=== PATIENT | male | born 1930 | race Caucasian/White ===

== ENCOUNTER → 2017-02-15 | Outpatient (CLI) | payer MEDICARE ==
[~2017-02-15] MED LIST: ACET500C6 PO; ALBU1AER9 INH; AMIO200T4 PO; ATOR-24 PO; CIPR-255 PO; DOCU-94 PO; FINA5TAB PO; HUMALOG INJ; HYDR-3419 PO; INSDGI SC; LEVO125T72 PO; MAGN400T6 PO; METO1TAB55 PO; METO25TA56 PO; METO5TAB25 PO; MULT-106 PO; NVLGI SC; OMEG10007 PO; OXGN; OXYC-57 PO; PHEN-939 PO; SENN-56 PO; SENN-61 PO; SILO8CAP PO; SYMIN160 INH; TERA5CAP PO; TIOTCAP INH; VNTHFA/IN INH; WARF5TAB7 PO; WHEATAB2 PO
[2017-02-15 09:42] LABS: BASO % 0.4 %; BASO ABS # 0.04 K/uL (0-0.2); COMPLETE YES; EOS % 2.8 %; HEMATOCRIT 36.5 % (42-52); IG% 0.5 %; LYMPH ABS # 2.37 K/uL (1.2-3.4); MEAN CELL VOLUME 88.4 fL (80-100); MEAN CORPUSCULAR HEMOGLOBIN 28.3 pg (25-34); MEAN CORPUSCULAR HGB CONC 32.1 g/dl (32-36); MEAN PLATELET VOLUME 10.4 fL (7.4-10.4); MONO % 6.9 %; NEUT % 64.4 %; PLATELET COUNT 221 K/uL (130-400); RED BLOOD COUNT 4.13 M/uL (4.7-6.1); WHITE BLOOD COUNT 9.48 K/uL (4.8-10.8)
[2017-02-15 10:13] LABS: ESTIMATED AVERAGE GLUCOSE 143 mg/dl; HA1C FLAG Normal (Normal)
[2017-02-15 10:45] LABS: ALT/SGPT 27 U/L (12-78); AST/SGOT 21 U/L (15-37); BLOOD UREA NITROGEN 33 mg/dl (7-18); BUN/CREATININE RATIO 21.7 (10-20); CALCIUM 8.8 mg/dl (8.5-10.1); CARBON DIOXIDE 27 mmol/L (21-32); CHLORIDE 102 mmol/L (98-107); GLUCOSE 179 mg/dl (70-99); POTASSIUM 3.9 mmol/L (3.5-5.1); SODIUM 139 mmol/L (136-145)
[2017-02-15 10:57] LABS: CHOLESTEROL 113 mg/dl (0-200); CHOLESTEROL/HDL RATIO 2.5; HDL CHOLESTEROL 46 mg/dl; LDL CHOLESTEROL CALCULATED 46 mg/dl; TRIGLYCERIDES 106 mg/dl (0-150); VERY LOW DENSITY LIPOPROT CALC 21 mg/dl
== END | disposition home or self-care (01) ==
LOC: C.LAB1850 08:25
PROVIDERS: ATTEND Physician Assistant
DX: J84.10 Pulmonary fibrosis, unspecified (principal); E11.3299 Type 2 diabetes mellitus with mild nonproliferative diabetic retinopathy without macular edema, unspecified eye

== ENCOUNTER → 2017-02-18 | Outpatient (CLI) | payer MEDICARE ==
--- NOTE | 2017-02-18 15:53 | DIAGNOSTIC IMAGING REPORT ---
CHEST 2 VIEWS ROUTINE HISTORY: CHRONIC OBSTRUCTIVE PULMONARY DISEASE COMPARISON: Chest 08/13/2015. FINDINGS: The heart remains mildly enlarged. No pleural effusions. No pneumothorax. No new focal lung consolidations. Mild interstitial thickening most pronounced at the left lung base persist. This favors chronic change. No new focal lung consolidations. No evidence for pulmonary edema. Fusion of the mid thoracic spine vertebral bodies. IMPRESSION: No significant change compared to the prior study. No acute process. Electronically signed by: Aristeo Dunn M.D. 02/18/2017 3:52 PM Dictated Date/Time: 02/18/2017 3:48 PM
== END | disposition home or self-care (01) ==
LOC: C.RAD1850 15:28
PROVIDERS: ATTEND Internal Medicine
DX: J44.9 Chronic obstructive pulmonary disease, unspecified (principal)

== ENCOUNTER → 2017-05-24 | Outpatient (CLI) | payer MEDICARE ==
[~2017-05-24] MED LIST changes: -DOCU-94 PO; -HUMALOG INJ; -MAGN400T6 PO; -OXYC-57 PO; -PHEN-939 PO; -VNTHFA/IN INH; -WHEATAB2 PO
[2017-05-24 12:15] LABS: BASO % 0.3 %; BASO ABS # 0.03 K/uL (0-0.2); COMPLETE YES; EOS % 1.9 %; HEMATOCRIT 36.1 % (42-52); IG% 0.6 %; LYMPH % 20.6 %; LYMPH ABS # 2.23 K/uL (1.2-3.4); MEAN CELL VOLUME 89.8 fL (80-100); MEAN CORPUSCULAR HEMOGLOBIN 29.1 pg (25-34); MEAN CORPUSCULAR HGB CONC 32.4 g/dl (32-36); MEAN PLATELET VOLUME 10.3 fL (7.4-10.4); MONO % 7.4 %; NEUT % 69.2 %; PLATELET COUNT 190 K/uL (130-400); RED BLOOD COUNT 4.02 M/uL (4.7-6.1); WHITE BLOOD COUNT 10.84 K/uL (4.8-10.8)
[2017-05-24 12:28] LABS: ALT/SGPT 34 U/L (12-78); BLOOD UREA NITROGEN 29 mg/dl (7-18); BUN/CREATININE RATIO 19.6 (10-20); CALCIUM 9.1 mg/dl (8.5-10.1); CARBON DIOXIDE 30 mmol/L (21-32); CHLORIDE 101 mmol/L (98-107); GLUCOSE 53 mg/dl (70-99); POTASSIUM 3.3 mmol/L (3.5-5.1); SODIUM 140 mmol/L (136-145)
[2017-05-24 12:29] LABS: ESTIMATED AVERAGE GLUCOSE 143 mg/dl; HA1C FLAG Normal (Normal)
[2017-05-24 12:39] LABS: AST/SGOT 31 U/L (15-37)
== END | disposition home or self-care (01) ==
LOC: C.LAB1850 10:15
PROVIDERS: ATTEND Physician Assistant
DX: J84.10 Pulmonary fibrosis, unspecified (principal); E03.9 Hypothyroidism, unspecified; N18.9 Chronic kidney disease, unspecified; E11.22 Type 2 diabetes mellitus with diabetic chronic kidney disease; D64.9 Anemia, unspecified

== ENCOUNTER → 2017-09-28 | Outpatient (CLI) | payer MEDICARE ==
[~2017-09-28] MED LIST changes: -ACET500C6 PO; -ALBU1AER9 INH; -AMIO200T4 PO; +DOCU-94 PO; +HUMALOG INJ; -HYDR-3419 PO; +MAGN400T6 PO; -METO5TAB25 PO; -MULT-106 PO; -NVLGI SC; +OXYC-57 PO; -SENN-56 PO; -SILO8CAP PO; -TERA5CAP PO; -TIOTCAP INH; +VNTHFA/IN INH; +WHEATAB2 PO
[2017-09-28 16:41] LABS: BASO % 0.3 %; BASO ABS # 0.04 K/uL (0-0.2); COMPLETE YES; EOS % 2.7 %; HEMATOCRIT 38.1 % (42-52); IG% 0.5 %; LYMPH % 31.4 %; LYMPH ABS # 3.79 K/uL (1.2-3.4); MEAN CELL VOLUME 89.2 fL (80-100); MEAN CORPUSCULAR HEMOGLOBIN 28.6 pg (25-34); MEAN PLATELET VOLUME 11.4 fL (7.4-10.4); NEUT % 58.1 %; PLATELET COUNT 194 K/uL (130-400); RED BLOOD COUNT 4.27 M/uL (4.7-6.1); WHITE BLOOD COUNT 12.07 K/uL (4.8-10.8)
[2017-09-28 16:52] LABS: BLOOD UREA NITROGEN 35 mg/dl (7-18); BUN/CREATININE RATIO 22.3 (10-20); CALCIUM 9.3 mg/dl (8.5-10.1); CARBON DIOXIDE 30 mmol/L (21-32); CHLORIDE 102 mmol/L (98-107); CREATININE 1.58 mg/dl (0.60-1.40); GLUCOSE 93 mg/dl (70-99); SODIUM 135 mmol/L (136-145)
[2017-09-29 06:40] LABS: ESTIMATED AVERAGE GLUCOSE 146 mg/dl; HA1C FLAG Normal (Normal)
== END | disposition home or self-care (01) ==
LOC: C.LAB1850 15:27
PROVIDERS: ATTEND Internal Medicine
DX: J84.10 Pulmonary fibrosis, unspecified (principal); E03.9 Hypothyroidism, unspecified; E11.9 Type 2 diabetes mellitus without complications; I27.81 Cor pulmonale (chronic)

== ENCOUNTER → 2017-11-18 | Outpatient (CLI) | payer MEDICARE ==
[2017-11-18 12:00] LABS: BASO % 0.4 %; BASO ABS # 0.05 K/uL (0-0.2); EOS % 1.2 %; EOS ABS # 0.14 K/uL (0-0.5); HEMATOCRIT 35.8 % (42-52); HEMOGLOBIN 11.6 g/dL (14.0-18.0); IG# 0.08 K/uL (0.00-0.02); LYMPH % 26.2 %; LYMPH ABS # 2.98 K/uL (1.2-3.4); MEAN CELL VOLUME 89.5 fL (80-100); MEAN CORPUSCULAR HGB CONC 32.4 g/dl (32-36); MEAN PLATELET VOLUME 10.3 fL (7.4-10.4); MONO % 7.7 %; MONO ABS # 0.88 K/uL (0.11-0.59); NEUT % 63.8 %; NEUT ABS # 7.26 K/uL (1.4-6.5); PLATELET COUNT 182 K/uL (130-400); RED CELL DISTRIBUTION WIDTH CV 15.7 % (11.5-14.5); RED CELL DISTRIBUTION WIDTH SD 51.5 fL (36.4-46.3); WHITE BLOOD COUNT 11.39 K/uL (4.8-10.8)
[2017-11-18 12:32] LABS: BLOOD UREA NITROGEN 40 mg/dl (7-18); CALCIUM 8.8 mg/dl (8.5-10.1); CARBON DIOXIDE 27 mmol/L (21-32); CREATININE 1.78 mg/dl (0.60-1.40); GLUCOSE 86 mg/dl (70-99); POTASSIUM 3.7 mmol/L (3.5-5.1); SODIUM 136 mmol/L (136-145)
== END | disposition home or self-care (01) ==
LOC: C.LAB1850 11:10
PROVIDERS: ATTEND Internal Medicine
DX: D64.9 Anemia, unspecified (principal)

== ENCOUNTER 2018-02-10 21:27 | Inpatient (IN) | payer MEDICARE, OTHER ==
[~2018-02-10] VITALS: Ht 177.8 cm; Wt 103.8 kg
[2018-02-10] MEDS: NITROGLYCERIN 2% OINTMENT 30GM TUBE EXT ONE (21:35)
[2018-02-10] MEDS ORDERED: IPRATROPIUM BROMIDE NEB SOLN 0.02% 2.5 ML VIAL INH STA (21:39)
[2018-02-10] MEDS ORDERED: LEVALBUTEROL 1.25MG/0.5ML NEB INH STA (21:39)
--- NOTE | 2018-02-10 21:46 | DIAGNOSTIC IMAGING REPORT ---
CHEST ONE VIEW PORTABLE HISTORY: 88 years-old Male sob acute shortness of breath COMPARISON: Chest radiograph 08/19/2017 TECHNIQUE: Portable AP view of the chest FINDINGS: Cardiac silhouette is again enlarged. Atherosclerosis of the aorta. The lungs are hypoinflated. Pulmonary vascular congestion with background of chronic interstitial lung disease. Trace bilateral pleural effusions with subsegmental bibasilar opacities. No pneumothorax. Mild gaseous distention of the stomach. Degenerative changes of the spine. IMPRESSION: 1. Cardiomegaly with mild pulmonary vascular congestion. 2. Trace bilateral pleural effusions with subsegmental bibasilar opacities suggesting atelectasis. 3. Chronic background interstitial coarsening. The above report was generated using voice recognition software. It may contain grammatical, syntax or spelling errors. Electronically signed by: Vel Santos M.D. 02/10/2018 9:45 PM Dictated Date/Time: 02/10/2018 9:43 PM
[2018-02-10] MEDS ORDERED: FUROSEMIDE 40 MG/4 ML VIAL IV STA (21:49)
[2018-02-10 21:57] VITALS: PULSE 108
[2018-02-10 21:59] VITALS: PULSE 106; O2SAT 97
[2018-02-10 22:26] LABS: BASO % 0.2 %; BASO ABS # 0.03 K/uL (0-0.2); EOS % 0.2 %; EOS ABS # 0.02 K/uL (0-0.5); HEMATOCRIT 35.8 % (42-52); HEMOGLOBIN 11.7 g/dL (14.0-18.0); IG# 0.08 K/uL (0.00-0.02); LYMPH % 11.8 %; LYMPH ABS # 1.44 K/uL (1.2-3.4); MEAN CELL VOLUME 89.7 fL (80-100); MEAN CORPUSCULAR HEMOGLOBIN 29.3 pg (25-34); MEAN CORPUSCULAR HGB CONC 32.7 g/dl (32-36); MEAN PLATELET VOLUME 9.9 fL (7.4-10.4); MONO % 5.2 %; MONO ABS # 0.63 K/uL (0.11-0.59); NEUT % 81.9 %; PLATELET COUNT 155 K/uL (130-400); RED CELL DISTRIBUTION WIDTH CV 15.1 % (11.5-14.5); RED CELL DISTRIBUTION WIDTH SD 49.7 fL (36.4-46.3)
[2018-02-10] MEDS ORDERED: ACETAMINOPHEN 325 MG SUPP PR STA (22:40)
[2018-02-10] MEDS ORDERED: PIPERACILLIN/TAZOBACTAM 4.5 GM/100ML D5W IV STA (22:40)
[2018-02-10 22:41] LABS: ALBUMIN 3.3 gm/dl (3.4-5.0); CALCIUM 8.4 mg/dl (8.5-10.1); CREATININE 1.81 mg/dl (0.60-1.40); POTASSIUM 4.1 mmol/L (3.5-5.1)
[2018-02-10 22:46] LABS: INR 1.9 (0.9-1.1)
[2018-02-10 22:48] LABS: TOTAL PROTEIN 7.2 gm/dl (6.4-8.2)
[2018-02-10 22:53] LABS: PTT PATIENT 92.7 SECONDS (21.0-31.0)
[2018-02-10 23:15] VITALS: PULSE 109; O2SAT 97
[2018-02-10] MEDS ORDERED: MoRPHine SULFATE 2 MG/ML CARP IV PRN (23:45)
[2018-02-10] MEDS ORDERED: GLUCOSE 10 TABS/TUBE PO PRN (23:45)
[2018-02-10] MEDS ORDERED: GLUCAGON FOR INJ 1 MG VIAL SQ PRN (23:45)
[2018-02-10] MEDS ORDERED: DC ALL PREVIOUSLY ORDERED DIABETES MEDS ONE (23:45)
[2018-02-10] MEDS ORDERED: ICU PROTOCOL FOR HYPERGLYCEMIA PRN (23:45)
[2018-02-10] MEDS ORDERED: DEXTROSE 50% 50 ML SYR IV PRN (23:45)
[2018-02-10] MEDS ORDERED: ACETAMINOPHEN 325 MG TAB PO PRN (23:45)
[2018-02-10] MEDS ORDERED: GLUCOSE 40% GEL 15 GM TUBE PO PRN (23:45)
[2018-02-10] MEDS ORDERED: METO5TAB25 PO (23:57)
[2018-02-11] VITALS (29 sets, daily range): BP systolic 104–152; BP diastolic 50–78; PULSE 80–107; TEMP 36.9–37.3; O2SAT 91–97; BMI 35.8
[2018-02-11] MEDS ORDERED: PHARMACY GLYCEMIC MGMT CONSULT PRN
[2018-02-11] MEDS ORDERED: MULT-506 PO
[2018-02-11] MEDS ORDERED: LEVOFLOXACIN / D5W 750 MG in PREMIXED IN D5W 150 ML IV SCH
[2018-02-11] MEDS ORDERED: TERA5CAP PO (00:01)
--- NOTE | 2018-02-11 00:02 | EMERGENCY ROOM VISIT NOTE ---
History Report prepared by Shawn: Mack Finley Under the Supervision of: Dr. Ti Whitley M.D. First contact with patient: 21:30 Chief Complaint: SHORTNESS OF BREATH Stated Complaint: SHORTNESS OF BREATH History of Present Illness The patient is an 88 year old male who presents to the Emergency Room with complaints of worsening SOB beginning a few days ago. Per nurse, the patient has had constant SOB for the past few days that has worsened tonight. She notes that the patient has also had a change in his MS. She reports that the patient received one DuoNeb en route to the emergency department tonight and had an oxygen saturation of 91% on C-pap. She states that the patient has a history of pulmonary fibrosis, CHF, and COPD. Per daughter, the patient did not receive his breathing treatment tonight. HPI limited secondary to mental status and respiratory distress. Source of History: family (daughter), nursing staff History Limited By: other (mental status and respiratory distress) Onset: a few days ago Position: chest Symptom Intensity: 91% on C-pap Quality: other (SOB) Timing: worsening Note: Per nurse, the patient has had change to her mental status. Review of Systems ROS limited secondary to mental status and respiratory distress. Past Medical & Surgical Medical Problems: (1) CHF (congestive heart failure) (2) COPD (chronic obstructive pulmonary disease) (3) Pulmonary fibrosis (4) Shortness of breath (5) Skin cancer Family History Cancer Diabetes mellitus FH: heart disease Hypertension Social History Smoking Status: Former Smoker Marital Status: Occupation Status: retired Current/Historical Medications Scheduled Atorvastatin (Lipitor), 40 MG PO HS Budesonide/Formoterol Fumarate (Symbicort 160/4.5 Inhaler), 2 PUFFS INH BID Docusate Sodium (Colace), 100 MG PO DAILY Finasteride (Proscar), 5 MG PO DAILY Home O2 Therapy (Oxygen), 4 LITER NA HS/PRN Insulin Glargine (Lantus), 45 UNITS SC AMPM Insulin Lispro (Human) (Humalog), 25 UNITS SQ QAM Insulin Lispro (Human) (Humalog), 27 UNITS SQ WITH LUNCH Insulin Lispro (Human) (Humalog), 27 UNITS SQ EVENING MEAL Ipratropium-Albuterol (Duoneb), 3 ML INH QID Levothyroxine Sodium (Synthroid), 125 MCG PO 6XWEEK Magnesium Oxide (Mag-Ox), 400 MG PO BID Metoclopramide Hcl (Reglan), 10 MG PO AC Metolazone (Zaroxolyn), 5 MG PO DAILY Metoprolol Tartrate (Lopressor) (Lopressor), 25 MG PO BID Multivitamin (Multivitamin), 1 TAB PO DAILY Senna (Senokot), 17.2 MG PO HS Spironolactone (Aldactone), 25 MG PO BID Terazosin (Hytrin), 5 MG PO HS Warfarin Sod (Jantoven), 5 MG PO QPM [Benefiber Tabs], 1 TAB PO DAILY Allergies Coded Allergies: No Known Allergies (Unverified , 08/30/17) Physical Exam Vital Signs Date Time Temp Pulse Resp B/P (MAP) Pulse Ox O2 Delivery O2 Flow Rate FiO2 02/10/18 23:15 99 20 90 BiPAP 02/10/18 23:15 109 97 35 02/10/18 23:01 152/83 02/10/18 22:46 162/96 02/10/18 22:45 94 95 BiPAP 02/10/18 22:15 105 32 156/89 96 BiPAP 02/10/18 22:00 104 36 142/69 97 BiPAP 02/10/18 21:59 106 97 60 02/10/18 21:57 108 35 BiPAP/CPAP 60 02/10/18 21:48 96 BiPAP 02/10/18 21:45 110 35 145/80 97 BiPAP 02/10/18 21:36 96 CPAP 02/10/18 21:36 37.9 111 25 145/77 96 BiPAP 02/10/18 21:34 111 02/10/18 21:31 96 BiPAP Physical Exam GENERAL: Patient is in mild distress. HEENT: No acute trauma, normocephalic atraumatic, mucous membranes moist, no nasal congestion, no scleral icterus. NECK: No stridor, no adenopathy, no meningismus, trachea is midline. LUNGS: Decreased breath sounds, breath sounds equal bilaterally, mild respiratory distress, wheezing and crackles bilaterally. HEART: Mildly tachycardic, regular rhythm, distant heart tones, no obvious murmur. ABDOMEN: Soft, nontender, bowel sounds positive, no peritonitis, reducible nontender umbilical hernia. EXTREMITIES: No cyanosis, full range of motion of all the joints without pain or difficulty, no signs for acute trauma, moderate bilateral pedal edema. NEUROLOGIC: Somnolent but awakes to voice, answers simple questions, seems slightly confused, no focal motor deficits. SKIN: No rash, no jaundice, no diaphoresis. Medical Decision & Procedures ER Provider Diagnostic Interpretation: Radiology results as stated below per my review and radiologist interpretation: CHEST ONE VIEW PORTABLE FINDINGS: Cardiac silhouette is again enlarged. Atherosclerosis of the aorta. The lungs are hypoinflated. Pulmonary vascular congestion with background of chronic interstitial lung disease. Trace bilateral pleural effusions with subsegmental bibasilar opacities. No pneumothorax. Mild gaseous distention of the stomach. Degenerative changes of the spine. IMPRESSION: 1. Cardiomegaly with mild pulmonary vascular congestion. 2. Trace bilateral pleural effusions with subsegmental bibasilar opacities suggesting atelectasis. 3. Chronic background interstitial coarsening. The above report was generated using voice recognition software. It may contain grammatical, syntax or spelling errors. Electronically signed by: Vel Santos M.D. 02/10/2018 9:45 PM Laboratory Results 02/10/18 22:13 Red Blood Count 3.99, Mean Corpuscular Volume 89.7, Mean Corpuscular Hemoglobin 29.3, Mean Corpuscular Hemoglobin Concent 32.7, Mean Platelet Volume 9.9, Neutrophils (%) (Auto) 81.9, Lymphocytes (%) (Auto) 11.8, Monocytes (%) (Auto) 5.2, Eosinophils (%) (Auto) 0.2, Basophils (%) (Auto) 0.2, Neutrophils # (Auto) 10.00, Lymphocytes # (Auto) 1.44, Monocytes # (Auto) 0.63, Eosinophils # (Auto) 0.02, Basophils # (Auto) 0.03 Test 02/10/18 21:53 02/10/18 22:05 02/10/18 22:12 02/10/18 22:13 Influenza Type A Antigen Neg for Influ A (NEG) Influenza Type B Antigen Neg for Influ B (NEG) Urine Color YELLOW Urine Appearance CLEAR (CLEAR) Urine pH 5.0 (4.5-7.5) Urine Specific [place] 1.025 (1.000-1.030) Urine Protein NEG (NEG) Urine Glucose (UA) NEG (NEG) Urine Ketones NEG (NEG) Urine Occult Blood TRACE (NEG) Urine Nitrite NEG (NEG) Urine Bilirubin NEG (NEG) Urine Urobilinogen NEG (NEG) Urine Leukocyte Esterase NEG (NEG) Urine WBC (Auto) 1-5 /hpf (0-5) Urine RBC (Auto) 0-4 /hpf (0-4) Urine Hyaline Casts (Auto) 1-5 /lpf (0-5) Urine Epithelial Cells (Auto) 20-30 /lpf (0-5) Urine Bacteria (Auto) NEG (NEG) Prothrombin Time 20.2 SECONDS (9.0-12.0) Prothromb Time International Ratio 1.9 (0.9-1.1) Activated Partial Thromboplast Time 92.7 SECONDS (21.0-31.0) Partial Thromboplastin Ratio 3.6 Procalcitonin 0.09 ng/ml (0-0.5) White Blood Count 12.20 K/uL (4.8-10.8) Red Blood Count 3.99 M/uL (4.7-6.1) Hemoglobin 11.7 g/dL (14.0-18.0) Hematocrit 35.8 % (42-52) Mean Corpuscular Volume 89.7 fL (80-100) Mean Corpuscular Hemoglobin 29.3 pg (25-34) Mean Corpuscular Hemoglobin Concent 32.7 g/dl (32-36) Platelet Count 155 K/uL (130-400) Mean Platelet Volume 9.9 fL (7.4-10.4) Neutrophils (%) (Auto) 81.9 % Lymphocytes (%) (Auto) 11.8 % Monocytes (%) (Auto) 5.2 % Eosinophils (%) (Auto) 0.2 % Basophils (%) (Auto) 0.2 % Neutrophils # (Auto) 10.00 K/uL (1.4-6.5) Lymphocytes # (Auto) 1.44 K/uL (1.2-3.4) Monocytes # (Auto) 0.63 K/uL (0.11-0.59) Eosinophils # (Auto) 0.02 K/uL (0-0.5) Basophils # (Auto) 0.03 K/uL (0-0.2) RDW Standard Deviation 49.7 fL (36.4-46.3) RDW Coefficient of Variation 15.1 % (11.5-14.5) Immature Granulocyte % (Auto) 0.7 % Immature Granulocyte # (Auto) 0.08 K/uL (0.00-0.02) Venous Blood pH 7.29 (7.36-7.41) Venous Blood Partial Pressure CO2 68 mmHg (38.0-50.0) Venous Blood Partial Pressure O2 83 mmHg Venous Blood HCO3 32 mmol/L Venous Blood Oxygen Saturation 93.4 % Venous Blood Base Excess 3.5 mEq/L Est Creatinine Clear Calc Drug Dose 35.8 ml/min Lactic Acid Level 1.0 mmol/L (0.4-2.0) Total Bilirubin 0.5 mg/dl (0.2-1) Aspartate Amino Transf (AST/SGOT) 45 U/L (15-37) Alanine Aminotransferase (ALT/SGPT) 31 U/L (12-78) Alkaline Phosphatase 44 U/L (45-117) Ammonia 25.9 umol/L (11-32) Troponin I 1.300 ng/ml (0-0.045) Pro-B-Type Natriuretic Peptide 366 pg/ml (0-1800) Total Protein 7.2 gm/dl (6.4-8.2) Albumin 3.3 gm/dl (3.4-5.0) Globulin 3.9 gm/dl (2.5-4.0) Albumin/Globulin Ratio 0.8 (0.9-2) Laboratory results reviewed by me. Medications Administered Medications (Trade) Dose Ordered Sig/Yoli Route Start Time Stop Time Status Last Admin Dose Admin Nitroglycerin (Nitroglycerin 2% Oint) 36 inch STK-MED ONCE EXT 02/10/18 21:34 02/10/18 21:35 DC 02/10/18 21:35 36 INCH Levalbuterol (Xopenex 1.25MG/ 0.5ML Neb) 1.25 mg NOW STAT INH 02/10/18 21:39 02/10/18 21:40 DC 02/10/18 21:57 1.25 MG Ipratropium [place] (Atrovent 0.02% 0.5MG/2.5ML Neb) 0.5 mg NOW STAT INH 02/10/18 21:39 02/10/18 21:40 DC 02/10/18 21:56 0.5 MG Furosemide (Lasix Inj) 40 mg NOW STAT IV 02/10/18 21:49 02/10/18 21:50 DC 02/10/18 22:08 40 MG Piperacillin Sod/ Tazobactam Sod (Zosyn Iv) 4.5 gm NOW STAT IV 02/10/18 22:40 02/10/18 22:42 DC 02/10/18 22:47 4.5 GM Acetaminophen (Tylenol Supp) 975 mg NOW STAT SC 02/10/18 22:40 02/10/18 22:42 DC 02/10/18 22:47 975 MG ECG Per My Interpretation Indication: SOB/dyspnea Rate (beats per minute): 113 Rhythm: sinus tachycardia Findings: RBBB, no ectopy, other (Baseline artifact present, no ST elevation) ED Course 2129: The patient was evaluated in room B1. A complete history and physical exam was performed. 2138: Ipratropium [place] 0.5mg INH, Levalbuterol 1.25mg INH, 2 inches of NTG paste. 2148: Furosemide 40mg IV 0: Acetaminophen 975mg SC, Zosyn Iv 5.4gm IV 7: I reevaluated and updated the patient. 0: Upon reexamination the patient is stable. I discussed results and treatment plan with the patient. He verbalizes agreement and understanding. I spoke with Dr. Sheldon of the [facility] Hospitalist Service. We discussed the patient's results and findings. The patient will be evaluated for further management. Medical Decision Differential diagnoses include: CHF, influenza, pneumonia, bronchitis, COPD exacerbation, SD, anemia, electrolyte abnormality, and sepsis. There is a mild leukocytosis at 12,000, this is consistent with infection. No worrisome anemia. Renal panel testing shows renal insufficiency which appears baseline. No hepatitis. INR is elevated consistent with his Coumadin use. Influenza testing was negative. Blood cultures are pending. Urinalysis does not show infection. Chest film shows some basilar congestion consistent with possibly pneumonia, there was no pneumothorax. EKG showed a sinus tachycardia with a rate of 113, no acute ischemic change. Cardiac enzyme testing 1 is elevated consistent with possible cardiac injury or strain. VBG does show CO2 retention with a mild acidosis. Lactic acid level is not elevated making sepsis less likely. Ammonia level is not elevated. The patient presented dyspneic with a change in mental status. He was aggressively managed. He had received a DuoNeb, CPAP and IV Solu-Medrol prior to arrival. Patient was placed on BiPAP. He was given a Xopenex Atrovent neb. He received 2 inches of nitroglycerin paste, 40 mg of IV Lasix, rectal Tylenol, IV Zosyn. The patient is doing well considering his presentation. I did talk with his family about intubation, for now, they want to avoid intubation if at all possible but they have not yet decided on a true CODE STATUS. I did speak with case management, I did speak with the on-call hospitalist. The ICU has been contacted as well. In short, the patient appears to have pneumonia with a flare of COPD, he is retaining CO2, his troponin is elevated. Further workup and care is required. Medication Reconcilliation Current Medication List: was personally reviewed by me Blood Pressure Screening Patient's blood pressure: Normal blood pressure Blood pressure disposition: Elevated BP felt to be situational Consults Time Called: [id number] Consulting Physician: Dr. Sheldon - Hospitalist, [facility] Returned Call: [id number] Discussed the patient's case. The patient will be evaluated for further management. Impression Primary Impression: Respiratory distress Additional Impressions: Pneumonia Change in mental status Elevated troponin CO2 retention Critical Care I have personally spent greater than 45 minutes of critical care time in the direct management of this patient. This includes bedside care, interpretation of diagnostic studies, and testing, discussion with consultants, patient, and family members, and other required patient management activities. This 45 minutes is in excess of all separately billable procedures. Scribe Attestation The scribe's documentation has been prepared under my direction and personally reviewed by me in its entirety. I confirm that the note above accurately reflects all work, treatment, procedures, and medical decision making performed by me. Departure Information Dispostion Being Evaluated By Hospitalist Referrals Marcial Harding M.D. (PCP) Patient Instructions My [facility] Problem Qualifiers
[2018-02-11] MEDS ORDERED: METO25TA56 PO (00:04)
[2018-02-11] MEDS ORDERED: IPRASOL4 INH (00:11)
[2018-02-11] MEDS ORDERED: INSU100I SQ ×3 (00:14→00:17)
[2018-02-11] MEDS ORDERED: LEVOFLOXACIN CONSULT ACTIVE PRN (00:15)
[2018-02-11] MEDS ORDERED: BENEFIBER PO (00:20)
[2018-02-11] MEDS ORDERED: SPIR25TA PO (00:23)
[2018-02-11 00:30] LABS: INFLUENZA B ANTIGEN Neg for Influ B (NEG)
[2018-02-11] MEDS: LEVALBUTEROL 1.25MG/0.5ML NEB INH SCH ×6 (01:11→18:50)
[2018-02-11] MEDS: IPRATROPIUM BROMIDE NEB SOLN 0.02% 2.5 ML VIAL INH SCH ×6 (01:11→18:50)
--- NOTE | 2018-02-11 01:22 | Critical Care Consultation ---
Critical Care Consultation Date of Consultation: Feb 11, 2018. Attending Physician: Uche Sheldon M.D. Reason for Consultation: 88-year-old male with acute on chronic hypoxemic respiratory failure secondary to worsening CHF with superimposed pneumonia process requiring positive pressure ventilation and close hemodynamic monitoring. History of Present Illness Patient is an 88-year-old male with a past medical history of hypertension, diabetes, atrial fibrillation, chronic kidney disease, COPD, pulmonary fibrosis , and cor pulmonale who has had a "cold" for the past 4 days. Per family, the patient reports complaining of a "chest cold" since approximately Wednesday. He describes a increasing cough with mild production of sputum. He does admit to increasing shortness of breath as well as worsening orthopnea and dyspnea on exertion. He does admit to increasing bilateral lower extremity edema. He denies any fevers or chills. He has had no nausea or vomiting. The patient's [id number] did deliver him dinner this evening, but she reported that he seemed fairly sluggish. At that point, she did direct her son to check on his father. When he arrived, the patient was confused and minimally responsive. They did have a family friend evaluate the patient was found to have a blood sugar of 63 in addition to difficulty with breathing. EMS was contacted and the patient was brought via EMS to the emergency department. In route to the emergency department, the patient received 1 DuoNeb treatment and was placed on CPAP with an oxygen saturation in the low 90s. The patient received a nebulizer treatment in the emergency department as well as intravenous Zosyn, 40 mg Lasix, and topical nitroglycerin. He had a mild leukocytosis as well as slight elevation of his creatinine from his baseline CKD. Troponin was elevated at greater than 1. PTT and INR are both elevated as well. Patient does take Coumadin for atrial fibrillation. Chest x-ray demonstrates pulmonary vascular congestion as well as concern for possible basilar infiltrates with chronic interstitial lung findings. On evaluation, the patient is tachypneic, however he is awake, alert, and oriented on BiPAP. He denies any pain at this point. He does not provide detailed historical information secondary to his respiratory distress, however he does provide a significant review of systems. He denies any headaches, dizziness, lightheadedness, fevers, chills, chest pain, palpitations, pleuritic pain, hemoptysis, nausea, vomiting, abdominal pain, hematochezia, melena, hematuria, or dysuria. Patient lives at home alone. He is retired. 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) Cor pulmonale (I27.81) Diffuse idiopathic pulmonary fibrosis (J84.10) Family History Cancer Diabetes mellitus FH: heart disease Hypertension DM, HTN, CA Social History Smoking Status: Former Smoker Smokeless Tobacco Use: Yes Alcohol Use: none Drug Use: none Marital Status: Housing Status: lives alone Occupation Status: retired Allergies Coded Allergies: No Known Allergies (Unverified , 08/30/17) Home Medications Scheduled Atorvastatin (Lipitor), 40 MG PO HS Budesonide/Formoterol Fumarate (Symbicort 160/4.5 Inhaler), 2 PUFFS INH BID Docusate Sodium (Colace), 100 MG PO DAILY Finasteride (Proscar), 5 MG PO DAILY Home O2 Therapy (Oxygen), 4 LITER NA HS/PRN Insulin Glargine (Lantus), 45 UNITS SC AMPM Insulin Lispro (Human) (Humalog), 25 UNITS SQ QAM Insulin Lispro (Human) (Humalog), 27 UNITS SQ WITH LUNCH Insulin Lispro (Human) (Humalog), 27 UNITS SQ EVENING MEAL Ipratropium-Albuterol (Duoneb), 3 ML INH QID Levothyroxine Sodium (Synthroid), 125 MCG PO 6XWEEK Magnesium Oxide (Mag-Ox), 400 MG PO BID Metoclopramide Hcl (Reglan), 10 MG PO AC Metolazone (Zaroxolyn), 5 MG PO DAILY Metoprolol Tartrate (Lopressor) (Lopressor), 25 MG PO BID Multivitamin (Multivitamin), 1 TAB PO DAILY Senna (Senokot), 17.2 MG PO HS Spironolactone (Aldactone), 25 MG PO BID Terazosin (Hytrin), 5 MG PO HS Warfarin Sod (Jantoven), 5 MG PO QPM [Benefiber Tabs], 1 TAB PO DAILY Current Inpatient Medications Current Inpatient Medications Medications (Trade) Dose Ordered Sig/Yoli Route Start Time Stop Time Status Last Admin Dose Admin Acetaminophen (Tylenol Tab) 650 mg Q4H PRN PO 02/10/18 23:45 03/12/18 23:44 Pantoprazole Sodium 40 mg/ Syringe 10 ml @ 5 mls/min DAILY IV 02/11/18 09:00 03/13/18 08:59 Levalbuterol (Xopenex 1.25MG/ 0.5ML Neb) 1.25 mg Q4R INH 02/11/18 00:00 03/13/18 00:00 Ipratropium [place] (Atrovent 0.02% 0.5MG/2.5ML Neb) 0.5 mg Q4R INH 02/11/18 00:00 03/13/18 00:00 Morphine Sulfate (MoRPHine SULFATE INJ) 2 mg Q2H PRN IV 02/10/18 23:45 02/24/18 23:44 Miscellaneous Information (Icu Protocol For Hyperglycemia) 1 ea PRN PRN N/A 02/10/18 23:45 02/12/18 23:44 Insulin Aspart (novoLOG ASPART) SLIDING SCALE If C... ACHS SC 02/11/18 07:00 03/13/18 06:59 UNV Glucose (Glucose 40% Gel) 15-30 GRAMS 15 GRAMS... UD PRN PO 02/10/18 23:45 03/12/18 23:44 Glucose (Glucose Chew Tab) 4-8 Tablets 4 Tabl... UD PRN PO 02/10/18 23:45 03/12/18 23:44 Dextrose (Dextrose 50% 50ML Syringe) 25-50ML OF 50% DW IV FOR... UD PRN IV 02/10/18 23:45 03/12/18 23:44 Glucagon (Glucagon Inj) 1 mg UD PRN SQ 02/10/18 23:45 03/12/18 23:44 Miscellaneous Information (Consult Glycemic Management Pharmacy) 1 ea DAILY PRN N/A 02/11/18 00:00 03/13/18 00:00 Levofloxacin 750 mg/Prmx 150 ml @ 100 mls/hr Q48H IV 02/11/18 00:00 02/18/18 00:00 02/11/18 00:23 100 MLS/HR Levofloxacin (Consult) 1 ea UD PRN N/A 02/11/18 00:15 03/13/18 00:14 Atorvastatin Calcium (Lipitor Tab) 40 mg HS PO 02/11/18 21:00 03/13/18 20:59 Budesonide/ Formoterol Fumarate (Symbicort 160/ 4.5 Inh) 2 puffs BID INH 02/11/18 09:00 03/13/18 08:59 Docusate Sodium (coLACE CAP) 100 mg DAILY PO 02/11/18 09:00 03/13/18 08:59 UNV Finasteride (Proscar Tab) 5 mg DAILY PO 02/11/18 09:00 03/13/18 08:59 UNV Magnesium Oxide (Mag-Ox Tab) 400 mg BID PO 02/11/18 09:00 03/13/18 08:59 UNV Metoclopramide HCl (Reglan Tab) 10 mg AC PO 02/11/18 06:45 03/13/18 06:44 UNV Metoprolol Tartrate (Lopressor Tab) 25 mg BID PO 02/11/18 09:00 03/13/18 08:59 UNV Multivitamins (Multivitamin Tab) 1 tab DAILY PO 02/11/18 09:00 03/13/18 08:59 UNV Senna (Senokot Tab) 17.2 mg HS PO 02/11/18 21:00 03/13/18 20:59 UNV Terazosin HCl (Hytrin Cap) 5 mg HS PO 02/11/18 21:00 03/13/18 20:59 UNV Warfarin Sodium (Coumadin Tab) 5 mg QPM PO 02/11/18 21:00 03/13/18 20:59 UNV Review of Systems A complete 10-point Review of Systems was discussed with the patient, with pertinent positives and negatives listed in the History of Present Illness. All remaining Review of Systems questions can be considered negative unless otherwise specified. Physical Exam Date Time Temp Pulse Resp B/P (MAP) Pulse Ox O2 Delivery O2 Flow Rate FiO2 02/11/18 00:24 107 91 35 02/11/18 00:05 37.1 98 34 117/67 91 BiPAP 35 02/10/18 23:46 122/61 02/10/18 23:45 95 22 02/10/18 23:31 130/74 02/10/18 23:16 138/83 02/10/18 23:15 99 20 90 BiPAP 02/10/18 23:15 109 97 35 02/10/18 23:01 152/83 02/10/18 22:46 162/96 02/10/18 22:45 94 95 BiPAP 02/10/18 22:15 105 32 156/89 96 BiPAP 02/10/18 22:00 104 36 142/69 97 BiPAP 02/10/18 21:59 106 97 60 02/10/18 21:57 108 35 BiPAP/CPAP 60 02/10/18 21:48 96 BiPAP 02/10/18 21:45 110 35 145/80 97 BiPAP 02/10/18 21:36 96 CPAP 02/10/18 21:36 37.9 111 25 145/77 96 BiPAP 02/10/18 21:34 111 02/10/18 21:31 96 BiPAP VITAL SIGNS - Vital signs and nursing notes were reviewed. GENERAL - 88-year-old male appearing his stated age who is in mild respiratory distress. Communicates in short answers, but is appropriate otherwise. SKIN - Without rashes. HEAD - NC/AT. EYES - PERRL with EOMI bilaterally. Sclera anicteric. EARS - No deformities of external structures noted on gross examination bilaterally. NOSE - Midline and without cyanosis. No epistaxis or purulent drainage noted. MOUTH/OROPHARYNX - Without perioral cyanosis. Buccal mucosa pink and moist and without leukoplakia. NECK - Neck with FROM. Supple to palpation. LUNGS - Tachypneic. Chest wall symmetric with moderate accessory muscle use and abdominal breathing. Coarse breath sounds with inspiratory wheezing noted throughout all lung [place]. CARDIAC - RRR with S1/S2. No murmur, rubs, or gallops appreciated. ABDOMEN - Abdominal contour protuberant with reducible ventral hernia near the umbilicus. BS normoactive all four quadrants. No tenderness, hepatosplenomegaly , or ascites noted. EXTREMITIES - No clubbing or peripheral cyanosis. No pretibial edema present. +3 /5 radial and dorsalis pedis pulses palpated throughout. +5/5 strength noted in UE/LE bilaterally. NEUROLOGIC - Cranial nerves II through XII grossly intact. PSYCH - A&Ox3 and cooperates fully with examiner. Pt is very pleasant and interacts well with examiner. Laboratory Results Last 24 Hours Test 02/10/18 21:53 02/10/18 22:05 02/10/18 22:12 02/10/18 22:13 Influenza Type A Antigen Neg for Influ A Influenza Type B Antigen Neg for Influ B Urine Color YELLOW Urine Appearance CLEAR Urine pH 5.0 Urine Specific [place] 1.025 Urine Protein NEG Urine Glucose (UA) NEG Urine Ketones NEG Urine Occult Blood TRACE Urine Nitrite NEG Urine Bilirubin NEG Urine Urobilinogen NEG Urine Leukocyte Esterase NEG Urine WBC (Auto) 1-5 /hpf Urine RBC (Auto) 0-4 /hpf Urine Hyaline Casts (Auto) 1-5 /lpf Urine Epithelial Cells (Auto) 20-30 /lpf Urine Bacteria (Auto) NEG Prothrombin Time 20.2 SECONDS Prothromb Time International Ratio 1.9 Activated Partial Thromboplast Time 92.7 SECONDS Partial Thromboplastin Ratio 3.6 Procalcitonin 0.09 ng/ml White Blood Count 12.20 K/uL Red Blood Count 3.99 M/uL Hemoglobin 11.7 g/dL Hematocrit 35.8 % Mean Corpuscular Volume 89.7 fL Mean Corpuscular Hemoglobin 29.3 pg Mean Corpuscular Hemoglobin Concent 32.7 g/dl Platelet Count 155 K/uL Mean Platelet Volume 9.9 fL Neutrophils (%) (Auto) 81.9 % Lymphocytes (%) (Auto) 11.8 % Monocytes (%) (Auto) 5.2 % Eosinophils (%) (Auto) 0.2 % Basophils (%) (Auto) 0.2 % Neutrophils # (Auto) 10.00 K/uL Lymphocytes # (Auto) 1.44 K/uL Monocytes # (Auto) 0.63 K/uL Eosinophils # (Auto) 0.02 K/uL Basophils # (Auto) 0.03 K/uL RDW Standard Deviation 49.7 fL RDW Coefficient of Variation 15.1 % Immature Granulocyte % (Auto) 0.7 % Immature Granulocyte # (Auto) 0.08 K/uL Venous Blood pH 7.29 Venous Blood Partial Pressure CO2 68 mmHg Venous Blood Partial Pressure O2 83 mmHg Venous Blood HCO3 32 mmol/L Venous Blood Oxygen Saturation 93.4 % Venous Blood Base Excess 3.5 mEq/L Sodium Level 134 mmol/L Potassium Level 4.1 mmol/L Chloride Level 97 mmol/L Carbon Dioxide Level 30 mmol/L Anion Gap 7.0 mmol/L Blood Urea Nitrogen 40 mg/dl Creatinine 1.81 mg/dl Est Creatinine Clear Calc Drug Dose 35.8 ml/min Estimated GFR () 38.1 Estimated GFR (Non- 32.9 BUN/Creatinine Ratio 22.3 Random Glucose 84 mg/dl Lactic Acid Level 1.0 mmol/L Calcium Level 8.4 mg/dl Magnesium Level 2.4 mg/dl Total Bilirubin 0.5 mg/dl Aspartate Amino Transf (AST/SGOT) 45 U/L Alanine Aminotransferase (ALT/SGPT) 31 U/L Alkaline Phosphatase 44 U/L Ammonia 25.9 umol/L Troponin I 1.300 ng/ml Pro-B-Type Natriuretic Peptide 366 pg/ml Total Protein 7.2 gm/dl Albumin 3.3 gm/dl Globulin 3.9 gm/dl Albumin/Globulin Ratio 0.8 Test 02/11/18 00:36 02/11/18 00:48 Bedside Glucose 185 mg/dl Diagnostic Results Radiological imaging and reports were reviewed by myself. Radiologist's Interpretation as follows: CHEST ONE VIEW PORTABLE HISTORY: 88 years-old Male sob acute shortness of breath COMPARISON: Chest radiograph 08/19/2017 TECHNIQUE: Portable AP view of the chest FINDINGS: Cardiac silhouette is again enlarged. Atherosclerosis of the aorta. The lungs are hypoinflated. Pulmonary vascular congestion with background of chronic interstitial lung disease. Trace bilateral pleural effusions with subsegmental bibasilar opacities. No pneumothorax. Mild gaseous distention of the stomach. Degenerative changes of the spine. IMPRESSION: 1. Cardiomegaly with mild pulmonary vascular congestion. 2. Trace bilateral pleural effusions with subsegmental bibasilar opacities suggesting atelectasis. 3. Chronic background interstitial coarsening. Assessment & Plan (1) Cor pulmonale (2) Respiratory distress (3) Pneumonia (4) Elevated troponin (5) Change in mental status (6) Pulmonary fibrosis (7) CHF (congestive heart failure) (8) COPD (chronic obstructive pulmonary disease) Reason Critically Ill: 88-year-old male with acute on chronic hypoxemic respiratory failure secondary to worsening CHF with superimposed pneumonia process requiring positive pressure ventilation and close hemodynamic monitoring. Neuro - * CAM ICU: NEGATIVE * Altered Mental Status: * Likely 2/2 respiratory distress/hypoxia/CO2 narcosis. * Currently mentating well. * Avoid sedating medications in the acute hypercapnic state. Cardiac - * Elevated Troponin: * In the setting of respiratory distress/hypoxia/CHF/PNA - possible demand ischemia. * EKG: Sinus Tach @113 bpm w/o ST/Twave changes. * QTc: 485ms - will avoid QTc prolonging mediations until repeat AM EKG. * Will add AM Echo for acute CHF w/ bumped trop and h/o cor pulmonale. * Will hold on Heparin at this point given the patient's elevated PTT. * CHF: * Initially received 40mg IV Lasix w/ great diuresis. * Will add 20mg IV BID initially while attempting to diurese down. * Nitropaste q6h while BP tolerates. * BiPAP for positive pressure ventilation. * A. Fib: * Continue home Rx as tolerated. * Cor Pulmonale: * 2/2 Pulmonary Fibrosis. * Continue w/ Diuresis at this point. Respiratory - * Acute on Chronic Hypoxic Respiratory Failure w/ Hypercapnia: * Multifactorial - i.e. Acute CHF, Pulmonary Fibrosis, PNA, COPD. * Patient currently tolerating BiPAP well at 15/5. * Aggressive pulmonary toilet - Nebs/Steroids/Bed Modulator * Will diurese off excess fluid and repeat AM CXR for evaluation of ?? underlying PNA. * Regardless, patient in COPD exacerbation at the least as well. * Will trend ABGs. * Antibiotics - See ID * Patient is a DO NOT INTUBATE GI - * Prophylaxis - Protonix * NPO while using BiPAP RENAL/LYTES - * CKD: * BUN/Cr appear baseline from recent outpt labs. * Hold on IVF while diuresing. - * h/o BPH. * Perez in place. 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 Progress to gtt per protocol. * Hypothyroidism: * Levothyroxine 6 days/wk. * Will check TSH/Free T4 HEME - * Stable H&H. * Currently on Coumadin for A. Fib. * Therapeutic INR. * PTT elevated - will monitor. ID - * COPD exacerbation with ??PNA: * Agree with Zosyn for added pseudomonal coverage in the patient with chronic lung disease. * Received initial dose of Levaquin. Ideally, would like to continue with this for dual pseudomonal coverage as well as coverage for atypicals, however patient does have a QTc of 485 which will require close monitoring for administration of this antibiotic. Per pharmacy consult, based on pt's CKD, he would receive dosing q48hrs. * Patient w/o recent hospitalization who lives at home. Do not see the need for Vancomycin at this point. * Will add ProCal to trend * Will recheck Lactate LINES/IV ACCESS - * PIVs intact * Perez Catheter DVT PROPHYLAXIS - * Coumadin I have personally spent 60 minutes of critical care time in the direct management of this patient. This is a life/limb threatening event. This includes time spent evaluating patient, direct bedside care, chart review, placing orders, interpretation of diagnostic studies, discussion with consultants, patient, and family members, as well as other required patient management activities. This time is exclusive of all separately billable procedures, and teaching time and separate from and in addition to any other critical care service time. Thank you for this consultation allow us to be part of this patient's care. Please refer to my attending physician's documentation for any further recommendations. Attending addendum, The patient was seen and examined independently, chart reviewed with the staff on rounds. Agree with assessment and plan of my colleagues at [facility]. In summary, the patient is 88 years old gentleman with history of COPD, interstitial lung disease, pulmonary asbestosis, presented to the hospital with increasing shortness of breath requiring BiPAP. The patient had mild acute on chronic hypercapnic respiratory failure with hypoxia. The patient was treated empirically for pneumonia and started on broad-spectrum antibiotics in addition to steroids. The patient is DNI. The patient over the day course, was changed to high flow heated oxygen and tolerated well. The patient is less tachypneic as he did before. He was tested positive with a troponin that was rising. We will continue with the current regimen, the patient as I discussed with him he does not want to be intubated, his physical exam revealed elderly gentleman, does not have respiratory distress on the high flow however he continued to have rhonchi right greater than left, S1-S2 regular rate and rhythm with occasional PVCs, abdomen is benign, edema in the periphery noted. Cardiology consult given the fact patient has non-ST elevation FL, the patient has a history of A. fib appears to be paroxysmal currently on Coumadin, will continue with Zosyn. Keep in mind, the #1 cause for mortality in patients who had chronic interstitial disease is acute FL. Will repeat echocardiogram. Case discussed with the staff and details, agree with above. Critical care time spent with the patient was 45 minutes.
[2018-02-11 01:24] LABS: CALCIUM 8.6 mg/dl (8.5-10.1); CREATININE 1.98 mg/dl (0.60-1.40); POTASSIUM 4.1 mmol/L (3.5-5.1)
--- NOTE | 2018-02-11 01:47 | History and Physical ---
History & Physical Date & Time of Service: 02/10/18 4352 Chief Complaint: Shortness Of Breath Primary Care Physician: Marcial Harding M.D. History of Present Illness Source: patient This history is obtained per ED staff and medical records as the patient is not responding to questioning He is an 88 year old male with a PMH of CHF, COPD, Pulmonary fibrosis who presented to [facility] due to worsening shortness of breath. His shortness of breath started a few days ago and worsening on 02/10 in the evening. His daughter notes that he also had a change in his MS. En route to the ED he had an O2 of 91% on cpap. He was given a Duoneb and IV solumedrol prior to arrival. In the ED his vitals showed a HR of 113. His labs showed a WCC of 12, Hgb of 11.7, trop of 1.3, creat of 1.8, Na of 134 and PCo2 of 50 w/ a acidosis. He had an INR of 1.9 and a PTT of 92.7. He had a CXR which showed cardiomegaly with pulmonary vascular congestion. In the ED he was placed on BiPaP. He was given a xopenex atrovent neb, 2 inches of nitroglycerin, 40mg of lasix, rectal tylenol and IV zosyn. The case was discussed with the ICU staff who agreed to further management of the patient. Past Medical/Surgical History Medical Problems: (1) CHF (congestive heart failure) (2) COPD (chronic obstructive pulmonary disease) (3) Pulmonary fibrosis (4) Shortness of breath (5) Skin cancer Family History Cancer Diabetes mellitus FH: heart disease Hypertension Social History Smoking Status: Former Smoker Smokeless Tobacco Use: No Alcohol Use: none Drug Use: none Marital Status: Occupational Status: retired Immunizations History of Influenza Vaccine: N/A History of Tetanus Vaccine?: No History of Pneumococcal: Yes Pneumococcal Date: Mar 27, 2010 History of Hepatitis B Vaccine: No Allergies Coded Allergies: No Known Allergies (Unverified , 08/30/17) Home Medications Scheduled Atorvastatin (Lipitor), 40 MG PO HS Budesonide/Formoterol Fumarate (Symbicort 160/4.5 Inhaler), 2 PUFFS INH BID Docusate Sodium (Colace), 100 MG PO DAILY Finasteride (Proscar), 5 MG PO DAILY Home O2 Therapy (Oxygen), 4 LITER NA HS/PRN Insulin Glargine (Lantus), 45 UNITS SC AMPM Insulin Lispro (Human) (Humalog), 25 UNITS SQ QAM Insulin Lispro (Human) (Humalog), 27 UNITS SQ WITH LUNCH Insulin Lispro (Human) (Humalog), 27 UNITS SQ EVENING MEAL Ipratropium-Albuterol (Duoneb), 3 ML INH QID Levothyroxine Sodium (Synthroid), 125 MCG PO 6XWEEK Magnesium Oxide (Mag-Ox), 400 MG PO BID Metoclopramide Hcl (Reglan), 10 MG PO AC Metolazone (Zaroxolyn), 5 MG PO DAILY Metoprolol Tartrate (Lopressor) (Lopressor), 25 MG PO BID Multivitamin (Multivitamin), 1 TAB PO DAILY Senna (Senokot), 17.2 MG PO HS Spironolactone (Aldactone), 25 MG PO BID Terazosin (Hytrin), 5 MG PO HS Warfarin Sod (Jantoven), 5 MG PO QPM [Benefiber Tabs], 1 TAB PO DAILY Review of Systems unable to obtain ROS due to patient mental status Physical Exam Vital Signs Date Time Temp Pulse Resp B/P (MAP) Pulse Ox O2 Delivery O2 Flow Rate FiO2 02/11/18 01:11 96 34 94 BiPAP/CPAP 35 02/11/18 01:11 96 94 34.0 35 02/11/18 00:24 107 91 35 02/11/18 00:05 37.1 98 34 117/67 91 BiPAP 35 02/10/18 23:46 122/61 02/10/18 23:45 95 22 02/10/18 23:31 130/74 02/10/18 23:16 138/83 02/10/18 23:15 99 20 90 BiPAP 02/10/18 23:15 109 97 35 02/10/18 23:01 152/83 02/10/18 22:46 162/96 02/10/18 22:45 94 95 BiPAP 02/10/18 22:15 105 32 156/89 96 BiPAP 02/10/18 22:00 104 36 142/69 97 BiPAP 02/10/18 21:59 106 97 60 02/10/18 21:57 108 35 BiPAP/CPAP 60 02/10/18 21:48 96 BiPAP 02/10/18 21:45 110 35 145/80 97 BiPAP 02/10/18 21:36 96 CPAP 02/10/18 21:36 37.9 111 25 145/77 96 BiPAP 02/10/18 21:34 111 02/10/18 21:31 96 BiPAP General Appearance: WD/WN, + mild distress, + pertinent finding (On BiPaP) Head: normocephalic, atraumatic ENT: pharynx normal Neck: supple, no carotid bruits, trachea midline, + pertinent finding (unable to assess JVD) Respiratory/Chest: chest non-tender, + decreased breath sounds (bilateral), + crackles (bilateral), + wheezing (bilateral) Cardiovascular: normal peripheral pulses, + pertinent finding (tachycardia, distant heart sounds and no obvious murmurs) Abdomen/GI: normal bowel sounds, non tender, soft, + distended Extremities/Musculoskelatal: no calf tenderness, + pedal edema (+2 to the knee bilaterally) Neurologic/Psych: + disoriented Skin: normal color, warm/dry, no rash Diagnostics Laboratory Results Results Past 24 Hours Test 02/10/18 21:53 02/10/18 22:05 02/10/18 22:12 02/10/18 22:13 Range/Units Influenza Type A Antigen Neg for Influ A NEG Influenza Type B Antigen Neg for Influ B NEG Urine Color YELLOW Urine Appearance CLEAR CLEAR Urine pH 5.0 4.5-7.5 Urine Specific [place] 1.025 1.000-1.030 Urine Protein NEG NEG Urine Glucose (UA) NEG NEG Urine Ketones NEG NEG Urine Occult Blood TRACE NEG Urine Nitrite NEG NEG Urine Bilirubin NEG NEG Urine Urobilinogen NEG NEG Urine Leukocyte Esterase NEG NEG Urine WBC (Auto) 1-5 0-5 /hpf Urine RBC (Auto) 0-4 0-4 /hpf Urine Hyaline Casts (Auto) 1-5 0-5 /lpf Urine Epithelial Cells (Auto) 20-30 0-5 /lpf Urine Bacteria (Auto) NEG NEG Prothrombin Time 20.2 9.0-12.0 SECONDS Prothromb Time International Ratio 1.9 0.9-1.1 Activated Partial Thromboplast Time 92.7 21.0-31.0 SECONDS Partial Thromboplastin Ratio 3.6 Procalcitonin 0.09 0-0.5 ng/ml White Blood Count 12.20 4.8-10.8 K/uL Red Blood Count 3.99 4.7-6.1 M/uL Hemoglobin 11.7 14.0-18.0 g/dL Hematocrit 35.8 42-52 % Mean Corpuscular Volume 89.7 80-100 fL Mean Corpuscular Hemoglobin 29.3 25-34 pg Mean Corpuscular Hemoglobin Concent 32.7 32-36 g/dl Platelet Count 155 130-400 K/uL Mean Platelet Volume 9.9 7.4-10.4 fL Neutrophils (%) (Auto) 81.9 % Lymphocytes (%) (Auto) 11.8 % Monocytes (%) (Auto) 5.2 % Eosinophils (%) (Auto) 0.2 % Basophils (%) (Auto) 0.2 % Neutrophils # (Auto) 10.00 1.4-6.5 K/uL Lymphocytes # (Auto) 1.44 1.2-3.4 K/uL Monocytes # (Auto) 0.63 0.11-0.59 K/uL Eosinophils # (Auto) 0.02 0-0.5 K/uL Basophils # (Auto) 0.03 0-0.2 K/uL RDW Standard Deviation 49.7 36.4-46.3 fL RDW Coefficient of Variation 15.1 11.5-14.5 % Immature Granulocyte % (Auto) 0.7 % Immature Granulocyte # (Auto) 0.08 0.00-0.02 K/uL Venous Blood pH 7.29 7.36-7.41 Venous Blood Partial Pressure CO2 68 38.0-50.0 mmHg Venous Blood Partial Pressure O2 83 mmHg Venous Blood HCO3 32 mmol/L Venous Blood Oxygen Saturation 93.4 % Venous Blood Base Excess 3.5 mEq/L Sodium Level 134 136-145 mmol/L Potassium Level 4.1 3.5-5.1 mmol/L Chloride Level 97 98-107 mmol/L Carbon Dioxide Level 30 21-32 mmol/L Anion Gap 7.0 3-11 mmol/L Blood Urea Nitrogen 40 7-18 mg/dl Creatinine 1.81 0.60-1.40 mg/dl Est Creatinine Clear Calc Drug Dose 35.8 ml/min Estimated GFR () 38.1 Estimated GFR (Non- 32.9 BUN/Creatinine Ratio 22.3 10-20 Random Glucose 84 70-99 mg/dl Lactic Acid Level 1.0 0.4-2.0 mmol/L Calcium Level 8.4 8.5-10.1 mg/dl Magnesium Level 2.4 1.8-2.4 mg/dl Total Bilirubin 0.5 0.2-1 mg/dl Aspartate Amino Transf (AST/SGOT) 45 15-37 U/L Alanine Aminotransferase (ALT/SGPT) 31 12-78 U/L Alkaline Phosphatase 44 45-117 U/L Ammonia 25.9 11-32 umol/L Troponin I 1.300 0-0.045 ng/ml Pro-B-Type Natriuretic Peptide 366 0-1800 pg/ml Total Protein 7.2 6.4-8.2 gm/dl Albumin 3.3 3.4-5.0 gm/dl Globulin 3.9 2.5-4.0 gm/dl Albumin/Globulin Ratio 0.8 0.9-2 Test 02/11/18 00:36 02/11/18 00:48 02/11/18 00:55 02/11/18 01:10 Range/Units Bedside Glucose 185 70-99 mg/dl Sodium Level 132 136-145 mmol/L Potassium Level 4.1 3.5-5.1 mmol/L Chloride Level 96 98-107 mmol/L Carbon Dioxide Level 31 21-32 mmol/L Anion Gap 5.0 3-11 mmol/L Blood Urea Nitrogen 43 7-18 mg/dl Creatinine 1.98 0.60-1.40 mg/dl Est Creatinine Clear Calc Drug Dose 33.1 ml/min Estimated GFR () 34.2 Estimated GFR (Non- 29.5 BUN/Creatinine Ratio 21.9 10-20 Random Glucose 157 70-99 mg/dl Calcium Level 8.6 8.5-10.1 mg/dl Magnesium Level 2.3 1.8-2.4 mg/dl Blood Gas Sample Site L Radial R Radial Bedside Blood Gas pH (LAB) 7.44 7.32 7.35-7.45 Bedside Blood Gas pCO2 (LAB) 50 63 35-46 mmHg Bedside Blood Gas pO2 (LAB) 41 79 80-95 mmHg Bedside Blood Gas HCO3 (LAB) 34 32 19-24 meq/L Bedside Blood Gas Total CO2 35 34 24-31 mEq/l Bedside Blood Gas Base Excess (LAB) 10.0 6.0 -9-1.8 meq/L Bedside Blood Gas O2 Saturation 76.0 94.0 90-95 % Umair Test Pass Pass Oxygen Delivery Device BIPAP BIPAP Bedside Oxygen Rate (breaths/min) 12 12 Bedside FiO2 35 35 % Blood Gas IPAP 15 15 Microbiology Results 02/10/18 Blood Culture, Received Pending 02/10/18 Blood Culture, Received Pending 02/10/18 MRSA DNA Surveillance Screen, Received Pending 02/10/18 Gram Stain, Received Pending 02/10/18 Sputum Culture, Received Pending Diagnostic Radiology CXR IMPRESSION: 1. Cardiomegaly with mild pulmonary vascular congestion. 2. Trace bilateral pleural effusions with subsegmental bibasilar opacities suggesting atelectasis. 3. Chronic background interstitial coarsening. EKG Rate (beats per minute): 113 Rhythm: sinus tachycardia Findings: RBBB, no ectopy, other (Baseline artifact present, no ST elevation) Impression Assessment and Plan Eddie Alex is an 88 year old male here with worsening Shortness of breath due to CHF vs COPD exacerbation Shortness of breath secondary to CHF vs COPD exacerbation - Atrovent, xopenex and symbicort nebs - IV solumedrol 40mg q6 - IV levaquin, ICU to switch due to prolonged QT - BiPaP with serial ABG's to monitor acidosis - Lasix 40mg IV - Echo ordered for the AM SHERRI on CKD stage 3 - creatinine elevated, likely pre-renal secondary to CHF - continue to monitor I/Os and renal function Elevated trop - likely secondary to demand mismatch, patient without CP according to hospital records - continue to trend Atrial fibrillation - continue metoprolol - INR 1.9 - continue warfarin HLD - continue statin BPH - continue terazosin and finasteride Hypothyroidism - continue levothyroxine DM - hold home insulin and place on ISS GERD - continue PPI DVT prophylaxis - on coumadin Full Code without mechanical ventilation Attending addendum: I have physically seen this patient, have supervised the medical residents activities, and agree with the H&P unless as otherwise noted. Assessment and Plan: Acute respiratory failure with hypoxia/CHF/COPD exacerbation-- The patient will be admitted to ICU. Acute CHF/NSTEMI/atrial fibrillation-- Check serial cardiac enzymes, serial EKG's, cardiac rhythm monitoring and a 2- D echocardiogram with Dopplers. Lasix 40 mg IV every morning. Continue metoprolol and warfarin. Follow serial BMP, magnesium levels and PT/INR. COPD exacerbation-- levofloxacin 500 mg IV every 24 hours Duonebs every 4 hours while awake and every 2 hours when necessary. Solu-Medrol 40 mg IV every 8 hours Guaifenesin extended release 600 mg by mouth twice a day Nasal cannula oxygen titrate to keep pulse ox greater than or equal to 92% Sputum Gram stain and culture. Remaining orders as above. Advanced Directives Existing Advance Directive: Yes Existing Living Will: Yes Existing Power of Photographer Assistant: Yes Resuscitation Status VTE Prophylaxis Will order VTE Prophylaxis: Yes Reason for no VTE drug order: Contraindicated Reason no Mechanical VTE Order: Contraindicated
[2018-02-11] MEDS: METHYLPREDNISOLONE IV 40 MG in SYRINGE 0 ML IV SCH ×4 (02:04→20:16)
[2018-02-11 03:26] LABS: BASO % 0.2 %; BASO ABS # 0.02 K/uL (0-0.2); HEMATOCRIT 34.4 % (42-52); HEMOGLOBIN 11.2 g/dL (14.0-18.0); IG# 0.07 K/uL (0.00-0.02); LYMPH % 8.9 %; LYMPH ABS # 1.13 K/uL (1.2-3.4); MEAN CELL VOLUME 89.6 fL (80-100); MEAN CORPUSCULAR HEMOGLOBIN 29.2 pg (25-34); MEAN CORPUSCULAR HGB CONC 32.6 g/dl (32-36); MEAN PLATELET VOLUME 9.9 fL (7.4-10.4); MONO % 1.5 %; MONO ABS # 0.19 K/uL (0.11-0.59); NEUT % 88.8 %; NEUT ABS # 11.26 K/uL (1.4-6.5); PLATELET COUNT 148 K/uL (130-400); RED CELL DISTRIBUTION WIDTH CV 15.2 % (11.5-14.5); RED CELL DISTRIBUTION WIDTH SD 49.3 fL (36.4-46.3); WHITE BLOOD COUNT 12.67 K/uL (4.8-10.8)
[2018-02-11 03:34] LABS: INR 2.1 (0.9-1.1); PTT PATIENT 38.7 SECONDS (21.0-31.0)
[2018-02-11 03:43] LABS: CALCIUM 8.2 mg/dl (8.5-10.1); CREATININE 1.87 mg/dl (0.60-1.40); POTASSIUM 3.9 mmol/L (3.5-5.1)
[2018-02-11] MEDS ORDERED: INSULIN GLARGINE SOLOSTAR 100 UNITS/ML 3 ML PEN SC STA (03:59)
[2018-02-11] MEDS ORDERED: INSULIN ASPART 100 UNITS/ML 3 ML PEN SC SCH ×5 (04:00→12:00)
[2018-02-11 04:02] LABS: CKMB 21.8 ng/ml (0.5-3.6); PHOSPHORUS 5.1 mg/dl (2.5-4.9)
[2018-02-11] MEDS: NITROGLYCERIN 2% OINTMENT 30GM TUBE EXT SCH ×4 (04:13→23:33)
[2018-02-11] MEDS ORDERED: PIPERACILL/TAZOBAC CONSULT ACTIVE PRN (04:30)
[2018-02-11] MEDS ORDERED: PIPERACILL/TAZOBAC IV 4.5 GM in DEXTROSE 5% 100ML 100 ML IV SCH (04:30)
[2018-02-11] MEDS ORDERED: PIPERACILL/TAZOBAC IV 4.5 GM in NSS 100 ML IV ONE (05:00)
[2018-02-11] MEDS: LEVOTHYROXINE 125 MCG TAB PO SCH (05:32)
[2018-02-11 06:11] LABS: HEMOGLOBIN A1C 6.2 % (4.5-5.6)
[2018-02-11] MEDS: METOCLOPRAMIDE HCL 10 MG TAB PO SCH ×3 (06:27→16:12)
[2018-02-11] MEDS ORDERED: NURSING VERBAL MED ORDER ONE (06:30)
[2018-02-11] MEDS ORDERED: INSULIN GLARGINE SOLOSTAR 100 UNITS/ML 3 ML PEN SC ONE ×2 (06:45)
[2018-02-11] MEDS ORDERED: INSULIN ASPART 100 UNITS/ML 3 ML PEN SC ONE (07:00)
--- NOTE | 2018-02-11 07:19 | DIAGNOSTIC IMAGING REPORT ---
CHEST ONE VIEW PORTABLE CLINICAL HISTORY: Is a breath, congestive failure, pneumonia. COMPARISON STUDY: 02/10/2018 FINDINGS: The heart remains enlarged. There is persistent pulmonary vascular congestion. Underlying chronic lung disease is suspected.[ There is no acute parenchymal consolidation. IMPRESSION: Cardiomegaly and radiographic evidence of mild congestive failure/fluid overload. Underlying chronic lung disease is suspected. Electronically signed by: Shashi Alvarado M.D. 02/11/2018 7:18 AM Dictated Date/Time: 02/11/2018 7:17 AM
[2018-02-11] MEDS ORDERED: INSULIN IV INFUSION PROTOCOL STA (08:37)
[2018-02-11] MEDS ORDERED: SEVERE STRESS LEVEL ONE (08:45)
[2018-02-11] MEDS ORDERED: INSULIN PROTOCOL GOAL RANGE ONE (08:45)
--- NOTE | 2018-02-11 09:00 | Family Medicine Progress Note ---
Progress Note Date of Service Feb 11, 2018. PLEASE NOTE: Pt admitted on 02/10/2018 at 2315 Subjective Pt evaluation today including: conversation w/ patient Patient was opening his eyes to voice, nodded his head when I asked if he was feeling ok. otherwise on BiPAP and not communicating. Was very somnolent for nursing this AM. Remains in ICU. Additional Comments: Unable to obtain ROS Medications Current Inpatient Medications Medications (Trade) Dose Ordered Sig/Yoli Route Start Time Stop Time Status Last Admin Dose Admin Acetaminophen (Tylenol Tab) 650 mg Q4H PRN PO 02/10/18 23:45 03/12/18 23:44 Pantoprazole Sodium 40 mg/ Syringe 10 ml @ 5 mls/min DAILY IV 02/11/18 09:00 03/13/18 08:59 Levalbuterol (Xopenex 1.25MG/ 0.5ML Neb) 1.25 mg Q4R INH 02/11/18 00:00 03/13/18 00:00 02/11/18 07:08 1.25 MG Ipratropium [place] (Atrovent 0.02% 0.5MG/2.5ML Neb) 0.5 mg Q4R INH 02/11/18 00:00 03/13/18 00:00 02/11/18 07:08 0.5 MG Morphine Sulfate (MoRPHine SULFATE INJ) 2 mg Q2H PRN IV 02/10/18 23:45 02/24/18 23:44 Glucose (Glucose 40% Gel) 15-30 GRAMS 15 GRAMS... UD PRN PO 02/10/18 23:45 03/12/18 23:44 Glucose (Glucose Chew Tab) 4-8 Tablets 4 Tabl... UD PRN PO 02/10/18 23:45 03/12/18 23:44 Dextrose (Dextrose 50% 50ML Syringe) 25-50ML OF 50% DW IV FOR... UD PRN IV 02/10/18 23:45 03/12/18 23:44 Glucagon (Glucagon Inj) 1 mg UD PRN SQ 02/10/18 23:45 03/12/18 23:44 Miscellaneous Information (Consult Glycemic Management Pharmacy) 1 ea DAILY PRN N/A 02/11/18 00:00 03/13/18 00:00 Atorvastatin Calcium (Lipitor Tab) 40 mg HS PO 02/11/18 21:00 03/13/18 20:59 Budesonide/ Formoterol Fumarate (Symbicort 160/ 4.5 Inh) 2 puffs BID INH 02/11/18 09:00 03/13/18 08:59 Docusate Sodium (coLACE CAP) 100 mg DAILY PO 02/11/18 09:00 03/13/18 08:59 Finasteride (Proscar Tab) 5 mg DAILY PO 02/11/18 09:00 03/13/18 08:59 Magnesium Oxide (Mag-Ox Tab) 400 mg BID PO 02/11/18 09:00 03/13/18 08:59 Metoclopramide HCl (Reglan Tab) 10 mg AC PO 02/11/18 06:45 03/13/18 06:44 02/11/18 06:27 10 MG Metoprolol Tartrate (Lopressor Tab) 25 mg BID PO 02/11/18 09:00 03/13/18 08:59 Multivitamins (Multivitamin Tab) 1 tab DAILY PO 02/11/18 09:00 03/13/18 08:59 Senna (Senokot Tab) 17.2 mg HS PO 02/11/18 21:00 03/13/18 20:59 Terazosin HCl (Hytrin Cap) 5 mg HS PO 02/11/18 21:00 03/13/18 20:59 Warfarin Sodium (Coumadin Tab) 5 mg DAILY@1600 PO 02/11/18 16:00 03/13/18 15:59 Levothyroxine Sodium (Synthroid Tab) 125 mcg DAILYBB PO 02/11/18 06:00 03/13/18 05:59 02/11/18 05:32 125 MCG Methylprednisolone Sodium Succinate 40 mg/Syringe 0.64 ml @ 1.5 mls/min Q6H IV 02/11/18 02:00 03/13/18 01:59 02/11/18 08:11 1.5 MLS/MIN Furosemide 20 mg/ Syringe 2 ml @ 4 mls/min BID IV 02/11/18 09:00 03/13/18 08:59 Nitroglycerin (Nitroglycerin 2% Oint) 1 inch Q6H EXT 02/11/18 04:00 03/13/18 03:59 02/11/18 04:13 1 INCH Miscellaneous Information (Consult) 1 ea UD PRN N/A 02/11/18 04:30 03/13/18 04:29 Piperacillin Sod/ Tazobactam Sod 4.5 gm/Sodium Chloride 120 ml @ 30 mls/hr Q8H IV 02/11/18 10:00 02/18/18 09:59 Insulin Aspart (novoLOG ASPART) SLIDING SCALE HS FL 02/11/18 12:00 03/13/18 11:59 Objective Vital Signs Date Time Temp Pulse Resp B/P (MAP) Pulse Ox O2 Delivery O2 Flow Rate FiO2 02/11/18 07:09 91 94 35 02/11/18 07:08 92 29 92 BiPAP/CPAP 35 02/11/18 06:03 87 26 126/50 (75) 93 BiPAP 35 02/11/18 04:53 96 93 35 02/11/18 04:06 96 93 35 02/11/18 04:00 37.2 94 30 132/57 (82) 95 BiPAP 35 02/11/18 04:00 BiPAP 35 02/11/18 03:55 99 26 92 Nasal Cannula 4.0 02/11/18 02:00 98 26 152/78 (102) 97 BiPAP 35 02/11/18 01:11 96 34 94 BiPAP/CPAP 35 02/11/18 01:11 96 94 35 02/11/18 00:24 107 91 35 02/11/18 00:05 37.1 98 34 117/67 91 BiPAP 35 02/10/18 23:46 122/61 02/10/18 23:45 95 22 02/10/18 23:31 130/74 02/10/18 23:16 138/83 02/10/18 23:15 99 20 90 BiPAP 02/10/18 23:15 109 97 35 02/10/18 23:01 152/83 02/10/18 22:46 162/96 02/10/18 22:45 94 95 BiPAP 02/10/18 22:15 105 32 156/89 96 BiPAP 02/10/18 22:00 104 36 142/69 97 BiPAP 02/10/18 21:59 106 97 60 02/10/18 21:57 108 35 BiPAP/CPAP 60 02/10/18 21:48 96 BiPAP 02/10/18 21:45 110 35 145/80 97 BiPAP 02/10/18 21:36 96 CPAP 02/10/18 21:36 37.9 111 25 145/77 96 BiPAP 02/10/18 21:34 111 02/10/18 21:31 96 BiPAP Physical Exam General Appearance: WD/WN, + mild distress Eyes: normal inspection, PERRL ENT: hearing grossly normal Neck: supple, no JVD Respiratory/Chest: + accessory muscle use, + rhonchi (diffuse) Cardiovascular: regular rate, rhythm, no murmur Abdomen: non tender, soft Extremities: non-tender, no pedal edema Neurologic/Psychiatric: + pertinent finding (unable to assess) Laboratory Results CXR IMPRESSION: Cardiomegaly and radiographic evidence of mild congestive failure/fluid overload. Underlying chronic lung disease is suspected. Last 24 Hours Test 02/10/18 21:53 02/10/18 22:05 02/10/18 22:12 02/10/18 22:13 Influenza Type A Antigen Neg for Influ A Influenza Type B Antigen Neg for Influ B Urine Color YELLOW Urine Appearance CLEAR Urine pH 5.0 Urine Specific [place] 1.025 Urine Protein NEG Urine Glucose (UA) NEG Urine Ketones NEG Urine Occult Blood TRACE Urine Nitrite NEG Urine Bilirubin NEG Urine Urobilinogen NEG Urine Leukocyte Esterase NEG Urine WBC (Auto) 1-5 /hpf Urine RBC (Auto) 0-4 /hpf Urine Hyaline Casts (Auto) 1-5 /lpf Urine Epithelial Cells (Auto) 20-30 /lpf Urine Bacteria (Auto) NEG Prothrombin Time 20.2 SECONDS Prothromb Time International Ratio 1.9 Activated Partial Thromboplast Time 92.7 SECONDS Partial Thromboplastin Ratio 3.6 Procalcitonin 0.09 ng/ml White Blood Count 12.20 K/uL Red Blood Count 3.99 M/uL Hemoglobin 11.7 g/dL Hematocrit 35.8 % Mean Corpuscular Volume 89.7 fL Mean Corpuscular Hemoglobin 29.3 pg Mean Corpuscular Hemoglobin Concent 32.7 g/dl Platelet Count 155 K/uL Mean Platelet Volume 9.9 fL Neutrophils (%) (Auto) 81.9 % Lymphocytes (%) (Auto) 11.8 % Monocytes (%) (Auto) 5.2 % Eosinophils (%) (Auto) 0.2 % Basophils (%) (Auto) 0.2 % Neutrophils # (Auto) 10.00 K/uL Lymphocytes # (Auto) 1.44 K/uL Monocytes # (Auto) 0.63 K/uL Eosinophils # (Auto) 0.02 K/uL Basophils # (Auto) 0.03 K/uL RDW Standard Deviation 49.7 fL RDW Coefficient of Variation 15.1 % Immature Granulocyte % (Auto) 0.7 % Immature Granulocyte # (Auto) 0.08 K/uL Venous Blood pH 7.29 Venous Blood Partial Pressure CO2 68 mmHg Venous Blood Partial Pressure O2 83 mmHg Venous Blood HCO3 32 mmol/L Venous Blood Oxygen Saturation 93.4 % Venous Blood Base Excess 3.5 mEq/L Sodium Level 134 mmol/L Potassium Level 4.1 mmol/L Chloride Level 97 mmol/L Carbon Dioxide Level 30 mmol/L Anion Gap 7.0 mmol/L Blood Urea Nitrogen 40 mg/dl Creatinine 1.81 mg/dl Est Creatinine Clear Calc Drug Dose 35.8 ml/min Estimated GFR () 38.1 Estimated GFR (Non- 32.9 BUN/Creatinine Ratio 22.3 Random Glucose 84 mg/dl Lactic Acid Level 1.0 mmol/L Calcium Level 8.4 mg/dl Magnesium Level 2.4 mg/dl Total Bilirubin 0.5 mg/dl Aspartate Amino Transf (AST/SGOT) 45 U/L Alanine Aminotransferase (ALT/SGPT) 31 U/L Alkaline Phosphatase 44 U/L Ammonia 25.9 umol/L Troponin I 1.300 ng/ml Pro-B-Type Natriuretic Peptide 366 pg/ml Total Protein 7.2 gm/dl Albumin 3.3 gm/dl Globulin 3.9 gm/dl Albumin/Globulin Ratio 0.8 Test 02/11/18 00:36 02/11/18 00:48 02/11/18 00:55 02/11/18 01:10 Bedside Glucose 185 mg/dl Sodium Level 132 mmol/L Potassium Level 4.1 mmol/L Chloride Level 96 mmol/L Carbon Dioxide Level 31 mmol/L Anion Gap 5.0 mmol/L Blood Urea Nitrogen 43 mg/dl Creatinine 1.98 mg/dl Est Creatinine Clear Calc Drug Dose 33.1 ml/min Estimated GFR () 34.2 Estimated GFR (Non- 29.5 BUN/Creatinine Ratio 21.9 Random Glucose 157 mg/dl Calcium Level 8.6 mg/dl Magnesium Level 2.3 mg/dl Blood Gas Sample Site L Radial R Radial Bedside Blood Gas pH (LAB) 7.44 7.32 Bedside Blood Gas pCO2 (LAB) 50 mmHg 63 mmHg Bedside Blood Gas pO2 (LAB) 41 mmHg 79 mmHg Bedside Blood Gas HCO3 (LAB) 34 meq/L 32 meq/L Bedside Blood Gas Total CO2 35 mEq/l 34 mEq/l Bedside Blood Gas Base Excess (LAB) 10.0 meq/L 6.0 meq/L Bedside Blood Gas O2 Saturation 76.0 % 94.0 % Umair Test Pass Pass Oxygen Delivery Device BIPAP BIPAP Bedside Oxygen Rate (breaths/min) 12 12 Bedside FiO2 35 % 35 % Blood Gas IPAP 15 15 Test 02/11/18 03:16 02/11/18 04:04 02/11/18 06:29 White Blood Count 12.67 K/uL Red Blood Count 3.84 M/uL Hemoglobin 11.2 g/dL Hematocrit 34.4 % Mean Corpuscular Volume 89.6 fL Mean Corpuscular Hemoglobin 29.2 pg Mean Corpuscular Hemoglobin Concent 32.6 g/dl Platelet Count 148 K/uL Mean Platelet Volume 9.9 fL Neutrophils (%) (Auto) 88.8 % Lymphocytes (%) (Auto) 8.9 % Monocytes (%) (Auto) 1.5 % Eosinophils (%) (Auto) 0.0 % Basophils (%) (Auto) 0.2 % Neutrophils # (Auto) 11.26 K/uL Lymphocytes # (Auto) 1.13 K/uL Monocytes # (Auto) 0.19 K/uL Eosinophils # (Auto) 0.00 K/uL Basophils # (Auto) 0.02 K/uL RDW Standard Deviation 49.3 fL RDW Coefficient of Variation 15.2 % Immature Granulocyte % (Auto) 0.6 % Immature Granulocyte # (Auto) 0.07 K/uL Prothrombin Time 21.4 SECONDS Prothromb Time International Ratio 2.1 Activated Partial Thromboplast Time 38.7 SECONDS Partial Thromboplastin Ratio 1.5 Sodium Level 131 mmol/L Potassium Level 3.9 mmol/L Chloride Level 96 mmol/L Carbon Dioxide Level 30 mmol/L Anion Gap 5.0 mmol/L Blood Urea Nitrogen 43 mg/dl Creatinine 1.87 mg/dl Est Creatinine Clear Calc Drug Dose 35.1 ml/min Estimated GFR () 36.6 Estimated GFR (Non- 31.6 BUN/Creatinine Ratio 23.1 Random Glucose 216 mg/dl Estimated Average Glucose 131 mg/dl Hemoglobin A1c 6.2 % Lactic Acid Level 1.0 mmol/L Calcium Level 8.2 mg/dl Phosphorus Level 5.1 mg/dl Magnesium Level 2.2 mg/dl Total Creatine Kinase 826 U/L Creatine Kinase MB 21.8 ng/ml Creatine Kinase MB Ratio 2.6 Troponin I 4.180 ng/ml Thyroid Stimulating Hormone (TSH) 0.550 uIu/ml Free Thyroxine 1.11 ng/dl Bedside Glucose 237 mg/dl 269 mg/dl Assessment and Plan 88 yo M, acute hypoxic respiratory failure, tolerating BiPAP - ddx CHF vs COPD vs Pneumonia Acute on chronic hypoxic respiratory failure - Continue BiPAP as tolerated. Pt is not for intubation. - Continue Solumedrol IV 40mg q6h for presumed COPD exacerbation, as well as regular nebulizers (Atrovent, Xopenex, Symbicort) - Was placed on IV Levaquin q48h (due to prolonged QTc) - Received Lasix 40mg IV overnight, will continue to monitor I&Os and reassess - Echo ordered for AM Acute kidney injury in setting of CKD stage 3 - Baseline Cr around 1.6 over last few years, eGFR has been 30-40 - Cr today 1.87. Continue to monitor. - I&Os Troponin elevation - Increased to 4 from 1 on arrival - Denies chest pain at this time. Monitor EKG/tele, trend troponin Atrial fibrillation - continue metoprolol - INR 2.1 - continue warfarin Hyperlipidemia - continue statin BPH - continue terazosin and finasteride Hypothyroidism - continue levothyroxine DM - Home insulin regime on hold - On insulin sliding scale, latest BSGs 187-267 GERD - continue PPI DVT prophylaxis - Coumadin Full Code without mechanical ventilation Dispo: Remains in ICU Resident Physician Supervision Note: I interviewed and examined the patient. Discussed with Dr. Bergman and agree with findings and plan as documented in the note. Any exceptions or clarifications are listed here: None Documented By: Mohsen Garsia feeling better but not great yet but definitely better than when he came in coarse wheeze/rhonchi, no accessory muscles, vitals noted nad breathing unlabored no pallor or icterus mixed cause respiratory failure - w acute infection overlying a lot of chronic lung disease - continue treatment as above, appears slowly improving
[2018-02-11] MEDS: PANTOprazole INJ 40 MG in SYRINGE 0 ML IV SCH (09:15)
[2018-02-11] MEDS: FINASTERIDE 5 MG TAB PO SCH (09:15)
[2018-02-11] MEDS: FUROSEMIDE INJ 20 MG in SYRINGE 0 ML IV SCH ×2 (09:15→20:16)
[2018-02-11] MEDS: MULTIVITAMIN TAB PO SCH (09:15)
[2018-02-11] MEDS: BUDESONIDE/FORMOTEROL FUMARATE 160/4.5 60 PUFFS/INHALER INH SCH ×2 (09:16→20:16)
[2018-02-11] MEDS: DOCUSATE SODIUM 100 MG CAP PO SCH (09:16)
[2018-02-11] MEDS: METOPROLOL TARTRATE 25 MG TAB PO SCH ×2 (09:16→20:18)
[2018-02-11] MEDS: MAGNESIUM OXIDE 400 MG TAB PO SCH ×2 (09:35→20:18)
[2018-02-11] MEDS ORDERED: NovoLIN R BOLUS FROM BAG IV ONE (09:45)
[2018-02-11] MEDS: INSULIN REGULAR 250 UNITS in SODIUM CHLORIDE 0.9% 250ML 250 ML IV SCH (09:50)
[2018-02-11] MEDS: PIPERACILL/TAZOBAC IV 4.5 GM in NSS 100 ML IV SCH ×2 (10:10→18:10)
--- NOTE | 2018-02-11 11:21 | Pharmacy Progress Note ---
Glycemic Control Intl Consult Date of Service Feb 11, 2018. Scope Glycemic Pharmacist consulted by Benja TANG on 02/11/18 for glycemic control and to write orders per [facility] inpatient glycemic control protocol Objective Weight (Kilograms): 113.200 Accuchecks BSG (last 24hrs): Test 02/10/18 22:13 02/11/18 00:36 02/11/18 00:48 02/11/18 03:16 Random Glucose 84 mg/dl (70-99) 157 mg/dl (70-99) 216 mg/dl (70-99) Bedside Glucose 185 mg/dl (70-99) Test 02/11/18 04:04 02/11/18 06:29 02/11/18 08:55 Bedside Glucose 237 mg/dl (70-99) 269 mg/dl (70-99) 252 mg/dl (70-99) Laboratory Data (last 24hrs) Test 02/10/18 22:13 02/11/18 00:48 02/11/18 03:16 02/11/18 11:07 Anion Gap 7.0 mmol/L 5.0 mmol/L 5.0 mmol/L BUN/Creatinine Ratio 22.3 21.9 23.1 Blood Urea Nitrogen 40 mg/dl 43 mg/dl 43 mg/dl Creatinine 1.81 mg/dl 1.98 mg/dl 1.87 mg/dl Potassium Level 4.1 mmol/L 4.1 mmol/L 3.9 mmol/L Sodium Level 134 mmol/L 132 mmol/L 131 mmol/L White Blood Count 12.20 K/uL 12.67 K/uL Red Blood Count 3.99 M/uL 3.84 M/uL Hemoglobin 11.7 g/dL 11.2 g/dL Hematocrit 35.8 % 34.4 % Mean Corpuscular Volume 89.7 fL 89.6 fL Mean Corpuscular Hemoglobin 29.3 pg 29.2 pg Mean Corpuscular Hemoglobin Concent 32.7 g/dl 32.6 g/dl Platelet Count 155 K/uL 148 K/uL Mean Platelet Volume 9.9 fL 9.9 fL Neutrophils (%) (Auto) 81.9 % 88.8 % Lymphocytes (%) (Auto) 11.8 % 8.9 % Monocytes (%) (Auto) 5.2 % 1.5 % Eosinophils (%) (Auto) 0.2 % 0.0 % Basophils (%) (Auto) 0.2 % 0.2 % Neutrophils # (Auto) 10.00 K/uL 11.26 K/uL Lymphocytes # (Auto) 1.44 K/uL 1.13 K/uL Monocytes # (Auto) 0.63 K/uL 0.19 K/uL Eosinophils # (Auto) 0.02 K/uL 0.00 K/uL Basophils # (Auto) 0.03 K/uL 0.02 K/uL Hemoglobin A1c 6.2 % HbA1c Test 02/11/18 03:16 Hemoglobin A1c 6.2 % (4.5-5.6) H Recent Pertinent Medications Outpatient Anti-diabetic Regimen: * Lantus 45 units BID * Humalog 25 units w/ breakfast + 27 units w/ lunch and dinner * ~169 units/day * A1c = 6.2 % 02/11/18 The patient is currently receiving: * Basal insulin: Lantus 20 units SQ x 1 given this AM * Correctional Insulin: Novolog Correction per scale ACHS Goal Range: Low 110 mg/dL - High 180 mg/dL Correction Factor: 20 mg/dL/unit * Prandial insulin: Per carb ratio of 1 unit per 7 grams CHO consumed * Oral Agents: Risk Factors for Insulin Resistance: * Steroids: Solu-Medrol 40mg IV Q 6 hours * Infection: Zosyn IV for COPD exac, underlying structural lung dz * Recent Surgery: possible need for cardiac cath? * Diet: NPO * Mechanical Ventilation: No, currently receiving Hi Flow O2 50% Assessment & Plan ASSESSMENT: 02/11/18 * Well controlled type 2 diabetic admitted secondary to acute on chronic resp failure, possible ACS, possible COPD exac * BSGs quickly sugey with the administration of IV Solu-Medrol * Patient had received 20 units of Lantus this AM followed by an additional 35 units. Pt was also given 3 + 11 units of Novolog correction this AM as well, however despite these doses BSGs continued to climb reaching a max of 269 this AM. * Given the BSG pattern and severity of illness, potential infxn, potential ACS , will initiate IV insulin infusion per severe stress protocol as this will achieve our glycemic targets more quickly and safely than a SQ regimen PLAN FOR INPATIENT GLYCEMIC CONTROL: * Starting IV insulin infusion per severe stress protocol * Goal Range 120 - 180 mg/dl * In the critical care setting, continuous IV insulin infusion has been shown to be the best method for achieving glycemic targets. * If permitted to eat later today, would cover carbs with a CR of 1 unit per 3gm CHO consumed * Holding outpatient oral diabetes medications * Basal insulin with LANTUS 25 units SQ BID (~55% of out-pt dose) to be given while on the insulin drip to allow for easier transition to SQ in the future. This lower dose was selected due to NPO status today. * Please note that the plan above was derived based on current level of insulin resistance and hospital stress. These recommendations are appropriate for inpatient admission only. Plan of care upon discharge will need to be reassessed to avoid potential outpatient hypo/hyperglycemia. Thank you.
[2018-02-11 11:48] LABS: CKMB 21.6 ng/ml (0.5-3.6)
[2018-02-11 11:50] LABS: POTASSIUM 3.3 mmol/L (3.5-5.1)
[2018-02-11] MEDS: INSULIN ASPART 100 UNITS/ML 3 ML PEN SC SCH ×3 (12:00→20:20)
--- NOTE | 2018-02-11 15:38 | Cardiology Consultation ---
Cardiology Consultation Date of Consultation: Feb 11, 2018. Requesting Physician: Dr. Polo Attending Physician: Dr. Sheldon Reason for Consultation: NSTEMI Pt evaluation today including: conversation w/ patient, physical exam, chart review, lab review, review of studies, conversation w/ attending History of Present Illness 88-year-old male presents with reported history of a "cold" beginning around WednesdayFebruary 07. Medical history is per the chart as the patient states this morning that he was unaware of what had brought him into the hospital or recent events leading to this hospitalization. Apparently he was complaining of a chest cold with increasing cough and production of sputum as well as some shortness of breath, orthopnea, and dyspnea on exertion. The evening of admission he was found to be confused and minimally responsive. In the emergency department he was found to be in acute on chronic hypoxic respiratory failure with hypercapnia to 68. Patient also has a history of COPD, pulmonary fibrosis, cor pulmonale, prior diastolic congestive heart failure, as well as multiple other medical issues. Cardiology was consulted due to his rising troponin. This morning patient was found to be on high flow nasal cannula oxygen. He was awake and alert, aware of his location the date but not exactly why he was in the hospital. He answers questions with one-word or nodding but did not volunteer any information. He stated that he had no current chest pain and that his shortness of breath was perhaps a little improved. Denied any pain in general. 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 Patient is not answering full sentences at this point to ask directly. Family History Cancer Diabetes mellitus FH: heart disease Hypertension Social History Smoking Status: Former Smoker History of Alcohol Use: No Review of Systems Respiratory: + shortness of breath Cardiac: No chest pain Abdomen: No pain Unable to obtain full ROS due to current mild respiratory distress. Allergies Coded Allergies: No Known Allergies (Unverified , 08/30/17) Medications Current Inpatient Medications Medications (Trade) Dose Ordered Sig/Yoli Route Start Time Stop Time Status Last Admin Dose Admin Acetaminophen (Tylenol Tab) 650 mg Q4H PRN PO 02/10/18 23:45 03/12/18 23:44 Pantoprazole Sodium 40 mg/ Syringe 10 ml @ 5 mls/min DAILY IV 02/11/18 09:00 03/13/18 08:59 02/11/18 09:15 5 MLS/MIN Levalbuterol (Xopenex 1.25MG/ 0.5ML Neb) 1.25 mg Q4R INH 02/11/18 00:00 03/13/18 00:00 02/11/18 07:08 1.25 MG Ipratropium [place] (Atrovent 0.02% 0.5MG/2.5ML Neb) 0.5 mg Q4R INH 02/11/18 00:00 03/13/18 00:00 02/11/18 07:08 0.5 MG Morphine Sulfate (MoRPHine SULFATE INJ) 2 mg Q2H PRN IV 02/10/18 23:45 02/24/18 23:44 Glucose (Glucose 40% Gel) 15-30 GRAMS 15 GRAMS... UD PRN PO 02/10/18 23:45 03/12/18 23:44 Glucose (Glucose Chew Tab) 4-8 Tablets 4 Tabl... UD PRN PO 02/10/18 23:45 03/12/18 23:44 Dextrose (Dextrose 50% 50ML Syringe) 25-50ML OF 50% DW IV FOR... UD PRN IV 02/10/18 23:45 03/12/18 23:44 Glucagon (Glucagon Inj) 1 mg UD PRN SQ 02/10/18 23:45 03/12/18 23:44 Miscellaneous Information (Consult Glycemic Management Pharmacy) 1 ea DAILY PRN N/A 02/11/18 00:00 03/13/18 00:00 Atorvastatin Calcium (Lipitor Tab) 40 mg HS PO 02/11/18 21:00 03/13/18 20:59 Budesonide/ Formoterol Fumarate (Symbicort 160/ 4.5 Inh) 2 puffs BID INH 02/11/18 09:00 03/13/18 08:59 02/11/18 09:16 2 PUFFS Docusate Sodium (coLACE CAP) 100 mg DAILY PO 02/11/18 09:00 03/13/18 08:59 02/11/18 09:16 100 MG Finasteride (Proscar Tab) 5 mg DAILY PO 02/11/18 09:00 03/13/18 08:59 02/11/18 09:15 5 MG Magnesium Oxide (Mag-Ox Tab) 400 mg BID PO 02/11/18 09:00 03/13/18 08:59 02/11/18 09:35 400 MG Metoclopramide HCl (Reglan Tab) 10 mg AC PO 02/11/18 06:45 03/13/18 06:44 02/11/18 06:27 10 MG Metoprolol Tartrate (Lopressor Tab) 25 mg BID PO 02/11/18 09:00 03/13/18 08:59 02/11/18 09:16 25 MG Multivitamins (Multivitamin Tab) 1 tab DAILY PO 02/11/18 09:00 03/13/18 08:59 02/11/18 09:15 1 TAB Senna (Senokot Tab) 17.2 mg HS PO 02/11/18 21:00 03/13/18 20:59 Terazosin HCl (Hytrin Cap) 5 mg HS PO 02/11/18 21:00 03/13/18 20:59 Warfarin Sodium (Coumadin Tab) 5 mg DAILY@1600 PO 02/11/18 16:00 03/13/18 15:59 Levothyroxine Sodium (Synthroid Tab) 125 mcg DAILYBB PO 02/11/18 06:00 03/13/18 05:59 02/11/18 05:32 125 MCG Methylprednisolone Sodium Succinate 40 mg/Syringe 0.64 ml @ 1.5 mls/min Q6H IV 02/11/18 02:00 03/13/18 01:59 02/11/18 08:11 1.5 MLS/MIN Furosemide 20 mg/ Syringe 2 ml @ 4 mls/min BID IV 02/11/18 09:00 03/13/18 08:59 02/11/18 09:15 4 MLS/MIN Nitroglycerin (Nitroglycerin 2% Oint) 1 inch Q6H EXT 02/11/18 04:00 03/13/18 03:59 02/11/18 10:10 1 INCH Miscellaneous Information (Consult) 1 ea UD PRN N/A 02/11/18 04:30 03/13/18 04:29 Piperacillin Sod/ Tazobactam Sod 4.5 gm/Sodium Chloride 120 ml @ 30 mls/hr Q8H IV 02/11/18 10:00 02/18/18 09:59 02/11/18 10:10 30 MLS/HR Insulin Human Regular 250 units/ Sodium Chloride 252.5 ml @ 0 mls/hr Q24H IV 02/11/18 09:45 03/13/18 09:44 02/11/18 09:50 4.2 MLS/HR Insulin Aspart (novoLOG ASPART) [facility] 02/11/18 12:00 03/13/18 11:59 Physical Exam Vital Signs Past 12 Hours Date Time Temp Pulse Resp B/P (MAP) Pulse Ox O2 Delivery O2 Flow Rate FiO2 02/11/18 10:00 81 31 125/55 (78) 94 High Flow Oxygen 50.0 40 02/11/18 09:54 82 30 93 Nasal Cannula 50.0 40 02/11/18 08:00 37.3 80 30 121/51 (74) 95 BiPAP 35 02/11/18 08:00 BiPAP 35 02/11/18 07:09 91 94 35 02/11/18 07:08 92 29 92 BiPAP/CPAP 35 02/11/18 06:03 87 26 126/50 (75) 93 BiPAP 35 02/11/18 04:53 96 93 35 02/11/18 04:06 96 93 35 02/11/18 04:00 37.2 94 30 132/57 (82) 95 BiPAP 35 02/11/18 04:00 BiPAP 35 02/11/18 03:55 99 26 92 Nasal Cannula 4.0 02/11/18 02:00 98 26 152/78 (102) 97 BiPAP 35 02/11/18 01:11 96 34 94 BiPAP/CPAP 35 02/11/18 01:11 96 94 35 02/11/18 00:24 107 91 35 02/11/18 00:05 37.1 98 34 117/67 91 BiPAP 35 02/10/18 23:46 122/61 02/10/18 23:45 95 22 4/19/18 23:31 130/74 02/10/18 23:16 138/83 02/10/18 23:15 99 20 90 BiPAP 02/10/18 23:15 109 97 35 02/10/18 23:01 152/83 02/10/18 22:46 162/96 General Appearance: Awake, alert, knows date and location but not history of why he is here, answering some brief questions with single word answers, appears in mild respiratory distress. Respiratory/Chest: Nasal cannula high flow oxygen in place. Coarse breath sounds throughout with some expiratory wheezing. Cardiovascular: +S1S2 RRR, no murmur. Abdomen: +BS, soft, non-tender, reducible large ventral (? umbilical) hernia. Extremities: non-tender, no pedal or pre-tibial edema Neurologic/Psychiatric: See "general appearance" above. Data Laboratory Results: Last 24 Hours Test 02/10/18 21:53 02/10/18 22:05 02/10/18 22:12 02/10/18 22:13 Influenza Type A Antigen Neg for Influ A Influenza Type B Antigen Neg for Influ B Urine Color YELLOW Urine Appearance CLEAR Urine pH 5.0 Urine Specific [place] 1.025 Urine Protein NEG Urine Glucose (UA) NEG Urine Ketones NEG Urine Occult Blood TRACE Urine Nitrite NEG Urine Bilirubin NEG Urine Urobilinogen NEG Urine Leukocyte Esterase NEG Urine WBC (Auto) 1-5 /hpf Urine RBC (Auto) 0-4 /hpf Urine Hyaline Casts (Auto) 1-5 /lpf Urine Epithelial Cells (Auto) 20-30 /lpf Urine Bacteria (Auto) NEG Prothrombin Time 20.2 SECONDS Prothromb Time International Ratio 1.9 Activated Partial Thromboplast Time 92.7 SECONDS Partial Thromboplastin Ratio 3.6 Procalcitonin 0.09 ng/ml White Blood Count 12.20 K/uL Red Blood Count 3.99 M/uL Hemoglobin 11.7 g/dL Hematocrit 35.8 % Mean Corpuscular Volume 89.7 fL Mean Corpuscular Hemoglobin 29.3 pg Mean Corpuscular Hemoglobin Concent 32.7 g/dl Platelet Count 155 K/uL Mean Platelet Volume 9.9 fL Neutrophils (%) (Auto) 81.9 % Lymphocytes (%) (Auto) 11.8 % Monocytes (%) (Auto) 5.2 % Eosinophils (%) (Auto) 0.2 % Basophils (%) (Auto) 0.2 % Neutrophils # (Auto) 10.00 K/uL Lymphocytes # (Auto) 1.44 K/uL Monocytes # (Auto) 0.63 K/uL Eosinophils # (Auto) 0.02 K/uL Basophils # (Auto) 0.03 K/uL RDW Standard Deviation 49.7 fL RDW Coefficient of Variation 15.1 % Immature Granulocyte % (Auto) 0.7 % Immature Granulocyte # (Auto) 0.08 K/uL Venous Blood pH 7.29 Venous Blood Partial Pressure CO2 68 mmHg Venous Blood Partial Pressure O2 83 mmHg Venous Blood HCO3 32 mmol/L Venous Blood Oxygen Saturation 93.4 % Venous Blood Base Excess 3.5 mEq/L Sodium Level 134 mmol/L Potassium Level 4.1 mmol/L Chloride Level 97 mmol/L Carbon Dioxide Level 30 mmol/L Anion Gap 7.0 mmol/L Blood Urea Nitrogen 40 mg/dl Creatinine 1.81 mg/dl Est Creatinine Clear Calc Drug Dose 35.8 ml/min Estimated GFR () 38.1 Estimated GFR (Non- 32.9 BUN/Creatinine Ratio 22.3 Random Glucose 84 mg/dl Lactic Acid Level 1.0 mmol/L Calcium Level 8.4 mg/dl Magnesium Level 2.4 mg/dl Total Bilirubin 0.5 mg/dl Aspartate Amino Transf (AST/SGOT) 45 U/L Alanine Aminotransferase (ALT/SGPT) 31 U/L Alkaline Phosphatase 44 U/L Ammonia 25.9 umol/L Troponin I 1.300 ng/ml Pro-B-Type Natriuretic Peptide 366 pg/ml Total Protein 7.2 gm/dl Albumin 3.3 gm/dl Globulin 3.9 gm/dl Albumin/Globulin Ratio 0.8 Test 02/11/18 00:36 02/11/18 00:48 02/11/18 00:55 02/11/18 01:10 Bedside Glucose 185 mg/dl Sodium Level 132 mmol/L Potassium Level 4.1 mmol/L Chloride Level 96 mmol/L Carbon Dioxide Level 31 mmol/L Anion Gap 5.0 mmol/L Blood Urea Nitrogen 43 mg/dl Creatinine 1.98 mg/dl Est Creatinine Clear Calc Drug Dose 33.1 ml/min Estimated GFR () 34.2 Estimated GFR (Non- 29.5 BUN/Creatinine Ratio 21.9 Random Glucose 157 mg/dl Calcium Level 8.6 mg/dl Magnesium Level 2.3 mg/dl Blood Gas Sample Site L Radial R Radial Bedside Blood Gas pH (LAB) 7.44 7.32 Bedside Blood Gas pCO2 (LAB) 50 mmHg 63 mmHg Bedside Blood Gas pO2 (LAB) 41 mmHg 79 mmHg Bedside Blood Gas HCO3 (LAB) 34 meq/L 32 meq/L Bedside Blood Gas Total CO2 35 mEq/l 34 mEq/l Bedside Blood Gas Base Excess (LAB) 10.0 meq/L 6.0 meq/L Bedside Blood Gas O2 Saturation 76.0 % 94.0 % Umair Test Pass Pass Oxygen Delivery Device BIPAP BIPAP Bedside Oxygen Rate (breaths/min) 12 12 Bedside FiO2 35 % 35 % Blood Gas IPAP 15 15 Test 02/11/18 03:16 02/11/18 04:04 02/11/18 04:58 02/11/18 06:29 White Blood Count 12.67 K/uL Red Blood Count 3.84 M/uL Hemoglobin 11.2 g/dL Hematocrit 34.4 % Mean Corpuscular Volume 89.6 fL Mean Corpuscular Hemoglobin 29.2 pg Mean Corpuscular Hemoglobin Concent 32.6 g/dl Platelet Count 148 K/uL Mean Platelet Volume 9.9 fL Neutrophils (%) (Auto) 88.8 % Lymphocytes (%) (Auto) 8.9 % Monocytes (%) (Auto) 1.5 % Eosinophils (%) (Auto) 0.0 % Basophils (%) (Auto) 0.2 % Neutrophils # (Auto) 11.26 K/uL Lymphocytes # (Auto) 1.13 K/uL Monocytes # (Auto) 0.19 K/uL Eosinophils # (Auto) 0.00 K/uL Basophils # (Auto) 0.02 K/uL RDW Standard Deviation 49.3 fL RDW Coefficient of Variation 15.2 % Immature Granulocyte % (Auto) 0.6 % Immature Granulocyte # (Auto) 0.07 K/uL Prothrombin Time 21.4 SECONDS Prothromb Time International Ratio 2.1 Activated Partial Thromboplast Time 38.7 SECONDS Partial Thromboplastin Ratio 1.5 Sodium Level 131 mmol/L Potassium Level 3.9 mmol/L Chloride Level 96 mmol/L Carbon Dioxide Level 30 mmol/L Anion Gap 5.0 mmol/L Blood Urea Nitrogen 43 mg/dl Creatinine 1.87 mg/dl Est Creatinine Clear Calc Drug Dose 35.1 ml/min Estimated GFR () 36.6 Estimated GFR (Non- 31.6 BUN/Creatinine Ratio 23.1 Random Glucose 216 mg/dl Estimated Average Glucose 131 mg/dl Hemoglobin A1c 6.2 % Lactic Acid Level 1.0 mmol/L Calcium Level 8.2 mg/dl Phosphorus Level 5.1 mg/dl Magnesium Level 2.2 mg/dl Total Creatine Kinase 826 U/L Creatine Kinase MB 21.8 ng/ml Creatine Kinase MB Ratio 2.6 Troponin I 4.180 ng/ml Thyroid Stimulating Hormone (TSH) 0.550 uIu/ml Free Thyroxine 1.11 ng/dl Bedside Glucose 237 mg/dl 269 mg/dl Blood Gas Sample Site R Radial Bedside Blood Gas pH (LAB) 7.36 Bedside Blood Gas pCO2 (LAB) 54 mmHg Bedside Blood Gas pO2 (LAB) 66 mmHg Bedside Blood Gas HCO3 (LAB) 30 meq/L Bedside Blood Gas Total CO2 31 mEq/l Bedside Blood Gas Base Excess (LAB) 4.0 meq/L Bedside Blood Gas O2 Saturation 91.0 % Umair Test Pass Oxygen Delivery Device BIPAP Bedside Oxygen Rate (breaths/min) 12 Bedside FiO2 35 % Blood Gas IPAP 15 Test 02/11/18 08:55 Bedside Glucose 252 mg/dl [id number] - CHEST ONE VIEW PORTABLE CLINICAL HISTORY: Is a breath, congestive failure, pneumonia. COMPARISON STUDY: 02/10/2018 FINDINGS: The heart remains enlarged. There is persistent pulmonary vascular congestion. Underlying chronic lung disease is suspected.[ There is no acute parenchymal consolidation. IMPRESSION: Cardiomegaly and radiographic evidence of mild congestive failure/fluid overload. Underlying chronic lung disease is suspected. [id number] EKG (Resident read): NSR 91, right bundle branch block, ? ST depressions in V2-V6. Telemetry reviewed: Assessment & Plan RESIDENT NOTE - SEE ATTENDING ADDENDUM 88-year-old male was admitted on February 10 for acute on chronic hypoxic respiratory failure in the setting of multiple other chronic medical issues. Cardiology was consulted due to concern for an NSTEMI. Elevated troponin: TnI has increased from 1.3 to 4.18, then stabilized at 3.83. Patient does not complain of any chest pain but is also unaware of recent events. He has multiple underlying cardiac risk factors to include hypertension , hyperlipidemia, and diabetes. His current EKG is normal sinus rhythm but a question of ST depressions laterally (which may just be related to the RBBB). He has a history of mild diastolic congestive heart failure but his current BNP is reassuring against significant acute worsening. Diffuse rales and rhonchi on pulmonary exam. Began diuresis with Lasix 20 mg IV twice daily and monitoring fluid status. Primary issue at present seems to be the acute on chronic respiratory failure with underlying pulmonary fibrosis. While some demand ischemia is likely, it is also likely this level of TnI elevation represents underlying CAD and a NSTEMI. - At present, the patient is both hemodynamically and electrically stable. Therefore an emergent cardiac cath is not necessary. He may benefit from a cath once more respiratory (and SHERRI) stable, perhaps the day before anticipated discharge, for future risk stratification. - In interim, would consider adding aspirin as well as an JOSE MANUEL-I (the latter when Cr stabilizes - 1.4 last July). Already on a beta alessandra and coumadin. Prolonged QTc: QTc 487. Avoiding QTc prolonging medications as best as possible. Atrial fibrillation: History of same, not at present. He is on his home metoprolol 25 mg twice daily as well as warfarin which is currently therapeutic with INR of 2.1. Cor pulmonale: History of same, likely secondary to pulmonary fibrosis. Echocardiogram obtained earlier this morning noted good RV function, EF 55-60%, and some moderate pulmonary hypertension (please see full report for specifics) . Hypertension: Maximum time of admission was 162/96. Since has resolved. Is on home metoprolol as noted above. Hyperlipidemia: History of same. On his home atorvastatin 40 mg daily. Please see attending addendum for official recommendations. Will continue to follow. DR. KURTZ ADDENDUM: PATIENT SEEN AND EXAMINED. AGREE WITH ASSESSMENT AND PLAN OUTLINED BY DR. MAST WITH FOLLOWING ADDITIONS. BRIEFLY, MR. LARKIN IS AN 88 YEAR OLD MAN KNOWN TO ME FROM THE OUTPATIENT SETTING WITH A HISTORY OF PROGRESSIVE OXYGEN DEPENDENT PULMONARY FIBROSIS AND PAROXYSMAL ATRIAL FIBRILLATION WHO WAS ADMITTED WITH ACUTE ON CHRONIC RESPIRATORY FAILURE. TREATED BIPAP/BRONCHODILATORS/STEROIDS/ANTIBIOTICS FOR LUNG DISEASE IN ADDITION TO IV DIURETICS FOR PRESUMED ACUTE DIASTOLIC HEART FAILURE. NOTED TO HAVE AN ELEVATED TROPONIN WHICH PEAKED AT 4, BNP IN 300s. NO CHEST PAIN, OR SIGNIFICANT ECG CHANGES AND LV FUNCTION PRESERVED ON ECHO WITH NO REGIONAL WALL MOTION ABNORMALITIES. ELEVATED SUSPICION FOR ACS EVENT OCCURRING RELATIVELY RECENTLY ALONG WITH ACTIVE LUNG DISEASE. HOWEVER, PATIENT IS CHEST PAIN FREE, HEMODYNAMICALLY AND ELECTRICALLY STABLE -- NO INDICATION FOR URGENT INTERVENTION AT THIS TIME. WE DISCUSSED POSSIBLE CATHETERIZATION AT SOME POINT DURING HOSPITALIZATION FOR FURTHER RISK STRATIFICATION BUT IN THE SETTING OF LUNG DISEASE, CKD WOULD DEFER AND PLAN TO TREAT MEDICALLY UNLESS BECOMES UNSTABLE. REMARKABLY LOW BNP ON PRESENTATION AND AFTER SIGNIFICANT DIURESIS APPEARS TO BE APPROACHING EUVOLEMIA. DO NOT FEEL WILL NEED PROLONGED AGGRESSIVE DIURESIS. PLAN: -- CONTINUE ASPIRIN, STATIN AND BETA-ALESSANDRA -- ANTICOAGULATED WITH COUMADIN -- OK TO CONTINUE NO PLANS FOR CATH AT THIS TIME. -- LIKELY TRANSITION TO PO DIURETICS TOMORROW Resident Tracking Resident Involvement: Resident Care Provided Care Provided: Adult Hospital Medicine (cardiology)
[2018-02-11] MEDS: WARFARIN SOD 5 MG TAB PO SCH (16:13)
[2018-02-11] MEDS ORDERED: POTASSIUM CHLORIDE 20 MEQ TABCR PO STA (17:06)
--- NOTE | 2018-02-11 19:40 | ECHOCARDIOGRAM REPORT ---
*NOTICE TO RECEIVING LIBERTARIAN AGENCY This information is strictly Confidential and protected under [place] law. [place] law prohibits you from making any further disclosure of this information unless further disclosure is expressly permitted by the written consent of the person to whom it pertains or is authorized by law. A general authorization for the release of medical or other information is not sufficient for this purpose. Hospital accepts no responsibility if the information is made available to any other person, INCLUDING THE PATIENT. Interpretation Summary * Name: GIUSEPPE LARKIN Study Date: 02/11/2018 06:24 AM BP: 126/50 mmHg * [facility] HR: 92 * : 1930 (M/d/yyyy) Gender: Male Height: 68 in * Age: 88 yrs Ethnicity: [place] Weight: 258 lb * Ordering Physician: Rafy Mac * Referring Physician: Self, Referred * Performed By: Ally Grullon RCS * * Reason For Study: CHF * BSA: 2.3 m2 * -- Conclusions -- * 1. Normal left ventricular size with hyperdynamic systolic function. EF 65-70%. No regional wall motion abnormalities. No left ventricular hypertrophy. Type 1 diastolic dysfunction. * 2. Mild aortic stenosis. * 3. There is mild mitral regurgitation. * 4. Moderate pulmonary hypertension suggested with estimated RVSP of 55mmHg. * 5. Compared to prior study on 03/27/2013, mild aortic stenosis is now present. Procedure Details * A complete two-dimensional transthoracic echocardiogram was performed (2D, M-mode, Doppler and color flow Doppler). Left Ventricle * Normal left ventricular size with hyperdynamic systolic function. EF 65-70%. No regional wall motion abnormalities. No left ventricular hypertrophy. Type 1 diastolic dysfunction. Right Ventricle * The right ventricle is normal in size and function. * The right ventricular systolic function is normal as assessed by tricuspid annular plane systolic excursion (TAPSE) (normal >1.5 cm). Atria * The left atrial size is normal. * Right atrial size is normal. * There is no evidence of atrial septal defect, but resolution does not allow assessment for a patent foramen ovale. Mitral Valve * There is mild mitral annular calcification. * There is no mitral valve stenosis. * There is mild mitral regurgitation. Tricuspid Valve * The tricuspid valve is not well visualized, but is grossly normal. * There is no tricuspid stenosis. * There is trace tricuspid regurgitation. Aortic Valve * The aortic valve is trileaflet. * Mild aortic stenosis. * There is no significant aortic regurgitation. Pulmonic Valve * The pulmonary valve is inadequately visualized, but the Doppler data is adequate for interpretation. * There is no pulmonic valvular stenosis. * Trace pulmonic valvular regurgitation. Great Vessels * The aortic root is normal size. * Ascending aorta of normal dimension Pericardium/Pleural * There is no pericardial effusion. Great Vessels * Dilated IVC with reduced inspiratory collapse. MMode 2D Measurements and Calculations IVSd 1.1 cm IVSs 1.5 cm LVIDd 4.5 cm LVIDs 2.5 cm LVPWd 1.1 cm LVPWs 1.6 cm IVS/LVPW 1.0 FS 43.8 % EDV(Teich) 93.0 ml ESV(Teich) 23.1 ml EF(Teich) 75.2 % EDV(cubed) 91.9 ml ESV(cubed) 16.3 ml EF(cubed) 82.3 % % IVS thick 40.9 % % LVPW thick 49.3 % LV mass(C)d 173.5 grams LV mass(C)dI 76.2 grams/m\S\2 LV mass(C)s 140.9 grams LV mass(C)sI 61.9 grams/m\S\2 SV(Teich) 69.9 ml SI(Teich) 30.7 ml/m\S\2 SV(cubed) 75.6 ml SI(cubed) 33.2 ml/m\S\2 Ao root diam 3.6 cm Ao root area 10.4 cm\S\2 LA dimension 3.7 cm asc Aorta Diam 3.1 cm LA/Ao 1.0 LVOT diam 2.2 cm LVOT area 3.7 cm\S\2 LVAd ap4 26.1 cm\S\2 LVLd ap4 7.3 cm EDV(MOD-sp4) 76.6 ml EDV(sp4-el) 79.3 ml LVAs ap4 12.6 cm\S\2 LVLs ap4 7.1 cm ESV(MOD-sp4) 20.9 ml ESV(sp4-el) 19.0 ml EF(MOD-sp4) 72.8 % EF(sp4-el) 76.0 % LVAd ap2 26.1 cm\S\2 LVLd ap2 7.6 cm EDV(MOD-sp2) 74.6 ml EDV(sp2-el) 76.5 ml LVAs ap2 13.9 cm\S\2 LVLs ap2 7.0 cm ESV(MOD-sp2) 25.2 ml ESV(sp2-el) 23.4 ml EF(MOD-sp2) 66.3 % EF(sp2-el) 69.4 % LVLd %diff 3.7 % EDV(MOD-bp) 77.9 ml LVLs %diff -0.28 % ESV(MOD-bp) 22.8 ml EF(MOD-bp) 70.7 % SV(MOD-sp4) 55.8 ml SI(MOD-sp4) 24.5 ml/m\S\2 SV(MOD-sp2) 49.5 ml SI(MOD-sp2) 21.7 ml/m\S\2 SV(MOD-bp) 55.1 ml SI(MOD-bp) 24.2 ml/m\S\2 SV(sp4-el) 60.3 ml SI(sp4-el) 26.5 ml/m\S\2 SV(sp2-el) 53.1 ml SI(sp2-el) 23.3 ml/m\S\2 Doppler Measurements and Calculations MV E max antonio 107.5 cm/sec MV A max antonio 133.1 cm/sec MV E/A 0.81 MV P1/2t max antonio 112.5 cm/sec MV P1/2t 79.4 msec MVA(P1/2t) 2.8 cm\S\2 MV dec slope 414.8 cm/sec\S\2 MV dec time 0.24 sec Ao V2 max 231.2 cm/sec Ao max PG 21.4 mmHg Ao max PG (full) 18.4 mmHg Ao V2 mean 152.0 cm/sec Ao mean PG 10.7 mmHg Ao mean PG (full) 9.1 mmHg Ao V2 VTI 43.8 cm HANNAH(I,A) 1.6 cm\S\2 HANNAH(I,D) 1.6 cm\S\2 HANNAH(V,A) 1.4 cm\S\2 HANNAH(V,D) 1.4 cm\S\2 LV V1 max PG 3.0 mmHg LV V1 mean PG 1.6 mmHg LV V1 max 86.3 cm/sec LV V1 mean 58.0 cm/sec LV V1 VTI 18.6 cm SV(Ao) 454.8 ml SI(Ao) 199.7 ml/m\S\2 SV(LVOT) 69.6 ml SI(LVOT) 30.6 ml/m\S\2 PA V2 max 105.0 cm/sec PA max PG 4.5 mmHg PI max antonio 173.3 cm/sec PI max PG 12.0 mmHg PI dec slope 307.9 cm/sec\S\2 PI P1/2t 164.9 msec TR max antonio 315.6 cm/sec RVSP(TR) 54.9 mmHg RAP systole 15.0 mmHg
[2018-02-11] MEDS: ATORVASTATIN 20 MG TAB PO SCH (20:17)
[2018-02-11] MEDS: SENNA 8.6 MG TAB PO SCH (20:19)
[2018-02-11] MEDS: INSULIN GLARGINE SOLOSTAR 100 UNITS/ML 3 ML PEN SC SCH (20:20)
[2018-02-12] VITALS (22 sets, daily range): BP systolic 86–145; BP diastolic 45–83; PULSE 70–108; TEMP 36.5–37.9; O2SAT 92–99
[2018-02-12] MEDS: LEVALBUTEROL 1.25MG/0.5ML NEB INH SCH ×7 (00:27→22:35)
[2018-02-12] MEDS: IPRATROPIUM BROMIDE NEB SOLN 0.02% 2.5 ML VIAL INH SCH ×7 (00:27→22:35)
[2018-02-12] MEDS: PIPERACILL/TAZOBAC IV 4.5 GM in NSS 100 ML IV SCH ×3 (02:09→17:29)
[2018-02-12] MEDS: METHYLPREDNISOLONE IV 40 MG in SYRINGE 0 ML IV SCH ×4 (02:09→20:27)
[2018-02-12] MEDS: NITROGLYCERIN 2% OINTMENT 30GM TUBE EXT SCH ×4 (04:00→22:03)
[2018-02-12 05:12] LABS: BASO % 0.1 %; BASO ABS # 0.01 K/uL (0-0.2); HEMATOCRIT 35.5 % (42-52); HEMOGLOBIN 11.4 g/dL (14.0-18.0); IG# 0.08 K/uL (0.00-0.02); LYMPH % 6.3 %; LYMPH ABS # 0.77 K/uL (1.2-3.4); MEAN CELL VOLUME 89.6 fL (80-100); MEAN CORPUSCULAR HEMOGLOBIN 28.8 pg (25-34); MEAN CORPUSCULAR HGB CONC 32.1 g/dl (32-36); MEAN PLATELET VOLUME 9.8 fL (7.4-10.4); MONO % 5.6 %; MONO ABS # 0.68 K/uL (0.11-0.59); NEUT % 87.3 %; NEUT ABS # 10.68 K/uL (1.4-6.5); PLATELET COUNT 156 K/uL (130-400); RED CELL DISTRIBUTION WIDTH CV 14.9 % (11.5-14.5); WHITE BLOOD COUNT 12.22 K/uL (4.8-10.8)
[2018-02-12 05:27] LABS: INR 2.6 (0.9-1.1); PTT PATIENT 44.8 SECONDS (21.0-31.0)
[2018-02-12 05:43] LABS: CALCIUM 8.8 mg/dl (8.5-10.1); CREATININE 1.87 mg/dl (0.60-1.40); POTASSIUM 3.5 mmol/L (3.5-5.1)
[2018-02-12 05:47] LABS: PHOSPHORUS 4.2 mg/dl (2.5-4.9)
[2018-02-12] MEDS: LEVOTHYROXINE 125 MCG TAB PO SCH (06:18)
[2018-02-12] MEDS: METOCLOPRAMIDE HCL 10 MG TAB PO SCH ×3 (06:18→16:15)
[2018-02-12] MEDS: INSULIN ASPART 100 UNITS/ML 3 ML PEN SC SCH ×4 (08:34→20:30)
[2018-02-12] MEDS: INSULIN GLARGINE SOLOSTAR 100 UNITS/ML 3 ML PEN SC SCH (08:40)
[2018-02-12] MEDS: FUROSEMIDE INJ 20 MG in SYRINGE 0 ML IV SCH (08:40)
[2018-02-12] MEDS: PANTOprazole INJ 40 MG in SYRINGE 0 ML IV SCH (08:40)
[2018-02-12] MEDS: BUDESONIDE/FORMOTEROL FUMARATE 160/4.5 60 PUFFS/INHALER INH SCH ×2 (08:40→20:27)
[2018-02-12] MEDS: DOCUSATE SODIUM 100 MG CAP PO SCH (08:41)
[2018-02-12] MEDS: MULTIVITAMIN TAB PO SCH (08:41)
[2018-02-12] MEDS: FINASTERIDE 5 MG TAB PO SCH (08:41)
[2018-02-12] MEDS: METOPROLOL TARTRATE 25 MG TAB PO SCH ×2 (08:41→20:27)
[2018-02-12] MEDS: MAGNESIUM OXIDE 400 MG TAB PO SCH ×2 (08:41→20:28)
--- NOTE | 2018-02-12 09:07 | Family Medicine Progress Note ---
Progress Note Date of Service Feb 12, 2018. Subjective Pt evaluation today including: conversation w/ patient, physical exam, chart review, lab review, review of studies, review of inpatient medication list No significant change of shortness of breath from the day before. Feels he is coughing more. Using BiPAP overnight. All Other Systems: Reviewed and Negative Medications Current Inpatient Medications Medications (Trade) Dose Ordered Sig/Yoli Route Start Time Stop Time Status Last Admin Dose Admin Acetaminophen (Tylenol Tab) 650 mg Q4H PRN PO 02/10/18 23:45 03/12/18 23:44 Pantoprazole Sodium 40 mg/ Syringe 10 ml @ 5 mls/min DAILY IV 02/11/18 09:00 03/13/18 08:59 02/12/18 08:40 5 MLS/MIN Levalbuterol (Xopenex 1.25MG/ 0.5ML Neb) 1.25 mg Q4R INH 02/11/18 00:00 03/13/18 00:00 02/12/18 07:25 1.25 MG Ipratropium [place] (Atrovent 0.02% 0.5MG/2.5ML Neb) 0.5 mg Q4R INH 02/11/18 00:00 03/13/18 00:00 02/12/18 07:25 0.5 MG Morphine Sulfate (MoRPHine SULFATE INJ) 2 mg Q2H PRN IV 02/10/18 23:45 02/24/18 23:44 Glucose (Glucose 40% Gel) 15-30 GRAMS 15 GRAMS... UD PRN PO 02/10/18 23:45 03/12/18 23:44 Glucose (Glucose Chew Tab) 4-8 Tablets 4 Tabl... UD PRN PO 02/10/18 23:45 03/12/18 23:44 Dextrose (Dextrose 50% 50ML Syringe) 25-50ML OF 50% DW IV FOR... UD PRN IV 02/10/18 23:45 03/12/18 23:44 02/12/18 01:31 50 ML Glucagon (Glucagon Inj) 1 mg UD PRN SQ 02/10/18 23:45 03/12/18 23:44 Miscellaneous Information (Consult Glycemic Management Pharmacy) 1 ea DAILY PRN N/A 02/11/18 00:00 03/13/18 00:00 Atorvastatin Calcium (Lipitor Tab) 40 mg HS PO 02/11/18 21:00 03/13/18 20:59 02/11/18 20:17 40 MG Budesonide/ Formoterol Fumarate (Symbicort 160/ 4.5 Inh) 2 puffs BID INH 02/11/18 09:00 03/13/18 08:59 02/12/18 08:40 2 PUFFS Docusate Sodium (coLACE CAP) 100 mg DAILY PO 02/11/18 09:00 03/13/18 08:59 02/12/18 08:41 100 MG Finasteride (Proscar Tab) 5 mg DAILY PO 02/11/18 09:00 03/13/18 08:59 02/12/18 08:41 5 MG Magnesium Oxide (Mag-Ox Tab) 400 mg BID PO 02/11/18 09:00 03/13/18 08:59 02/12/18 08:41 400 MG Metoclopramide HCl (Reglan Tab) 10 mg AC PO 02/11/18 06:45 03/13/18 06:44 02/12/18 06:18 10 MG Metoprolol Tartrate (Lopressor Tab) 25 mg BID PO 02/11/18 09:00 03/13/18 08:59 02/12/18 08:41 25 MG Multivitamins (Multivitamin Tab) 1 tab DAILY PO 02/11/18 09:00 03/13/18 08:59 02/12/18 08:41 1 TAB Senna (Senokot Tab) 17.2 mg HS PO 02/11/18 21:00 03/13/18 20:59 02/11/18 20:19 17.2 MG Terazosin HCl (Hytrin Cap) 5 mg HS PO 02/11/18 21:00 03/13/18 20:59 02/11/18 20:18 5 MG Warfarin Sodium (Coumadin Tab) 5 mg DAILY@1600 PO 02/11/18 16:00 03/13/18 15:59 02/11/18 16:13 5 MG Levothyroxine Sodium (Synthroid Tab) 125 mcg DAILYBB PO 02/11/18 06:00 03/13/18 05:59 02/12/18 06:18 125 MCG Methylprednisolone Sodium Succinate 40 mg/Syringe 0.64 ml @ 1.5 mls/min Q6H IV 02/11/18 02:00 03/13/18 01:59 02/12/18 08:30 1.5 MLS/MIN Furosemide 20 mg/ Syringe 2 ml @ 4 mls/min BID IV 02/11/18 09:00 03/13/18 08:59 02/12/18 08:40 4 MLS/MIN Nitroglycerin (Nitroglycerin 2% Oint) 1 inch Q6H EXT 02/11/18 04:00 03/13/18 03:59 02/12/18 04:00 1 INCH Miscellaneous Information (Consult) 1 ea UD PRN N/A 02/11/18 04:30 03/13/18 04:29 Piperacillin Sod/ Tazobactam Sod 4.5 gm/Sodium Chloride 120 ml @ 30 mls/hr Q8H IV 02/11/18 10:00 02/18/18 09:59 02/12/18 02:09 30 MLS/HR Insulin Human Regular 250 units/ Sodium Chloride 252.5 ml @ 0 mls/hr Q24H IV 02/11/18 09:45 02/12/18 15:00 02/11/18 09:50 4.2 MLS/HR Insulin Aspart (novoLOG ASPART) SLIDING SCALE PCHS SC 02/11/18 12:00 02/12/18 10:30 02/12/18 08:34 10 UNITS Insulin Glargine (Lantus Solostar Pen) 25 units BID SC 02/11/18 21:00 03/13/18 20:59 02/12/18 08:40 25 UNITS Levofloxacin 750 mg/Prmx 150 ml @ 100 mls/hr Q48H IV 02/13/18 03:00 02/20/18 02:59 Miscellaneous Information (Dc Iv Insulin Infusion) 1 ea TODAY@1500 ONCE N/A 02/12/18 15:00 02/12/18 15:01 Insulin Aspart (novoLOG ASPART) SLIDING SCALE If CARB RA... ACHS SC 02/12/18 11:00 03/14/18 10:59 Objective Vital Signs Date Time Temp Pulse Resp B/P (MAP) Pulse Ox O2 Delivery O2 Flow Rate FiO2 02/12/18 07:26 89 95 35 02/12/18 07:25 89 34 95 BiPAP/CPAP 35 4/21/18 06:03 37.0 84 24 125/60 (81) 94 BiPAP 4/18 04:03 37.0 77 26 86/60 (69) 92 BiPAP 35 02/12/18 04:00 BiPAP 35 18 03:50 80 95 35 4//18 03:49 80 33 95 BiPAP/CPAP 35 02/12/18 02:00 36.9 81 26 115/59 (77) 93 BiPAP 18 00:27 104 94 35 18 00:02 High Flow Oxygen 40 20/18 23:47 37.0 98 36 135/60 (85) 94 High Flow Oxygen 40 20/18 23:18 104 22 92 Nasal Cannula 50.0 40 02/11/18 23:01 98 26 135/60 (85) 94 High Flow Oxygen 40 20/18 22:01 101 23 104/58 (73) 94 High Flow Oxygen 40 20/18 21:01 99 31 127/53 (77) 94 High Flow Oxygen 40 02/11/18 20:03 94 High Flow Oxygen 40 /20/18 20:01 36.9 104 30 118/61 (80) 93 High Flow Oxygen 40 /20/18 19:01 103 22 123/50 (74) 94 High Flow Oxygen 40 /20/18 18:51 103 22 94 Nasal Cannula 50.0 40 /20/18 18:00 36.9 98 23 123/67 (85) 93 High Flow Oxygen 50.0 40 20/18 16:00 High Flow Oxygen 50.0 40 20/18 16:00 37.2 90 23 113/55 (74) 94 High Flow Oxygen 50.0 40 4/20/18 15:34 93 30 96 Nasal Cannula 50.0 40 4/20/18 14:00 94 32 119/52 (74) 94 High Flow Oxygen 50.0 40 4/20/18 12:00 37.2 90 30 116/51 (72) 94 High Flow Oxygen 50.0 40 4/20/18 12:00 BiPAP 35 20/18 11:13 85 28 97 Nasal Cannula 50.0 40 4/20/18 10:00 81 31 125/55 (78) 94 High Flow Oxygen 50.0 40 20/18 09:54 82 30 93 Nasal Cannula 50.0 40 Physical Exam General Appearance: + mild distress (respiratory), + obese Respiratory/Chest: + decreased breath sounds (throughout equally), + accessory muscle use, + crackles (throughout equally), + wheezing (expiratory alone) Cardiovascular: regular rate, rhythm, no murmur (quiet, no murmur appreciate) Extremities: no calf tenderness, normal capillary refill Neurologic/Psychiatric: alert Laboratory Results 02/12/18 05:00 Red Blood Count 3.96, Mean Corpuscular Volume 89.6, Mean Corpuscular Hemoglobin 28.8, Mean Corpuscular Hemoglobin Concent 32.1, Mean Platelet Volume 9.8, Neutrophils (%) (Auto) 87.3, Lymphocytes (%) (Auto) 6.3, Monocytes (%) (Auto) 5.6, Eosinophils (%) (Auto) 0.0, Basophils (%) (Auto) 0.1, Neutrophils # (Auto) 10.68, Lymphocytes # (Auto) 0.77, Monocytes # (Auto) 0.68, Eosinophils # (Auto) 0.00, Basophils # (Auto) 0.01 02/12/18 05:00 Test 02/11/18 11:02 02/12/18 05:00 02/12/18 06:44 Total Creatine Kinase 736 U/L (39-308) Creatine Kinase MB 21.6 ng/ml (0.5-3.6) Creatine Kinase MB Ratio 2.9 (0-3.0) Troponin I 3.830 ng/ml (0-0.045) White Blood Count 12.22 K/uL (4.8-10.8) Red Blood Count 3.96 M/uL (4.7-6.1) Hemoglobin 11.4 g/dL (14.0-18.0) Hematocrit 35.5 % (42-52) Mean Corpuscular Volume 89.6 fL (80-100) Mean Corpuscular Hemoglobin 28.8 pg (25-34) Mean Corpuscular Hemoglobin Concent 32.1 g/dl (32-36) Platelet Count 156 K/uL (130-400) Mean Platelet Volume 9.8 fL (7.4-10.4) Neutrophils (%) (Auto) 87.3 % Lymphocytes (%) (Auto) 6.3 % Monocytes (%) (Auto) 5.6 % Eosinophils (%) (Auto) 0.0 % Basophils (%) (Auto) 0.1 % Neutrophils # (Auto) 10.68 K/uL (1.4-6.5) Lymphocytes # (Auto) 0.77 K/uL (1.2-3.4) Monocytes # (Auto) 0.68 K/uL (0.11-0.59) Eosinophils # (Auto) 0.00 K/uL (0-0.5) Basophils # (Auto) 0.01 K/uL (0-0.2) RDW Standard Deviation 49.0 fL (36.4-46.3) RDW Coefficient of Variation 14.9 % (11.5-14.5) Immature Granulocyte % (Auto) 0.7 % Immature Granulocyte # (Auto) 0.08 K/uL (0.00-0.02) Prothrombin Time 26.4 SECONDS (9.0-12.0) Prothromb Time International Ratio 2.6 (0.9-1.1) Activated Partial Thromboplast Time 44.8 SECONDS (21.0-31.0) Partial Thromboplastin Ratio 1.7 Anion Gap 6.0 mmol/L (3-11) Est Creatinine Clear Calc Drug Dose 35.1 ml/min Estimated GFR () 36.6 Estimated GFR (Non- 31.6 BUN/Creatinine Ratio 24.6 (10-20) Calcium Level 8.8 mg/dl (8.5-10.1) Phosphorus Level 4.2 mg/dl (2.5-4.9) Magnesium Level 2.4 mg/dl (1.8-2.4) Bedside Glucose 145 mg/dl (70-99) Assessment and Plan 88 year old male with acute hypoxic hypercapnic respiratory failure, tolerating BiPAP - most likely interstitial lung disease and COPD exacerbation. Suspected community acquired pneumonia. Possible CHF contributory but less likely currently. NSTEMI - suspected ACS. Acute on chronic hypoxic hypercapnic respiratory failure - Continue BiPAP as tolerated. Pt is not for intubation. COPD exacerbation, interstitial lung disease - appreciate pulmonology recommendations - Continue Solu-medrol IV 40mg q6h - Continue Symbicort - Continue nebs Atrovent, Xopenex Possible community acquired pneumonia - appreciate pulmonology recommendations - Continue Zosyn and Levaquin Acute diastolic congestive heart failure: BNP unremarkable, -ve 5593ml this admission, probably approaching euvolemia at this point - Switch to Lasix 20mg IV daily from BID - monitor Cr (currently stable) - Echo 65-70% LVEF, without wall motion abnormalities NSTEMI - suspected ACS given elevation of troponin vs. demand, chest pain free at present therefore medical management alone - Start aspirin - Continue metoprolol 25mg BID, atorvastatin 40mg daily Paroxysmal atrial fibrillation - SR at present - continue metoprolol - anticoagulated on warfarin, INR 2.6 Hyperlipidemia - continue statin BPH - continue terazosin and finasteride Hypothyroidism - continue levothyroxine T2DM - Appreciate pharmacy glycemic control, increased lantus and sliding scale due to steroid use and no longer NPO, continue insulin drip as per protocol. Discussed with pharmacist (Meghan) GERD - continue PPI VTE prophylaxis - warfarin INR 2.6 Code Status Full Code without mechanical ventilation Disposition - discussed with Dr Polo and will transfer to telemetry Resident Physician Supervision Note: I interviewed and examined the patient. Discussed with Dr. Ness and agree with findings and plan as documented in the note. Any exceptions or clarifications are listed here: None Documented By: Mohsen Garsia feels more mucous in chest coarse wheeze/rhonchi but better air entry than yesterday, no accessory muscles , vitals noted nad breathing unlabored no pallor or icterus mixed cause respiratory failure - w acute infection overlying a lot of chronic lung disease - continue treatment as above, likely feeling more mucous today as abx start to clear infectious component. maintain current care / as above Resident Tracking Resident Involvement: Resident Care Provided Care Provided: Adult Hospital Medicine
--- NOTE | 2018-02-12 09:19 | DIAGNOSTIC IMAGING REPORT ---
SINGLE VIEW CHEST CLINICAL HISTORY: Dyspnea. FINDINGS: An AP, portable, upright chest radiograph is compared to study dated 02/11/2018. The examination is degraded by portable technique and patient rotation. The heart is enlarged and there is atherosclerotic calcification of the thoracic aorta. The pulmonary vasculature is noncongested. Chronic interstitial thickening is similar to previous. There are bibasilar airspace opacities. No large pleural effusion or pneumothorax is seen. The skeletal structures are osteopenic. The bony thorax is grossly intact. IMPRESSION: 1. Cardiomegaly without radiographic evidence of congestive failure. Mild congestive change suggested yesterday has resolved. 2. Bibasilar airspace opacities are nonspecific and similar to yesterday. This could represent atelectasis versus an infectious/inflammatory pneumonitis. Clinical correlation will be required. Electronically signed by: Ti Samaniego M.D. 02/12/2018 9:17 AM Dictated Date/Time: 02/12/2018 9:16 AM
[2018-02-12] MEDS ORDERED: POTASSIUM CHLORIDE 20 MEQ TABCR PO STA (09:25)
[2018-02-12] MEDS: INSULIN REGULAR 250 UNITS in SODIUM CHLORIDE 0.9% 250ML 250 ML IV SCH ×2 (09:47→18:03)
--- NOTE | 2018-02-12 10:04 | Pharmacy Progress Note ---
Pharmacy Glycemic Short Note 2 Date of Service Feb 12, 2018. OUTPATIENT ANTIDIABETIC REGIMEN: * Lantus 45 units SQ BID * Humalog 25-27 units with meals TIDM * Total daily dose ~ 169 units/day Item Value Date Time Bedside Glucose 218 mg/dl H 02/11/18 1155 Bedside Glucose 233 mg/dl H 02/11/18 1312 Bedside Glucose 222 mg/dl H 02/11/18 1412 Bedside Glucose 202 mg/dl H 02/11/18 1517 Bedside Glucose 161 mg/dl H 02/11/18 1617 Bedside Glucose 120 mg/dl H 02/11/18 1733 Bedside Glucose 121 mg/dl H 02/11/18 1831 Bedside Glucose 112 mg/dl H 02/11/18 1935 Bedside Glucose 92 mg/dl 02/11/18 2031 Bedside Glucose 125 mg/dl H 02/11/18 2118 Bedside Glucose 130 mg/dl H 02/11/18 2240 Bedside Glucose 98 mg/dl 02/11/18 2327 Bedside Glucose 98 mg/dl 02/12/18 0027 Bedside Glucose 92 mg/dl 02/12/18 0125 Bedside Glucose 220 mg/dl H 02/12/18 0147 Bedside Glucose 189 mg/dl H 02/12/18 0226 Bedside Glucose 140 mg/dl H 02/12/18 0329 Bedside Glucose 146 mg/dl H 02/12/18 0428 Bedside Glucose 153 mg/dl H 02/12/18 0537 Bedside Glucose 145 mg/dl H 02/12/18 0644 Bedside Glucose 243 mg/dl H 02/12/18 0836 Bedside Glucose 270 mg/dl H 02/12/18 0940 ASSESSMENT: * 88yo T2DM male with severe steroid induced hyperglycemia. Pt with well controlled diabetes as an outpatient on large doses of SQ insulin * Pt is currently received IV insulin infusion + SQ basal bolus insulin regimen. SQ regimen slightly reduced from outpatient dosing secondary to NPO status. * BSGs much improved this morning with current regimen. Pt meets criteria for transition off of IV insulin infusion. * Diet advanced --> will need increase in Lantus dosing back towards outpatient dosing or above. * Keep CF/CR aggressive for steroid induced hyperglycemia. PLAN FOR INPATIENT GLYCEMIC CONTROL: * D/C IV insulin infusion when held per calculator, or, 6 hrs after Lantus given this morning; whichever happens sooner. * Basal insulin: increase dosing to transition off of IV insulin infusion. Diet advanced and tolerating well. Current basal insulin dosing is below outpatient dosing. IV insulin infusion running at ~ 2 units/hr therefore, minimum of ~35- 45 units additional units of Lantus needed. * Lantus 45 units SQ BID * Bolus insulin * NovoLog per scale ACHS or Q6hrs while NPO * Goal Range: Low 120 mg/dL - High 150 mg/dL * Correction Factor: 10 mg/dL/unit * Nutritional / Prandial insulin per carb ratio of 1 unit per 3 grams CHO consumed
[2018-02-12] MEDS ORDERED: INSULIN GLARGINE SOLOSTAR 100 UNITS/ML 3 ML PEN SC ONE (12:30)
--- NOTE | 2018-02-12 13:06 | Critical Care Progress Note ---
Critical Care Progress Note Date of Service Feb 12, 2018. Attending Dr. Polo Subjective The patient did not have uneventful night. He slept with the BiPAP and currently he is on the high flow oxygen. He is down to 50% FiO2 with 15 years. O2 saturation remains at 94%. He continued to have cough without sputum production. Tolerating oral intake. No chest pain reported. Objective Physical exam of 02/12/2018 showed also saturation 95% of 50%, other vital signs are stable, respiratory rate is in the range of 30, no JVP, S1-S2 systolic ejection murmur, scattered basilar crackles, abdomen is obese but benign, trace edema in the periphery. His labs were reviewed personally. No new imaging. Assessment & Plan 1. Acute on chronic hypoxic and hypercapnic respiratory failure. 2. COPD, gold level 3, grade C. 3. Interstitial lung disease, etiology could be related to pulmonary asbestosis. 4. Cor pulmonale. 5. Non-ST elevation CA. 6. Diabetes, could be secondary to steroids use. Plan: 1. Continue with current dose of Solu-Medrol 40 mg IV every 6. 2. Patient has been treated with Levaquin for possible pneumonia. 3. Glucose control with before meals and at bedtime. 4. Bronchodilators. 5. BiPAP at night and high flow oxygen during the daytime. 6. Potassium replacement. 7. Discussed with the staff on rounds and details. 8. Appreciate cardiology input. Potential PCI electively. 9. GI and DVT prophylaxis. 10. Daily labs. Prognosis is poor, Critical care time spent with the patient was 45 minutes. Data Medications: Current Inpatient Medications Medications (Trade) Dose Ordered Sig/[facility] Route Start Time Stop Time Status Last Admin Dose Admin Acetaminophen (Tylenol Tab) 650 mg Q4H PRN PO 02/10/18 23:45 03/12/18 23:44 Pantoprazole Sodium 40 mg/ Syringe 10 ml @ 5 mls/min DAILY IV 02/11/18 09:00 03/13/18 08:59 02/12/18 08:40 5 MLS/MIN Levalbuterol (Xopenex 1.25MG/ 0.5ML Neb) 1.25 mg Q4R INH 02/11/18 00:00 03/13/18 00:00 02/12/18 11:09 1.25 MG Ipratropium [place] (Atrovent 0.02% 0.5MG/2.5ML Neb) 0.5 mg Q4R INH 02/11/18 00:00 03/13/18 00:00 02/12/18 11:09 0.5 MG Glucose (Glucose 40% Gel) 15-30 GRAMS 15 GRAMS... UD PRN PO 02/10/18 23:45 03/12/18 23:44 Glucose (Glucose Chew Tab) 4-8 Tablets 4 Tabl... UD PRN PO 02/10/18 23:45 03/12/18 23:44 Dextrose (Dextrose 50% 50ML Syringe) 25-50ML OF 50% DW IV FOR... UD PRN IV 02/10/18 23:45 03/12/18 23:44 02/12/18 01:31 50 ML Glucagon (Glucagon Inj) 1 mg UD PRN SQ 02/10/18 23:45 03/12/18 23:44 Miscellaneous Information (Consult Glycemic Management Pharmacy) 1 ea DAILY PRN N/A 02/11/18 00:00 03/13/18 00:00 Atorvastatin Calcium (Lipitor Tab) 40 mg HS PO 02/11/18 21:00 03/13/18 20:59 02/11/18 20:17 40 MG Budesonide/ Formoterol Fumarate (Symbicort 160/ 4.5 Inh) 2 puffs BID INH 02/11/18 09:00 03/13/18 08:59 02/12/18 08:40 2 PUFFS Docusate Sodium (coLACE CAP) 100 mg DAILY PO 02/11/18 09:00 03/13/18 08:59 02/12/18 08:41 100 MG Finasteride (Proscar Tab) 5 mg DAILY PO 02/11/18 09:00 03/13/18 08:59 02/12/18 08:41 5 MG Magnesium Oxide (Mag-Ox Tab) 400 mg BID PO 02/11/18 09:00 03/13/18 08:59 02/12/18 08:41 400 MG Metoclopramide HCl (Reglan Tab) 10 mg AC PO 02/11/18 06:45 03/13/18 06:44 02/12/18 11:17 10 MG Metoprolol Tartrate (Lopressor Tab) 25 mg BID PO 02/11/18 09:00 03/13/18 08:59 02/12/18 08:41 25 MG Multivitamins (Multivitamin Tab) 1 tab DAILY PO 02/11/18 09:00 03/13/18 08:59 02/12/18 08:41 1 TAB Senna (Senokot Tab) 17.2 mg HS PO 02/11/18 21:00 03/13/18 20:59 02/11/18 20:19 17.2 MG Terazosin HCl (Hytrin Cap) 5 mg HS PO 02/11/18 21:00 03/13/18 20:59 02/11/18 20:18 5 MG Warfarin Sodium (Coumadin Tab) 5 mg DAILY@1600 PO 02/11/18 16:00 03/13/18 15:59 02/11/18 16:13 5 MG Levothyroxine Sodium (Synthroid Tab) 125 mcg DAILYBB PO 02/11/18 06:00 03/13/18 05:59 02/12/18 06:18 125 MCG Methylprednisolone Sodium Succinate 40 mg/Syringe 0.64 ml @ 1.5 mls/min Q6H IV 02/11/18 02:00 03/13/18 01:59 02/12/18 08:30 1.5 MLS/MIN Furosemide 20 mg/ Syringe 2 ml @ 4 mls/min BID IV 02/11/18 09:00 03/13/18 08:59 02/12/18 08:40 4 MLS/MIN Nitroglycerin (Nitroglycerin 2% Oint) 1 inch Q6H EXT 02/11/18 04:00 03/13/18 03:59 02/12/18 09:47 1 INCH Miscellaneous Information (Consult) 1 ea UD PRN N/A 02/11/18 04:30 03/13/18 04:29 Piperacillin Sod/ Tazobactam Sod 4.5 gm/Sodium Chloride 120 ml @ 30 mls/hr Q8H IV 02/11/18 10:00 02/18/18 09:59 02/12/18 10:07 30 MLS/HR Insulin Human Regular 250 units/ Sodium Chloride 252.5 ml @ 0 mls/hr Q24H IV 02/11/18 09:45 02/12/18 15:00 02/12/18 09:47 2.4 MLS/HR Insulin Aspart (novoLOG ASPART) SLIDING SCALE PCHS SC 02/11/18 12:00 02/12/18 15:00 02/12/18 12:10 23 UNITS Levofloxacin 750 mg/Prmx 150 ml @ 100 mls/hr Q48H IV 02/13/18 03:00 02/20/18 02:59 Miscellaneous Information (Dc Iv Insulin Infusion) 1 ea TODAY@1500 ONCE N/A 02/12/18 15:00 02/12/18 15:01 Insulin Aspart (novoLOG ASPART) SLIDING SCALE If CARB RA... ACHS ME 02/12/18 11:00 03/14/18 10:59 Future hold Insulin Aspart (novoLOG ASPART) SLIDING SCALE If CARB RA... TODAY@0000,0400 ME 02/13/18 00:00 02/13/18 04:01 Insulin Glargine (Lantus Solostar Pen) 45 units BID SC 02/12/18 21:00 03/14/18 20:59 Vital Signs: Date Time Temp Pulse Resp B/P (MAP) Pulse Ox O2 Delivery O2 Flow Rate FiO2 02/12/18 11:09 97 36 94 Nasal Cannula 50.0 40 02/12/18 10:00 90 28 129/64 (85) 94 High Flow Oxygen 40 02/12/18 08:00 High Flow Oxygen 40 02/12/18 08:00 37.0 108 34 115/71 (86) 92 High Flow Oxygen 40 02/12/18 07:26 89 95 35 02/12/18 07:25 89 34 95 BiPAP/CPAP 35 02/12/18 06:03 37.0 84 24 125/60 (81) 94 BiPAP 02/12/18 04:03 37.0 77 26 86/60 (69) 92 BiPAP 35 02/12/18 04:00 BiPAP 35 02/12/18 03:50 80 95 35 02/12/18 03:49 80 33 95 BiPAP/CPAP 35 02/12/18 02:00 36.9 81 26 115/59 (77) 93 BiPAP 02/12/18 00:27 104 94 35 02/12/18 00:02 High Flow Oxygen 40 02/11/18 23:47 37.0 98 36 135/60 (85) 94 High Flow Oxygen 40 02/11/18 23:18 104 22 92 Nasal Cannula 50.0 40 02/11/18 23:01 98 26 135/60 (85) 94 High Flow Oxygen 40 02/11/18 22:01 101 23 104/58 (73) 94 High Flow Oxygen 40 02/11/18 21:01 99 31 127/53 (77) 94 High Flow Oxygen 40 02/11/18 20:03 94 High Flow Oxygen 40 02/11/18 20:01 36.9 104 30 118/61 (80) 93 High Flow Oxygen 40 02/11/18 19:01 103 22 123/50 (74) 94 High Flow Oxygen 40 02/11/18 18:51 103 22 94 Nasal Cannula 50.0 40 02/11/18 18:00 36.9 98 23 123/67 (85) 93 High Flow Oxygen 50.0 40 02/11/18 16:00 High Flow Oxygen 50.0 40 02/11/18 16:00 37.2 90 23 113/55 (74) 94 High Flow Oxygen 50.0 40 02/11/18 15:34 93 30 96 Nasal Cannula 50.0 40 02/11/18 14:00 94 32 119/52 (74) 94 High Flow Oxygen 50.0 40 Laboratory Results: Last 24 Hours Test 02/11/18 13:12 02/11/18 14:12 02/11/18 15:17 02/11/18 16:17 Bedside Glucose 233 mg/dl 222 mg/dl 202 mg/dl 161 mg/dl Test 02/11/18 17:33 02/11/18 18:31 02/11/18 19:35 02/11/18 20:31 Bedside Glucose 120 mg/dl 121 mg/dl 112 mg/dl 92 mg/dl Test 02/11/18 21:18 02/11/18 22:40 02/11/18 23:27 02/12/18 00:27 Bedside Glucose 125 mg/dl 130 mg/dl 98 mg/dl 98 mg/dl Test 02/12/18 01:25 02/12/18 01:47 02/12/18 02:26 02/12/18 03:29 Bedside Glucose 92 mg/dl 220 mg/dl 189 mg/dl 140 mg/dl Test 02/12/18 04:28 02/12/18 05:00 02/12/18 05:37 02/12/18 06:44 Bedside Glucose 146 mg/dl 153 mg/dl 145 mg/dl White Blood Count 12.22 K/uL Red Blood Count 3.96 M/uL Hemoglobin 11.4 g/dL Hematocrit 35.5 % Mean Corpuscular Volume 89.6 fL Mean Corpuscular Hemoglobin 28.8 pg Mean Corpuscular Hemoglobin Concent 32.1 g/dl Platelet Count 156 K/uL Mean Platelet Volume 9.8 fL Neutrophils (%) (Auto) 87.3 % Lymphocytes (%) (Auto) 6.3 % Monocytes (%) (Auto) 5.6 % Eosinophils (%) (Auto) 0.0 % Basophils (%) (Auto) 0.1 % Neutrophils # (Auto) 10.68 K/uL Lymphocytes # (Auto) 0.77 K/uL Monocytes # (Auto) 0.68 K/uL Eosinophils # (Auto) 0.00 K/uL Basophils # (Auto) 0.01 K/uL RDW Standard Deviation 49.0 fL RDW Coefficient of Variation 14.9 % Immature Granulocyte % (Auto) 0.7 % Immature Granulocyte # (Auto) 0.08 K/uL Prothrombin Time 26.4 SECONDS Prothromb Time International Ratio 2.6 Activated Partial Thromboplast Time 44.8 SECONDS Partial Thromboplastin Ratio 1.7 Sodium Level 136 mmol/L Potassium Level 3.5 mmol/L Chloride Level 96 mmol/L Carbon Dioxide Level 34 mmol/L Anion Gap 6.0 mmol/L Blood Urea Nitrogen 46 mg/dl Creatinine 1.87 mg/dl Est Creatinine Clear Calc Drug Dose 35.1 ml/min Estimated GFR () 36.6 Estimated GFR (Non- 31.6 BUN/Creatinine Ratio 24.6 Random Glucose 151 mg/dl Calcium Level 8.8 mg/dl Phosphorus Level 4.2 mg/dl Magnesium Level 2.4 mg/dl Test 02/12/18 08:36 02/12/18 09:40 02/12/18 10:33 02/12/18 11:28 Bedside Glucose 243 mg/dl 270 mg/dl 260 mg/dl 243 mg/dl Test 02/12/18 12:32 Bedside Glucose 301 mg/dl
[2018-02-12] MEDS ORDERED: DC IV INSULIN INFUSION ONE (15:00)
[2018-02-12] MEDS: WARFARIN SOD 5 MG TAB PO SCH (16:15)
[2018-02-12] MEDS ORDERED: INSULIN GLARGINE SOLOSTAR 100 UNITS/ML 3 ML PEN SC SCH ×3 (16:45→21:00)
[2018-02-12] MEDS: SENNA 8.6 MG TAB PO SCH (20:28)
[2018-02-12] MEDS: ATORVASTATIN 20 MG TAB PO SCH (20:29)
[2018-02-12] MEDS ORDERED: ASPIRIN 81 MG ECTAB PO STA (20:40)
[2018-02-13] VITALS (16 sets, daily range): BP systolic 133–163; BP diastolic 69–82; PULSE 61–101; TEMP 36.1–37.1; O2SAT 93–98
[2018-02-13] MEDS ORDERED: INSULIN ASPART 100 UNITS/ML 3 ML PEN SC SCH ×2 (02:00)
[2018-02-13] MEDS: PIPERACILL/TAZOBAC IV 4.5 GM in NSS 100 ML IV SCH ×3 (02:01→17:13)
[2018-02-13] MEDS: LEVOFLOXACIN / D5W 750 MG in PREMIXED IN D5W 150 ML IV SCH (02:01)
[2018-02-13] MEDS: METHYLPREDNISOLONE IV 40 MG in SYRINGE 0 ML IV SCH ×4 (02:02→21:46)
[2018-02-13] MEDS: IPRATROPIUM BROMIDE NEB SOLN 0.02% 2.5 ML VIAL INH SCH ×6 (03:32→23:26)
[2018-02-13] MEDS: LEVALBUTEROL 1.25MG/0.5ML NEB INH SCH ×6 (03:32→23:26)
[2018-02-13] MEDS: NITROGLYCERIN 2% OINTMENT 30GM TUBE EXT SCH ×4 (03:43→21:54)
[2018-02-13] MEDS: LEVOTHYROXINE 125 MCG TAB PO SCH (05:34)
[2018-02-13 05:38] LABS: BASO % 0.1 %; BASO ABS # 0.01 K/uL (0-0.2); HEMATOCRIT 36.9 % (42-52); HEMOGLOBIN 11.6 g/dL (14.0-18.0); IG# 0.09 K/uL (0.00-0.02); LYMPH % 9.6 %; LYMPH ABS # 1.17 K/uL (1.2-3.4); MEAN CELL VOLUME 91.8 fL (80-100); MEAN CORPUSCULAR HEMOGLOBIN 28.9 pg (25-34); MEAN CORPUSCULAR HGB CONC 31.4 g/dl (32-36); MONO % 5.3 %; MONO ABS # 0.65 K/uL (0.11-0.59); NEUT % 84.3 %; NEUT ABS # 10.32 K/uL (1.4-6.5); PLATELET COUNT 168 K/uL (130-400); RED CELL DISTRIBUTION WIDTH CV 15.1 % (11.5-14.5); RED CELL DISTRIBUTION WIDTH SD 50.9 fL (36.4-46.3); WHITE BLOOD COUNT 12.24 K/uL (4.8-10.8)
[2018-02-13 05:54] LABS: PTT PATIENT 40.5 SECONDS (21.0-31.0)
[2018-02-13 05:55] LABS: CALCIUM 8.5 mg/dl (8.5-10.1); CREATININE 1.3 mg/dl (0.60-1.40); POTASSIUM 3.8 mmol/L (3.5-5.1)
[2018-02-13 06:00] LABS: PHOSPHORUS 3.4 mg/dl (2.5-4.9)
[2018-02-13 06:01] LABS: INR 3.8 (0.9-1.1)
[2018-02-13] MEDS: METOCLOPRAMIDE HCL 10 MG TAB PO SCH ×3 (07:54→17:11)
[2018-02-13] MEDS: METOPROLOL TARTRATE 25 MG TAB PO SCH ×2 (07:54→21:47)
[2018-02-13] MEDS: DOCUSATE SODIUM 100 MG CAP PO SCH (07:54)
[2018-02-13] MEDS: MULTIVITAMIN TAB PO SCH (07:55)
[2018-02-13] MEDS: FINASTERIDE 5 MG TAB PO SCH (07:55)
[2018-02-13] MEDS: ASPIRIN 81 MG ECTAB PO SCH (07:55)
[2018-02-13] MEDS: MAGNESIUM OXIDE 400 MG TAB PO SCH ×2 (07:55→21:47)
[2018-02-13] MEDS: PANTOprazole SOD 40 MG TAB PO SCH (07:55)
[2018-02-13] MEDS: BUDESONIDE/FORMOTEROL FUMARATE 160/4.5 60 PUFFS/INHALER INH SCH ×2 (07:56→21:46)
[2018-02-13] MEDS: FUROSEMIDE INJ 20 MG in SYRINGE 0 ML IV SCH (07:58)
[2018-02-13] MEDS: INSULIN ASPART 100 UNITS/ML 3 ML PEN SC SCH ×4 (08:06→21:00)
[2018-02-13] MEDS: INSULIN GLARGINE SOLOSTAR 100 UNITS/ML 3 ML PEN SC SCH ×2 (08:07→21:51)
--- NOTE | 2018-02-13 09:05 | Pharmacy Progress Note ---
Pharmacy Glycemic Short Note 2 Date of Service Feb 13, 2018. OUTPATIENT ANTIDIABETIC REGIMEN: * Lantus 45 units SQ BID * Humalog 25-27 units with meals TIDM * Total daily dose ~ 169 units/day Item Value Date Time Bedside Glucose 140 mg/dl H 02/12/18 0329 Bedside Glucose 146 mg/dl H 02/12/18 0428 Bedside Glucose 153 mg/dl H 02/12/18 0537 Bedside Glucose 145 mg/dl H 02/12/18 0644 Bedside Glucose 243 mg/dl H 02/12/18 0836 Bedside Glucose 270 mg/dl H 02/12/18 0940 Bedside Glucose 260 mg/dl H 02/12/18 1033 Bedside Glucose 243 mg/dl H 02/12/18 1128 Bedside Glucose 301 mg/dl H 02/12/18 1232 Bedside Glucose 258 mg/dl H 02/12/18 1343 Bedside Glucose 261 mg/dl H 02/12/18 1449 Bedside Glucose 230 mg/dl H 02/12/18 1550 Bedside Glucose 176 mg/dl H 02/12/18 1652 Bedside Glucose 130 mg/dl H 02/12/18 1757 Bedside Glucose 110 mg/dl H 02/12/18 1857 Bedside Glucose 116 mg/dl H 02/12/18 2001 Bedside Glucose 101 mg/dl H 02/12/18 2102 Bedside Glucose 91 mg/dl 02/12/18 2159 Bedside Glucose 94 mg/dl 02/12/18 2243 Bedside Glucose 128 mg/dl H 02/13/18 0159 Bedside Glucose 147 mg/dl H 02/13/18 0627 ASSESSMENT: * 88yo T2DM male with severe steroid induced hyperglycemia. Pt with well controlled diabetes as an outpatient on large doses of SQ insulin (169 units/day ) * IV insulin infusion transitioned off yesterday with increased SQ insulin dosing. BSGs in goal range and appropriate to transition early in the morning but then BSGs started to rise mid-morning secondary to insufficient SQ insulin dosing to cover for steroid induced hyperglycemia and meals. * Pt has received 123 units of SQ insulin + IV insulin infusion (~2 units/hr * 24hrs) for a calculated total daily dose of ~ 200 units yesterday * BSGs in goal range today and IV insulin infusion was held per protocol around 0100 this morning. * Solumedrol dosing continues at 40mg IV Q6hrs * Outpatient dosing is 169 units/day --> will stress outpatient dosing for steroids which is similar to total daily dose received yesterday. * Continue SQ basal bolus insulin regimen today based on total daily dose of ~ 200-220 units/day * Titrate dosing based on BSG trends and steroid dosing. PLAN FOR INPATIENT GLYCEMIC CONTROL: SQ basal bolus insulin regimen based on estimated total daily dose of ~200-220 units/day while patient receiving Solumedrol >80 mg/day. Taper insulin regimen back towards outpatient dosing with each step down in steroid dosing. * Basal insulin: increase dosing * Lantus 55 units SQ BID * Bolus insulin * NovoLog per scale ACHS or Q6hrs while NPO * Goal Range: Low 110 mg/dL - High 150 mg/dL * Correction Factor: 10 mg/dL/unit * Nutritional / Prandial insulin per carb ratio of 1 unit per 2 grams CHO consumed
[2018-02-13] MEDS ORDERED: GUAIFENESIN 600 MG TABCR PO ONE (10:44)
--- NOTE | 2018-02-13 10:46 | Family Medicine Progress Note ---
Progress Note Date of Service Feb 13, 2018. Subjective Pt evaluation today including: conversation w/ patient, physical exam, chart review, lab review, review of studies, review of inpatient medication list Mr Alex feels improved from the previous day. Coughing up more. No BiPAP overnight as he was awake throughout. He denies any chest or abdominal pain. All Other Systems: Reviewed and Negative Medications Current Inpatient Medications Medications (Trade) Dose Ordered Sig/[facility] Route Start Time Stop Time Status Last Admin Dose Admin Acetaminophen (Tylenol Tab) 650 mg Q4H PRN PO 02/10/18 23:45 03/12/18 23:44 Levalbuterol (Xopenex 1.25MG/ 0.5ML Neb) 1.25 mg Q4R INH 02/11/18 00:00 03/13/18 00:00 02/13/18 06:57 1.25 MG Ipratropium [place] (Atrovent 0.02% 0.5MG/2.5ML Neb) 0.5 mg Q4R INH 02/11/18 00:00 03/13/18 00:00 02/13/18 06:56 0.5 MG Glucose (Glucose 40% Gel) 15-30 GRAMS 15 GRAMS... UD PRN PO 02/10/18 23:45 03/12/18 23:44 Glucose (Glucose Chew Tab) 4-8 Tablets 4 Tabl... UD PRN PO 02/10/18 23:45 03/12/18 23:44 Dextrose (Dextrose 50% 50ML Syringe) 25-50ML OF 50% DW IV FOR... UD PRN IV 02/10/18 23:45 03/12/18 23:44 02/12/18 01:31 50 ML Glucagon (Glucagon Inj) 1 mg UD PRN SQ 02/10/18 23:45 03/12/18 23:44 Miscellaneous Information (Consult Glycemic Management Pharmacy) 1 ea DAILY PRN N/A 02/11/18 00:00 03/13/18 00:00 Atorvastatin Calcium (Lipitor Tab) 40 mg HS PO 02/11/18 21:00 03/13/18 20:59 02/12/18 20:29 40 MG Budesonide/ Formoterol Fumarate (Symbicort 160/ 4.5 Inh) 2 puffs BID INH 02/11/18 09:00 03/13/18 08:59 02/13/18 07:56 2 PUFFS Docusate Sodium (coLACE CAP) 100 mg DAILY PO 02/11/18 09:00 03/13/18 08:59 02/13/18 07:54 100 MG Finasteride (Proscar Tab) 5 mg DAILY PO 02/11/18 09:00 03/13/18 08:59 02/13/18 07:55 5 MG Magnesium Oxide (Mag-Ox Tab) 400 mg BID PO 02/11/18 09:00 03/13/18 08:59 02/13/18 07:55 400 MG Metoclopramide HCl (Reglan Tab) 10 mg AC PO 02/11/18 06:45 03/13/18 06:44 02/13/18 07:54 10 MG Metoprolol Tartrate (Lopressor Tab) 25 mg BID PO 02/11/18 09:00 03/13/18 08:59 02/13/18 07:54 25 MG Multivitamins (Multivitamin Tab) 1 tab DAILY PO 02/11/18 09:00 03/13/18 08:59 02/13/18 07:55 1 TAB Senna (Senokot Tab) 17.2 mg HS PO 02/11/18 21:00 03/13/18 20:59 02/12/18 20:28 17.2 MG Terazosin HCl (Hytrin Cap) 5 mg HS PO 02/11/18 21:00 03/13/18 20:59 02/12/18 20:29 5 MG Warfarin Sodium (Coumadin Tab) 5 mg DAILY@1600 PO 02/11/18 16:00 03/13/18 15:59 Future Hold 02/12/18 16:15 5 MG Levothyroxine Sodium (Synthroid Tab) 125 mcg DAILYBB PO 02/11/18 06:00 03/13/18 05:59 02/13/18 05:34 125 MCG Methylprednisolone Sodium Succinate 40 mg/Syringe 0.64 ml @ 1.5 mls/min Q6H IV 02/11/18 02:00 03/13/18 01:59 02/13/18 07:56 1.5 MLS/MIN Nitroglycerin (Nitroglycerin 2% Oint) 1 inch Q6H EXT 02/11/18 04:00 03/13/18 03:59 02/13/18 03:43 1 INCH Miscellaneous Information (Consult) 1 ea UD PRN N/A 02/11/18 04:30 03/13/18 04:29 Piperacillin Sod/ Tazobactam Sod 4.5 gm/Sodium Chloride 120 ml @ 30 mls/hr Q8H IV 02/11/18 10:00 02/18/18 09:59 02/13/18 02:01 30 MLS/HR Levofloxacin 750 mg/Prmx 150 ml @ 100 mls/hr Q48H IV 02/13/18 03:00 02/20/18 02:59 02/13/18 02:01 100 MLS/HR Insulin Aspart (novoLOG ASPART) SLIDING SCALE If CARB RA... ACHS SC 02/12/18 11:00 03/14/18 10:59 Future hold 02/13/18 08:06 30 UNITS Pantoprazole Sodium (Protonix Tab) 40 mg QAM PO 02/13/18 09:00 02/14/18 09:01 02/13/18 07:55 40 MG Furosemide 20 mg/ Syringe 2 ml @ 4 mls/min DAILY IV 02/13/18 09:00 03/13/18 08:59 02/13/18 07:58 4 MLS/MIN Aspirin (Ecotrin Tab) 81 mg QAM PO 02/13/18 09:00 03/15/18 08:59 02/13/18 07:55 81 MG Insulin Glargine (Lantus Solostar Pen) 55 units BID SC 02/13/18 09:00 03/15/18 08:59 02/13/18 08:07 55 UNITS Objective Vital Signs Date Time Temp Pulse Resp B/P (MAP) Pulse Ox O2 Delivery O2 Flow Rate FiO2 02/13/18 07:36 36.5 99 30 144/74 (97) 94 High Flow Oxygen 02/13/18 06:58 100 32 93 Nasal Cannula 50.0 40 02/13/18 04:00 High Flow Oxygen 50.0 40 02/13/18 03:36 36.5 78 34 133/71 (91) 93 High Flow Oxygen 50.0 40 02/13/18 03:33 61 32 93 Nasal Cannula 50.0 40 02/12/18 23:59 High Flow Oxygen 50.0 40 02/12/18 23:50 36.6 85 30 141/75 (97) 93 High Flow Oxygen 50.0 40 02/12/18 22:35 88 32 97 Nasal Cannula 50.0 40 02/12/18 21:58 85 126/69 (88) 02/12/18 20:00 High Flow Oxygen 50.0 40 02/12/18 19:11 82 28 97 Nasal Cannula 50.0 40 02/12/18 19:07 36.5 94 31 139/74 (95) 96 High Flow Oxygen 02/12/18 17:00 36.8 91 24 145/72 (96) 94 High Flow Oxygen 02/12/18 16:00 High Flow Oxygen 40 02/12/18 16:00 36.9 89 28 125/51 (75) 94 High Flow Oxygen 40 02/12/18 15:35 105 36 94 Nasal Cannula 50.0 40 02/12/18 15:25 36.9 105 36 94 50.0 02/12/18 14:00 84 31 137/83 (101) 93 02/12/18 12:00 High Flow Oxygen 40 02/12/18 12:00 36.9 94 28 138/72 (94) 94 High Flow Oxygen 40 02/12/18 11:09 97 36 94 Nasal Cannula 50.0 40 Physical Exam General Appearance: + mild distress (respiratory) Eyes: normal inspection (pupils equal) ENT: + pertinent finding (dry mucus membranes) Neck: no JVD (unable to determine given neck size), trachea midline Respiratory/Chest: + decreased breath sounds (bibasal), + accessory muscle use , + rhonchi (increased rhonchi throughout from yesterday but better air movement ) Cardiovascular: regular rate, rhythm, no murmur (quiet heart sounds with lound rhonchi, no murmurs appreciated) Abdomen: normal bowel sounds, non tender, soft, + pertinent finding (non tender abdominal hernia present without skin changes) Extremities: no calf tenderness, normal capillary refill, + pedal edema (trace bilaterally) Neurologic/Psychiatric: alert, + disoriented (to time, oreientated to place and person) Skin: normal color, warm/dry Laboratory Results 02/13/18 05:18 Red Blood Count 4.02, Mean Corpuscular Volume 91.8, Mean Corpuscular Hemoglobin 28.9, Mean Corpuscular Hemoglobin Concent 31.4, Mean Platelet Volume 10.0, Neutrophils (%) (Auto) 84.3, Lymphocytes (%) (Auto) 9.6, Monocytes (%) (Auto) 5.3, Eosinophils (%) (Auto) 0.0, Basophils (%) (Auto) 0.1, Neutrophils # (Auto) 10.32, Lymphocytes # (Auto) 1.17, Monocytes # (Auto) 0.65, Eosinophils # (Auto) 0.00, Basophils # (Auto) 0.01 02/13/18 05:18 Test 02/13/18 05:18 02/13/18 06:27 White Blood Count 12.24 K/uL (4.8-10.8) Red Blood Count 4.02 M/uL (4.7-6.1) Hemoglobin 11.6 g/dL (14.0-18.0) Hematocrit 36.9 % (42-52) Mean Corpuscular Volume 91.8 fL (80-100) Mean Corpuscular Hemoglobin 28.9 pg (25-34) Mean Corpuscular Hemoglobin Concent 31.4 g/dl (32-36) Platelet Count 168 K/uL (130-400) Mean Platelet Volume 10.0 fL (7.4-10.4) Neutrophils (%) (Auto) 84.3 % Lymphocytes (%) (Auto) 9.6 % Monocytes (%) (Auto) 5.3 % Eosinophils (%) (Auto) 0.0 % Basophils (%) (Auto) 0.1 % Neutrophils # (Auto) 10.32 K/uL (1.4-6.5) Lymphocytes # (Auto) 1.17 K/uL (1.2-3.4) Monocytes # (Auto) 0.65 K/uL (0.11-0.59) Eosinophils # (Auto) 0.00 K/uL (0-0.5) Basophils # (Auto) 0.01 K/uL (0-0.2) RDW Standard Deviation 50.9 fL (36.4-46.3) RDW Coefficient of Variation 15.1 % (11.5-14.5) Immature Granulocyte % (Auto) 0.7 % Immature Granulocyte # (Auto) 0.09 K/uL (0.00-0.02) Prothrombin Time 38.5 SECONDS (9.0-12.0) Prothromb Time International Ratio 3.8 (0.9-1.1) Activated Partial Thromboplast Time 40.5 SECONDS (21.0-31.0) Partial Thromboplastin Ratio 1.6 Anion Gap 3.0 mmol/L (3-11) Est Creatinine Clear Calc Drug Dose 48.0 ml/min Estimated GFR () 56.9 Estimated GFR (Non- 49.1 BUN/Creatinine Ratio 31.9 (10-20) Calcium Level 8.5 mg/dl (8.5-10.1) Phosphorus Level 3.4 mg/dl (2.5-4.9) Magnesium Level 2.3 mg/dl (1.8-2.4) Bedside Glucose 147 mg/dl (70-99) Assessment and Plan 88 year old male with acute hypoxic hypercapnic respiratory failure, tolerating BiPAP - most likely interstitial lung disease and COPD exacerbation. Suspected community acquired pneumonia. Possible CHF contributory but less likely currently. NSTEMI - suspected ACS given degree of elevation. Acute on chronic hypoxic hypercapnic respiratory failure - Continue BiPAP as tolerated, needs it when sleeping. Pt is not for intubation. - Not on O2 at home COPD exacerbation, interstitial lung disease - appreciate pulmonology recommendations - Continue Solu-medrol IV 40mg q6h, taper as per pulmonology recommendations - Continue Symbicort - Continue nebs Atrovent, Xopenex Possible community acquired pneumonia - appreciate pulmonology recommendations - Continue Zosyn and Levaquin (total 7 days) Acute congestive heart failure with preserved ejection fraction: BNP unremarkable, -ve 6161 ml this admission, probably approaching euvolemia at this point - Continue Lasix 20mg IV daily - monitor Cr (currently stable) - Echo 65-70% LVEF, without wall motion abnormalities NSTEMI - suspected ACS given elevation of troponin vs. demand, chest pain free at present therefore medical management alone - Aspirin started this admission - Continue metoprolol 25mg BID, atorvastatin 40mg daily Paroxysmal atrial fibrillation - SR at present - continue metoprolol - anticoagulated on warfarin, INR 3.8 (warfarin placed on hold today) Hyperlipidemia - continue statin BPH - continue terazosin and finasteride Hypothyroidism - continue levothyroxine T2DM - Appreciate pharmacy glycemic control, now off insulin drip as per protocol GERD - continue PPI VTE prophylaxis - warfarin on hold, INR 3.8 (likely increase due to levaquin) Code Status Full Code without mechanical ventilation Disposition - continue on telemetry given multiple IV medications required and critical illness Resident Physician Supervision Note: I interviewed and examined the patient. Discussed with Dr. Ness and agree with findings and plan as documented in the note. Any exceptions or clarifications are listed here: None Documented By: Mohsen Garsia sleeping when first visited, had respiratory distress ended up on bipap later in the day - revisited, much more comfortable. 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
--- NOTE | 2018-02-13 13:06 | DIAGNOSTIC IMAGING REPORT ---
CHEST ONE VIEW PORTABLE CLINICAL HISTORY: Increasing shortness of breath dyspnea COMPARISON STUDY: 02/12/2018 FINDINGS: Mild stable cardiomegaly. Diffuse chronic parenchymal prominence. No well-defined acute infiltrate. Diaphragms are smooth. IMPRESSION: Chronic change. Mild stable cardiomegaly. No acute process. The above report was generated using voice recognition software. It may contain grammatical, syntax or spelling errors. Electronically signed by: Gregory Serrano M.D. 02/13/2018 1:04 PM Dictated Date/Time: 02/13/2018 1:04 PM
--- NOTE | 2018-02-13 15:48 | Pulmonology Progress Note ---
Pulmonary Progress Note Date of Service Feb 13, 2018. Attending Dr. Polo Subjective The patient continued to be clinically doing the same, he is dependent on the BiPAP, off and on during the daytime, he did not have events overnight. Objective Physical exam of 02/13/2018 revealed elderly gentleman, currently on the BiPAP with O2 sat 95% on 40%, his BiPAP settings remains 15/5 with backup rate of 12, S1-S2 regular rate and rhythm, distant crackles mainly at the bases bilaterally , morbidly obese, abdomen is benign, edema in the periphery. Assessment & Plan 1. Acute on chronic hypoxic and hypercapnic respiratory failure secondary to below. 2. COPD, gold level 3, grade C with frequent exacerbation. 3. Interstitial lung disease thought to be related to asbestos exposure. 4. Cardiomyopathy. EF of 40%. Non-ST elevation MT on this admission. Not a candidate for PCI at this point. Dr. Perry is following, appreciate his input. 5. Diabetes. Plan: 1. Continue Solu-Medrol 40 mg IV every 6 hours. Not ready to taper. 2. Continue with bronchodilators. 3. BiPAP on as needed basis during the daytime and on standing basis at night. 4. Patient currently is on Zosyn and Levaquin. If no bacteriology, it can be downgraded. 5. Long Discussion Took Pl. with the patient in front of his daughter and son, the patient still insisting he does not want to be intubated. In my discussion , I offered him the intubation with the intention to give a chance for his respiratory muscles to rest and his lung to improve to the point that he can be extubated again however he is at risk for remaining intubated and requiring tracheostomy tube. The patient and the family at this point are not interested in intubation. Case discussed with the family in details, all their questions been answered, will continue to follow. Data Medications: Current Inpatient Medications Medications (Trade) Dose Ordered Sig/Yoli Route Start Time Stop Time Status Last Admin Dose Admin Acetaminophen (Tylenol Tab) 650 mg Q4H PRN PO 02/10/18 23:45 03/12/18 23:44 Levalbuterol (Xopenex 1.25MG/ 0.5ML Neb) 1.25 mg Q4R INH 02/11/18 00:00 03/13/18 00:00 02/13/18 15:02 1.25 MG Ipratropium Candor (Atrovent 0.02% 0.5MG/2.5ML Neb) 0.5 mg Q4R INH 02/11/18 00:00 03/13/18 00:00 02/13/18 15:02 0.5 MG Glucose (Glucose 40% Gel) 15-30 GRAMS 15 GRAMS... UD PRN PO 02/10/18 23:45 03/12/18 23:44 Glucose (Glucose Chew Tab) 4-8 Tablets 4 Tabl... UD PRN PO 02/10/18 23:45 03/12/18 23:44 Dextrose (Dextrose 50% 50ML Syringe) 25-50ML OF 50% DW IV FOR... UD PRN IV 02/10/18 23:45 03/12/18 23:44 02/12/18 01:31 50 ML Glucagon (Glucagon Inj) 1 mg UD PRN SQ 02/10/18 23:45 03/12/18 23:44 Miscellaneous Information (Consult Glycemic Management Pharmacy) 1 ea DAILY PRN N/A 02/11/18 00:00 03/13/18 00:00 Atorvastatin Calcium (Lipitor Tab) 40 mg HS PO 02/11/18 21:00 03/13/18 20:59 02/12/18 20:29 40 MG Budesonide/ Formoterol Fumarate (Symbicort 160/ 4.5 Inh) 2 puffs BID INH 02/11/18 09:00 03/13/18 08:59 02/13/18 07:56 2 PUFFS Docusate Sodium (coLACE CAP) 100 mg DAILY PO 02/11/18 09:00 03/13/18 08:59 02/13/18 07:54 100 MG Finasteride (Proscar Tab) 5 mg DAILY PO 02/11/18 09:00 03/13/18 08:59 02/13/18 07:55 5 MG Magnesium Oxide (Mag-Ox Tab) 400 mg BID PO 02/11/18 09:00 03/13/18 08:59 02/13/18 07:55 400 MG Metoclopramide HCl (Reglan Tab) 10 mg AC PO 02/11/18 06:45 03/13/18 06:44 02/13/18 12:08 10 MG Metoprolol Tartrate (Lopressor Tab) 25 mg BID PO 02/11/18 09:00 03/13/18 08:59 02/13/18 07:54 25 MG Multivitamins (Multivitamin Tab) 1 tab DAILY PO 02/11/18 09:00 03/13/18 08:59 02/13/18 07:55 1 TAB Senna (Senokot Tab) 17.2 mg HS PO 02/11/18 21:00 03/13/18 20:59 02/12/18 20:28 17.2 MG Terazosin HCl (Hytrin Cap) 5 mg HS PO 02/11/18 21:00 03/13/18 20:59 02/12/18 20:29 5 MG Warfarin Sodium (Coumadin Tab) 5 mg DAILY@1600 PO 02/11/18 16:00 03/13/18 15:59 Future Hold 02/12/18 16:15 5 MG Levothyroxine Sodium (Synthroid Tab) 125 mcg DAILYBB PO 02/11/18 06:00 03/13/18 05:59 02/13/18 05:34 125 MCG Methylprednisolone Sodium Succinate 40 mg/Syringe 0.64 ml @ 1.5 mls/min Q6H IV 02/11/18 02:00 03/13/18 01:59 02/13/18 13:00 1.5 MLS/MIN Nitroglycerin (Nitroglycerin 2% Oint) 1 inch Q6H EXT 02/11/18 04:00 03/13/18 03:59 02/13/18 12:12 1 INCH Miscellaneous Information (Consult) 1 ea UD PRN N/A 02/11/18 04:30 03/13/18 04:29 Piperacillin Sod/ Tazobactam Sod 4.5 gm/Sodium Chloride 120 ml @ 30 mls/hr Q8H IV 02/11/18 10:00 02/18/18 09:59 02/13/18 12:08 30 MLS/HR Levofloxacin 750 mg/Prmx 150 ml @ 100 mls/hr Q48H IV 02/13/18 03:00 02/20/18 02:59 02/13/18 02:01 100 MLS/HR Insulin Aspart (novoLOG ASPART) SLIDING SCALE If CARB RA... ACHS SC 02/12/18 11:00 03/14/18 10:59 Future hold 02/13/18 12:18 48 UNITS Pantoprazole Sodium (Protonix Tab) 40 mg QAM PO 02/13/18 09:00 02/14/18 09:01 02/13/18 07:55 40 MG Furosemide 20 mg/ Syringe 2 ml @ 4 mls/min DAILY IV 02/13/18 09:00 03/13/18 08:59 02/13/18 07:58 4 MLS/MIN Aspirin (Ecotrin Tab) 81 mg QAM PO 02/13/18 09:00 03/15/18 08:59 02/13/18 07:55 81 MG Insulin Glargine (Lantus Solostar Pen) 55 units BID SC 02/13/18 09:00 03/15/18 08:59 02/13/18 08:07 55 UNITS Guaifenesin (Mucinex Contr Rel Tab) 1,200 mg Q12 PO 02/13/18 21:00 03/15/18 20:59 I & O: 24-Hour Column 02/14/18 07:59 Intake Total 547 ml Output Total 1600 ml Balance -1053 ml Vital Signs: Date Time Temp Pulse Resp B/P (MAP) Pulse Ox O2 Delivery O2 Flow Rate FiO2 02/13/18 15:15 36.2 97 24 140/75 (96) 97 CPAP 02/13/18 15:05 92 33 95 BiPAP/CPAP 40 02/13/18 15:05 92 95 40 02/13/18 14:19 90 96 40 02/13/18 12:00 BiPAP 40 02/13/18 11:34 36.6 91 27 148/69 (95) 98 BiPAP 02/13/18 11:10 83 33 95 BiPAP/CPAP 40 02/13/18 11:08 83 95 40 02/13/18 08:00 High Flow Oxygen 50.0 40 02/13/18 07:36 36.5 99 30 144/74 (97) 94 High Flow Oxygen 02/13/18 06:58 100 32 93 Nasal Cannula 50.0 40 02/13/18 04:00 High Flow Oxygen 50.0 40 02/13/18 03:36 36.5 78 34 133/71 (91) 93 High Flow Oxygen 50.0 40 02/13/18 03:33 61 32 93 Nasal Cannula 50.0 40 02/12/18 23:59 High Flow Oxygen 50.0 40 02/12/18 23:50 36.6 85 30 141/75 (97) 93 High Flow Oxygen 50.0 40 02/12/18 22:35 88 32 97 Nasal Cannula 50.0 40 02/12/18 21:58 85 126/69 (88) 02/12/18 20:00 High Flow Oxygen 50.0 40 02/12/18 19:11 82 28 97 Nasal Cannula 50.0 40 02/12/18 19:07 36.5 94 31 139/74 (95) 96 High Flow Oxygen 02/12/18 17:00 36.8 91 24 145/72 (96) 94 High Flow Oxygen 02/12/18 16:00 High Flow Oxygen 40 02/12/18 16:00 36.9 89 28 125/51 (75) 94 High Flow Oxygen 40 Laboratory Results: Last 24 Hours Test 02/12/18 15:50 02/12/18 16:52 02/12/18 17:57 02/12/18 18:57 Bedside Glucose 230 mg/dl 176 mg/dl 130 mg/dl 110 mg/dl Test 02/12/18 20:01 02/12/18 21:02 02/12/18 21:59 02/12/18 22:43 Bedside Glucose 116 mg/dl 101 mg/dl 91 mg/dl 94 mg/dl Test 02/13/18 01:59 02/13/18 05:18 02/13/18 06:27 02/13/18 10:59 Bedside Glucose 128 mg/dl 147 mg/dl 299 mg/dl White Blood Count 12.24 K/uL Red Blood Count 4.02 M/uL Hemoglobin 11.6 g/dL Hematocrit 36.9 % Mean Corpuscular Volume 91.8 fL Mean Corpuscular Hemoglobin 28.9 pg Mean Corpuscular Hemoglobin Concent 31.4 g/dl Platelet Count 168 K/uL Mean Platelet Volume 10.0 fL Neutrophils (%) (Auto) 84.3 % Lymphocytes (%) (Auto) 9.6 % Monocytes (%) (Auto) 5.3 % Eosinophils (%) (Auto) 0.0 % Basophils (%) (Auto) 0.1 % Neutrophils # (Auto) 10.32 K/uL Lymphocytes # (Auto) 1.17 K/uL Monocytes # (Auto) 0.65 K/uL Eosinophils # (Auto) 0.00 K/uL Basophils # (Auto) 0.01 K/uL RDW Standard Deviation 50.9 fL RDW Coefficient of Variation 15.1 % Immature Granulocyte % (Auto) 0.7 % Immature Granulocyte # (Auto) 0.09 K/uL Prothrombin Time 38.5 SECONDS Prothromb Time International Ratio 3.8 Activated Partial Thromboplast Time 40.5 SECONDS Partial Thromboplastin Ratio 1.6 Sodium Level 139 mmol/L Potassium Level 3.8 mmol/L Chloride Level 99 mmol/L Carbon Dioxide Level 37 mmol/L Anion Gap 3.0 mmol/L Blood Urea Nitrogen 41 mg/dl Creatinine 1.30 mg/dl Est Creatinine Clear Calc Drug Dose 48.0 ml/min Estimated GFR () 56.9 Estimated GFR (Non- 49.1 BUN/Creatinine Ratio 31.9 Random Glucose 144 mg/dl Calcium Level 8.5 mg/dl Phosphorus Level 3.4 mg/dl Magnesium Level 2.3 mg/dl Test 02/13/18 13:00 Arterial Blood pH 7.33 Arterial Blood Partial Pressure CO2 72 mmHg Arterial Blood Partial Pressure O2 54 mm/Hg Arterial Blood HCO3 37 mmol/L Arterial Blood Oxygen Saturation 82.7 % Arterial Blood Base Excess 9.1 mEq/L Arterial Blood Gas Delivery 40% FIO2 Umair Test POS
[2018-02-13] MEDS: ATORVASTATIN 20 MG TAB PO SCH (21:46)
[2018-02-13] MEDS: GUAIFENESIN 600 MG TABCR PO SCH (21:47)
[2018-02-13] MEDS: SENNA 8.6 MG TAB PO SCH (21:48)
[2018-02-14] VITALS (16 sets, daily range): BP systolic 120–138; BP diastolic 63–84; PULSE 78–106; TEMP 36.4–36.8; O2SAT 90–98
[2018-02-14] MEDS: PIPERACILL/TAZOBAC IV 4.5 GM in NSS 100 ML IV SCH ×3 (02:06→17:17)
[2018-02-14] MEDS: METHYLPREDNISOLONE IV 40 MG in SYRINGE 0 ML IV SCH ×4 (02:06→20:55)
[2018-02-14] MEDS: IPRATROPIUM BROMIDE NEB SOLN 0.02% 2.5 ML VIAL INH SCH ×6 (03:28→23:02)
[2018-02-14] MEDS: LEVALBUTEROL 1.25MG/0.5ML NEB INH SCH ×6 (03:29→23:02)
[2018-02-14] MEDS: NITROGLYCERIN 2% OINTMENT 30GM TUBE EXT SCH ×4 (04:06→21:13)
[2018-02-14] MEDS: LEVOTHYROXINE 125 MCG TAB PO SCH (04:07)
--- NOTE | 2018-02-14 05:24 | Progress Note ---
Post ICU Progress Note Date & Time Feb 14, 2018 at 05:19 Vital Signs Vital Signs Past 12 Hours Date Time Temp Pulse Resp B/P (MAP) Pulse Ox O2 Delivery O2 Flow Rate FiO2 02/14/18 04:00 Nasal Cannula 6.0 02/14/18 03:29 86 30 95 Nasal Cannula 6.0 02/14/18 03:15 36.7 86 20 135/78 (97) 96 BiPAP 02/14/18 00:01 BiPAP 40 02/13/18 23:58 36.1 101 28 135/69 (91) 95 BiPAP 02/13/18 23:26 80 32 94 BiPAP/CPAP 40 02/13/18 22:14 88 96 40 02/13/18 20:00 BiPAP 40 02/13/18 19:09 96 97 40 02/13/18 19:08 96 32 97 BiPAP/CPAP 40 02/13/18 19:03 37.1 96 28 136/79 (98) 97 CPAP Notes Mental Status: alert / awake Nausea / Vomiting: adequately controlled Pain: adequately controlled Airway Patency, RR, SpO2: see Notes BP & HR: see Notes Patient is an 88-year-old gentleman with a significant past medical history of COPD, pneumonia, pulmonary fibrosis, and CHF who initially presented to the ICU with acute on chronic hypoxemic respiratory failure with mild hypercapnia in the setting of pneumonia and CHF exacerbation. Patient underwent active diuresis with positive pressure ventilatory techniques and broad-spectrum antibiotics. He was provided aggressive IV steroids. He did diurese well throughout the night and had improvement while on BiPAP. Patient was transitioned to high flow and subsequently nasal cannula with BiPAP as needed. His breathing has continued to maintain with some mild episodes of tachypnea reported. He is to requiring BiPAP at night. On evaluation, the patient is awake, alert, and oriented. He reports that his breathing still feels poor. He does admit that it feels better than initial presentation. He offers no complaints at this time. Consider outpatient follow up in 1 to 2 weeks with: PCP, Pulm Repeat imaging needed: CXRs PRN Follow up cultures: None at this time. Reviewed progress notes, labs, and inpatient medication list Continue current management Additional recommendations: Continue with BiPAP PRN. No further recommendations. Thank you for allowing us to participate in the care of this patient. At this time, Critical Care Services will sign off on this case. Please feel free to reconsult as needed. Consults & Procedures Consultants: Rigoberto Polo
[2018-02-14 05:50] LABS: BASO % 0.2 %; BASO ABS # 0.02 K/uL (0-0.2); HEMATOCRIT 37.1 % (42-52); HEMOGLOBIN 11.6 g/dL (14.0-18.0); LYMPH % 11.8 %; LYMPH ABS # 1.36 K/uL (1.2-3.4); MEAN CELL VOLUME 91.6 fL (80-100); MEAN CORPUSCULAR HEMOGLOBIN 28.6 pg (25-34); MEAN CORPUSCULAR HGB CONC 31.3 g/dl (32-36); MEAN PLATELET VOLUME 9.8 fL (7.4-10.4); MONO % 5.1 %; MONO ABS # 0.59 K/uL (0.11-0.59); NEUT ABS # 9.49 K/uL (1.4-6.5); PLATELET COUNT 168 K/uL (130-400); RED CELL DISTRIBUTION WIDTH CV 15.1 % (11.5-14.5); RED CELL DISTRIBUTION WIDTH SD 51.4 fL (36.4-46.3); WHITE BLOOD COUNT 11.56 K/uL (4.8-10.8)
[2018-02-14 06:02] LABS: PTT PATIENT 40.5 SECONDS (21.0-31.0)
[2018-02-14 06:13] LABS: INR 3.6 (0.9-1.1)
[2018-02-14 06:33] LABS: CALCIUM 8.7 mg/dl (8.5-10.1); CREATININE 1.49 mg/dl (0.60-1.40); POTASSIUM 3.6 mmol/L (3.5-5.1)
[2018-02-14 06:34] LABS: PHOSPHORUS 3.1 mg/dl (2.5-4.9)
--- NOTE | 2018-02-14 07:58 | Family Medicine Progress Note ---
Progress Note Date of Service Feb 14, 2018. Subjective Pt evaluation today including: conversation w/ patient, physical exam, chart review, lab review, review of studies, conversation w/ cardiology consultants, review of inpatient medication list Patient states his breathing is poor and maybe not worse, but denies any improvement either. He denies current discomfort.Denies fevers/chills, headaches , CP, palpitations, abdominal pain. He states he is sleeping and eating without issue - no nausea or vomiting. ROS is unremarkable except as noted above. Objective Vital Signs Date Time Temp Pulse Resp B/P (MAP) Pulse Ox O2 Delivery O2 Flow Rate FiO2 02/14/18 07:51 36.5 86 26 132/68 (89) 97 02/14/18 06:57 96 24 95 Nasal Cannula 6.0 02/14/18 04:00 Nasal Cannula 6.0 02/14/18 03:29 86 30 95 Nasal Cannula 6.0 02/14/18 03:15 36.7 86 20 135/78 (97) 96 BiPAP 02/14/18 00:01 BiPAP 40 02/13/18 23:58 36.1 101 28 135/69 (91) 95 BiPAP 02/13/18 23:26 80 32 94 BiPAP/CPAP 40 02/13/18 22:14 88 96 40 02/13/18 20:00 BiPAP 40 02/13/18 19:09 96 97 40 02/13/18 19:08 96 32 97 BiPAP/CPAP 40 02/13/18 19:03 37.1 96 28 136/79 (98) 97 CPAP 02/13/18 16:00 BiPAP 40 02/13/18 15:15 36.2 97 24 140/75 (96) 97 CPAP 02/13/18 15:05 92 33 95 BiPAP/CPAP 40 02/13/18 15:05 92 95 40 02/13/18 14:19 90 96 40 02/13/18 12:00 BiPAP 40 02/13/18 11:34 36.6 91 27 148/69 (95) 98 BiPAP 02/13/18 11:10 83 33 95 BiPAP/CPAP 40 02/13/18 11:08 83 95 40 02/13/18 08:00 High Flow Oxygen 50.0 40 Physical Exam Notes: General Appearance: + mild distress (respiratory), + pertinent finding (NC in situ) Eyes: normal inspection (pupils equal) ENT: + pertinent finding (dry mucus membranes) Neck: no JVD (unable to determine given neck size), trachea midline Respiratory/Chest: + decreased breath sounds (bibasilar), + accessory muscle use, + rhonchi (diffuse) Cardiovascular: regular rate, rhythm, no murmur (unable to appreciate especially with with loud, diffuse rhonchi) Abdomen: normal bowel sounds, non tender, soft, + pertinent finding (non tender abdominal hernia present without skin changes) Extremities: no calf tenderness, normal capillary refill, + pedal edema (trace bilaterally) Neurologic/Psychiatric: alert, normal mood/affect Skin: normal color, warm/dry Laboratory Results Results Past 24 Hours Test 02/13/18 19:57 02/14/18 03:18 02/14/18 03:40 02/14/18 05:22 Range/Units Bedside Glucose 118 63 98 70-99 mg/dl White Blood Count 11.56 4.8-10.8 K/uL Red Blood Count 4.05 4.7-6.1 M/uL Hemoglobin 11.6 14.0-18.0 g/dL Hematocrit 37.1 42-52 % Mean Corpuscular Volume 91.6 80-100 fL Mean Corpuscular Hemoglobin 28.6 25-34 pg Mean Corpuscular Hemoglobin Concent 31.3 32-36 g/dl Platelet Count 168 130-400 K/uL Mean Platelet Volume 9.8 7.4-10.4 fL Neutrophils (%) (Auto) 82.0 % Lymphocytes (%) (Auto) 11.8 % Monocytes (%) (Auto) 5.1 % Eosinophils (%) (Auto) 0.0 % Basophils (%) (Auto) 0.2 % Neutrophils # (Auto) 9.49 1.4-6.5 K/uL Lymphocytes # (Auto) 1.36 1.2-3.4 K/uL Monocytes # (Auto) 0.59 0.11-0.59 K/uL Eosinophils # (Auto) 0.00 0-0.5 K/uL Basophils # (Auto) 0.02 0-0.2 K/uL RDW Standard Deviation 51.4 36.4-46.3 fL RDW Coefficient of Variation 15.1 11.5-14.5 % Immature Granulocyte % (Auto) 0.9 % Immature Granulocyte # (Auto) 0.10 0.00-0.02 K/uL Prothrombin Time 36.7 9.0-12.0 SECONDS Prothromb Time International Ratio 3.6 0.9-1.1 Activated Partial Thromboplast Time 40.5 21.0-31.0 SECONDS Partial Thromboplastin Ratio 1.6 Sodium Level 140 136-145 mmol/L Potassium Level 3.6 3.5-5.1 mmol/L Chloride Level 97 98-107 mmol/L Carbon Dioxide Level 40 21-32 mmol/L Anion Gap 3.0 3-11 mmol/L Blood Urea Nitrogen 48 7-18 mg/dl Creatinine 1.49 0.60-1.40 mg/dl Est Creatinine Clear Calc Drug Dose 42.7 ml/min Estimated GFR () 48.2 Estimated GFR (Non- 41.6 BUN/Creatinine Ratio 32.0 10-20 Random Glucose 113 70-99 mg/dl Calcium Level 8.7 8.5-10.1 mg/dl Phosphorus Level 3.1 2.5-4.9 mg/dl Magnesium Level 2.4 1.8-2.4 mg/dl Test 02/14/18 06:21 02/14/18 11:02 Range/Units Bedside Glucose 125 218 70-99 mg/dl Assessment and Plan 88 year old male with acute hypoxic hypercapnic respiratory failure, tolerating BiPAP - most likely interstitial lung disease and COPD exacerbation. Suspected community acquired pneumonia. Possible CHF contributory but less likely currently. NSTEMI - suspected ACS given degree of elevation. Acute on chronic hypoxic hypercapnic respiratory failure - Blood gases deranged: respiratory acidosis with partial compensation - Echo shows moderate pulmonary hypertension suggested with estimated RVSP of 55mmHg. - Continue BiPAP as tolerated through out the day and overnight - Not on O2 at home - Palliative consulted COPD exacerbation, interstitial lung disease possibly from previous asbestos exposure - Pulmonology consulted, recommendations appreciated - Continue Solu-Medrol IV 40mg q6h, no taper at present as per pulmonology recommendations - Continue Symbicort, and Atrovent + Xopenex nebs Possible community acquired pneumonia - Pulmonology consulted, recommendations appreciated - Continue Zosyn and Levaquin (renally dosed) - currently day 4 Acute congestive heart failure with preserved ejection fraction: - BNP unremarkable - Echo 65-70% LVEF, No regional wall motion abnormalities. No left ventricular hypertrophy. Type 1 diastolic dysfunction. Mild aortic stenosis. Mild mitral regurgitation. - Continue diuresis (I/Os show -8.3L since admission) but slight bump in creatinine today. Likely approaching euvolemia. - Transition from furosemide 20mg IV to 20mg PO tomorrow, as per cardiology recommendations - Trend creatinine NSTEMI - suspected ACS given elevation of troponin vs. demand, chest pain free at present therefore medical management alone - Continue aspirin (started this admission), metoprolol 25mg BID, atorvastatin 40mg daily Paroxysmal atrial fibrillation - SR at present - Continue metoprolol - Home dose warfarin 5mg daily held due to supratherapeutic INR, INR today 3.6 - Trend INR and resume warfarin once INR closer to/within target range Hyperlipidemia - Continue atorvastatin BPH - Continue terazosin and finasteride Hypothyroidism - Continue levothyroxine T2DM - Appreciate pharmacy glycemic control - Off insulin drip and now on Lantus 45 units BID + ISS GERD - Continue pantoprazole VTE prophylaxis - Anticoagulated with warfarin, as above Code Status Full Code without mechanical ventilation Disposition - continue on telemetry given multiple IV medications required and critical illness Resident Physician Supervision Note: I interviewed and examined the patient. Discussed with Dr. Ko and agree with findings and plan as documented in the note. Any exceptions or clarifications are listed here: Overall, this patient continues to struggle from a respiratory standpoint despite BiPAP, IV steroids, nebulizers, supplemental oxygen, and antibiotics. Will encourage him to use BiPAP during the day when not eating or when visiting with family. Will discontinue IV diuresis today and transition to his home regimen. Agree with introducing the idea of palliative care; he would also be hospice eligible given Medicare guidelines, although our discussion today did not get to this topic. Documented By: Hair Preston Continued [facility] stay due to: abnormal vital signs, multiple IV medications needed Resident Tracking Resident Involvement: Resident Care Provided Care Provided: Adult Hospital Medicine
[2018-02-14] MEDS: INSULIN ASPART 100 UNITS/ML 3 ML PEN SC SCH ×4 (08:10→20:59)
[2018-02-14] MEDS: INSULIN GLARGINE SOLOSTAR 100 UNITS/ML 3 ML PEN SC SCH ×2 (08:11→21:00)
[2018-02-14] MEDS: BUDESONIDE/FORMOTEROL FUMARATE 160/4.5 60 PUFFS/INHALER INH SCH ×2 (08:11→20:55)
[2018-02-14] MEDS: MULTIVITAMIN TAB PO SCH (08:11)
[2018-02-14] MEDS: METOPROLOL TARTRATE 25 MG TAB PO SCH ×2 (08:11→20:55)
[2018-02-14] MEDS: FUROSEMIDE INJ 20 MG in SYRINGE 0 ML IV SCH (08:12)
[2018-02-14] MEDS: MAGNESIUM OXIDE 400 MG TAB PO SCH ×2 (08:12→20:55)
[2018-02-14] MEDS: DOCUSATE SODIUM 100 MG CAP PO SCH (08:12)
[2018-02-14] MEDS: GUAIFENESIN 600 MG TABCR PO SCH ×2 (08:12→20:56)
[2018-02-14] MEDS: METOCLOPRAMIDE HCL 10 MG TAB PO SCH ×3 (08:12→17:13)
[2018-02-14] MEDS: ASPIRIN 81 MG ECTAB PO SCH (08:13)
[2018-02-14] MEDS: PANTOprazole SOD 40 MG TAB PO SCH (08:13)
[2018-02-14] MEDS: FINASTERIDE 5 MG TAB PO SCH (08:14)
--- NOTE | 2018-02-14 11:06 | Pharmacy Progress Note ---
Pharmacy Glycemic Short Note 2 Date of Service Feb 14, 2018. OUTPATIENT ANTIDIABETIC REGIMEN: * Lantus 45 units SQ BID * Humalog 25-27 units with meals TIDM * Total daily dose ~ 169 units/day Item Value Date Time Bedside Glucose 125 mg/dl H 02/14/18 0621 Bedside Glucose 98 mg/dl 02/14/18 0340 Bedside Glucose 63 mg/dl *L 02/14/18 0318 Bedside Glucose 118 mg/dl H 02/13/18 1957 Bedside Glucose 236 mg/dl H 02/13/18 1629 Bedside Glucose 299 mg/dl H 02/13/18 1059 Bedside Glucose 147 mg/dl H 02/13/18 0627 ASSESSMENT: 02/13/18 * 88yo T2DM male with severe steroid induced hyperglycemia. Pt with well controlled diabetes as an outpatient on large doses of SQ insulin (169 units/day ) * IV insulin infusion transitioned off yesterday with increased SQ insulin dosing. BSGs in goal range and appropriate to transition early in the morning but then BSGs started to rise mid-morning secondary to insufficient SQ insulin dosing to cover for steroid induced hyperglycemia and meals. * Pt has received 123 units of SQ insulin + IV insulin infusion (~2 units/hr * 24hrs) for a calculated total daily dose of ~ 200 units yesterday * BSGs in goal range today and IV insulin infusion was held per protocol around 0100 this morning. * Solumedrol dosing continues at 40mg IV Q6hrs * Outpatient dosing is 169 units/day --> will stress outpatient dosing for steroids which is similar to total daily dose received yesterday. * Continue SQ basal bolus insulin regimen today based on total daily dose of ~ 200-220 units/day * Titrate dosing based on BSG trends and steroid dosing. 02/14/18 * BSGs have ranged 63-299 over the last 24 hours * Patient has received a total of 219 units over the last 24 hours * Fasting BSG 63 this AM with 110 units of basal insulin on board. HS BSG had been 118 and no correction given overnight. Will reduce Lantus to match home dosage. * IV Solu-medrol continues at same dosage at this time. * CF and CR reduced BSGs yesterday, however may have been too much as HS BSG dropped to 118. Will make only a small change to CR this AM and follow post- prandial pattern today. PLAN FOR INPATIENT GLYCEMIC CONTROL: * Basal insulin: (decreased dose) * Lantus 45 units SQ BID * Bolus insulin * NovoLog per scale ACHS or Q6hrs while NPO * Goal Range: Low 110 mg/dL - High 140 mg/dL (lowered range) * Correction Factor: 9 mg/dL/unit (no change) * Nutritional / Prandial insulin per carb ratio of 1 unit per 2.5 grams CHO consumed (dose decreased) * Reassess insulin doses with each step down in steroid dose.
--- NOTE | 2018-02-14 15:34 | PULMONARY PROGRESS NOTE ---
DATE: 02/14/2018 TIME: 2:45 p.m. SUBJECTIVE: The patient is being seen in room 202. He is an 88-year-old male who I have seen previously in the office. He has a history of COPD, interstitial lung disease, and pleural plaques. He was admitted on 02/11/2018. He was in ICU until yesterday. He was followed by Dr. Polo who was both the nurse advisor and on for pulmonary. The nurse advisor people have signed off. The patient had multiple family members present when I was seeing him. He is awake. He is not the best historian, however. Apparently, he is less short of breath than when he came in. He has been wearing BiPAP at night. Review of the nurse's notes shows that he did wear BiPAP as of midnight last night. However, at 4:00 a.m., she has him listed as being on nasal cannula. Thus, it is not clear how long he did wear the BiPAP or why it was stopped. He is having some shortness of breath at present and he is tachypneic. He states he brought up one glob of sputum, but otherwise there has been no sputum. He is not having chest pains. OBJECTIVE: GENERAL: The patient looked weak. VITAL SIGNS: Temperature is 36.5. He has not had any significant fevers. It would appear that the highest temperature he has had came on admission when he was 37.9 and currently it is 36.5. The patient's heart rate is 87 per minute. It is irregular. It is difficult to determine the exact underlying rhythm. Blood pressure is 135/69. His urine output for the prior 24 hours was 2150 with an intake of only 966, so he had a net negative of 1184. Each day since he has been here, he has been diuresing well, but the diuresis gets a little less each day. He appears to have had fluid overload certainly at first. LUNGS: Lung hudson reveals diffuse rales and rhonchi. Respiratory rate currently is 30 breaths per minute. It is fast even though he himself does not look uncomfortable. ABDOMEN: The abdomen is obese. He has an abdominal wall hernia. Bowel sounds were present. LABORATORY DATA: White count today is 11.56. There has not been much change during this hospital stay. Hemoglobin is 11.6 and platelets are 168,000. Again, there has been no significant change. INR today is 3.6. Urine is negative. He has had several blood gases. The most recent yesterday showed a pH of 7.33 with a pCO2 of 72 and a pO2 of 54 done on 40% oxygen. This actually is the highest pCO2 he has had since he came in. On 02/11/2018, his pCO2 had been as high as 63. Electrolytes show sodium 140, potassium 3.6, chloride 97, bicarb 40. BUN is 48 with a creatinine of 1.49. On 02/11/2018, the creatinine was 1.87. IMPRESSIONS: 1. [id number] respiratory failure with hypoxia and hypercarbia. 2. Severe chronic obstructive pulmonary disease. 3. Interstitial lung disease, possibly related to asbestos in light of pleural plaques. 4. Pulmonary hypertension. COMMENTS: The patient does not seem to be doing well. He is tachypneic. His blood gas yesterday was very abnormal. He has had respiratory acidosis with partial compensation. I am going to have him put the BiPAP on now for 1-2 hours. We are encouraging them to have the patient wear the BiPAP at night. I believe this is important for him with his high pCO2. He remains on levofloxacin, which appears has been adjusted for his renal insufficiency. He remains on Zosyn. He is on methylprednisolone 40 mg IV every 6 hours. He is on levalbuterol every 4 hours along with ipratropium. In spite of all this, the patient is not doing well. He has diuresed fairly well during this hospital stay. RECOMMENDATIONS: Continue with BiPAP at night. We will have the staff put on BiPAP now for 1-2 hours. We should encourage the patient to wear the BiPAP at night.
--- NOTE | 2018-02-14 15:49 | Cardiology Follow-Up ---
Subjective Subjective Date of Service: Feb 14, 2018. Pt evaluation today including: conversation w/ patient, conversation w/ family , physical exam, chart review, lab review, review of studies, review of inpatient medication list Additional Details: Is still with intermittent shortness of breath, intermittently crying BiPAP. Denies any chest pain. Telemetry reviewed--predominantly sinus rhythm, intermittent tachycardia looks like multifocal atrial tachycardia Problem List Medical Problems: (1) Change in mental status Status: Acute (2) CO2 retention Status: Acute (3) Cor pulmonale Status: Chronic (4) Elevated troponin Status: Acute (5) Pneumonia Status: Acute (6) Respiratory distress Status: Acute Review of Systems Respiratory: + shortness of breath Cardiac: No chest pain Abdomen: No pain Objective Vital Signs Last Vital Signs Documentation Date Time Temp Pulse Resp B/P (MAP) Pulse Ox O2 Delivery O2 Flow Rate FiO2 02/14/18 15:29 36.7 84 20 138/84 (102) 95 02/14/18 15:14 40 02/14/18 15:13 BiPAP/CPAP 02/14/18 12:11 6.0 Physical Exam: General Appearance: + mild distress (respiratory), + pertinent finding (BiPAP in place) Neck: trachea midline Respiratory/Chest: + decreased breath sounds (bibasal), + accessory muscle use , + wheezing (Scattered wheezes) Cardiovascular: regular rate, rhythm, no murmur (quiet heart sounds with lound rhonchi, no murmurs appreciated), + tachycardia Abdomen: normal bowel sounds, non tender, soft, + pertinent finding (non tender abdominal hernia present without skin changes) Extremities: no calf tenderness, normal capillary refill Neurologic/Psychiatric: alert Skin: normal color, warm/dry Assessment and Plan 1. Acute on chronic respiratory failure 2. COPD/Pulmonary fibrosis 3. Suspected pneumonia 4. NSTEMI 5. Paroxysmal atrial fibrillation 6. Acute on chronic renal insufficiency --remains chest pain-free, hemodynamically stable, reasonably rate controlled. --has diuresed well on IV diuretics; creatinine trending up today --persistent respiratory difficulties requiring intermittent BiPAP -no indication for cardiac catheterization at this time and in the setting of comorbidities will defer unless emergency situation -would plan to hold IV diuretics tomorrow--transition to p.o. maintenance diuretics pending stable renal function -anticoagulation with Coumadin to target INR 2-3 -continue current metoprolol Will follow. Medications: Current Inpatient Medications Medications (Trade) Dose Ordered Sig/Yoli Route Start Time Stop Time Status Last Admin Dose Admin Acetaminophen (Tylenol Tab) 650 mg Q4H PRN PO 02/10/18 23:45 03/12/18 23:44 Levalbuterol (Xopenex 1.25MG/ 0.5ML Neb) 1.25 mg Q4R INH 02/11/18 00:00 03/13/18 00:00 02/14/18 15:12 1.25 MG Ipratropium [place] (Atrovent 0.02% 0.5MG/2.5ML Neb) 0.5 mg Q4R INH 02/11/18 00:00 03/13/18 00:00 02/14/18 15:12 0.5 MG Glucose (Glucose 40% Gel) 15-30 GRAMS 15 GRAMS... UD PRN PO 02/10/18 23:45 03/12/18 23:44 Glucose (Glucose Chew Tab) 4-8 Tablets 4 Tabl... UD PRN PO 02/10/18 23:45 03/12/18 23:44 Dextrose (Dextrose 50% 50ML Syringe) 25-50ML OF 50% DW IV FOR... UD PRN IV 02/10/18 23:45 03/12/18 23:44 02/12/18 01:31 50 ML Glucagon (Glucagon Inj) 1 mg UD PRN SQ 02/10/18 23:45 03/12/18 23:44 Miscellaneous Information (Consult Glycemic Management Pharmacy) 1 ea DAILY PRN N/A 02/11/18 00:00 03/13/18 00:00 Atorvastatin Calcium (Lipitor Tab) 40 mg HS PO 02/11/18 21:00 03/13/18 20:59 02/13/18 21:46 40 MG Budesonide/ Formoterol Fumarate (Symbicort 160/ 4.5 Inh) 2 puffs BID INH 02/11/18 09:00 03/13/18 08:59 02/14/18 08:11 2 PUFFS Docusate Sodium (coLACE CAP) 100 mg DAILY PO 02/11/18 09:00 03/13/18 08:59 02/14/18 08:12 100 MG Finasteride (Proscar Tab) 5 mg DAILY PO 02/11/18 09:00 03/13/18 08:59 02/14/18 08:14 5 MG Magnesium Oxide (Mag-Ox Tab) 400 mg BID PO 02/11/18 09:00 03/13/18 08:59 02/14/18 08:12 400 MG Metoclopramide HCl (Reglan Tab) 10 mg AC PO 02/11/18 06:45 03/13/18 06:44 02/14/18 11:50 10 MG Metoprolol Tartrate (Lopressor Tab) 25 mg BID PO 02/11/18 09:00 03/13/18 08:59 02/14/18 08:11 25 MG Multivitamins (Multivitamin Tab) 1 tab DAILY PO 02/11/18 09:00 03/13/18 08:59 02/14/18 08:11 1 TAB Senna (Senokot Tab) 17.2 mg HS PO 02/11/18 21:00 03/13/18 20:59 02/13/18 21:48 17.2 MG Terazosin HCl (Hytrin Cap) 5 mg HS PO 02/11/18 21:00 03/13/18 20:59 02/13/18 21:49 5 MG Warfarin Sodium (Coumadin Tab) 5 mg DAILY@1600 PO 02/11/18 16:00 03/13/18 15:59 Future Hold 02/12/18 16:15 5 MG Levothyroxine Sodium (Synthroid Tab) 125 mcg DAILYBB PO 02/11/18 06:00 03/13/18 05:59 02/14/18 04:07 125 MCG Methylprednisolone Sodium Succinate 40 mg/Syringe 0.64 ml @ 1.5 mls/min Q6H IV 02/11/18 02:00 03/13/18 01:59 02/14/18 08:11 1.5 MLS/MIN Nitroglycerin (Nitroglycerin 2% Oint) 1 inch Q6H EXT 02/11/18 04:00 03/13/18 03:59 02/14/18 12:23 1 INCH Miscellaneous Information (Consult) 1 ea UD PRN N/A 02/11/18 04:30 03/13/18 04:29 Piperacillin Sod/ Tazobactam Sod 4.5 gm/Sodium Chloride 120 ml @ 30 mls/hr Q8H IV 02/11/18 10:00 02/18/18 09:59 02/14/18 11:49 30 MLS/HR Levofloxacin 750 mg/Prmx 150 ml @ 100 mls/hr Q48H IV 02/13/18 03:00 02/20/18 02:59 02/13/18 02:01 100 MLS/HR Insulin Aspart (novoLOG ASPART) SLIDING SCALE If CARB RA... ACHS SC 02/12/18 11:00 03/14/18 10:59 Future hold 02/14/18 11:53 21 UNITS Furosemide 20 mg/ Syringe 2 ml @ 4 mls/min DAILY IV 02/13/18 09:00 03/13/18 08:59 02/14/18 08:12 4 MLS/MIN Aspirin (Ecotrin Tab) 81 mg QAM PO 02/13/18 09:00 03/15/18 08:59 02/14/18 08:13 81 MG Guaifenesin (Mucinex Contr Rel Tab) 1,200 mg Q12 PO 02/13/18 21:00 03/15/18 20:59 02/14/18 08:12 1,200 MG Insulin Glargine (Lantus Solostar Pen) 45 units BID SC 02/14/18 09:00 03/16/18 08:59 02/14/18 08:11 45 UNITS Lab Results: 02/14/18 05:22 Red Blood Count 4.05, Mean Corpuscular Volume 91.6, Mean Corpuscular Hemoglobin 28.6, Mean Corpuscular Hemoglobin Concent 31.3, Mean Platelet Volume 9.8, Neutrophils (%) (Auto) 82.0, Lymphocytes (%) (Auto) 11.8, Monocytes (%) (Auto) 5.1, Eosinophils (%) (Auto) 0.0, Basophils (%) (Auto) 0.2, Neutrophils # (Auto) 9.49, Lymphocytes # (Auto) 1.36, Monocytes # (Auto) 0.59, Eosinophils # (Auto) 0.00, Basophils # (Auto) 0.02 02/14/18 05:22 Test 02/14/18 05:22 02/14/18 11:02 White Blood Count 11.56 K/uL (4.8-10.8) Red Blood Count 4.05 M/uL (4.7-6.1) Hemoglobin 11.6 g/dL (14.0-18.0) Hematocrit 37.1 % (42-52) Mean Corpuscular Volume 91.6 fL (80-100) Mean Corpuscular Hemoglobin 28.6 pg (25-34) Mean Corpuscular Hemoglobin Concent 31.3 g/dl (32-36) Platelet Count 168 K/uL (130-400) Mean Platelet Volume 9.8 fL (7.4-10.4) Neutrophils (%) (Auto) 82.0 % Lymphocytes (%) (Auto) 11.8 % Monocytes (%) (Auto) 5.1 % Eosinophils (%) (Auto) 0.0 % Basophils (%) (Auto) 0.2 % Neutrophils # (Auto) 9.49 K/uL (1.4-6.5) Lymphocytes # (Auto) 1.36 K/uL (1.2-3.4) Monocytes # (Auto) 0.59 K/uL (0.11-0.59) Eosinophils # (Auto) 0.00 K/uL (0-0.5) Basophils # (Auto) 0.02 K/uL (0-0.2) RDW Standard Deviation 51.4 fL (36.4-46.3) RDW Coefficient of Variation 15.1 % (11.5-14.5) Immature Granulocyte % (Auto) 0.9 % Immature Granulocyte # (Auto) 0.10 K/uL (0.00-0.02) Prothrombin Time 36.7 SECONDS (9.0-12.0) Prothromb Time International Ratio 3.6 (0.9-1.1) Activated Partial Thromboplast Time 40.5 SECONDS (21.0-31.0) Partial Thromboplastin Ratio 1.6 Anion Gap 3.0 mmol/L (3-11) Est Creatinine Clear Calc Drug Dose 42.7 ml/min Estimated GFR () 48.2 Estimated GFR (Non- 41.6 BUN/Creatinine Ratio 32.0 (10-20) Calcium Level 8.7 mg/dl (8.5-10.1) Phosphorus Level 3.1 mg/dl (2.5-4.9) Magnesium Level 2.4 mg/dl (1.8-2.4) Bedside Glucose 218 mg/dl (70-99)
[2018-02-14] MEDS: ATORVASTATIN 20 MG TAB PO SCH (20:55)
[2018-02-14] MEDS: SENNA 8.6 MG TAB PO SCH (20:55)
[2018-02-15] VITALS (15 sets, daily range): BP systolic 114–156; BP diastolic 63–89; PULSE 17–97; TEMP 36.2–37.1; O2SAT 92–99
[2018-02-15] MEDS: LEVOFLOXACIN / D5W 750 MG in PREMIXED IN D5W 150 ML IV SCH (02:37)
[2018-02-15] MEDS: PIPERACILL/TAZOBAC IV 4.5 GM in NSS 100 ML IV SCH ×3 (02:37→17:06)
[2018-02-15] MEDS: METHYLPREDNISOLONE IV 40 MG in SYRINGE 0 ML IV SCH ×4 (02:37→19:59)
[2018-02-15] MEDS: IPRATROPIUM BROMIDE NEB SOLN 0.02% 2.5 ML VIAL INH SCH ×6 (03:10→23:00)
[2018-02-15] MEDS: LEVALBUTEROL 1.25MG/0.5ML NEB INH SCH ×6 (03:10→23:00)
[2018-02-15] MEDS: NITROGLYCERIN 2% OINTMENT 30GM TUBE EXT SCH ×4 (05:00→21:17)
[2018-02-15 06:01] LABS: BASO % 0.1 %; BASO ABS # 0.01 K/uL (0-0.2); HEMATOCRIT 37.5 % (42-52); HEMOGLOBIN 11.8 g/dL (14.0-18.0); LYMPH % 13.1 %; MEAN CELL VOLUME 89.9 fL (80-100); MEAN CORPUSCULAR HEMOGLOBIN 28.3 pg (25-34); MEAN CORPUSCULAR HGB CONC 31.5 g/dl (32-36); MEAN PLATELET VOLUME 9.8 fL (7.4-10.4); MONO % 4.9 %; MONO ABS # 0.56 K/uL (0.11-0.59); PLATELET COUNT 170 K/uL (130-400); RED CELL DISTRIBUTION WIDTH SD 49.5 fL (36.4-46.3); WHITE BLOOD COUNT 11.47 K/uL (4.8-10.8)
[2018-02-15 06:25] LABS: INR 2.4 (0.9-1.1); PTT PATIENT 32.4 SECONDS (21.0-31.0)
[2018-02-15 06:31] LABS: CALCIUM 8.8 mg/dl (8.5-10.1); CREATININE 1.38 mg/dl (0.60-1.40); PHOSPHORUS 3.5 mg/dl (2.5-4.9); POTASSIUM 3.5 mmol/L (3.5-5.1)
[2018-02-15] MEDS: LEVOTHYROXINE 125 MCG TAB PO SCH (06:46)
--- NOTE | 2018-02-15 07:20 | Family Medicine Progress Note ---
Progress Note Date of Service Feb 15, 2018. Subjective Pt evaluation today including: conversation w/ patient, physical exam, chart review, lab review, review of studies, conversation w/ environmental consultant, review of inpatient medication list Patient states his breathing is stable, but denies any improvement either. He did wear Bipap overnight, and complains of nasal and oral dryness, but denies other current discomfort. Denies fevers/chills, headaches, CP, palpitations, abdominal pain. He states he is sleeping and eating without issue - no nausea or vomiting. Perez in situ. Having regular BM. ROS is unremarkable except as noted above. Objective Vital Signs Date Time Temp Pulse Resp B/P (MAP) Pulse Ox O2 Delivery O2 Flow Rate FiO2 02/15/18 07:00 83 19 97 BiPAP/CPAP 40 02/15/18 04:37 77 17 120/63 (82) 99 BiPAP 17 02/15/18 04:00 BiPAP 02/15/18 03:12 77 96 40 02/15/18 03:11 77 24 96 BiPAP/CPAP 40 02/15/18 00:01 Nasal Cannula 4.0 02/14/18 23:33 36.8 78 16 120/63 (82) 98 BiPAP 40 02/14/18 23:04 80 17 96 BiPAP/CPAP 40 02/14/18 23:03 80 96 40 02/14/18 22:08 85 95 40 02/14/18 20:00 Nasal Cannula 4.0 02/14/18 19:17 36.4 99 36 134/73 (93) 90 Nasal Cannula 4.0 02/14/18 19:06 91 26 95 Nasal Cannula 4.0 02/14/18 16:00 Nasal Cannula 6.0 02/14/18 15:29 36.7 84 20 138/84 (102) 95 02/14/18 15:14 88 97 40 02/14/18 15:13 88 20 97 BiPAP/CPAP 40 02/14/18 14:51 106 97 40 02/14/18 12:11 36.5 92 30 135/69 (91) 96 Nasal Cannula 6.0 02/14/18 12:00 Nasal Cannula 6.0 02/14/18 11:09 84 24 97 Nasal Cannula 6.0 02/14/18 08:00 Nasal Cannula 6.0 02/14/18 07:51 36.5 86 26 132/68 (56) 97 Physical Exam Notes: General Appearance: + mild distress (respiratory), + pertinent finding (NC in situ) Eyes: normal inspection (pupils equal) ENT: + pertinent finding (dry mucus membranes) Neck: no JVD (unable to determine given neck size), trachea midline Respiratory/Chest: + decreased breath sounds (bibasilar), + accessory muscle use, + rhonchi (diffuse) Cardiovascular: regular rate, rhythm, no murmur (unable to appreciate especially with with loud, diffuse rhonchi) Abdomen: normal bowel sounds, non tender, soft, + pertinent finding (non tender abdominal hernia present without skin changes) Extremities: no calf tenderness, normal capillary refill, + pedal edema (trace bilaterally) Neurologic/Psychiatric: alert, normal mood/affect Skin: normal color, warm/dry Laboratory Results Results Past 24 Hours Test 02/15/18 05:21 02/15/18 06:42 02/15/18 11:32 02/15/18 16:08 Range/Units White Blood Count 11.47 4.8-10.8 K/uL Red Blood Count 4.17 4.7-6.1 M/uL Hemoglobin 11.8 14.0-18.0 g/dL Hematocrit 37.5 42-52 % Mean Corpuscular Volume 89.9 80-100 fL Mean Corpuscular Hemoglobin 28.3 25-34 pg Mean Corpuscular Hemoglobin Concent 31.5 32-36 g/dl Platelet Count 170 130-400 K/uL Mean Platelet Volume 9.8 7.4-10.4 fL Neutrophils (%) (Auto) 81.0 % Lymphocytes (%) (Auto) 13.1 % Monocytes (%) (Auto) 4.9 % Eosinophils (%) (Auto) 0.0 % Basophils (%) (Auto) 0.1 % Neutrophils # (Auto) 9.30 1.4-6.5 K/uL Lymphocytes # (Auto) 1.50 1.2-3.4 K/uL Monocytes # (Auto) 0.56 0.11-0.59 K/uL Eosinophils # (Auto) 0.00 0-0.5 K/uL Basophils # (Auto) 0.01 0-0.2 K/uL RDW Standard Deviation 49.5 36.4-46.3 fL RDW Coefficient of Variation 15.0 11.5-14.5 % Immature Granulocyte % (Auto) 0.9 % Immature Granulocyte # (Auto) 0.10 0.00-0.02 K/uL Prothrombin Time 24.5 9.0-12.0 SECONDS Prothromb Time International Ratio 2.4 0.9-1.1 Activated Partial Thromboplast Time 32.4 21.0-31.0 SECONDS Partial Thromboplastin Ratio 1.2 Sodium Level 139 136-145 mmol/L Potassium Level 3.5 3.5-5.1 mmol/L Chloride Level 97 98-107 mmol/L Carbon Dioxide Level 40 21-32 mmol/L Anion Gap 2.0 3-11 mmol/L Blood Urea Nitrogen 53 7-18 mg/dl Creatinine 1.38 0.60-1.40 mg/dl Est Creatinine Clear Calc Drug Dose 46.1 ml/min Estimated GFR () 52.9 Estimated GFR (Non- 45.6 BUN/Creatinine Ratio 38.7 10-20 Random Glucose 107 70-99 mg/dl Calcium Level 8.8 8.5-10.1 mg/dl Phosphorus Level 3.5 2.5-4.9 mg/dl Magnesium Level 2.4 1.8-2.4 mg/dl Bedside Glucose 107 140 115 70-99 mg/dl Assessment and Plan 88 year old male with acute hypoxic hypercapnic respiratory failure, tolerating BiPAP - most likely interstitial lung disease and COPD exacerbation. Suspected community acquired pneumonia. Possible CHF contributory but less likely currently. NSTEMI - suspected ACS given degree of elevation. Acute on chronic hypoxic hypercapnic respiratory failure - On 4L on O2 at home at baseline - Blood gases deranged: respiratory acidosis with partial compensation (02/13) - Echo shows moderate pulmonary hypertension suggested with estimated RVSP of 55mmHg. - Continue BiPAP through out the day as tolerated and overnight COPD exacerbation, interstitial lung disease possibly from previous asbestos exposure - Pulmonology consulted, recommendations appreciated - Continue Solu-Medrol IV 40mg q6h, no taper at present as per pulmonology recommendations - Continue Symbicort, and Atrovent + Xopenex nebs Possible community acquired pneumonia - Pulmonology consulted, recommendations appreciated - Continue Zosyn and Levaquin (renally dosed) - currently day 5 Acute congestive heart failure with preserved ejection fraction: - BNP unremarkable - Echo 65-70% LVEF, No regional wall motion abnormalities. No left ventricular hypertrophy. Type 1 diastolic dysfunction. Mild aortic stenosis. Mild mitral regurgitation. - Continue diuresis (I/Os show -8.7L since admission) with slight improvement in creatinine today. Likely approaching euvolemia. - Transitioned to PO furosemide 20mg today, as per cardiology recommendations - Trend creatinine NSTEMI - suspected ACS given elevation of troponin vs. demand, chest pain free at present therefore medical management alone - Continue aspirin (started this admission), metoprolol 25mg BID, atorvastatin 40mg daily Paroxysmal atrial fibrillation - SR at present - Continue metoprolol - INR today 2.4, resume home dose warfarin 5mg daily - Trend INR Hyperlipidemia - Continue atorvastatin BPH - Continue terazosin and finasteride Hypothyroidism - Continue levothyroxine T2DM - Appreciate pharmacy glycemic control - Continue Lantus 45 units BID + ISS GERD - Continue pantoprazole VTE prophylaxis - Anticoagulated with warfarin, as above Disposition - Continue on telemetry given multiple IV medications required and critical illness - Palliative consulted: goals of care are to ultimately return home, with possible short term stay at SNF for rehab Code Status - Full Code without mechanical ventilation Resident Physician Supervision Note: I interviewed and examined the patient. Discussed with Dr. Ko and agree with findings and plan as documented in the note. Any exceptions or clarifications are listed here: He feels marginally better this morning compared to yesterday. Upon exam, still with coarse breath sounds and exp wheeze. Appreciate pulmonology and palliative consultations. Documented By: Hair Preston Continued [facility] stay due to: abnormal vital signs, multiple IV medications needed Discharge planning: senior living facility Resident Tracking Resident Involvement: Resident Care Provided Care Provided: Adult Hospital Medicine
[2018-02-15] MEDS: FINASTERIDE 5 MG TAB PO SCH (08:06)
[2018-02-15] MEDS: FUROSEMIDE 20 MG TAB PO SCH (08:06)
[2018-02-15] MEDS: MAGNESIUM OXIDE 400 MG TAB PO SCH ×2 (08:07→20:00)
[2018-02-15] MEDS: MULTIVITAMIN TAB PO SCH (08:07)
[2018-02-15] MEDS: DOCUSATE SODIUM 100 MG CAP PO SCH (08:07)
[2018-02-15] MEDS: METOCLOPRAMIDE HCL 10 MG TAB PO SCH ×3 (08:08→17:14)
[2018-02-15] MEDS: GUAIFENESIN 600 MG TABCR PO SCH ×2 (08:08→19:58)
[2018-02-15] MEDS: METOPROLOL TARTRATE 25 MG TAB PO SCH ×2 (08:08→19:59)
[2018-02-15] MEDS: BUDESONIDE/FORMOTEROL FUMARATE 160/4.5 60 PUFFS/INHALER INH SCH ×2 (08:09→20:00)
[2018-02-15] MEDS: ASPIRIN 81 MG ECTAB PO SCH (08:09)
[2018-02-15] MEDS: INSULIN ASPART 100 UNITS/ML 3 ML PEN SC SCH ×4 (08:17→21:00)
[2018-02-15] MEDS: INSULIN GLARGINE SOLOSTAR 100 UNITS/ML 3 ML PEN SC SCH ×2 (08:18→21:17)
--- NOTE | 2018-02-15 11:12 | Palliative Care Consultation ---
Consultation Date of Consultation: Feb 15, 2018. Requesting Physician: Dr Ko Attending Physician: Dr Preston Reason for Consultation: Determine goals of care History of Present Illness Patient is an 88-year-old male with a history of pulmonary fibrosis and COPD as well as CHF who presented to the ER on 419 for increased shortness of breath and altered mental status with decreased responsiveness. Patient reports he had cold symptoms since mid January and this has triggered COPD exacerbations in the past. Of note patient's last hospitalization was in March 2013. Patient is on 4 L O2 nasal cannula at home and has been on this for over the past 3 years. Patient states he feels he is less than half way back to his prior baseline, but states he is feeling much better. Patient on nasal cannula during exam, he is on and off BiPAP as needed. Patient reiterated that he is a DO NOT INTUBATE , however with further discussion he does want chest compressions as well as shock. Patient lives alone and is independent in all his ADLs at home, he states his daughter comes every Wednesday for dinner and performs any housework that needs to be done. Patient has a son who lives on the property [place] acres, and he checks on the patient daily at dinner as well as doing all his grocery shopping, etc. 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 Patient also stated that when he got to the point where he could not care for himself he would want to go to [facility]. He also stated that he was unable to make decisions for himself he has named his son, Johnnie and his daughter, Sofya as his healthcare surrogates. Past Medical/Surgical History Medical History: Pulmonary fibrosis, COPD, CHF, chronic kidney disease, diabetes-on insulin, history of skin cancer, hypothyroidism, hypertension, HLD, A. fibon Coumadin, diagnosed 2012, BPH status post TURP in August 2017. Surgical History: TURP 08/2017, left cataract in 2003 Family History Noncontributory Social History Smoking Status: Former Smoker (Quit 40 years ago) History of Alcohol Use: No Drug Use: none Marital Status: Housing Status: lives alone (Son lives on the property) Occupation Status: retired Patient has 4 children, 2 live locally, one lives in [place] and the other one in [place]. Review of Systems Constitutional: No fever, No chills Eyes: No worsening of vision ENT: No hearing loss Respiratory: + cough, + shortness of breath (Increased dyspnea with speech) Cardiac: No chest pain Abdomen: No pain Male : + incontinence (Urinary incontinence present prior to admission) Neurologic: + weakness, No memory loss Psychiatric: No anxiety Heme: No abnormal bleeding/bruising Endo: + fatigue Skin: No rash Allergies Coded Allergies: No Known Allergies (Unverified , 08/30/17) Medications Current Inpatient Medications Medications (Trade) Dose Ordered Sig/Yoli Route Start Time Stop Time Status Last Admin Dose Admin Acetaminophen (Tylenol Tab) 650 mg Q4H PRN PO 02/10/18 23:45 03/12/18 23:44 Levalbuterol (Xopenex 1.25MG/ 0.5ML Neb) 1.25 mg Q4R INH 02/11/18 00:00 03/13/18 00:00 02/15/18 07:00 1.25 MG Ipratropium [place] (Atrovent 0.02% 0.5MG/2.5ML Neb) 0.5 mg Q4R INH 02/11/18 00:00 03/13/18 00:00 02/15/18 07:00 0.5 MG Glucose (Glucose 40% Gel) 15-30 GRAMS 15 GRAMS... UD PRN PO 02/10/18 23:45 03/12/18 23:44 Glucose (Glucose Chew Tab) 4-8 Tablets 4 Tabl... UD PRN PO 02/10/18 23:45 03/12/18 23:44 Dextrose (Dextrose 50% 50ML Syringe) 25-50ML OF 50% DW IV FOR... UD PRN IV 02/10/18 23:45 03/12/18 23:44 02/12/18 01:31 50 ML Glucagon (Glucagon Inj) 1 mg UD PRN SQ 02/10/18 23:45 03/12/18 23:44 Miscellaneous Information (Consult Glycemic Management Pharmacy) 1 ea DAILY PRN N/A 02/11/18 00:00 03/13/18 00:00 Atorvastatin Calcium (Lipitor Tab) 40 mg HS PO 02/11/18 21:00 03/13/18 20:59 02/14/18 20:55 40 MG Budesonide/ Formoterol Fumarate (Symbicort 160/ 4.5 Inh) 2 puffs BID INH 02/11/18 09:00 03/13/18 08:59 02/15/18 08:09 2 PUFFS Docusate Sodium (coLACE CAP) 100 mg DAILY PO 02/11/18 09:00 03/13/18 08:59 02/15/18 08:07 100 MG Finasteride (Proscar Tab) 5 mg DAILY PO 02/11/18 09:00 03/13/18 08:59 02/15/18 08:06 5 MG Magnesium Oxide (Mag-Ox Tab) 400 mg BID PO 02/11/18 09:00 03/13/18 08:59 02/15/18 08:07 400 MG Metoclopramide HCl (Reglan Tab) 10 mg AC PO 02/11/18 06:45 03/13/18 06:44 02/15/18 08:08 10 MG Metoprolol Tartrate (Lopressor Tab) 25 mg BID PO 02/11/18 09:00 03/13/18 08:59 02/15/18 08:08 25 MG Multivitamins (Multivitamin Tab) 1 tab DAILY PO 02/11/18 09:00 03/13/18 08:59 02/15/18 08:07 1 TAB Senna (Senokot Tab) 17.2 mg HS PO 02/11/18 21:00 03/13/18 20:59 02/14/18 20:55 17.2 MG Terazosin HCl (Hytrin Cap) 5 mg HS PO 02/11/18 21:00 03/13/18 20:59 02/14/18 20:56 5 MG Warfarin Sodium (Coumadin Tab) 5 mg DAILY@1600 PO 02/11/18 16:00 03/13/18 15:59 Future hold 02/12/18 16:15 5 MG Levothyroxine Sodium (Synthroid Tab) 125 mcg DAILYBB PO 02/11/18 06:00 03/13/18 05:59 02/15/18 06:46 125 MCG Methylprednisolone Sodium Succinate 40 mg/Syringe 0.64 ml @ 1.5 mls/min Q6H IV 02/11/18 02:00 03/13/18 01:59 02/15/18 08:05 1.5 MLS/MIN Nitroglycerin (Nitroglycerin 2% Oint) 1 inch Q6H EXT 02/11/18 04:00 03/13/18 03:59 02/15/18 05:00 1 INCH Miscellaneous Information (Consult) 1 ea UD PRN N/A 02/11/18 04:30 03/13/18 04:29 Piperacillin Sod/ Tazobactam Sod 4.5 gm/Sodium Chloride 120 ml @ 30 mls/hr Q8H IV 02/11/18 10:00 02/18/18 09:59 02/15/18 02:37 30 MLS/HR Levofloxacin 750 mg/Prmx 150 ml @ 100 mls/hr Q48H IV 02/13/18 03:00 02/20/18 02:59 02/15/18 02:37 100 MLS/HR Insulin Aspart (novoLOG ASPART) SLIDING SCALE If CARB RA... ACHS SC 02/12/18 11:00 03/14/18 10:59 Future hold 02/15/18 08:17 21 UNITS Furosemide 20 mg/ Syringe 2 ml @ 4 mls/min DAILY IV 02/13/18 09:00 03/13/18 08:59 Future Hold 02/14/18 08:12 4 MLS/MIN Aspirin (Ecotrin Tab) 81 mg QAM PO 02/13/18 09:00 03/15/18 08:59 02/15/18 08:09 81 MG Guaifenesin (Mucinex Contr Rel Tab) 1,200 mg Q12 PO 02/13/18 21:00 03/15/18 20:59 02/15/18 08:08 1,200 MG Insulin Glargine (Lantus Solostar Pen) 45 units BID SC 02/14/18 09:00 03/16/18 08:59 02/15/18 08:18 45 UNITS Furosemide (Lasix Tab) 20 mg QAM PO 02/15/18 09:00 03/17/18 08:59 02/15/18 08:06 20 MG Physical Exam Date Time Temp Pulse Resp B/P (MAP) Pulse Ox O2 Delivery O2 Flow Rate FiO2 02/15/18 08:00 BiPAP 02/15/18 07:00 83 19 97 BiPAP/CPAP 40 02/15/18 06:59 36.2 88 20 153/76 (101) 95 BiPAP 02/15/18 04:37 77 17 120/63 (82) 99 BiPAP 17 02/15/18 04:00 BiPAP 02/15/18 03:12 77 96 40 02/15/18 03:11 77 24 96 BiPAP/CPAP 40 02/15/18 00:01 Nasal Cannula 4.0 02/14/18 23:33 36.8 78 16 120/63 (82) 98 BiPAP 40 02/14/18 23:04 80 17 96 BiPAP/CPAP 40 02/14/18 23:03 80 96 40 02/14/18 22:08 85 95 40 02/14/18 20:00 Nasal Cannula 4.0 02/14/18 19:17 36.4 99 36 134/73 (93) 90 Nasal Cannula 4.0 02/14/18 19:06 91 26 95 Nasal Cannula 4.0 02/14/18 16:00 Nasal Cannula 6.0 02/14/18 15:29 36.7 84 20 138/84 (102) 95 02/14/18 15:14 88 97 40 02/14/18 15:13 88 20 97 BiPAP/CPAP 40 02/14/18 14:51 106 97 40 02/14/18 12:11 36.5 92 30 135/69 (91) 96 Nasal Cannula 6.0 02/14/18 12:00 Nasal Cannula 6.0 02/14/18 11:09 84 24 97 Nasal Cannula 6.0 General Appearance: + mild distress (Able to speak approximately one half sentences between breaths) Eyes: EOMI ENT: hearing grossly normal Neck: supple Respiratory: + respiratory distress (Mild, some increase with speech), + decreased breath sounds Cardiovascular: regular rate, rhythm, + pertinent finding (Trace pitting edema bilateral lower extremities) Abdomen: normal bowel sounds, non tender, soft Musculoskeletal: normal tone, abnormal strength Neurologic/Psychiatric: alert, oriented x 3, + motor weakness Skin: warm/dry Laboratory Results Last 24 Hours Test 02/14/18 11:02 02/14/18 16:26 02/14/18 20:14 02/15/18 05:21 Bedside Glucose 218 mg/dl 126 mg/dl 154 mg/dl White Blood Count 11.47 K/uL Red Blood Count 4.17 M/uL Hemoglobin 11.8 g/dL Hematocrit 37.5 % Mean Corpuscular Volume 89.9 fL Mean Corpuscular Hemoglobin 28.3 pg Mean Corpuscular Hemoglobin Concent 31.5 g/dl Platelet Count 170 K/uL Mean Platelet Volume 9.8 fL Neutrophils (%) (Auto) 81.0 % Lymphocytes (%) (Auto) 13.1 % Monocytes (%) (Auto) 4.9 % Eosinophils (%) (Auto) 0.0 % Basophils (%) (Auto) 0.1 % Neutrophils # (Auto) 9.30 K/uL Lymphocytes # (Auto) 1.50 K/uL Monocytes # (Auto) 0.56 K/uL Eosinophils # (Auto) 0.00 K/uL Basophils # (Auto) 0.01 K/uL RDW Standard Deviation 49.5 fL RDW Coefficient of Variation 15.0 % Immature Granulocyte % (Auto) 0.9 % Immature Granulocyte # (Auto) 0.10 K/uL Prothrombin Time 24.5 SECONDS Prothromb Time International Ratio 2.4 Activated Partial Thromboplast Time 32.4 SECONDS Partial Thromboplastin Ratio 1.2 Sodium Level 139 mmol/L Potassium Level 3.5 mmol/L Chloride Level 97 mmol/L Carbon Dioxide Level 40 mmol/L Anion Gap 2.0 mmol/L Blood Urea Nitrogen 53 mg/dl Creatinine 1.38 mg/dl Est Creatinine Clear Calc Drug Dose 46.1 ml/min Estimated GFR () 52.9 Estimated GFR (Non- 45.6 BUN/Creatinine Ratio 38.7 Random Glucose 107 mg/dl Calcium Level 8.8 mg/dl Phosphorus Level 3.5 mg/dl Magnesium Level 2.4 mg/dl Test 02/15/18 06:42 Bedside Glucose 107 mg/dl Assessment & Plan Palliative Performance Scale: 40 % (Patient is planned to get out of bed today) (1) Palliative care encounter Assessment & Plan: Patient's goal is to return home to his prior level of functioning. Discussed with patient that this may take some time given his age and other comorbidities. (2) Shortness of breath Status: Acute Assessment & Plan: Improving with IV steroids, scheduled nebs, and IV antibiotics. Still requiring intermittent BiPAP (3) CO2 retention Status: Acute Assessment & Plan: Patient requiring intermittent BiPAP (4) Change in mental status Status: Acute Assessment & Plan: Patient appears to be back to his baseline mental status. (5) Pulmonary fibrosis Status: Chronic Assessment & Plan: Followed by Dr. Whitaker as an outpatient (6) CHF (congestive heart failure) Status: Chronic Assessment & Plan: Patient appears to have diuresed well, now with trace lower extremity edema (7) COPD (chronic obstructive pulmonary disease) Status: Chronic Assessment & Plan: Patient's baseline is 4 L of nasal cannula at home, slowly improving with aggressive treatment Given this patient's age and other comorbidities, expect that I will take a couple weeks of aggressive treatment to get him near his prior baseline. Patient will likely require some short-term rehab for strengthening in order to achieve his goals of returning back home and be independent in his ADLs. Counseling and Coordination Total time 55 minutes with greater than 50% of the time spent at bedside reviewing patient's health history and discussing goals as well as plan of care. Patient reiterates that he is a DO NOT INTUBATE however he does want chest compressions as well as shock and other aggressive measures.
--- NOTE | 2018-02-15 12:06 | PULMONARY PROGRESS NOTE ---
DATE: 02/15/2018 PROBLEM LIST: 1. Ehkra-lo-[id number] hypoxic and hypercapnic respiratory failure. 2. Severe chronic obstructive pulmonary disease. 3. 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 4. Pulmonary hypertension by echocardiogram. SUBJECTIVE: The patient actually reports that he may be feeling a little bit better today. He states that he has been coughing, but has actually been able to cough just a little bit of mucus up, which was new for him. He was not able to cough anything up previously and feels that with getting the mucus coughed up, he is breathing better. He states that he was using the BiPAP overnight. He feels that that has been helpful. He does not want to use it during the day, he cannot talk with it on and he is afraid that nursing would not be able to get around to take it off when he wants it off so he actually is refusing to use it during the day. He denies any other concerns or problems at present. He is not having any chest pain. He has not had any chest discomfort. In general, he has not had any complaints of fever or chills, no sweats, no GI difficulties. Nursing reports no other problems. Nursing reports that he is actually doing a little bit better today. OBJECTIVE: The patient is an 88-year-old male lying in bed. He does has an oxygen on at present. Saturations are 95% on 4 liters. HEENT: Normocephalic, atraumatic. Pupils equal, round react to light and accommodation. Extraocular movements are intact. [place], moist gingival and buccal mucosa. NECK: Short, thick. There is no mass, no adenopathy, no bruit. CHEST: The patient has diffuse rales, rhonchi throughout. CARDIOVASCULAR: Irregularly irregular. No appreciated murmurs. ABDOMEN: Bowel sounds present. Abdomen soft, nontender. EXTREMITIES: The patient has SCDs in place. INPUTS AND OUTPUTS: The patient's weight today is same as yesterday 106.6 kg, diuresed 289 mL so far today, diuresed total of 1322 yesterday. LABORATORY DATA: Shows a white count of 11,000, H and H 11.8 and 37.5, platelet count 170,000. INR 2.4, BUN 53, creatinine 1.3. No new imaging. IMPRESSION: 1. This is an 88-year-old male with [id number] respiratory failure with hypoxia and hypercarbia. 2. Severe chronic obstructive pulmonary disease. 3. 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 Pulmonary hypertension. PLAN: At this point, the patient actually is doing better according to him and according to nursing. I did have a long discussion with him about using the BiPAP through the day for an hour or 2 at a time; however, he refuses. He had concerns about not being able to get the BiPAP off when he wants it off and he did not want to wait on nursing. He is agreeable to continue using it through the night. At this point, continue BiPAP at hour of sleep. We would also recommend to continue his levofloxacin and Zosyn, continue his Solu-Medrol 40 mg q. 6 hours. If he continues to show improvement, then we can consider tapering but for now, keep it the same. Also continue levalbuterol and ipratropium. The patient was seen by palliative care this morning as well. The patient will be reevaluated tomorrow. RUPAL
[2018-02-15] MEDS: WARFARIN SOD 5 MG TAB PO SCH (17:13)
[2018-02-15] MEDS: ATORVASTATIN 20 MG TAB PO SCH (19:59)
[2018-02-15] MEDS: SENNA 8.6 MG TAB PO SCH (20:00)
[2018-02-16] VITALS (19 sets, daily range): BP systolic 143–155; BP diastolic 71–90; PULSE 83–101; TEMP 36.5–36.8; O2SAT 91–99
[2018-02-16] MEDS: PIPERACILL/TAZOBAC IV 4.5 GM in NSS 100 ML IV SCH ×3 (01:33→16:39)
[2018-02-16] MEDS: METHYLPREDNISOLONE IV 40 MG in SYRINGE 0 ML IV SCH ×4 (01:33→19:44)
[2018-02-16] MEDS: LEVALBUTEROL 1.25MG/0.5ML NEB INH SCH ×6 (03:27→23:06)
[2018-02-16] MEDS: IPRATROPIUM BROMIDE NEB SOLN 0.02% 2.5 ML VIAL INH SCH ×6 (03:27→23:06)
[2018-02-16] MEDS: NITROGLYCERIN 2% OINTMENT 30GM TUBE EXT SCH ×5 (04:09→22:46)
[2018-02-16] MEDS: LEVOTHYROXINE 125 MCG TAB PO SCH (05:45)
[2018-02-16] MEDS: METOCLOPRAMIDE HCL 10 MG TAB PO SCH ×3 (05:45→16:47)
[2018-02-16 06:09] LABS: HEMOGLOBIN 12.2 g/dL (14.0-18.0); MEAN CELL VOLUME 88.4 fL (80-100); MEAN CORPUSCULAR HEMOGLOBIN 28.4 pg (25-34); MEAN CORPUSCULAR HGB CONC 32.1 g/dl (32-36); MEAN PLATELET VOLUME 9.7 fL (7.4-10.4); PLATELET COUNT 163 K/uL (130-400); WHITE BLOOD COUNT 11.87 K/uL (4.8-10.8)
[2018-02-16 06:16] LABS: INR 1.5 (0.9-1.1)
[2018-02-16 06:38] LABS: CALCIUM 8.7 mg/dl (8.5-10.1); CREATININE 1.36 mg/dl (0.60-1.40); POTASSIUM 3.6 mmol/L (3.5-5.1)
--- NOTE | 2018-02-16 07:01 | Family Medicine Progress Note ---
Progress Note Date of Service Feb 16, 2018. Subjective Pt evaluation today including: conversation w/ patient, physical exam, chart review, lab review, review of studies, conversation w/ information resource consultant, review of inpatient medication list Patient says the night was uneventful, except that he had issues with his Bipap. After multiple attempts at adjusting mask, he ultimately opted not to wear it after ~1am. He is complaining of irritation of his nares. He also has a cough, that is productive of sputum. He hope this is his lungs clearing junk. He otherwise states no change in his breathing. He denies fevers/chills, headaches, CP, palpitations, abdominal pain. He is tolerating diet without nausea or vomiting. Attempts to get out of bed yesterday were unsuccessful, as he felt too weak to proceed. Perez in place. Stooling without issue. ROS is unremarkable except as noted above. Objective Vital Signs Date Time Temp Pulse Resp B/P (MAP) Pulse Ox O2 Delivery O2 Flow Rate FiO2 02/16/18 04:05 95 Nasal Cannula 4.0 02/16/18 03:35 36.5 93 23 155/86 (109) 95 Nasal Cannula 4.0 02/16/18 03:28 90 30 93 Nasal Cannula 4.0 02/16/18 00:10 94 BiPAP 02/15/18 23:33 37.1 87 25 140/89 (106) 97 CPAP 40 02/15/18 23:00 87 36 98 BiPAP/CPAP 40 02/15/18 22:50 87 98 40 02/15/18 20:15 96 Nasal Cannula 4.0 02/15/18 20:06 36.7 97 20 136/87 (103) 94 Nasal Cannula 4.0 02/15/18 18:59 97 25 92 Nasal Cannula 4.0 02/15/18 15:07 BiPAP 02/15/18 15:04 84 26 94 Nasal Cannula 4.0 02/15/18 14:41 36.7 85 20 156/80 (105) 95 Nasal Cannula 4.0 02/15/18 12:14 BiPAP 02/15/18 11:42 36.7 95 20 114/86 (95) 94 Nasal Cannula 4.0 02/15/18 11:21 90 28 98 Nasal Cannula 4.0 02/15/18 08:00 BiPAP 02/15/18 07:00 83 19 97 BiPAP/CPAP 40 02/15/18 06:59 36.2 88 20 153/76 (101) 95 BiPAP Physical Exam Notes: General Appearance: + mild distress (respiratory), + pertinent finding (NC in situ, 4L O2) Eyes: normal inspection (pupils equal) ENT: + pertinent finding (dry mucus membranes) Neck: no JVD (unable to determine given neck size), trachea midline Respiratory/Chest: + decreased breath sounds (bibasilar), + accessory muscle use, + rhonchi (diffuse) Cardiovascular: regular rate, rhythm, no murmur (unable to appreciate especially with with loud, diffuse rhonchi) Abdomen: normal bowel sounds, non tender, soft, + pertinent finding (non tender abdominal hernia present without skin changes) Extremities: no calf tenderness, normal capillary refill, + pedal edema (trace bilaterally) Neurologic/Psychiatric: alert, normal mood/affect Skin: normal color, warm/dry Laboratory Results Results Past 24 Hours Test 02/15/18 16:08 02/15/18 20:43 02/16/18 05:26 02/16/18 06:35 Range/Units Bedside Glucose 115 131 104 70-99 mg/dl White Blood Count 11.87 4.8-10.8 K/uL Red Blood Count 4.30 4.7-6.1 M/uL Hemoglobin 12.2 14.0-18.0 g/dL Hematocrit 38.0 42-52 % Mean Corpuscular Volume 88.4 80-100 fL Mean Corpuscular Hemoglobin 28.4 25-34 pg Mean Corpuscular Hemoglobin Concent 32.1 32-36 g/dl RDW Standard Deviation 49.0 36.4-46.3 fL RDW Coefficient of Variation 15.0 11.5-14.5 % Platelet Count 163 130-400 K/uL Mean Platelet Volume 9.7 7.4-10.4 fL Prothrombin Time 15.9 9.0-12.0 SECONDS Prothromb Time International Ratio 1.5 0.9-1.1 Sodium Level 139 136-145 mmol/L Potassium Level 3.6 3.5-5.1 mmol/L Chloride Level 97 98-107 mmol/L Carbon Dioxide Level 39 21-32 mmol/L Anion Gap 3.0 3-11 mmol/L Blood Urea Nitrogen 47 7-18 mg/dl Creatinine 1.36 0.60-1.40 mg/dl Est Creatinine Clear Calc Drug Dose 46.8 ml/min Estimated GFR () 53.8 Estimated GFR (Non- 46.5 BUN/Creatinine Ratio 34.6 10-20 Random Glucose 93 70-99 mg/dl Calcium Level 8.7 8.5-10.1 mg/dl Test 02/16/18 11:12 Range/Units Bedside Glucose 145 70-99 mg/dl Assessment and Plan 88 year old male with acute hypoxic hypercapnic respiratory failure, tolerating BiPAP - most likely interstitial lung disease and COPD exacerbation. Suspected community acquired pneumonia. Possible CHF contributory but less likely currently. NSTEMI - suspected ACS given degree of elevation. Acute on chronic hypoxic hypercapnic respiratory failure - Blood gases confirmed : respiratory acidosis with partial compensation (02/13). Echo shows moderate pulmonary hypertension suggested with estimated RVSP of 55mmHg. - Continue 4L O2 via NC (baseline O2 requirement) with encouragement of BiPAP overnight and throughout the day as tolerated COPD exacerbation, interstitial lung disease possibly from previous asbestos exposure - Pulmonology consulted, recommendations appreciated - Continue Solu-Medrol IV 40mg q6h, no taper at present as per pulmonology recommendations - Continue Symbicort, and Atrovent + Xopenex nebs Possible community acquired pneumonia - Pulmonology consulted, recommendations appreciated - Continue Zosyn and Levaquin (renally dosed) - currently day 6. No plans to narrow antibiotic coverage yet, as per pulmonology. Acute congestive heart failure with preserved ejection fraction - BNP unremarkable. Echo 65-70% LVEF, no regional wall motion abnormalities. No left ventricular hypertrophy. Type 1 diastolic dysfunction. - Continue diuresis (I/Os show -9.8L since admission) with slight improvement in creatinine today. Likely approaching euvolemia. - Continue PO furosemide 20mg - Trend creatinine NSTEMI - suspected ACS given elevation of troponin vs. demand, chest pain free at present therefore medical management alone - Continue aspirin (started this admission), metoprolol 25mg BID, atorvastatin 40mg daily Paroxysmal atrial fibrillation - SR at present - Continue metoprolol - INR today 1.5, continue home dose warfarin 5mg daily - Trend INR Hyperlipidemia - Continue atorvastatin BPH - Continue terazosin and finasteride Hypothyroidism - Continue levothyroxine T2DM - Appreciate pharmacy glycemic control - Continue Lantus 45 units BID + ISS GERD - Continue pantoprazole VTE prophylaxis - Anticoagulated with warfarin, as above Disposition - Continue on telemetry given multiple IV medications required and critical illness - Palliative consulted: goals of care are to ultimately return home, with possible short term stay at SNF for rehab - referral out to [facility] Code Status - Full Code without mechanical ventilation Resident Physician Supervision Note: I interviewed and examined the patient. Discussed with Dr. Ko and agree with findings and plan as documented in the note. Any exceptions or clarifications are listed here: I also discussed the case with pulmonary medicine - will consider conversion to oral steroids tomorrow if continues slight improving trend. He is agreeable to [facility] for rehabilitation as well, although we are still several days away from considering discharge. Documented By: Hair Perston Continued [facility] stay due to: multiple IV medications needed Discharge planning: senior care facility Resident Tracking Resident Involvement: Resident Care Provided Care Provided: Adult Hospital Medicine
[2018-02-16] MEDS: INSULIN ASPART 100 UNITS/ML 3 ML PEN SC SCH ×4 (07:40→19:52)
[2018-02-16] MEDS: ASPIRIN 81 MG ECTAB PO SCH (07:42)
[2018-02-16] MEDS: INSULIN GLARGINE SOLOSTAR 100 UNITS/ML 3 ML PEN SC SCH ×2 (07:42→19:52)
[2018-02-16] MEDS: FUROSEMIDE 20 MG TAB PO SCH (07:43)
[2018-02-16] MEDS: MAGNESIUM OXIDE 400 MG TAB PO SCH ×2 (07:43→19:47)
[2018-02-16] MEDS: FINASTERIDE 5 MG TAB PO SCH (07:43)
[2018-02-16] MEDS: METOPROLOL TARTRATE 25 MG TAB PO SCH ×2 (07:44→19:46)
[2018-02-16] MEDS: MULTIVITAMIN TAB PO SCH (07:44)
[2018-02-16] MEDS: GUAIFENESIN 600 MG TABCR PO SCH ×2 (07:44→19:48)
[2018-02-16] MEDS: DOCUSATE SODIUM 100 MG CAP PO SCH (07:45)
[2018-02-16] MEDS: BUDESONIDE/FORMOTEROL FUMARATE 160/4.5 60 PUFFS/INHALER INH SCH ×2 (07:45→19:49)
--- NOTE | 2018-02-16 11:31 | Pharmacy Progress Note ---
Pharmacy Glycemic Short Note 2 Date of Service Feb 16, 2018. OUTPATIENT ANTIDIABETIC REGIMEN: * Lantus 45 units SQ BID * Humalog 25-27 units with meals TIDM * Total daily dose ~ 169 units/day Item Value Date Time Bedside Glucose 145 mg/dl H 02/16/18 1112 Bedside Glucose 104 mg/dl H 02/16/18 0635 Bedside Glucose 131 mg/dl H 02/15/18 2043 Bedside Glucose 115 mg/dl H 02/15/18 1608 Bedside Glucose 140 mg/dl H 02/15/18 1132 Bedside Glucose 107 mg/dl H 02/15/18 0642 ASSESSMENT: 02/13/18 * 88yo T2DM male with severe steroid induced hyperglycemia. Pt with well controlled diabetes as an outpatient on large doses of SQ insulin (169 units/day ) * IV insulin infusion transitioned off yesterday with increased SQ insulin dosing. BSGs in goal range and appropriate to transition early in the morning but then BSGs started to rise mid-morning secondary to insufficient SQ insulin dosing to cover for steroid induced hyperglycemia and meals. * Pt has received 123 units of SQ insulin + IV insulin infusion (~2 units/hr * 24hrs) for a calculated total daily dose of ~ 200 units yesterday * BSGs in goal range today and IV insulin infusion was held per protocol around 0100 this morning. * Solumedrol dosing continues at 40mg IV Q6hrs * Outpatient dosing is 169 units/day --> will stress outpatient dosing for steroids which is similar to total daily dose received yesterday. * Continue SQ basal bolus insulin regimen today based on total daily dose of ~ 200-220 units/day * Titrate dosing based on BSG trends and steroid dosing. 02/14/18 * BSGs have ranged 63-299 over the last 24 hours * Patient has received a total of 219 units over the last 24 hours * Fasting BSG 63 this AM with 110 units of basal insulin on board. HS BSG had been 118 and no correction given overnight. Will reduce Lantus to match home dosage. * IV Solu-medrol continues at same dosage at this time. * CF and CR reduced BSGs yesterday, however may have been too much as HS BSG dropped to 118. Will make only a small change to CR this AM and follow post- prandial pattern today. 02/15/18 * No changes to regimen; BSGs at goal * Steroid dose not to change today 02/16/18 * BSGs remain at goal * Steroid dose not to change today * No changes will be made PLAN FOR INPATIENT GLYCEMIC CONTROL: * Basal insulin: (no change) * Lantus 45 units SQ BID * Bolus insulin * NovoLog per scale ACHS or Q6hrs while NPO * Goal Range: Low 110 mg/dL - High 140 mg/dL (no change) * Correction Factor: 9 mg/dL/unit (no change) * Nutritional / Prandial insulin per carb ratio of 1 unit per 2.5 grams CHO consumed (no change) * Reassess insulin doses with each step down in steroid dose.
--- NOTE | 2018-02-16 11:47 | PULMONARY PROGRESS NOTE ---
DATE: 02/16/2018 PULMONARY PROGRESS NOTE PROBLEM LIST: Includes: 1. Juqec-eb-turgdyo hypoxic and hypercapnic respiratory failure. 2. Severe chronic obstructive pulmonary disease. 3. 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 4. Pulmonary hypertension by echocardiogram. SUBJECTIVE: Patient reports that he continues to feel a little bit better. When I saw him, he had just gotten cleaned up with the help of nursing staff, so he was a little bit winded, but in general appeared better than he did yesterday when I saw him. He states that he still has some coughing and did have a coughing spell this morning. He states he is just getting a little bit of mucus up. He is not sure if there was any color to mucus he coughed up this morning. No chest discomfort. He did try to use the BiPAP overnight last night, but it was too uncomfortable, so he took it off at approximately 1:30 in the morning. He states that overall he is feeling better. He is not to his baseline yet in general. He states that he is on 4 liters of oxygen at home which he is at his home level at this time. No other concerns or problems. No GI difficulties. Patient was seen by Dr. Walton from palliative services yesterday. OBJECTIVE: GENERAL: Patient is an 88-year-old male lying in bed. He is alert and oriented x3. Mood is good. Affect is good. VITAL SIGNS: Temperature 36.5, pulse 95, respirations 20, blood pressure is 146/71, pulse ox 95 to 97% on 4 liters. Patient is able to complete sentences, but is dyspneic when I currently saw him, but again that was right after he had been cleaned up for the morning and had been moving around in bed. HEENT: Normocephalic, atraumatic. Pupils equal, round and reactive to light and accommodation. Extraocular movements are intact. Hostetter moist gingival and buccal mucosa. NECK: Short, thick, no mass, no adenopathy, no bruits. CHEST: Patient has significant coarse breath sounds throughout. No rales or rhonchi noted. Breath sounds are actually similar or maybe a little bit better than yesterday. CARDIOVASCULAR: Irregularly irregular. No murmurs, gallops or rubs. ABDOMEN: Obese, soft and nontender. EXTREMITIES: SCDs are in place. NEUROLOGIC: Cranial nerves II through XII are grossly intact. No focal deficits noted. LABORATORY DATA: Shows white count of 11,000, H&H are 12.2 and 38.0, platelet count 163,000. INR 1.5, BUN 47, which is trending down. Serum CO2 is 39, which is trending down also. No new imaging. IMPRESSION: This is an 88-year-old male with known severe chronic obstructive pulmonary disease. 1. Chhmd-uh-thhquqm respiratory failure with hypoxia and hypercarbia. Patient is improving, although he did not wear a BiPAP last night. We encouraged him to continue to try to use it. 2. Severe chronic obstructive pulmonary disease. 3. Interstitial lung disease with pleural plaques, possibly secondary to asbestos exposure. 4. Pulmonary hypertension. PLAN: 1. Overall plan, continue BiPAP, continue to encourage him to use his BiPAP. He has been resistant and I suspect that he will continue, but I believe it is helping him and making a difference for him. 2. In regards to his steroid, I think that we will continue it q. 6 hours today and if he continues on his current improvement, then I think tomorrow, we can start working on tapering it down. I am just concerned that he worries that right now that he is still fairly tenuous and he may not tolerate the decrease in dose. He is to continue the current antibiotics as they are. He is also to continue current aggressive pulmonary toilet in the form of the nebulization and the flutter valve. In reviewing the note, the patient is agreeable to going to [facility] for rehabilitation when he is medically stable. Social service is working on this at this point. We will reevaluate in the morning.
[2018-02-16] MEDS: WARFARIN SOD 5 MG TAB PO SCH (16:46)
[2018-02-16] MEDS: ATORVASTATIN 20 MG TAB PO SCH (19:46)
[2018-02-16] MEDS: SENNA 8.6 MG TAB PO SCH (19:48)
[2018-02-17] VITALS (18 sets, daily range): BP systolic 135–158; BP diastolic 73–96; PULSE 81–105; TEMP 36.5–36.9; O2SAT 93–99
[2018-02-17] MEDS: METHYLPREDNISOLONE IV 40 MG in SYRINGE 0 ML IV SCH ×3 (00:58→21:01)
[2018-02-17] MEDS: LEVOFLOXACIN / D5W 750 MG in PREMIXED IN D5W 150 ML IV SCH (00:59)
[2018-02-17] MEDS: PIPERACILL/TAZOBAC IV 4.5 GM in NSS 100 ML IV SCH ×3 (03:05→17:21)
[2018-02-17] MEDS: IPRATROPIUM BROMIDE NEB SOLN 0.02% 2.5 ML VIAL INH SCH ×6 (03:26→23:14)
[2018-02-17] MEDS: LEVALBUTEROL 1.25MG/0.5ML NEB INH SCH ×6 (03:26→23:14)
[2018-02-17] MEDS: NITROGLYCERIN 2% OINTMENT 30GM TUBE EXT SCH ×4 (04:21→21:27)
[2018-02-17 06:03] LABS: HEMATOCRIT 36.6 % (42-52); HEMOGLOBIN 11.8 g/dL (14.0-18.0); MEAN CELL VOLUME 89.5 fL (80-100); MEAN CORPUSCULAR HEMOGLOBIN 28.9 pg (25-34); MEAN CORPUSCULAR HGB CONC 32.2 g/dl (32-36); MEAN PLATELET VOLUME 9.6 fL (7.4-10.4); PLATELET COUNT 166 K/uL (130-400); RED CELL DISTRIBUTION WIDTH CV 15.2 % (11.5-14.5); RED CELL DISTRIBUTION WIDTH SD 49.4 fL (36.4-46.3); WHITE BLOOD COUNT 12.95 K/uL (4.8-10.8)
[2018-02-17 06:08] LABS: INR 1.6 (0.9-1.1)
[2018-02-17] MEDS: METOCLOPRAMIDE HCL 10 MG TAB PO SCH ×3 (06:24→17:20)
[2018-02-17] MEDS: LEVOTHYROXINE 125 MCG TAB PO SCH (06:24)
[2018-02-17 06:33] LABS: CALCIUM 8.5 mg/dl (8.5-10.1); CREATININE 1.25 mg/dl (0.60-1.40)
--- NOTE | 2018-02-17 07:31 | Family Medicine Progress Note ---
Progress Note Date of Service Feb 17, 2018. Subjective Pt evaluation today including: conversation w/ patient, physical exam, chart review, lab review, review of studies, conversation w/ oracle consultant, review of inpatient medication list Patient says "the night was terrible." He describes lots of coughing and poor sleep. He did not use the Bipap overnight. He denies fevers/chills, headaches, CP, palpitations, abdominal pain. He is tolerating diet without nausea or vomiting. He did not get out of bed yesterday, but amenable to try later today. Perez in place. Stooling without issue. ROS is unremarkable except as noted above. Objective Vital Signs Date Time Temp Pulse Resp B/P (MAP) Pulse Ox O2 Delivery O2 Flow Rate FiO2 02/17/18 07:07 99 24 93 Nasal Cannula 40.0 50 02/17/18 06:55 36.5 99 22 149/92 (111) 94 High Flow Oxygen 02/17/18 04:23 36.9 96 28 152/91 (111) 97 02/17/18 04:00 96 High Flow Oxygen 40.0 100 02/17/18 03:27 94 26 97 Nasal Cannula 40.0 40 02/17/18 00:02 36.9 87 31 148/74 (98) 95 02/16/18 23:59 94 High Flow Oxygen 40.0 100 02/16/18 23:06 83 25 96 Nasal Cannula 40.0 40 02/16/18 23:00 87 22 93 Nasal Cannula 40.0 40 02/16/18 20:00 94 Nasal Cannula 4.0 100 02/16/18 19:04 101 24 94 Nasal Cannula 4.0 02/16/18 18:48 36.8 99 31 143/80 (101) 94 Nasal Cannula 4.0 02/16/18 15:24 86 24 91 Nasal Cannula 4.0 02/16/18 14:58 36.7 90 20 152/75 (100) 95 Nasal Cannula 4.0 100 02/16/18 14:56 97 Nasal Cannula 4.0 02/16/18 11:28 95 Nasal Cannula 4.0 02/16/18 11:08 87 28 91 Nasal Cannula 4.0 02/16/18 10:26 36.7 92 20 151/90 (110) 94 Nasal Cannula 4.0 02/16/18 08:00 95 Nasal Cannula 4.0 Physical Exam Notes: General Appearance: + mild distress (respiratory - worse with coughing), + pertinent finding (NC in situ, 4L O2) Eyes: normal inspection (pupils equal) ENT: + pertinent finding (dry mucus membranes) Neck: no JVD (unable to determine given neck size), trachea midline Respiratory/Chest: + decreased breath sounds (bibasilar), + accessory muscle use, + rhonchi (diffuse) Cardiovascular: regular rate, rhythm, no murmur (unable to appreciate especially with with loud, diffuse rhonchi) Abdomen: normal bowel sounds, non tender, soft, + pertinent finding (non tender abdominal hernia present without skin changes) Extremities: no calf tenderness, normal capillary refill, + pedal edema (trace bilaterally) Neurologic/Psychiatric: alert, normal mood/affect Skin: normal color, warm/dry Laboratory Results Results Past 24 Hours Test 02/16/18 20:31 02/17/18 05:11 02/17/18 07:04 02/17/18 11:34 Range/Units Bedside Glucose 162 203 243 70-99 mg/dl White Blood Count 12.95 4.8-10.8 K/uL Red Blood Count 4.09 4.7-6.1 M/uL Hemoglobin 11.8 14.0-18.0 g/dL Hematocrit 36.6 42-52 % Mean Corpuscular Volume 89.5 80-100 fL Mean Corpuscular Hemoglobin 28.9 25-34 pg Mean Corpuscular Hemoglobin Concent 32.2 32-36 g/dl RDW Standard Deviation 49.4 36.4-46.3 fL RDW Coefficient of Variation 15.2 11.5-14.5 % Platelet Count 166 130-400 K/uL Mean Platelet Volume 9.6 7.4-10.4 fL Prothrombin Time 16.7 9.0-12.0 SECONDS Prothromb Time International Ratio 1.6 0.9-1.1 Sodium Level 138 136-145 mmol/L Potassium Level 4.0 3.5-5.1 mmol/L Chloride Level 98 98-107 mmol/L Carbon Dioxide Level 37 21-32 mmol/L Anion Gap 3.0 3-11 mmol/L Blood Urea Nitrogen 48 7-18 mg/dl Creatinine 1.25 0.60-1.40 mg/dl Est Creatinine Clear Calc Drug Dose 51.0 ml/min Estimated GFR () 59.6 Estimated GFR (Non- 51.4 BUN/Creatinine Ratio 38.5 10-20 Random Glucose 181 70-99 mg/dl Calcium Level 8.5 8.5-10.1 mg/dl Test 02/17/18 16:02 Range/Units Bedside Glucose 112 70-99 mg/dl Assessment and Plan 88 year old male with acute hypoxic hypercapnic respiratory failure, tolerating BiPAP - most likely interstitial lung disease and COPD exacerbation. Suspected community acquired pneumonia. Possible CHF contributory but less likely currently. NSTEMI - suspected ACS given degree of elevation. Acute on chronic hypoxic hypercapnic respiratory failure - Blood gases confirmed : respiratory acidosis with partial compensation (02/13). Echo shows moderate pulmonary hypertension suggested with estimated RVSP of 55mmHg. - Continue 4L O2 via NC (baseline O2 requirement) with encouragement of BiPAP overnight and throughout the day as tolerated COPD exacerbation, interstitial lung disease possibly from previous asbestos exposure - Pulmonology consulted, recommendations appreciated - Continue Solu-Medrol IV 40mg, frequency decreased from q6h to q12h, per pulmonology recommendations - Continue Symbicort, and Atrovent + Xopenex nebs Possible community acquired pneumonia - Pulmonology consulted, recommendations appreciated - Continue Zosyn and Levaquin (renally dosed) - currently day 7. No plans to narrow antibiotic coverage yet, as per pulmonology. Acute congestive heart failure with preserved ejection fraction - BNP unremarkable. Echo 65-70% LVEF, no regional wall motion abnormalities. No left ventricular hypertrophy. Type 1 diastolic dysfunction. - Continue diuresis (I/Os show -11.1L since admission) with slight improvement in creatinine today. Likely approaching euvolemia. - Continue PO furosemide 20mg - Trend creatinine NSTEMI - suspected ACS given elevation of troponin vs. demand, chest pain free at present therefore medical management alone - Continue aspirin (started this admission), metoprolol 25mg BID, atorvastatin 40mg daily Paroxysmal atrial fibrillation - SR at present - Continue metoprolol - INR today 1.6, continue home dose warfarin 5mg daily - Trend INR Hyperlipidemia - Continue atorvastatin BPH - Continue terazosin and finasteride Hypothyroidism - Continue levothyroxine T2DM - Appreciate pharmacy glycemic control - Continue Lantus 45 units BID + ISS GERD - Continue pantoprazole VTE prophylaxis - Anticoagulated with warfarin, as above Disposition - Continue on telemetry given multiple IV medications required and critical illness - Palliative consulted: goals of care are to ultimately return home, with possible short term stay at SNF for rehab - referral out to [facility] Code Status - Full Code without mechanical ventilation Resident Physician Supervision Note: I was present with Dr. Ko during the history and exam. I discussed the case with the resident and agree with the findings and plan as documented in the note. Any exceptions or clarifications are listed here: He is clearly more awake/alert the more he wears his BiPAP, although he struggles with wearing it at night. Discussed with patient and he seems to understand. PLAN 1) Decrease IV steroids. 2) Trial of nasal O2 during the day; BiPAP at night and at least 2 hours during the day (naps). Documented By: Hair Preston Continued [facility] stay due to: abnormal vital signs, multiple IV medications needed [facility]charge planning[facility] facility Resident Tracking Resident Involvement: Resident Care Provided Care Provided: Adult Hospital Medicine
[2018-02-17] MEDS: GUAIFENESIN 600 MG TABCR PO SCH ×2 (08:26→21:04)
[2018-02-17] MEDS: MULTIVITAMIN TAB PO SCH (08:26)
[2018-02-17] MEDS: DOCUSATE SODIUM 100 MG CAP PO SCH (08:26)
[2018-02-17] MEDS: BUDESONIDE/FORMOTEROL FUMARATE 160/4.5 60 PUFFS/INHALER INH SCH ×2 (08:26→21:27)
[2018-02-17] MEDS: FINASTERIDE 5 MG TAB PO SCH (08:27)
[2018-02-17] MEDS: ASPIRIN 81 MG ECTAB PO SCH (08:27)
[2018-02-17] MEDS: FUROSEMIDE 20 MG TAB PO SCH (08:27)
[2018-02-17] MEDS: METOPROLOL TARTRATE 25 MG TAB PO SCH ×2 (08:27→21:03)
[2018-02-17] MEDS: MAGNESIUM OXIDE 400 MG TAB PO SCH ×2 (08:27→21:03)
[2018-02-17] MEDS: INSULIN ASPART 100 UNITS/ML 3 ML PEN SC SCH ×4 (08:31→21:00)
[2018-02-17] MEDS: INSULIN GLARGINE SOLOSTAR 100 UNITS/ML 3 ML PEN SC SCH ×2 (08:36→21:26)
[2018-02-17] MEDS ORDERED: ENOXAPARIN 40 MG/0.4 ML SYR SQ SCH (09:00)
--- NOTE | 2018-02-17 14:31 | PULMONARY PROGRESS NOTE ---
DATE: 02/17/2018 TIME: 1:40 p.m. SUBJECTIVE: The patient remains about the same. He is profoundly weak. He is very short of breath with any exertion. He is out of bed now, but nursing staff had to use a lift to get him up. The patient cannot assist at all. He refused to wear BiPAP last night. At approximately 2:00 a.m., he awakened and was confused. He pulled his IV out. He took his pulse ox out. He pulled out the high-flow oxygen that was in place. Later this morning, on day shift, he did wear the BiPAP for an hour or 2. He states he felt more comfortable with it. Overall, he remains about the same which means relatively poor. OBJECTIVE: VITAL SIGNS: Temperature was 36.7. The patient looked mildly short of breath at rest. EARS, NOSE, THROAT EXAMINATION: Unremarkable. CARDIAC: Heart rate is 78 per minute. The rhythm was irregular. Blood pressure 135/79. Review of the campus monitor shows at times he seems to have atrial activity and other times does not. It does at times look like atrial fibrillation. LUNGS: Auscultation of the lung hudson reveals wheeze and rhonchi bilaterally. Taking deep breaths does precipitate coughing. He is on high-flow oxygen at 35% and his current saturation is 93%. ABDOMEN: Soft and nontender. Bowel sounds were present. LABORATORY DATA: White count today is 12.95. Hemoglobin 11.8. Platelets 166,000. These have been stable. INR today 1.6. Electrolytes show sodium 138, potassium 4, chloride 98, bicarb 37. BUN is 48 with a creatinine of 1.25. IMPRESSIONS: 1. Sladv-ht-vbleuti respiratory failure with hypoxia and hypercarbia. 2. Chronic obstructive pulmonary disease. 3. Interstitial lung disease with questionable asbestos. 4. Pleural plaques. 5. Pulmonary hypertension. COMMENTS AND RECOMMENDATIONS: The patient continues to be very marginal. I have asked nursing to try him on a nasal canula. If he goes to a nursing facility, they will not have access to high-flow oxygen. I would still encourage him wearing the BiPAP every night. I asked him to have him wear it for an hour or 2 this afternoon. His daughter was present during this evaluation. She feels when he wears it at night, he definitely is more awake the next day. He remains on levofloxacin and Zosyn. His current methylprednisolone is 40 mg IV every 6 hours. I am going to cut that down to 40 IV every 12 and see how that goes. He is still on levalbuterol, ipratropium every 4 hours. Prognosis is poor. We are trying to get the patient as stable as he can before he leaves the hospital. RUPAL
--- NOTE | 2018-02-17 14:38 | Pharmacy Progress Note ---
Glycemic: Assessment & Plan Date of Service Feb 17, 2018. Assessment & Plan Assessment * BSG's ranging 173-243 mg/dL over the last 24 hours - better control desired * Patient has been on the same regimen of Lantus and Novolog for over 72 hours, and almost all BSG's (other than the most recent 24 hours) have been 100-150 mg/ dL * Despite recent hyperglycemia, will not adjust insulin regimen as this regimen was previously effective and steroids have been tapered from methylprednisolone 40 mg IV q6h to q12h (therefore anticipate that current regimen will be more effective) * Will add in one overnight check 2nd two most recent BSG's > 200 mg/dL Plan * Continue Lantus 45 units SC BID * Continue Novolog ACHS * Goal range 110-140 mg/dL * Correction factor 9 mg/dL/unit * Carb ratio: 1 unit insulin for every 2.5 g CHO consumed * Add overnight Novolog check * Goal range 120-150 mg/dL * Correction factor 10 mg/dL/unit * Carb ratio: 1 unit insulin for every 3 g CHO consumed Pharmacy will continue to monitor patient daily and write orders per [facility] inpatient glycemic control protocol. Thanks. * Please note that the plan above was derived based on current level of insulin resistance and hospital stress. These recommendations are appropriate for inpatient admission only. Plan of care upon discharge will need to be reassessed to avoid potential outpatient hypo/hyperglycemia.
[2018-02-17] MEDS: WARFARIN SOD 5 MG TAB PO SCH (17:19)
[2018-02-17] MEDS ORDERED: WARFARIN SOD 2.5 MG TAB PO STA (19:46)
[2018-02-17] MEDS: ATORVASTATIN 20 MG TAB PO SCH (21:02)
[2018-02-17] MEDS: SENNA 8.6 MG TAB PO SCH (21:04)
[2018-02-18] VITALS (14 sets, daily range): BP systolic 133–144; BP diastolic 65–94; PULSE 75–123; TEMP 36.5–36.8; O2SAT 93–99
[2018-02-18] MEDS: PIPERACILL/TAZOBAC IV 4.5 GM in NSS 100 ML IV SCH (01:55)
[2018-02-18] MEDS ORDERED: INSULIN ASPART 100 UNITS/ML 3 ML PEN SC ONE (02:00)
[2018-02-18] MEDS: IPRATROPIUM BROMIDE NEB SOLN 0.02% 2.5 ML VIAL INH SCH ×6 (03:37→22:52)
[2018-02-18] MEDS: LEVALBUTEROL 1.25MG/0.5ML NEB INH SCH ×6 (03:37→22:52)
[2018-02-18] MEDS: NITROGLYCERIN 2% OINTMENT 30GM TUBE EXT SCH ×4 (04:03→21:32)
[2018-02-18] MEDS: LEVOTHYROXINE 125 MCG TAB PO SCH (05:34)
[2018-02-18] MEDS: METOCLOPRAMIDE HCL 10 MG TAB PO SCH ×3 (05:34→17:12)
[2018-02-18 06:15] LABS: HEMATOCRIT 37.6 % (42-52); MEAN CELL VOLUME 89.1 fL (80-100); MEAN CORPUSCULAR HEMOGLOBIN 28.4 pg (25-34); MEAN CORPUSCULAR HGB CONC 31.9 g/dl (32-36); MEAN PLATELET VOLUME 10.1 fL (7.4-10.4); PLATELET COUNT 162 K/uL (130-400); RED CELL DISTRIBUTION WIDTH CV 14.9 % (11.5-14.5); RED CELL DISTRIBUTION WIDTH SD 48.8 fL (36.4-46.3); WHITE BLOOD COUNT 13.45 K/uL (4.8-10.8)
[2018-02-18 06:47] LABS: CALCIUM 8.4 mg/dl (8.5-10.1); CREATININE 1.36 mg/dl (0.60-1.40)
--- NOTE | 2018-02-18 06:51 | Family Medicine Progress Note ---
Progress Note Date of Service Feb 18, 2018. Subjective Pt evaluation today including: conversation w/ patient, physical exam, chart review, conversation w/ pre sales technical consultant Pain: None PO Intake: Good Voiding: no voiding problems Notes ongoing shortness of breath. States breathing today is not good but this is his baseline. Able to eat, but complains of some difficulty with swallowing No nausea or vomiting. No voiding issues. No new concerns from nursing staff Constitutional: No fever, No chills, No sweats Eyes: No worsening of vision, No eye pain, No redness ENT: No nasal symptoms, No sore throat, No tinnitus Respiratory: + cough, + wheezing, + shortness of breath Cardiovascular: No chest pain, No orthopnea, No palpitations Abdomen: No pain, No nausea, No vomiting, No diarrhea, No constipation Musculoskeletal: No joint pain, No muscle pain Male : No dysuria, No urinary frequency, No incontinence Neurologic: No numbness/tingling, No vertigo Skin: No rash, No itch, No new/changing skin lesions, No color change Medications Current Inpatient Medications Medications (Trade) Dose Ordered Sig/Yoli Route Start Time Stop Time Status Last Admin Dose Admin Acetaminophen (Tylenol Tab) 650 mg Q4H PRN PO 02/10/18 23:45 03/12/18 23:44 Levalbuterol (Xopenex 1.25MG/ 0.5ML Neb) 1.25 mg Q4R INH 02/11/18 00:00 03/13/18 00:00 02/18/18 11:04 1.25 MG Ipratropium [place] (Atrovent 0.02% 0.5MG/2.5ML Neb) 0.5 mg Q4R INH 02/11/18 00:00 03/13/18 00:00 02/18/18 11:04 0.5 MG Glucose (Glucose 40% Gel) 15-30 GRAMS 15 GRAMS... UD PRN PO 02/10/18 23:45 03/12/18 23:44 Glucose (Glucose Chew Tab) 4-8 Tablets 4 Tabl... UD PRN PO 02/10/18 23:45 03/12/18 23:44 Dextrose (Dextrose 50% 50ML Syringe) 25-50ML OF 50% DW IV FOR... UD PRN IV 02/10/18 23:45 03/12/18 23:44 02/12/18 01:31 50 ML Glucagon (Glucagon Inj) 1 mg UD PRN SQ 02/10/18 23:45 03/12/18 23:44 Miscellaneous Information (Consult Glycemic Management Pharmacy) 1 ea DAILY PRN N/A 02/11/18 00:00 03/13/18 00:00 Atorvastatin Calcium (Lipitor Tab) 40 mg HS PO 02/11/18 21:00 03/13/18 20:59 02/17/18 21:02 40 MG Budesonide/ Formoterol Fumarate (Symbicort 160/ 4.5 Inh) 2 puffs BID INH 02/11/18 09:00 03/13/18 08:59 02/18/18 09:47 2 PUFFS Docusate Sodium (coLACE CAP) 100 mg DAILY PO 02/11/18 09:00 03/13/18 08:59 02/18/18 09:48 100 MG Finasteride (Proscar Tab) 5 mg DAILY PO 02/11/18 09:00 03/13/18 08:59 02/18/18 09:50 5 MG Magnesium Oxide (Mag-Ox Tab) 400 mg BID PO 02/11/18 09:00 03/13/18 08:59 02/18/18 09:48 400 MG Metoclopramide HCl (Reglan Tab) 10 mg AC PO 02/11/18 06:45 03/13/18 06:44 02/18/18 12:21 10 MG Metoprolol Tartrate (Lopressor Tab) 25 mg BID PO 02/11/18 09:00 03/13/18 08:59 02/18/18 09:49 25 MG Multivitamins (Multivitamin Tab) 1 tab DAILY PO 02/11/18 09:00 03/13/18 08:59 02/18/18 09:49 1 TAB Senna (Senokot Tab) 17.2 mg HS PO 02/11/18 21:00 03/13/18 20:59 02/17/18 21:04 17.2 MG Terazosin HCl (Hytrin Cap) 5 mg HS PO 02/11/18 21:00 03/13/18 20:59 02/17/18 21:01 5 MG Warfarin Sodium (Coumadin Tab) 5 mg DAILY@1600 PO 02/11/18 16:00 03/13/18 15:59 Future hold 02/17/18 17:19 5 MG Levothyroxine Sodium (Synthroid Tab) 125 mcg DAILYBB PO 02/11/18 06:00 03/13/18 05:59 02/18/18 05:34 125 MCG Nitroglycerin (Nitroglycerin 2% Oint) 1 inch Q6H EXT 02/11/18 04:00 03/13/18 03:59 02/18/18 09:50 1 INCH Miscellaneous Information (Consult) 1 ea UD PRN N/A 02/11/18 04:30 03/13/18 04:29 Levofloxacin 750 mg/Prmx 150 ml @ 100 mls/hr Q48H IV 02/13/18 03:00 02/20/18 02:59 02/17/18 00:59 100 MLS/HR Insulin Aspart (novoLOG ASPART) SLIDING SCALE If CARB RA... ACHS SC 02/12/18 11:00 03/14/18 10:59 Future hold 02/18/18 12:23 14 UNITS Furosemide 20 mg/ Syringe 2 ml @ 4 mls/min DAILY IV 02/13/18 09:00 03/13/18 08:59 Future Hold 02/14/18 08:12 4 MLS/MIN Aspirin (Ecotrin Tab) 81 mg QAM PO 02/13/18 09:00 03/15/18 08:59 02/18/18 09:48 81 MG Guaifenesin (Mucinex Contr Rel Tab) 1,200 mg Q12 PO 02/13/18 21:00 03/15/18 20:59 02/18/18 09:49 1,200 MG Furosemide (Lasix Tab) 20 mg QAM PO 02/15/18 09:00 03/17/18 08:59 02/18/18 09:49 20 MG Methylprednisolone Sodium Succinate 40 mg/Syringe 0.64 ml @ 1.5 mls/min Q12 IV 02/17/18 21:00 03/13/18 01:59 02/18/18 09:47 1.5 MLS/MIN Objective Vital Signs Date Time Temp Pulse Resp B/P (MAP) Pulse Ox O2 Delivery O2 Flow Rate FiO2 02/18/18 12:00 Nasal Cannula 3.0 02/18/18 11:31 36.5 123 20 133/94 (107) 94 Nasal Cannula 4.0 02/18/18 11:04 81 24 95 Nasal Cannula 3.0 02/18/18 08:00 Nasal Cannula 3.0 02/18/18 07:13 36.6 91 20 142/78 (99) 96 Nasal Cannula 4.0 02/18/18 07:10 79 24 95 Nasal Cannula 3.0 02/18/18 04:22 36.5 79 21 136/71 (92) 98 BiPAP 75 02/18/18 04:00 99 BiPAP 40 02/18/18 03:38 83 98 40 02/18/18 03:38 83 30 98 BiPAP/CPAP 40 02/18/18 00:00 99 BiPAP 40 02/17/18 23:14 85 24 96 Nasal Cannula 02/17/18 23:01 36.6 89 28 156/96 (116) 95 BiPAP 02/17/18 22:28 81 96 40 02/17/18 20:00 96 Nasal Cannula 3.0 02/17/18 19:06 36.6 92 20 158/87 (110) 99 Nasal Cannula 3.0 100 02/17/18 19:06 93 24 96 Nasal Cannula 3.0 02/17/18 16:00 93 Nasal Cannula 3.0 02/17/18 15:11 36.8 94 24 148/73 (98) 93 Nasal Cannula 4.0 100 02/17/18 14:50 105 24 96 Nasal Cannula 3.0 Physical Exam General Appearance: WD/WN, + mild distress Eyes: normal inspection, EOMI ENT: hearing grossly normal, pharynx normal Neck: supple, no adenopathy, no JVD Respiratory/Chest: + respiratory distress (SCM retactions, nasal flaring), + pertinent finding (coarse bilaterally with end-expiratory wheezing) Cardiovascular: regular rate, rhythm, no gallop, no murmur Abdomen: normal bowel sounds, non tender, soft Extremities: non-tender, no pedal edema Neurologic/Psychiatric: alert, normal mood/affect Skin: normal color, warm/dry, no rash Lymphatic: no adenopathy Laboratory Results Last 24 Hours Test 02/17/18 16:02 02/17/18 20:09 02/18/18 01:54 02/18/18 03:10 Bedside Glucose 112 mg/dl 110 mg/dl 73 mg/dl 81 mg/dl Test 02/18/18 05:29 4/27/18 06:35 02/18/18 07:02 02/18/18 11:30 White Blood Count 13.45 K/uL Red Blood Count 4.22 M/uL Hemoglobin 12.0 g/dL Hematocrit 37.6 % Mean Corpuscular Volume 89.1 fL Mean Corpuscular Hemoglobin 28.4 pg Mean Corpuscular Hemoglobin Concent 31.9 g/dl RDW Standard Deviation 48.8 fL RDW Coefficient of Variation 14.9 % Platelet Count 162 K/uL Mean Platelet Volume 10.1 fL Sodium Level 140 mmol/L Potassium Level 4.0 mmol/L Chloride Level 100 mmol/L Carbon Dioxide Level 38 mmol/L Anion Gap 3.0 mmol/L Blood Urea Nitrogen 52 mg/dl Creatinine 1.36 mg/dl Est Creatinine Clear Calc Drug Dose 47.0 ml/min Estimated GFR () 53.8 Estimated GFR (Non- 46.5 BUN/Creatinine Ratio 37.9 Random Glucose 83 mg/dl Calcium Level 8.4 mg/dl Bedside Glucose 90 mg/dl 188 mg/dl Prothrombin Time 19.6 SECONDS Prothromb Time International Ratio 1.9 Assessment and Plan 88 year old male with acute hypoxic hypercapnic respiratory failure due to combination of COPD + ILD. Recovery with standards treatments is progressing by slowly. Using IV steroids , nebulizers and antibiotics. Our plan for him is as follows: Acute on Chronic Hypoxic Hypercapnic Respiratory Failure secondary to COPD and ILD exacerbation - Continue Solumedrol 40 mg IV q12; de-escalate in conjunction with pulmonary recommendations - Continue Duonebs - Pulmonary recommendations appreciated CAP - Antibiotics d/c as no evidence of ongoing infection Dysphagia - Speech and Swallow evaluation Chronic pEF CHF - Continue home dose of oral Lasix - Daily weight - I/O monitoring - Currently appears euvolemic NSTEMI - 2/2 demand ischemia - Continue secondary therapies with ASA, Atorvastatin and Metoprolol Paroxysmal Atrial Fibrillation - On Coumadin; INR 1.9 today - Will give additional 2.5 mg with usual 5 mg dose - Recheck INR tomorrow AM - Continue Metoprolol per home dose T2DM - SSI and Lantus - BSG WNL BPD - Continue Terazosin and Finasteride Hypothyroid - Continue Levothyroxine DVT Prophylaxis - SCD Knee, YURY Hose - Coumadin daily with daily INR checks Code Status - Full without intubation/ventilation Disposition - Telemetry - OT and PT evaluations Assessment/Plan Resident Physician Supervision Note: I was present with Dr. Guo during the history and exam. I discussed the case with the resident and agree with the findings and plan as documented in the note. Any exceptions or clarifications are listed here. Minimal improvement in breathing overnight, but no worsening on tapered steroid dose. Discussed with pulmonology - agree w/ discontinued abx 2/2 full treatment course, repeat speech evaluation for concern of aspiration potential. I have some concern that we are approaching the patient's respiratory baseline and may want to revisit goals of care when family is available for conversation. Otherwise, continue therapy as noted above.
[2018-02-18 07:28] LABS: INR 1.9 (0.9-1.1)
[2018-02-18] MEDS ORDERED: INSULIN GLARGINE SOLOSTAR 100 UNITS/ML 3 ML PEN SC ONE (09:00)
[2018-02-18] MEDS: INSULIN ASPART 100 UNITS/ML 3 ML PEN SC SCH ×4 (09:46→21:38)
[2018-02-18] MEDS: BUDESONIDE/FORMOTEROL FUMARATE 160/4.5 60 PUFFS/INHALER INH SCH ×2 (09:47→21:31)
[2018-02-18] MEDS: METHYLPREDNISOLONE IV 40 MG in SYRINGE 0 ML IV SCH ×2 (09:47→21:31)
[2018-02-18] MEDS: MAGNESIUM OXIDE 400 MG TAB PO SCH ×2 (09:48→21:31)
[2018-02-18] MEDS: DOCUSATE SODIUM 100 MG CAP PO SCH (09:48)
[2018-02-18] MEDS: ASPIRIN 81 MG ECTAB PO SCH (09:48)
[2018-02-18] MEDS: METOPROLOL TARTRATE 25 MG TAB PO SCH ×2 (09:49→21:31)
[2018-02-18] MEDS: GUAIFENESIN 600 MG TABCR PO SCH ×2 (09:49→21:38)
[2018-02-18] MEDS: FUROSEMIDE 20 MG TAB PO SCH (09:49)
[2018-02-18] MEDS: MULTIVITAMIN TAB PO SCH (09:49)
[2018-02-18] MEDS: FINASTERIDE 5 MG TAB PO SCH (09:50)
--- NOTE | 2018-02-18 14:44 | Pharmacy Progress Note ---
Glycemic: Assessment & Plan Date of Service Feb 18, 2018. Assessment & Plan Assessment * BSG's ranging 73-188 mg/dL over the last 24 hours * Steroids tapered yesterday. Insulin regimen was not adjusted at that time 2nd recent hyperglycemia. BSG's decreased overnight as low as 73 mg/dL, and BSG this AM was 90 mg/dL - need to adjust insulin regimen now to prevent hypoglycemia 2nd steroid taper / increased insulin sensitivity * Will decrease Lantus x1 this AM then administer based on BSG BID * Will loosen Novolog carb ratio and correction factor * Can discontinue overnight check Plan * Decrease Lantus 30 units SC x1 this AM then ongoing BID based on BSG: * Hold for BSG less than 100 mg/dL * 15 units for BSG 100-139 mg/dL * 30 units for BSG 140-180 mg/dL * 40 units for BSG greater than 180 mg/dL * Decrease Novolog ACHS * Goal range 120-150 mg/dL * Loosen Correction factor 15 mg/dL/unit * Loosen Carb ratio: 1 unit insulin for every 5 g CHO consumed Pharmacy will continue to monitor patient daily and write orders per [facility] inpatient glycemic control protocol. Thanks. * Please note that the plan above was derived based on current level of insulin resistance and hospital stress. These recommendations are appropriate for inpatient admission only. Plan of care upon discharge will need to be reassessed to avoid potential outpatient hypo/hyperglycemia.
--- NOTE | 2018-02-18 14:54 | PULMONARY PROGRESS NOTE ---
DATE: 02/18/2018 PROBLEM LIST: Includes: 1. [id number] respiratory failure with hypoxia and hypercarbia. 2. Chronic obstructive pulmonary disease. 3. Interstitial lung disease with questionable asbestosis. 4. Pleural plaques. 5. Pulmonary hypertension. SUBJECTIVE: The patient is awake and responding very well today. He is on nasal cannula. Currently, he states that he feels about the same as yesterday. He states that his breathing is doing a little bit better. He is not coughing as much. He states that every time he drinks or eats, he will have some cough and going to coughing spells. He denies any significant mucus production with these coughing spells. He has no painful respirations at present. He denies any other difficulties with his breathing. He is tolerating the nasal cannula. He has been trying to use his BiPAP off and on at nighttime. He denies any GI difficulties. No nausea or vomiting, no indigestion or heartburn. He states that he is weak and tired yet. He is trying to work with therapy and the plan is for him to go to jail facility. OBJECTIVE: GENERAL: The patient is an 88-year-old male, sitting up in bed. He is alert. He is oriented to person and place. He is interactive and cooperative. He did have a coughing paroxysm while I was there and did have a little bit of labored breathing. VITAL SIGNS: Temperature 36.5, pulse 123, respirations 20, blood pressure is 133/94 and pulse ox 94% on 4 L. HEENT: Normocephalic, atraumatic. Pupils equal, round and react to light and accommodation. Extraocular movements are intact. [place] moist gingival and buccal mucosa. NECK: Short neck. No mass, no adenopathy or bruits. CHEST: Bilateral wheezes. No exhalation. No rales or rhonchi appreciated today. He is on oxygen at 4 L per minute via nasal cannula. CARDIOVASCULAR: Irregularly irregular. No murmurs, gallops or rubs noted. ABDOMEN: Obese, soft and nontender. EXTREMITIES: No erythema or edema. LABORATORY DATA: Shows a white count of 13,000, H and H is 12.0 and 37.6, platelet count 162,000. INR is 1.9. No new imaging data. IMPRESSION: An 88-year-old male with fairly advanced oxygen-dependent chronic obstructive pulmonary disease who was admitted to the hospital with [id number] respiratory failure with hypoxia, hypercarbia. I suspect there may be a component of aspiration after looking him today. I did speak with Dr. Guo. They are going to arrange a speech evaluation. When I did speak with the patient, he states that he has talked with speech therapist in the past. Otherwise, I am going to continue his current medications as they are. Overall with his breathing, I think that he may be about as close to his baseline as we are going to get him currently. He does have a lot of weakness and I think that needs to be addressed with jail facility to which there is plan for him to go to. He does have a history of interstitial lung disease with a question of asbestosis in light of his pleural plaques and also pulmonary hypertension on echo. For now, continue on 4 L of oxygen. Continue BiPAP whenever we can get him to agree to it. Continue his Solu-Medrol b.i.d. right now that can be decreased over the weekend if he continues to do well. At this point, I think from a pulmonary standpoint, he is just about as good as he is going to be. We did talk with Dr. Whitaker and the hospitalist service and he has had seven days of levofloxacin and Zosyn. At this point, I think we can probably discontinue these. Hospitalist is going to address this.
[2018-02-18] MEDS ORDERED: WARFARIN SOD 2.5 MG TAB PO SCH (16:00)
[2018-02-18] MEDS: WARFARIN SOD 5 MG TAB PO SCH (17:12)
[2018-02-18] MEDS ORDERED: INSULIN GLARGINE SOLOSTAR 100 UNITS/ML 3 ML PEN SC SCH (21:00)
[2018-02-18] MEDS: SENNA 8.6 MG TAB PO SCH (21:31)
[2018-02-18] MEDS: ATORVASTATIN 20 MG TAB PO SCH (21:31)
[2018-02-19] VITALS (14 sets, daily range): BP systolic 130–163; BP diastolic 65–97; PULSE 78–101; TEMP 36.4–36.8; O2SAT 92–97
[2018-02-19] MEDS: IPRATROPIUM BROMIDE NEB SOLN 0.02% 2.5 ML VIAL INH SCH ×6 (03:26→23:22)
[2018-02-19] MEDS: LEVALBUTEROL 1.25MG/0.5ML NEB INH SCH ×6 (03:26→23:22)
[2018-02-19] MEDS: NITROGLYCERIN 2% OINTMENT 30GM TUBE EXT SCH ×4 (04:05→20:50)
[2018-02-19] MEDS: LEVOTHYROXINE 125 MCG TAB PO SCH (05:27)
[2018-02-19 05:39] LABS: HEMATOCRIT 37.6 % (42-52); HEMOGLOBIN 12.1 g/dL (14.0-18.0); MEAN CELL VOLUME 89.1 fL (80-100); MEAN CORPUSCULAR HEMOGLOBIN 28.7 pg (25-34); MEAN CORPUSCULAR HGB CONC 32.2 g/dl (32-36); MEAN PLATELET VOLUME 10.1 fL (7.4-10.4); PLATELET COUNT 163 K/uL (130-400); RED CELL DISTRIBUTION WIDTH CV 14.9 % (11.5-14.5); RED CELL DISTRIBUTION WIDTH SD 48.7 fL (36.4-46.3); WHITE BLOOD COUNT 13.03 K/uL (4.8-10.8)
[2018-02-19 05:44] LABS: INR 2.4 (0.9-1.1)
[2018-02-19 06:16] LABS: CALCIUM 8.5 mg/dl (8.5-10.1); CREATININE 1.16 mg/dl (0.60-1.40); POTASSIUM 4.2 mmol/L (3.5-5.1)
[2018-02-19] MEDS: METOCLOPRAMIDE HCL 10 MG TAB PO SCH ×3 (06:41→16:48)
--- NOTE | 2018-02-19 07:06 | Family Medicine Progress Note ---
Progress Note Date of Service Feb 19, 2018. Subjective Pt evaluation today including: conversation w/ patient, physical exam, chart review, lab review Voiding: no voiding problems Eddie reports that his sx are the same as yesterday--no improvement or worsening. Patient is has been out of bed with the help of the lift. Patient is working with PT and OT today. Constitutional: No fever, No chills, No sweats Respiratory: + cough, + wheezing, + shortness of breath, No sputum Cardiovascular: No chest pain, No palpitations Abdomen: No pain, No nausea, No vomiting Male : No dysuria Medications Current Inpatient Medications Medications (Trade) Dose Ordered Sig/Yoli Route Start Time Stop Time Status Last Admin Dose Admin Acetaminophen (Tylenol Tab) 650 mg Q4H PRN PO 02/10/18 23:45 03/12/18 23:44 Levalbuterol (Xopenex 1.25MG/ 0.5ML Neb) 1.25 mg Q4R INH 02/11/18 00:00 03/13/18 00:00 02/19/18 06:51 1.25 MG Ipratropium [place] (Atrovent 0.02% 0.5MG/2.5ML Neb) 0.5 mg Q4R INH 02/11/18 00:00 03/13/18 00:00 02/19/18 06:51 0.5 MG Glucose (Glucose 40% Gel) 15-30 GRAMS 15 GRAMS... UD PRN PO 02/10/18 23:45 03/12/18 23:44 Glucose (Glucose Chew Tab) 4-8 Tablets 4 Tabl... UD PRN PO 02/10/18 23:45 03/12/18 23:44 Dextrose (Dextrose 50% 50ML Syringe) 25-50ML OF 50% DW IV FOR... UD PRN IV 02/10/18 23:45 03/12/18 23:44 02/12/18 01:31 50 ML Glucagon (Glucagon Inj) 1 mg UD PRN SQ 02/10/18 23:45 03/12/18 23:44 Miscellaneous Information (Consult Glycemic Management Pharmacy) 1 ea DAILY PRN N/A 02/11/18 00:00 03/13/18 00:00 Atorvastatin Calcium (Lipitor Tab) 40 mg HS PO 4/20/18 21:00 03/13/18:59 02/18/18 21:31 40 MG Budesonide/ Formoterol Fumarate (Symbicort 160/ 4.5 Inh) 2 puffs BID INH 02/11/18 09:00 03/13/18 08:59 02/19/18 07:57 2 PUFFS Docusate Sodium (coLACE CAP) 100 mg DAILY PO 02/11/18 09:00 03/13/18 08:59 02/19/18 07:58 100 MG Finasteride (Proscar Tab) 5 mg DAILY PO 02/11/18 09:00 03/13/18 08:59 02/19/18 07:58 5 MG Magnesium Oxide (Mag-Ox Tab) 400 mg BID PO 02/11/18 09:00 03/13/18 08:59 02/19/18 07:58 400 MG Metoclopramide HCl (Reglan Tab) 10 mg AC PO 02/11/18 06:45 03/13/18 06:44 02/19/18 06:41 10 MG Metoprolol Tartrate (Lopressor Tab) 25 mg BID PO 02/11/18 09:00 03/13/18 08:59 02/19/18 07:59 25 MG Multivitamins (Multivitamin Tab) 1 tab DAILY PO 02/11/18 09:00 03/13/18 08:59 02/19/18 07:59 1 TAB Senna (Senokot Tab) 17.2 mg HS PO 02/11/18 21:00 03/13/18 20:59 02/18/18 21:31 17.2 MG Terazosin HCl (Hytrin Cap) 5 mg HS PO 02/11/18 21:00 03/13/18 20:59 02/18/18 21:31 5 MG Warfarin Sodium (Coumadin Tab) 5 mg DAILY@1600 PO 02/11/18 16:00 03/13/18 15:59 Future hold 02/18/18 17:12 5 MG Levothyroxine Sodium (Synthroid Tab) 125 mcg DAILYBB PO 02/11/18 06:00 03/13/18 05:59 02/19/18 05:27 125 MCG Nitroglycerin (Nitroglycerin 2% Oint) 1 inch Q6H EXT 02/11/18 04:00 03/13/18 03:59 02/19/18 04:05 1 INCH Insulin Aspart (novoLOG ASPART) SLIDING SCALE If CARB RA... ACHS SC 02/12/18 11:00 03/14/18 10:59 Future hold 02/19/18 08:03 14 UNITS Furosemide 20 mg/ Syringe 2 ml @ 4 mls/min DAILY IV 02/13/18 09:00 03/13/18 08:59 Future Hold 02/14/18 08:12 4 MLS/MIN Aspirin (Ecotrin Tab) 81 mg QAM PO 02/13/18 09:00 03/15/18 08:59 02/19/18 07:59 81 MG Guaifenesin (Mucinex Contr Rel Tab) 1,200 mg Q12 PO 02/13/18 21:00 03/15/18 20:59 02/19/18 07:58 1,200 MG Furosemide (Lasix Tab) 20 mg QAM PO 02/15/18 09:00 03/17/18 08:59 02/19/18 07:59 20 MG Methylprednisolone Sodium Succinate 40 mg/Syringe 0.64 ml @ 1.5 mls/min Q12 IV 02/17/18 21:00 02/19/18 23:59 02/19/18 07:57 1.5 MLS/MIN Warfarin Sodium (Coumadin Tab) 2.5 mg DAILY@16 PO 02/18/18 16:00 03/20/18 15:59 02/18/18 17:13 2.5 MG Insulin Glargine (Lantus Solostar Pen) BID SC 02/19/18 21:00 03/21/18 20:59 Prednisone (PredniSONE TAB) 60 mg DAILY PO 02/20/18 09:00 03/24/18 08:59 Objective Vital Signs Date Time Temp Pulse Resp B/P (MAP) Pulse Ox O2 Delivery O2 Flow Rate FiO2 02/19/18 08:00 92 Nasal Cannula 4.0 02/19/18 07:12 36.4 88 20 153/75 (101) 94 Nasal Cannula 02/19/18 06:53 85 20 95 Nasal Cannula 4.0 02/19/18 04:00 Nasal Cannula 4.0 02/19/18 03:27 80 20 96 Nasal Cannula 4.0 02/19/18 03:03 36.6 84 23 149/83 (105) 93 Nasal Cannula 3.0 02/18/18 23:59 Nasal Cannula 4.0 02/18/18 23:17 36.6 83 22 134/68 (90) 94 Nasal Cannula 4.0 02/18/18 22:52 95 18 95 Nasal Cannula 3.0 02/18/18 20:00 Nasal Cannula 4.0 02/18/18 19:06 36.7 84 20 137/65 (89) 99 02/18/18 19:03 93 18 95 Nasal Cannula 3.0 02/18/18 16:00 Nasal Cannula 3.0 02/18/18 15:18 36.8 99 22 144/72 (96) 93 Nasal Cannula 4.0 02/18/18 14:58 91 22 95 Nasal Cannula 3.0 02/18/18 12:00 Nasal Cannula 3.0 02/18/18 11:31 36.5 123 20 133/94 (107) 94 Nasal Cannula 4.0 Physical Exam General Appearance: WD/WN, no apparent distress Respiratory/Chest: + decreased breath sounds, + wheezing (bilateral expiratory ), + pertinent finding (dyspnea ) Cardiovascular: regular rate, rhythm, no edema, no gallop, no murmur Abdomen: non tender, soft Extremities: non-tender, normal inspection, no pedal edema Neurologic/Psychiatric: alert, normal mood/affect, oriented x 3 Skin: normal color, warm/dry, no rash Assessment and Plan 88 yo male admitted for acute hypoxic resp failure 2/2 COPD exacerbation. Treated with Duonebs, IV abx and steroids. Slowly recovering. Plan today; transitioning to 60 mg PO Prednisone and Duonebs. Patient recovery appears to have stalled--maybe meeting a new baseline. Introduced review of code status with the patient--will follow up with the family and patient this weekend regarding switch to DNR status. Acute on Chronic Hypoxic Hypercapnic Respiratory Failure secondary to COPD and ILD exacerbation - 60mg PO prednisone - Continue Duonebs - Pulmonary recommendations appreciated CAP - Antibiotics d/c as no evidence of ongoing infection Dysphagia - Speech and Swallow evaluation--notes aspirations--recommend soft diet Chronic pEF CHF - Continue home dose of oral Lasix - Daily weight - I/O monitoring - Currently appears euvolemic NSTEMI - 2/2 demand ischemia - Continue secondary therapies with ASA, Atorvastatin and Metoprolol Paroxysmal Atrial Fibrillation - On Coumadin; INR 2.4 today - Resume usual 5 mg dose - Recheck INR tomorrow AM - Continue Metoprolol per home dose T2DM - SSI and Lantus - BSG WNL BPD - Continue Terazosin and Finasteride Hypothyroid - Continue Levothyroxine DVT Prophylaxis - SCD Knee, YURY Hose - Coumadin daily with daily INR checks Code Status - Full without intubation/ventilation Disposition - Telemetry - OT and PT evaluations Dispo; Discharge planning to [facility]. Consider switching to tiotropium in the outpatient. Assessment/Plan Resident Physician Supervision Note: I was present with Dr. Rizo during the history and exam. I discussed the case with the resident and agree with the findings and plan as documented in the note. Any exceptions or clarifications are listed here. Slight improvement in shortness of breath at rest, patient comfortable in chair. Lungs remain rhonchorous on examination with decreased sounds at bases. Briefly discussed the patient's code status - he would request no heroic measures in case of deterioration which may include no CPR, though he will think and we will d/w family. Will continue to taper steroids to PO and monitor respiratory function with O2 wean as tolerated.
[2018-02-19] MEDS: BUDESONIDE/FORMOTEROL FUMARATE 160/4.5 60 PUFFS/INHALER INH SCH ×2 (07:57→20:45)
[2018-02-19] MEDS: METHYLPREDNISOLONE IV 40 MG in SYRINGE 0 ML IV SCH (07:57)
[2018-02-19] MEDS: MAGNESIUM OXIDE 400 MG TAB PO SCH ×2 (07:58→20:45)
[2018-02-19] MEDS: GUAIFENESIN 600 MG TABCR PO SCH ×2 (07:58→20:46)
[2018-02-19] MEDS: FINASTERIDE 5 MG TAB PO SCH (07:58)
[2018-02-19] MEDS: DOCUSATE SODIUM 100 MG CAP PO SCH (07:58)
[2018-02-19] MEDS: METOPROLOL TARTRATE 25 MG TAB PO SCH ×2 (07:59→20:47)
[2018-02-19] MEDS: MULTIVITAMIN TAB PO SCH (07:59)
[2018-02-19] MEDS: FUROSEMIDE 20 MG TAB PO SCH (07:59)
[2018-02-19] MEDS: ASPIRIN 81 MG ECTAB PO SCH (07:59)
[2018-02-19] MEDS: INSULIN ASPART 100 UNITS/ML 3 ML PEN SC SCH ×4 (08:03→20:49)
--- NOTE | 2018-02-19 08:57 | PULMONARY PROGRESS NOTE ---
DATE: 02/19/2018 TIME: 8:10 a.m. SUBJECTIVE: The patient remains about the same. He is still moderately short of breath. He has just finished breakfast and according to nursing staff, he is more winded since he has eaten. He again refused BiPAP last evening. The patient states that he just cannot stand it. It appears that we will not be able to get him to adapt at all. His appetite remains good. He denies any significant pain. The staff has been getting the patient out of bed with the assistance of a [place] lift. Otherwise, he is essentially immobile. OBJECTIVE: GENERAL: The patient looks short of breath at rest. Temperature is 36.6. He has had no significant fevers. EARS, NOSE AND THROAT: Exam is unremarkable. VITAL SIGNS: Heart rate is 100 per minute. The rhythm is regular. Blood pressure most recently was 149/83. CHEST: Respiratory rate currently is 30. His oxygen saturation was 88%. However, the oxygen was not in his nose, it was on his face. Almost immediately after putting it into his nose his saturation went up to 92%. He is on 4 liters. Diffuse coarse rhonchi are heard bilaterally posteriorly and anteriorly. As noted, he has just eaten and apparently his elevated respiratory rate is related to having had breakfast. ABDOMEN: Obese. He does have an umbilical hernia. Bowel sounds were normal. There was no tenderness to palpation. EXTREMITIES: Reveals both legs are wrapped with the intermittent compressive device. There is no cyanosis or clubbing. LABORATORY DATA: White count today is 13.03. Hemoglobin 12.1. Platelets 163,000. INR today is 2.4. Electrolytes show sodium 140, potassium 4.2, chloride 101, bicarbonate 36. BUN is 54 with a creatinine of 1.16. Creatinine on the was 1.36. Blood sugar this morning was 90. ASSESSMENT: 1. Acute on chronic respiratory failure with hypoxia and hypercarbia. 2. Chronic obstructive pulmonary disease GOLD level 3. 3. 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 4. Pleural plaques. 5. Pulmonary hypertension. COMMENTS AND RECOMMENDATIONS: The patient continues to do relatively poorly. Unfortunately, he cannot tolerate BiPAP and that has been a significant issue for him. The antibiotics have been discontinued. He seems to have plateaued on his improvement. I believe we can change his methylprednisolone to oral prednisone. We would start him at 60 mg per day and then taper gradually. I have nothing else to offer at the present time. Pulmonary will sign off, but will be happy to see again if requested.
[2018-02-19] MEDS ORDERED: INSULIN GLARGINE SOLOSTAR 100 UNITS/ML 3 ML PEN SC ONE (09:00)
[2018-02-19] MEDS ORDERED: INSULIN GLARGINE SOLOSTAR 100 UNITS/ML 3 ML PEN SC SCH (09:00)
--- NOTE | 2018-02-19 12:31 | Pharmacy Progress Note ---
Glycemic: Assessment & Plan Date of Service Feb 19, 2018. Assessment & Plan Assessment * BSG's ranging 93-263 mg/dL over the last 24 hours * Steroids tapering tomorrow - methylprednisolone 40 mg IV q12h discontinued ( last dose this AM). Patient will receive prednisone 60 mg po x1 this PM ( likely will result in similar glycemic impact as compared to methylprednisolone 40 mg IV), then ongoing dose will be prednisone 60 mg po qAM * OK to reduce Lantus today 2nd AM fasting BSG below goal range * Patient received a total of 70 units Lantus yesterday. OK to give one-time higher dose this AM, but will significantly adjust PM parameters to patient will receive no more than 65 units Lantus today * Patient is likely to require a further reduction in Lantus tomorrow as effects of AM only prednisone will dissipate overnight * Post-prandial hyperglycemia likely 2nd loosening CHO ratio too much yesterday - OK to slightly tighten Plan * Decrease Lantus 35 units SC x1 this AM then ongoing BID based on BSG: * Hold for BSG less than 100 mg/dL * 15 units for BSG 100-139 mg/dL * 20 units for BSG 140-180 mg/dL * 25 units for BSG greater than 180 mg/dL * Novolog ACHS * Goal range 120-150 mg/dL * Correction factor 15 mg/dL/unit * Tighten Carb ratio: 1 unit insulin for every 4 g CHO consumed Pharmacy will continue to monitor patient daily and write orders per [facility] inpatient glycemic control protocol. Thanks. * Please note that the plan above was derived based on current level of insulin resistance and hospital stress. These recommendations are appropriate for inpatient admission only. Plan of care upon discharge will need to be reassessed to avoid potential outpatient hypo/hyperglycemia.
[2018-02-19] MEDS: WARFARIN SOD 5 MG TAB PO SCH (16:49)
[2018-02-19] MEDS: SENNA 8.6 MG TAB PO SCH (20:45)
[2018-02-19] MEDS: ATORVASTATIN 20 MG TAB PO SCH (20:46)
[2018-02-19] MEDS: INSULIN GLARGINE SOLOSTAR 100 UNITS/ML 3 ML PEN SC SCH (20:49)
[2018-02-20] VITALS (16 sets, daily range): BP systolic 113–158; BP diastolic 65–92; PULSE 73–99; TEMP 36.4–36.8; O2SAT 91–100
[2018-02-20] MEDS: IPRATROPIUM BROMIDE NEB SOLN 0.02% 2.5 ML VIAL INH SCH ×6 (03:43→23:04)
[2018-02-20] MEDS: LEVALBUTEROL 1.25MG/0.5ML NEB INH SCH ×6 (03:43→23:04)
[2018-02-20] MEDS: NITROGLYCERIN 2% OINTMENT 30GM TUBE EXT SCH ×4 (04:04→21:29)
[2018-02-20] MEDS: LEVOTHYROXINE 125 MCG TAB PO SCH (05:28)
[2018-02-20 06:47] LABS: HEMATOCRIT 36.8 % (42-52); HEMOGLOBIN 12.1 g/dL (14.0-18.0); MEAN CELL VOLUME 89.1 fL (80-100); MEAN CORPUSCULAR HEMOGLOBIN 29.3 pg (25-34); MEAN CORPUSCULAR HGB CONC 32.9 g/dl (32-36); MEAN PLATELET VOLUME 10.2 fL (7.4-10.4); PLATELET COUNT 160 K/uL (130-400); RED CELL DISTRIBUTION WIDTH CV 14.9 % (11.5-14.5); RED CELL DISTRIBUTION WIDTH SD 48.7 fL (36.4-46.3); WHITE BLOOD COUNT 13.32 K/uL (4.8-10.8)
[2018-02-20 06:53] LABS: INR 2.7 (0.9-1.1)
[2018-02-20] MEDS: METOCLOPRAMIDE HCL 10 MG TAB PO SCH ×3 (07:05→16:04)
[2018-02-20 07:24] LABS: CALCIUM 8.4 mg/dl (8.5-10.1); CREATININE 1.01 mg/dl (0.60-1.40)
[2018-02-20] MEDS: BUDESONIDE/FORMOTEROL FUMARATE 160/4.5 60 PUFFS/INHALER INH SCH ×2 (07:38→21:27)
[2018-02-20] MEDS: ASPIRIN 81 MG ECTAB PO SCH (07:39)
[2018-02-20] MEDS: FUROSEMIDE 20 MG TAB PO SCH (07:39)
[2018-02-20] MEDS: DOCUSATE SODIUM 100 MG CAP PO SCH (07:39)
[2018-02-20] MEDS: GUAIFENESIN 600 MG TABCR PO SCH ×2 (07:40→21:28)
[2018-02-20] MEDS: METOPROLOL TARTRATE 25 MG TAB PO SCH ×2 (07:40→21:29)
[2018-02-20] MEDS: MULTIVITAMIN TAB PO SCH (07:40)
[2018-02-20] MEDS: MAGNESIUM OXIDE 400 MG TAB PO SCH ×2 (07:41→21:29)
[2018-02-20] MEDS: FINASTERIDE 5 MG TAB PO SCH (07:41)
--- NOTE | 2018-02-20 07:47 | Family Medicine Progress Note ---
Progress Note Date of Service Feb 20, 2018. Subjective Pt evaluation today including: conversation w/ patient, conversation w/ family , physical exam, chart review Patient reports cough and difficulty breathing after choking on breakfast this am. He is feeling better now. He was out of bed yesterday. Describes his symptoms as stable overall. Constitutional: No fever, No chills, No sweats Respiratory: + cough, + sputum, + wheezing, + shortness of breath Cardiovascular: No chest pain, No edema, No palpitations Abdomen: No pain, No nausea, No vomiting, No diarrhea Male : No dysuria Medications Current Inpatient Medications Medications (Trade) Dose Ordered Sig/Yoli Route Start Time Stop Time Status Last Admin Dose Admin Acetaminophen (Tylenol Tab) 650 mg Q4H PRN PO 02/10/18 23:45 03/12/18 23:44 Levalbuterol (Xopenex 1.25MG/ 0.5ML Neb) 1.25 mg Q4R INH 02/11/18 00:00 03/13/18 00:00 02/20/18 11:16 1.25 MG Ipratropium [place] (Atrovent 0.02% 0.5MG/2.5ML Neb) 0.5 mg Q4R INH 02/11/18 00:00 03/13/18 00:00 02/20/18 11:16 0.5 MG Glucose (Glucose 40% Gel) 15-30 GRAMS 15 GRAMS... UD PRN PO 02/10/18 23:45 03/12/18 23:44 Glucose (Glucose Chew Tab) 4-8 Tablets 4 Tabl... UD PRN PO 02/10/18 23:45 03/12/18 23:44 Dextrose (Dextrose 50% 50ML Syringe) 25-50ML OF 50% DW IV FOR... UD PRN IV 02/10/18 23:45 03/12/18 23:44 02/12/18 01:31 50 ML Glucagon (Glucagon Inj) 1 mg UD PRN SQ 02/10/18 23:45 03/12/18 23:44 Miscellaneous Information (Consult Glycemic Management Pharmacy) 1 ea DAILY PRN N/A 02/11/18 00:00 03/13/18 00:00 Atorvastatin Calcium (Lipitor Tab) 40 mg HS PO 02/11/18 21:00 03/13/18 20:59 02/19/18 20:46 40 MG Budesonide/ Formoterol Fumarate (Symbicort 160/ 4.5 Inh) 2 puffs BID INH 02/11/18 09:00 03/13/18 08:59 02/20/18 07:38 2 PUFFS Docusate Sodium (coLACE CAP) 100 mg DAILY PO 02/11/18 09:00 03/13/18 08:59 02/20/18 07:39 100 MG Finasteride (Proscar Tab) 5 mg DAILY PO 02/11/18 09:00 03/13/18 08:59 02/20/18 07:41 5 MG Magnesium Oxide (Mag-Ox Tab) 400 mg BID PO 02/11/18 09:00 03/13/18 08:59 02/20/18 07:41 400 MG Metoclopramide HCl (Reglan Tab) 10 mg AC PO 02/11/18 06:45 03/13/18 06:44 02/20/18 10:27 10 MG Metoprolol Tartrate (Lopressor Tab) 25 mg BID PO 02/11/18 09:00 03/13/18 08:59 02/20/18 07:40 25 MG Multivitamins (Multivitamin Tab) 1 tab DAILY PO 02/11/18 09:00 03/13/18 08:59 02/20/18 07:40 1 TAB Senna (Senokot Tab) 17.2 mg HS PO 02/11/18 21:00 03/13/18 20:59 02/19/18 20:45 17.2 MG Terazosin HCl (Hytrin Cap) 5 mg HS PO 02/11/18 21:00 03/13/18 20:59 02/19/18 20:46 5 MG Warfarin Sodium (Coumadin Tab) 5 mg DAILY@1600 PO 02/11/18 16:00 03/13/18 15:59 Future hold 02/19/18 16:49 5 MG Levothyroxine Sodium (Synthroid Tab) 125 mcg DAILYBB PO 02/11/18 06:00 03/13/18 05:59 02/20/18 05:28 125 MCG Nitroglycerin (Nitroglycerin 2% Oint) 1 inch Q6H EXT 02/11/18 04:00 03/13/18 03:59 02/20/18 10:27 1 INCH Insulin Aspart (novoLOG ASPART) SLIDING SCALE If CARB RA... ACHS SC 02/12/18 11:00 03/14/18 10:59 Future hold 02/20/18 12:08 11 UNITS Furosemide 20 mg/ Syringe 2 ml @ 4 mls/min DAILY IV 02/13/18 09:00 03/13/18 08:59 Future Hold 02/14/18 08:12 4 MLS/MIN Aspirin (Ecotrin Tab) 81 mg QAM PO 02/13/18 09:00 03/15/18 08:59 02/20/18 07:39 81 MG Guaifenesin (Mucinex Contr Rel Tab) 1,200 mg Q12 PO 02/13/18 21:00 03/15/18 20:59 02/20/18 07:40 1,200 MG Furosemide (Lasix Tab) 20 mg QAM PO 02/15/18 09:00 03/17/18 08:59 02/20/18 07:39 20 MG Insulin Glargine (Lantus Solostar Pen) BID SC 02/19/18 21:00 03/21/18 20:59 02/20/18 07:53 25 UNITS Prednisone (PredniSONE TAB) 60 mg DAILY PO 02/20/18 09:00 03/24/18 08:59 02/20/18 10:26 60 MG Polyethylene (Miralax Powder Packet) 17 gm QAM PO 02/20/18 11:00 03/22/18 10:59 Objective Vital Signs Date Time Temp Pulse Resp B/P (MAP) Pulse Ox O2 Delivery O2 Flow Rate FiO2 02/20/18 12:00 94 Nasal Cannula 4.0 02/20/18 11:49 36.5 81 22 131/70 (90) 94 02/20/18 11:17 77 28 91 Nasal Cannula 4.0 02/20/18 08:00 93 Nasal Cannula 4.0 02/20/18 07:54 36.5 78 24 148/92 (110) 93 02/20/18 07:43 73 28 92 Nasal Cannula 4.0 02/20/18 04:00 Nasal Cannula 4.0 02/20/18 03:43 74 28 97 Nasal Cannula 4.0 02/20/18 02:45 36.4 82 24 113/72 (86) 94 Nasal Cannula 4.0 02/19/18 23:59 Nasal Cannula 4.0 02/19/18 23:22 78 24 94 Nasal Cannula 4.0 02/19/18 22:50 36.6 87 28 130/65 (86) 94 Nasal Cannula 4.0 02/19/18 20:00 Nasal Cannula 4.0 02/19/18 19:32 92 30 94 Nasal Cannula 4.0 02/19/18 19:26 36.8 101 26 163/97 (119) 94 Nasal Cannula 4.0 02/19/18 16:30 Nasal Cannula 4.0 02/19/18 15:58 36.8 93 20 147/72 (97) 97 Nasal Cannula 4.0 02/19/18 15:11 86 32 97 Nasal Cannula 4.0 Physical Exam General Appearance: WD/WN, no apparent distress Neck: supple, no adenopathy, thyroid normal Respiratory/Chest: chest non-tender, + accessory muscle use, + rales (bilateral ), + rhonchi, + wheezing Cardiovascular: regular rate, rhythm, no edema, no gallop, no murmur Abdomen: normal bowel sounds, non tender, soft Extremities: non-tender, normal inspection Neurologic/Psychiatric: alert, normal mood/affect, oriented x 3 Skin: normal color, warm/dry, no rash Laboratory Results 02/20/18 06:02 02/20/18 06:02 Test 02/20/18 06:02 02/20/18 11:28 Red Blood Count 4.13 M/uL (4.7-6.1) Mean Corpuscular Volume 89.1 fL (80-100) Mean Corpuscular Hemoglobin 29.3 pg (25-34) Mean Corpuscular Hemoglobin Concent 32.9 g/dl (32-36) RDW Standard Deviation 48.7 fL (36.4-46.3) RDW Coefficient of Variation 14.9 % (11.5-14.5) Mean Platelet Volume 10.2 fL (7.4-10.4) Prothrombin Time 28.1 SECONDS (9.0-12.0) Prothromb Time International Ratio 2.7 (0.9-1.1) Anion Gap 3.0 mmol/L (3-11) Est Creatinine Clear Calc Drug Dose 62.4 ml/min Estimated GFR () 77.2 Estimated GFR (Non- 66.6 BUN/Creatinine Ratio 46.9 (10-20) Calcium Level 8.4 mg/dl (8.5-10.1) Bedside Glucose 137 mg/dl (70-99) Assessment and Plan 88 yo male admitted for acute hypoxic resp failure 2/2 COPD exacerbation. Treated with Duonebs, IV abx and steroids. Slowly recovering. Assessment; Patient aspirated on his breakfast and had a moment of 02 desaturation, tachypnea, tachycardia and forceful coughing. Patient is on a soft diet currently. The patient was assessed shortly after incident and was found to have a patent airway and was having adequate air movement bilaterally. Plan today; Will continue to follow patients resp function. He continues to have persistent dyspnea and bilaterally wheezing and rhonchi. Chest xray was obtained--no acute process, no need for abx at this time. Cont. PO Prednisone and Duonebs. PT/OT today. Discuss code status with family. 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 COPD and ILD exacerbation - 60mg PO prednisone - Continue Duonebs - Pulmonary recommendations appreciated CAP - Antibiotics d/c as no evidence of ongoing infection Dysphagia - Speech and Swallow evaluation--notes aspirations--recommend soft diet Chronic pEF CHF - Continue home dose of oral Lasix - Daily weight - I/O monitoring - Currently appears euvolemic INSTEM - 2/2 demand ischemia - Continue secondary therapies with ASA, Atorvastatin and Metoprolol Paroxysmal Atrial Fibrillation - On Coumadin; INR 2.7 today - Continue 5 mg dose - Recheck INR tomorrow AM - Continue Metoprolol per home dose T2DM - SSI and Lantus - BSG WNL BPD - Continue Terazosin and Finasteride Hypothyroid - Continue Levothyroxine DVT Prophylaxis - SCD Knee, YURY Hose - Coumadin daily with daily INR checks Code Status - Full without intubation/ventilation Assessment/Plan Resident Physician Supervision Note: I was present with Dr. Rizo during the history and exam. I discussed the case with the resident and agree with the findings and plan as documented in the note. Any exceptions or clarifications are listed here. Pt reports episode of coughing which lasted minutes following breakfast this morning without appreciable aspiration subjectively. Examination is relatively unchanged and oxygen demand is stable. CXR without new findings. Pt again restates that he is DNI with CPR, without other heroic measures. With new episode, would monitor respiratory status and consider increase in steroid dosing if oxygen demand increases, otherwise, this is likely approaching baseline and will need commensurate support.
[2018-02-20] MEDS: INSULIN GLARGINE SOLOSTAR 100 UNITS/ML 3 ML PEN SC SCH (07:53)
[2018-02-20] MEDS: INSULIN ASPART 100 UNITS/ML 3 ML PEN SC SCH ×4 (07:55→21:31)
--- NOTE | 2018-02-20 08:38 | DIAGNOSTIC IMAGING REPORT ---
SINGLE VIEW CHEST CLINICAL HISTORY: Cough and dyspnea. FINDINGS: An AP, portable, upright chest radiograph is compared to study dated 02/13/2018. The examination is degraded by portable technique and patient rotation. The heart is enlarged and there is atherosclerotic calcification of the thoracic aorta. The pulmonary vasculature is noncongested. Chronic interstitial thickening is similar to previous. Bibasilar airspace opacities likely represent scarring/atelectasis. No large pleural effusion or pneumothorax is seen. The skeletal structures are osteopenic. The bony thorax is grossly intact. IMPRESSION: 1. Cardiomegaly without radiographic evidence of congestive failure. 2. Bibasilar airspace opacities likely represent scarring/atelectasis. Clinical correlation will be required. Electronically signed by: Ti Samaniego M.D. 02/20/2018 8:36 AM Dictated Date/Time: 02/20/2018 8:35 AM
[2018-02-20] MEDS ORDERED: NURSING VERBAL MED ORDER ONE (10:45)
[2018-02-20] MEDS: POLYETHYLENE (MIRALAX) 17 GM PACK PO SCH (13:33)
--- NOTE | 2018-02-20 14:32 | Pharmacy Progress Note ---
Glycemic: Assessment & Plan Date of Service Feb 20, 2018. Assessment & Plan Assessment * BSG's ranging 150-298 mg/dL over the last 24 hours - better glycemic control desired * Steroids tapering today - ongoing dose will be prednisone 60 mg po qAM. 1st PM in when steroids are not administered will be tonight * Will reduce Lantus today despite AM fasting BSG to 182 mg/dL as steroids are tapering and concerned for AM hypoglycemia tomorrow with 24 hour duration of Lantus as prednisone effects will wear off overnight. However, will provide additional small dose of Lantus this PM if BSG's >180 mg/dL. * Considered transition to NPH today 2nd pharmacokinetics (above) however will continue Lantus for now as that is what the patient is on at home. * Post-prandial hyperglycemia persists - OK to tighten CHO ratio today despite steroids tapering as 1st PM in which steroids are not scheduled is tonight. However, will loosen back to previous tomorrow AM Plan * Decrease Lantus 25 units SC x1 this AM * Lantus HS x1 tonight - 10 units for BSG > 180 mg/dL * Lantus ongoing qAM starting tomorrow based on BSG as follows: * 10 units for BSG less than 100 mg/dL * 25 units for BSG 100-189 mg/dL * 35 units for BSG greater than 180 mg/dL * Novolog ACHS * Goal range 120-150 mg/dL * Correction factor 15 mg/dL/unit * Tighten Carb ratio: 1 unit insulin for every 3 g CHO consumed today then loosen tomorrow to 1 unit insulin for every 4 g CHO consumed Pharmacy will continue to monitor patient daily and write orders per [facility] inpatient glycemic control protocol. Thanks. * Please note that the plan above was derived based on current level of insulin resistance and hospital stress. These recommendations are appropriate for inpatient admission only. Plan of care upon discharge will need to be reassessed to avoid potential outpatient hypo/hyperglycemia.
[2018-02-20] MEDS: WARFARIN SOD 5 MG TAB PO SCH (16:05)
[2018-02-20] MEDS: SENNA 8.6 MG TAB PO SCH (21:00)
[2018-02-20] MEDS ORDERED: INSULIN GLARGINE SOLOSTAR 100 UNITS/ML 3 ML PEN SC SCH (21:00)
[2018-02-20] MEDS: ATORVASTATIN 20 MG TAB PO SCH (21:28)
[2018-02-21] VITALS (16 sets, daily range): BP systolic 119–168; BP diastolic 61–79; PULSE 76–109; TEMP 36.5–36.8; O2SAT 89–99
[2018-02-21] MEDS: IPRATROPIUM BROMIDE NEB SOLN 0.02% 2.5 ML VIAL INH SCH ×5 (03:26→20:01)
[2018-02-21] MEDS: LEVALBUTEROL 1.25MG/0.5ML NEB INH SCH ×5 (03:26→20:01)
[2018-02-21] MEDS: NITROGLYCERIN 2% OINTMENT 30GM TUBE EXT SCH ×4 (04:16→21:22)
[2018-02-21 05:54] LABS: HEMATOCRIT 36.3 % (42-52); HEMOGLOBIN 11.7 g/dL (14.0-18.0); MEAN CELL VOLUME 88.3 fL (80-100); MEAN CORPUSCULAR HEMOGLOBIN 28.5 pg (25-34); MEAN CORPUSCULAR HGB CONC 32.2 g/dl (32-36); MEAN PLATELET VOLUME 9.8 fL (7.4-10.4); PLATELET COUNT 157 K/uL (130-400); RED CELL DISTRIBUTION WIDTH SD 48.7 fL (36.4-46.3); WHITE BLOOD COUNT 15.15 K/uL (4.8-10.8)
[2018-02-21] MEDS: LEVOTHYROXINE 125 MCG TAB PO SCH (06:02)
[2018-02-21 06:06] LABS: INR 2.8 (0.9-1.1)
[2018-02-21 06:23] LABS: CALCIUM 8.2 mg/dl (8.5-10.1); CREATININE 0.99 mg/dl (0.60-1.40); POTASSIUM 4.3 mmol/L (3.5-5.1)
[2018-02-21] MEDS ORDERED: INSULIN ASPART 100 UNITS/ML 3 ML PEN SC SCH (07:00)
[2018-02-21] MEDS: GUAIFENESIN 600 MG TABCR PO SCH ×2 (08:32→19:32)
[2018-02-21] MEDS: ASPIRIN 81 MG ECTAB PO SCH (08:33)
[2018-02-21] MEDS: METOPROLOL TARTRATE 25 MG TAB PO SCH ×2 (08:33→19:31)
[2018-02-21] MEDS: MAGNESIUM OXIDE 400 MG TAB PO SCH ×2 (08:33→19:31)
[2018-02-21] MEDS: METOCLOPRAMIDE HCL 10 MG TAB PO SCH ×3 (08:33→16:43)
[2018-02-21] MEDS: DOCUSATE SODIUM 100 MG CAP PO SCH (08:33)
[2018-02-21] MEDS: MULTIVITAMIN TAB PO SCH (08:34)
[2018-02-21] MEDS: FUROSEMIDE 20 MG TAB PO SCH (08:34)
[2018-02-21] MEDS: BUDESONIDE/FORMOTEROL FUMARATE 160/4.5 60 PUFFS/INHALER INH SCH ×2 (08:35→21:00)
[2018-02-21] MEDS: FINASTERIDE 5 MG TAB PO SCH (08:37)
[2018-02-21] MEDS: POLYETHYLENE (MIRALAX) 17 GM PACK PO SCH (08:37)
[2018-02-21] MEDS: INSULIN GLARGINE SOLOSTAR 100 UNITS/ML 3 ML PEN SC SCH (08:39)
--- NOTE | 2018-02-21 09:22 | Pharmacy Progress Note ---
Pharmacy Glycemic Short Note 2 Date of Service Feb 21, 2018. OUTPATIENT ANTIDIABETIC REGIMEN: * Lantus 45 units SQ BID * Humalog 25-27 units with meals TIDM * Total daily dose ~ 169 units/day Item Value Date Time Bedside Glucose 182 mg/dl H 02/20/18 0627 Bedside Glucose 137 mg/dl H 02/20/18 1128 Bedside Glucose 238 mg/dl H 02/20/18 1620 Bedside Glucose 259 mg/dl H 02/20/182017 Bedside Glucose 139 mg/dl H 02/21/18 0700 ASSESSMENT: * 88yo T2DM male with severe steroid induced hyperglycemia. Pt with well controlled diabetes as an outpatient on large doses of SQ insulin (169 units/day ) but has been requiring less than outpatient dosing despite steroids. Total daily insulin dose continues to decrease with each step down in steroid dosing. * Steroid dosing: Continues at Prednisone 60mg daily * Pt received 92 units of insulin over the past 24hrs with sub-adequate control * AM fasting BSG is in goal range today at 139mg/dl. Current basal insulin dosing is adequate at 35 units/day * BSGs rise throughout the day after meals indicating more CHO coverage is needed. Will tighten CF/CR for lunch and dinner only as pre-dinner and HS BSgs are the only ones elevated. Steroids have their most profound effect on post- prandial hyperglycemia therefore aggressive CF/CR warranted. PLAN FOR INPATIENT GLYCEMIC CONTROL: * Basal insulin: increase dosing * Lantus 35 units SQ daily in AM * Will give additional Lantus 10 units SQ at HS if BSG >180 mg/dl only * Bolus insulin * NovoLog per scale ACHS or Q6hrs while NPO * Goal Range: Low 110 mg/dL - High 150 mg/dL * BREAKFAST PARAMETERS: Correction Factor: 15 mg/dL/unit ; Nutritional / Prandial insulin per carb ratio of 1 unit per 3 grams CHO consumed * LUNCH, DINNER, & HS PARAMETERS: Correction Factor: 15 mg/dL/unit ; Nutritional / Prandial insulin per carb ratio of 1 unit per 2 grams CHO consumed
[2018-02-21] MEDS: INSULIN ASPART 100 UNITS/ML 3 ML PEN SC SCH ×3 (12:44→21:00)
--- NOTE | 2018-02-21 13:32 | Family Medicine Progress Note ---
Progress Note Date of Service Feb 21, 2018. Subjective Pt evaluation today including: conversation w/ patient, physical exam, chart review, lab review, review of studies, review of inpatient medication list Patient denies acute overnight event. Says his breathing is not worse and his cough is better. He has been declining use of his Bipap and is saturating well on baseline oxygen via nasal cannula. He denies fevers/chills, headaches, CP, palpitations, abdominal pain. He is tolerating diet without nausea or vomiting. He is comfortable sitting out of bed today, but states weakness in moving. Perez in place. Stooling without issue. ROS is unremarkable except as noted above. Objective Vital Signs Date Time Temp Pulse Resp B/P (MAP) Pulse Ox O2 Delivery O2 Flow Rate FiO2 02/21/18 12:55 36.8 80 22 144/77 (99) 93 Nasal Cannula 5.0 02/21/18 09:06 109 89 02/21/18 07:06 76 24 94 Nasal Cannula 4.0 02/21/18 06:48 36.6 81 22 119/61 (80) 95 Nasal Cannula 4.0 02/21/18 04:16 79 164/74 (104) 02/21/18 04:04 99 Nasal Cannula 4.0 40 02/21/18 03:26 89 24 99 Nasal Cannula 4.0 02/21/18 03:16 36.8 82 20 133/72 (92) 96 Nasal Cannula 4.0 02/20/18 23:40 100 Nasal Cannula 4.0 40 02/20/18 23:30 36.8 91 32 137/74 (95) 100 Nasal Cannula 4.0 02/20/18 23:04 89 26 94 Nasal Cannula 4.0 02/20/18 20:00 Nasal Cannula 4.0 02/20/18 19:38 36.7 93 26 123/74 (90) 95 Nasal Cannula 4.0 02/20/18 19:08 99 30 95 Nasal Cannula 4.0 02/20/18 16:05 92 Nasal Cannula 4.0 02/20/18 15:31 36.4 99 28 158/65 (96) 91 Nasal Cannula 4.0 02/20/18 15:08 85 28 97 Nasal Cannula 4.0 Physical Exam Notes: General Appearance: + mild distress (only with coughing), + pertinent finding ( NC in situ, 4L O2) Eyes: normal inspection (pupils equal) ENT: + pertinent finding (dry mucus membranes) Neck: no JVD (unable to determine given neck size), trachea midline Respiratory/Chest: no accessory muscle use, + decreased breath sounds ( bibasilar), + rhonchi (minimal, significantly improved) Cardiovascular: regular rate, rhythm, no murmur (unable to appreciate especially with with loud, diffuse rhonchi) Abdomen: normal bowel sounds, non tender, soft, + pertinent finding (non tender abdominal hernia present without skin changes) Extremities: no calf tenderness, normal capillary refill, no pedal edema Neurologic/Psychiatric: alert, normal mood/affect Skin: normal color, warm/dry Laboratory Results Results Past 24 Hours Test 02/20/18 16:20 02/20/18 20:18 02/21/18 05:20 02/21/18 07:00 Range/Units Bedside Glucose 238 259 139 70-99 mg/dl White Blood Count 15.15 4.8-10.8 K/uL Red Blood Count 4.11 4.7-6.1 M/uL Hemoglobin 11.7 14.0-18.0 g/dL Hematocrit 36.3 42-52 % Mean Corpuscular Volume 88.3 80-100 fL Mean Corpuscular Hemoglobin 28.5 25-34 pg Mean Corpuscular Hemoglobin Concent 32.2 32-36 g/dl RDW Standard Deviation 48.7 36.4-46.3 fL RDW Coefficient of Variation 15.0 11.5-14.5 % Platelet Count 157 130-400 K/uL Mean Platelet Volume 9.8 7.4-10.4 fL Prothrombin Time 28.8 9.0-12.0 SECONDS Prothromb Time International Ratio 2.8 0.9-1.1 Sodium Level 142 136-145 mmol/L Potassium Level 4.3 3.5-5.1 mmol/L Chloride Level 102 98-107 mmol/L Carbon Dioxide Level 37 21-32 mmol/L Anion Gap 3.0 3-11 mmol/L Blood Urea Nitrogen 45 7-18 mg/dl Creatinine 0.99 0.60-1.40 mg/dl Est Creatinine Clear Calc Drug Dose 63.4 ml/min Estimated GFR () 79.0 Estimated GFR (Non- 68.2 BUN/Creatinine Ratio 44.9 10-20 Random Glucose 146 70-99 mg/dl Calcium Level 8.2 8.5-10.1 mg/dl Test 02/21/18 11:23 Range/Units Bedside Glucose 244 70-99 mg/dl Assessment and Plan 88 year old male with acute hypoxic hypercapnic respiratory failure, tolerating BiPAP - most likely interstitial lung disease and COPD exacerbation. Suspected community acquired pneumonia. Possible CHF contributory but less likely currently. NSTEMI - suspected ACS given degree of elevation. Acute on chronic hypoxic hypercapnic respiratory failure likely secondary infection and COPD exacerbation - acute exacerbation largely resolved - Continue 4L O2 via NC (baseline O2 requirement) - BiPAP PRN SOB - ideally overnight and throughout the day as tolerated COPD exacerbation, interstitial lung disease possibly from previous asbestos exposure - Pulmonology consulted, recommendations appreciated - Continue PO prednisone 60mg daily - Continue Symbicort, and Atrovent + Xopenex nebs Pneumonia likely secondary to aspiration - Completed 7 day course of antibiotics - Speech evaluation and fluoroscopy confirmed some dysphagia - recommend MOIST diet (avoid crumbly foods), safe swallow strategies (small bites, small sips, slow rate) and aspiration precautions: straws ok, alert and upright for all intake Acute congestive heart failure with preserved ejection fraction - Echo 65-70% LVEF, no regional wall motion abnormalities. Type 1 diastolic dysfunction. - Currently euvolemic (I/Os show -16L since admission). . Creatinine stable. - Continue PO furosemide 20mg - Trend creatinine NSTEMI - suspected ACS given elevation of troponin vs. demand, chest pain free at present therefore medical management alone - Continue aspirin (started this admission), metoprolol 25mg BID, atorvastatin 40mg daily Paroxysmal atrial fibrillation - SR at present - Continue metoprolol - INR today 2.8, continue home dose warfarin 5mg daily - Trend INR Hyperlipidemia - Continue atorvastatin BPH - Continue terazosin and finasteride Hypothyroidism - Continue levothyroxine T2DM - Appreciate pharmacy glycemic control - Continue Lantus 45 units BID + ISS GERD - Continue pantoprazole VTE prophylaxis - Anticoagulated with warfarin, as above Disposition - For rehab at [facility] - aim non-acute transfer tomorrow - Palliative consulted: goals of care are to ultimately return home Code Status - DO NOT RESUSCITATE Resident Physician Supervision Note: I interviewed and examined the patient. Discussed with Dr. Ko and agree with findings and plan as documented in the note. Any exceptions or clarifications are listed here: None Documented By: Mohsen Garsia feeling ok speech / swallow eval to be done this afternoon pending going [facility] next vitals noted nad breathing unlabored no pallor or icterus acute on chronic mixed respiratory failure -stabilizing since the last i saw him -looking stable for snf, ongoing treatment -speech /swallow pending otherwise as above Continued [facility] stay due to: ambulation difficulties Discharge planning: nursing home facility Resident Tracking Resident Involvement: Resident Care Provided Care Provided: Adult Hospital Medicine
--- NOTE | 2018-02-21 13:54 | DIAGNOSTIC IMAGING REPORT ---
MODIFIED BARIUM SWALLOW CLINICAL HISTORY: Shortness of breath. Assess for aspiration. COMPARISON STUDY: Modified barium swallow October 26, 2013. Fluoroscopy time: 1.9 minutes. FINDINGS: Silent tracheal aspiration was noted within liquids by spoon. There is no aspiration with thin liquids by cup, nectar thick liquids, pudding or crackers with paste. Premature spillage was noted with several consistencies. Delayed initiation of the swallowing mechanism was noted. IMPRESSION: 1. Silent tracheal aspiration with thin liquid by spoon. No aspiration with the remainder of the consistencies. 2. Full recommendations by speech pathology to follow. Electronically signed by: Eric Whipple M.D. 02/21/2018 1:52 PM Dictated Date/Time: 02/21/2018 1:51 PM
[2018-02-21] MEDS: WARFARIN SOD 5 MG TAB PO SCH (16:43)
[2018-02-21] MEDS: ATORVASTATIN 20 MG TAB PO SCH (19:31)
[2018-02-21] MEDS: SENNA 8.6 MG TAB PO SCH (19:32)
[2018-02-21] MEDS ORDERED: INSULIN GLARGINE SOLOSTAR 100 UNITS/ML 3 ML PEN SC SCH (21:00)
[2018-02-22] VITALS (19 sets, daily range): BP systolic 82–143; BP diastolic 50–73; PULSE 76–107; TEMP 36.6–36.7; O2SAT 82–99; Ht 177.8 cm; Wt 103.8 kg
[2018-02-22] MEDS: LEVALBUTEROL 1.25MG/0.5ML NEB INH SCH ×7 (00:18→23:03)
[2018-02-22] MEDS: IPRATROPIUM BROMIDE NEB SOLN 0.02% 2.5 ML VIAL INH SCH ×7 (00:18→23:03)
[2018-02-22] MEDS: NITROGLYCERIN 2% OINTMENT 30GM TUBE EXT SCH ×4 (04:19→21:28)
[2018-02-22] MEDS: LEVOTHYROXINE 125 MCG TAB PO SCH (05:47)
[2018-02-22] MEDS: METOCLOPRAMIDE HCL 10 MG TAB PO SCH ×3 (05:48→15:45)
[2018-02-22 06:00] LABS: HEMATOCRIT 35.7 % (42-52); HEMOGLOBIN 11.5 g/dL (14.0-18.0); MEAN CELL VOLUME 89.3 fL (80-100); MEAN CORPUSCULAR HEMOGLOBIN 28.8 pg (25-34); MEAN CORPUSCULAR HGB CONC 32.2 g/dl (32-36); MEAN PLATELET VOLUME 10.2 fL (7.4-10.4); PLATELET COUNT 152 K/uL (130-400); RED CELL DISTRIBUTION WIDTH CV 15.1 % (11.5-14.5); RED CELL DISTRIBUTION WIDTH SD 49.5 fL (36.4-46.3); WHITE BLOOD COUNT 15.49 K/uL (4.8-10.8)
[2018-02-22 06:37] LABS: CALCIUM 8.4 mg/dl (8.5-10.1); CREATININE 1.03 mg/dl (0.60-1.40); POTASSIUM 4.1 mmol/L (3.5-5.1)
[2018-02-22] MEDS ORDERED: LSX20 PO (06:43)
[2018-02-22] MEDS ORDERED: MRLP17 PO (06:43)
[2018-02-22] MEDS ORDERED: GFNSR600 PO (06:43)
[2018-02-22] MEDS ORDERED: ASPI-320 PO (06:43)
[2018-02-22] MEDS ORDERED: [UNRECOGNIZED DRUG - OTHER] EXT (06:45)
--- NOTE | 2018-02-22 06:47 | Discharge Instructions ---
Discharge Instructions Date of Service February 23, 2018. Admission Reason for Admission: Shortness Of Breath Discharge Discharge Diagnosis / Problem: COPD exacerbation Discharge Goals Goal(s): Decrease discomfort, Improve disease control, Diagnostic testing, Therapeutic intervention Activity Recommendations Activity Limitations: resume your previous activity . Instructions / Follow-Up Instructions / Follow-Up 88 year old male with acute hypoxic hypercapnic respiratory failure, tolerating BiPAP - most likely interstitial lung disease and COPD exacerbation. Suspected community acquired pneumonia. Possible CHF contributory but less likely currently. NSTEMI - suspected ACS given degree of elevation. Acute on chronic hypoxic hypercapnic respiratory failure likely secondary infection and COPD exacerbation - acute exacerbation largely resolved - Continue 4L O2 via NC (baseline O2 requirement) - BiPAP PRN SOB - ideally overnight and throughout the day as tolerated. Patient declining, but strong encouragement advised to wear for a couple of hours daily and especially with signs of respiratory distress. Acute respiratory distress seems to resolve with 1-2 hours of Bipap use. COPD exacerbation, interstitial lung disease possibly from previous asbestos exposure - Pulmonology consulted, recommendations appreciated - Continue PO prednisone 60mg daily with slow taper starting 02/25/18 - decrease by 10mg weekly - Continue Atrovent + Xopenex nebs. Continue Symbicort inhaler (home med). If patient struggling with inhaler use can consider switching to pulmicort + arformoterol nebs instead - Follow up with pulmonology in 1-2 weeks Pneumonia likely secondary to aspiration - Completed 7 day course of antibiotics - Speech evaluation and fluoroscopy confirmed some dysphagia - recommend MOIST diet (avoid crumbly foods), safe swallow strategies (small bites, small sips, slow rate) and aspiration precautions: straws ok, alert and upright for all intake Acute congestive heart failure with preserved ejection fraction - Echo 65-70% LVEF, no regional wall motion abnormalities. Type 1 diastolic dysfunction. - Currently euvolemic (I/Os show -18 L since admission). Creatinine stable through out admission. - Continue PO furosemide 20mg - Daily weights. Dry weight 104kg. Consideration of additional dose with increased weight 2-3 lb over 2-3 days NSTEMI - suspected ACS given elevation of troponin vs. demand, chest pain free at present therefore medical management alone - Continue aspirin (started this admission), metoprolol 25mg BID, atorvastatin 40mg daily. Nitro cream PRN chest pain Paroxysmal atrial fibrillation - SR at present - Continue metoprolol - Continue home dose warfarin 5mg - INR 2.6 on discharge. INR has been labile requiring multiple days of holding dose for one day through out admission. Trend INR every 2-5 days. Hyperlipidemia - Continue atorvastatin BPH - Continue terazosin and finasteride Hypothyroidism - Continue levothyroxine T2DM - Appreciate pharmacy glycemic control - Continue Lantus 45 units BID + ISS while in hospital - Resume home regimen on discharge GERD - Continue pantoprazole VTE prophylaxis - Anticoagulated with warfarin, as above Disposition - Palliative consulted: goals of care are to ultimately return home Code Status - DO NOT RESUSCITATE Current Hospital Diet Patient's current hospital diet: Diabetes Type 2 Diet Discharge Diet Recommended Diet: Diabetes Type 2 Diet Pending Studies Studies pending at discharge: no Laboratory Results Hemoglobin A1c Test 02/11/18 03:16 Range/Units Estimated Average Glucose 131 mg/dl Hemoglobin A1c 6.2 H 4.5-5.6 % Medical Emergencies . Who to Call and When: Medical Emergencies: If at any time you feel your situation is an emergency, please call 911 immediately. . Non-Emergent Contact Non-Emergency issues call your: Primary Care Provider, Director Of Community Education . . "Provider Documentation" section prepared by Meche Ko. . Resident Tracking Resident Involvement: Resident Care Provided Care Provided: Adult Hospital Medicine
--- NOTE | 2018-02-22 06:49 | Discharge Summary ---
Discharge Summary Date of Service February 23, 2018. Discharge Summary Admission Date: Feb 10, 2018 at 23:15 Discharge Date: February 23, 2018 Discharge Disposition: alf facility Principal Diagnosis: COPD exacerbation, NSTEMI Problems/Secondary Diagnoses: (1) CHF (congestive heart failure) Status: Chronic (2) COPD (chronic obstructive pulmonary disease) Status: Chronic (3) Cor pulmonale Status: Chronic (4) Pulmonary fibrosis Status: Chronic Immunizations: Have You Had Influenza Vaccine: N/A History of Tetanus Vaccine?: No History of Pneumococcal: Yes Pneumococcal Date: Mar 27, 2010 History of Hepatitis B Vaccine: No Consultations: Pulmonology. Cardiology. Investor Relations Manager. Medication Reconciliation New Medications: Aspirin (Aspirin EC Low Dose) 81 Mg Ectab 81 MG PO QAM, #30 TAB 6 Refills Furosemide (Furosemide) 20 Mg Tab 20 MG PO QAM, #30 TAB 3 Refills Guaifenesin Ext Rel (Mucinex Ext Rel) 600 Mg Tabcr 1200 MG PO Q12, #14 TAB Nitroglycerin (Nitro-Bid) 18 Inch/Tube Oint 1 INCH EXT Q6H PRN for Chest Pain, #1 TUBE Polyethylene (Miralax) 17 Gm Pow 17 GM PO QAM, #30 EA Continued Medications: Atorvastatin (Lipitor) 40 Mg Tab 40 MG PO HS, TAB Budesonide/Formoterol Fumarate (Symbicort 160/4.5 Inhaler) 120 Puffs/ Aero 2 PUFFS INH BID, INHALER Docusate Sodium (Colace) 100 Mg Cap 100 MG PO DAILY Finasteride (Proscar) 5 Mg Tab 5 MG PO DAILY, TAB Home O2 Therapy (Oxygen) Gas 4 LITER NA HS/PRN USE AT NIGHT, AND, NEEDED DURING THE DAY. Insulin Glargine (Lantus) 100 Unit/Ml Inj 45 UNITS SC AMPM, VIAL Insulin Lispro (Human) (Humalog) 100 Unit/Ml Inj 25 UNITS SQ QAM Insulin Lispro (Human) (Humalog) 100 Unit/Ml Inj 27 UNITS SQ WITH LUNCH Insulin Lispro (Human) (Humalog) 100 Unit/Ml Inj 27 UNITS SQ EVENING MEAL Ipratropium-Albuterol (Duoneb) 3 Ml Nebu 3 ML INH QID, INHA Levothyroxine Sodium (Synthroid) 125 Mcg Tab 125 MCG PO 6XWEEK, TAB EXCEPT WEDNESDAY Magnesium Oxide (Mag-Ox) 400 Mg Tab 400 MG PO BID, TAB Metoclopramide Hcl (Reglan) 10 Mg Tab 10 MG PO AC, TAB Metoprolol Tartrate (Lopressor) (Lopressor) 25 Mg Tab 25 MG PO BID, TAB Multivitamin (Multivitamin) Tab 1 TAB PO DAILY, TAB Senna (Senokot) 8.6 Mg Tab 17.2 MG PO HS Spironolactone (Aldactone) 25 Mg Tab 25 MG PO BID, TAB Terazosin (Hytrin) 5 Mg Cap 5 MG PO HS, CAP Warfarin Sod (Jantoven) 5 Mg Tab 5 MG PO QPM [Benefiber Tabs] () 1 TAB PO DAILY Discontinued Medications: Metolazone (Zaroxolyn) 5 Mg Tab 5 MG PO DAILY, TAB Discharge Exam Patient denies acute overnight event. He did wear his Bipap for the majority of the night. Though he states he does not feel better this morning he admits he feels less drowsy. He was in bed over night, and moved to the chair this AM. He feels slightly stronger today than yesterday. He denies fevers/chills, headaches , CP, palpitations, abdominal pain. He is tolerating diet without nausea or vomiting. He is comfortable sitting out of bed today. Perez in place. Stooling without issue. He is looking forward to rehab at [facility]. ROS is unremarkable except as noted above. Physical Exam General Appearance: + mild distress (respiratory, with coughing), + pertinent finding (NC in situ, 6L O2) Eyes: normal inspection (pupils equal) ENT: + pertinent finding (dry mucus membranes) Neck: no JVD (unable to determine given neck size), trachea midline Respiratory/Chest: + accessory muscle use, + decreased breath sounds (bibasilar ), + rhonchi (minimal, significantly improved) Cardiovascular: regular rate, rhythm, no murmur (unable to appreciate especially with with loud, diffuse rhonchi) Abdomen: normal bowel sounds, non tender, soft, + pertinent finding (non tender abdominal hernia present without skin changes) Extremities: no calf tenderness, normal capillary refill, no pedal edema Neurologic/Psychiatric: alert, normal mood/affect Skin: normal color, warm/dry Hospital Course 88 year old male with acute hypoxic hypercapnic respiratory failure, tolerating BiPAP - most likely interstitial lung disease and COPD exacerbation. Suspected community acquired pneumonia. Possible CHF contributory but less likely currently. NSTEMI - suspected ACS given degree of elevation. Acute on chronic hypoxic hypercapnic respiratory failure likely secondary infection and COPD exacerbation - acute exacerbation largely resolved - Continue 4L O2 via NC (baseline O2 requirement) - BiPAP PRN SOB - ideally overnight and throughout the day as tolerated. Patient declining, but strong encouragement advised to wear for a couple of hours daily and especially with signs of respiratory distress. Acute respiratory distress seems to resolve with 1-2 hours of Bipap use. COPD exacerbation, interstitial lung disease possibly from previous asbestos exposure - Pulmonology consulted, recommendations appreciated - Continue PO prednisone 60mg daily with slow taper starting 02/25/18 - decrease by 10mg weekly - Continue Atrovent + Xopenex nebs. Continue Symbicort inhaler (home med). If patient struggling with inhaler use can consider switching to pulmicort + arformoterol nebs instead - Follow up with pulmonology in 1-2 weeks Pneumonia likely secondary to aspiration - Completed 7 day course of antibiotics - Speech evaluation and fluoroscopy confirmed some dysphagia - recommend MOIST diet (avoid crumbly foods), safe swallow strategies (small bites, small sips, slow rate) and aspiration precautions: straws ok, alert and upright for all intake Acute congestive heart failure with preserved ejection fraction - Echo 65-70% LVEF, no regional wall motion abnormalities. Type 1 diastolic dysfunction. - Currently euvolemic (I/Os show -18 L since admission). Creatinine stable through out admission. - Continue PO furosemide 20mg - Daily weights. Dry weight 104kg. Consideration of additional dose with increased weight 2-3 lb over 2-3 days NSTEMI - suspected ACS given elevation of troponin vs. demand, chest pain free at present therefore medical management alone - Continue aspirin (started this admission), metoprolol 25mg BID, atorvastatin 40mg daily. Nitro cream PRN chest pain Paroxysmal atrial fibrillation - SR at present - Continue metoprolol - Continue home dose warfarin 5mg - INR 2.6 on discharge. INR has been labile requiring multiple days of holding dose for one day through out admission. Trend INR every 2-5 days. Hyperlipidemia - Continue atorvastatin BPH - Continue terazosin and finasteride Hypothyroidism - Continue levothyroxine T2DM - Appreciate pharmacy glycemic control - Continue Lantus 45 units BID + ISS while in hospital - Resume home regimen on discharge GERD - Continue pantoprazole VTE prophylaxis - Anticoagulated with warfarin, as above Disposition - Palliative consulted: goals of care are to ultimately return home Code Status - DO NOT RESUSCITATE Resident Physician Supervision Note: I interviewed and examined the patient. Discussed with Dr. Ko and agree with findings and plan as documented in the note. Any exceptions or clarifications are listed here: None Documented By: Mohsen Garsia doing ok today, excited to get out of the hospital. re-addressed critical need for bipap, he expressed understanding and agreement. vitals noted nad breathing unlabored no pallor or icterus severe acute on chronic mixed respiratory failure - appears to require bipap to help mitigate decompensation - but frequently refuses. otherwise stable for SNF as above Total Time Spent: Less than 30 minutes This includes examination of the patient, discharge planning, medication reconciliation, and communication with other providers. Discharge Instructions Please refer to the electronic Patient Visit Report (Discharge Instructions) for additional information. Additional Copies To Lv Gilliam; Marcial Harding M.D. Resident Tracking Resident Involvement: Resident Care Provided Care Provided: Adult Hospital Medicine
[2018-02-22 07:30] LABS: INR 3.3 (0.9-1.1)
[2018-02-22] MEDS ORDERED: CARBOHYDRATES FOR HYPOGLYCEMIA PO ONE (07:32)
[2018-02-22] MEDS: METOPROLOL TARTRATE 25 MG TAB PO SCH ×2 (07:36→20:03)
[2018-02-22] MEDS: DOCUSATE SODIUM 100 MG CAP PO SCH (07:36)
[2018-02-22] MEDS: MULTIVITAMIN TAB PO SCH (07:36)
[2018-02-22] MEDS: GUAIFENESIN 600 MG TABCR PO SCH ×2 (07:37→20:02)
[2018-02-22] MEDS: ASPIRIN 81 MG ECTAB PO SCH (07:37)
[2018-02-22] MEDS: MAGNESIUM OXIDE 400 MG TAB PO SCH ×2 (07:37→20:02)
[2018-02-22] MEDS: POLYETHYLENE (MIRALAX) 17 GM PACK PO SCH (07:37)
[2018-02-22] MEDS: FINASTERIDE 5 MG TAB PO SCH (07:37)
[2018-02-22] MEDS: BUDESONIDE/FORMOTEROL FUMARATE 160/4.5 60 PUFFS/INHALER INH SCH ×2 (07:38→20:02)
[2018-02-22] MEDS: FUROSEMIDE 20 MG TAB PO SCH (07:38)
[2018-02-22] MEDS: INSULIN ASPART 100 UNITS/ML 3 ML PEN SC SCH ×4 (08:02→21:26)
[2018-02-22] MEDS: INSULIN GLARGINE SOLOSTAR 100 UNITS/ML 3 ML PEN SC SCH (08:03)
--- NOTE | 2018-02-22 12:26 | Family Medicine Progress Note ---
Progress Note Date of Service February 22, 2018. Subjective Pt evaluation today including: conversation w/ patient, physical exam, chart review, lab review, review of studies, review of inpatient medication list Patient denies acute overnight event. Says he does not appreciate dyspnea, but he was told by nursing staff that he was not breathing well. He says he slept poorly. He was in bed over night, and moved to the chair this AM. He feels slightly stronger today than yesterday. He has been continuing to decline use of his Bipap but given his apparent tachypnea and fatigue currently, willing to try Bipap now. He denies fevers/chills, headaches, CP, palpitations, abdominal pain. He is tolerating diet without nausea or vomiting. He is comfortable sitting out of bed today. Perez in place. Stooling without issue. ROS is unremarkable except as noted above. Objective Vital Signs Date Time Temp Pulse Resp B/P (MAP) Pulse Ox O2 Delivery O2 Flow Rate FiO2 02/22/18 12:06 89 Nasal Cannula 4.0 02/22/18 11:52 36.7 95 20 82/50 (61) 95 Nasal Cannula 4.0 02/22/18 11:10 77 98 50 02/22/18 11:07 76 32 99 BiPAP/CPAP 50 02/22/18 08:44 87 95 50 02/22/18 08:00 82 Nasal Cannula 4.0 02/22/18 06:52 85 22 93 Nasal Cannula 4.0 02/22/18 06:33 36.6 82 26 128/65 (86) 94 Nasal Cannula 4.0 02/22/18 04:00 Nasal Cannula 4.0 02/22/18 03:49 36.6 88 22 135/65 (88) 94 Nasal Cannula 4.0 02/22/18 03:27 92 24 95 Nasal Cannula 4.0 02/22/18 00:18 78 24 86 Nasal Cannula 4.0 02/22/18 00:00 Nasal Cannula 4.0 02/21/18 22:57 36.8 90 23 121/63 (82) 94 Nasal Cannula 4.0 02/21/18 21:24 98 131/64 (86) 02/21/18 20:06 36.7 103 26 168/74 (105) 92 Nasal Cannula 4.0 02/21/18 20:01 99 24 95 Nasal Cannula 4.0 02/21/18 20:00 Nasal Cannula 4.0 02/21/18 16:00 Nasal Cannula 4.0 02/21/18 15:57 36.5 86 24 150/79 (102) 96 Nasal Cannula 5.0 02/21/18 15:10 87 24 94 Nasal Cannula 4.0 02/21/18 12:55 36.8 80 22 144/77 (99) 93 Nasal Cannula 5.0 Physical Exam Notes: General Appearance: + mild distress (respiratory, appears fatigued), + pertinent finding (NC in situ, 6L O2) Eyes: normal inspection (pupils equal) ENT: + pertinent finding (dry mucus membranes) Neck: no JVD (unable to determine given neck size), trachea midline Respiratory/Chest: + accessory muscle use, + decreased breath sounds (bibasilar ), + rhonchi (minimal, significantly improved) Cardiovascular: regular rate, rhythm, no murmur (unable to appreciate especially with with loud, diffuse rhonchi) Abdomen: normal bowel sounds, non tender, soft, + pertinent finding (non tender abdominal hernia present without skin changes) Extremities: no calf tenderness, normal capillary refill, no pedal edema Neurologic/Psychiatric: alert, normal mood/affect, + pertinent finding ( appears a little drowsy) Skin: normal color, warm/dry Laboratory Results Results Past 24 Hours Test 02/21/18 16:29 02/21/18 21:14 02/22/18 05:21 02/22/18 07:03 Range/Units Bedside Glucose 172 126 70-99 mg/dl White Blood Count 15.49 4.8-10.8 K/uL Red Blood Count 4.00 4.7-6.1 M/uL Hemoglobin 11.5 14.0-18.0 g/dL Hematocrit 35.7 42-52 % Mean Corpuscular Volume 89.3 80-100 fL Mean Corpuscular Hemoglobin 28.8 25-34 pg Mean Corpuscular Hemoglobin Concent 32.2 32-36 g/dl RDW Standard Deviation 49.5 36.4-46.3 fL RDW Coefficient of Variation 15.1 11.5-14.5 % Platelet Count 152 130-400 K/uL Mean Platelet Volume 10.2 7.4-10.4 fL Sodium Level 143 136-145 mmol/L Potassium Level 4.1 3.5-5.1 mmol/L Chloride Level 104 98-107 mmol/L Carbon Dioxide Level 37 21-32 mmol/L Anion Gap 2.0 3-11 mmol/L Blood Urea Nitrogen 48 7-18 mg/dl Creatinine 1.03 0.60-1.40 mg/dl Est Creatinine Clear Calc Drug Dose 61.0 ml/min Estimated GFR () 75.3 Estimated GFR (Non- 65.0 BUN/Creatinine Ratio 46.5 10-20 Random Glucose 61 70-99 mg/dl Calcium Level 8.4 8.5-10.1 mg/dl Prothrombin Time 33.8 9.0-12.0 SECONDS Prothromb Time International Ratio 3.3 0.9-1.1 Test 02/22/18 07:25 02/22/18 07:41 02/22/18 07:56 02/22/18 11:27 Range/Units Bedside Glucose 66 64 99 166 70-99 mg/dl Assessment and Plan 88 year old male with acute hypoxic hypercapnic respiratory failure, tolerating BiPAP - most likely interstitial lung disease and COPD exacerbation. Suspected community acquired pneumonia. Possible CHF contributory but less likely currently. NSTEMI - suspected ACS given degree of elevation. Acute on chronic hypoxic hypercapnic respiratory failure likely secondary infection and COPD exacerbation - acute exacerbation largely resolved - Continue 4L O2 via NC (baseline O2 requirement) - BiPAP PRN SOB - ideally overnight and throughout the day as tolerated. Patient declining, but strong encouragement advised especially with signs of respiratory distress COPD exacerbation, interstitial lung disease possibly from previous asbestos exposure - Pulmonology consulted, recommendations appreciated - Continue PO prednisone 60mg daily - Continue Symbicort, and Atrovent + Xopenex nebs Pneumonia likely secondary to aspiration - Completed 7 day course of antibiotics - Speech evaluation and fluoroscopy confirmed some dysphagia - recommend MOIST diet (avoid crumbly foods), safe swallow strategies (small bites, small sips, slow rate) and aspiration precautions: straws ok, alert and upright for all intake Acute congestive heart failure with preserved ejection fraction - Echo 65-70% LVEF, no regional wall motion abnormalities. Type 1 diastolic dysfunction. - Currently euvolemic (I/Os show -17 L since admission). Creatinine stable. - Continue PO furosemide 20mg - Trend creatinine NSTEMI - suspected ACS given elevation of troponin vs. demand, chest pain free at present therefore medical management alone - Continue aspirin (started this admission), metoprolol 25mg BID, atorvastatin 40mg daily Paroxysmal atrial fibrillation - SR at present - Continue metoprolol - INR today 3.3, hold home dose warfarin 5mg for today - Trend INR Hyperlipidemia - Continue atorvastatin BPH - Continue terazosin and finasteride Hypothyroidism - Continue levothyroxine T2DM - Appreciate pharmacy glycemic control - Continue Lantus 45 units BID + ISS GERD - Continue pantoprazole VTE prophylaxis - Anticoagulated with warfarin, as above Disposition - For rehab at [facility] when more stable - Palliative consulted: goals of care are to ultimately return home Code Status - DO NOT RESUSCITATE Resident Physician Supervision Note: I interviewed and examined the patient. Discussed with Dr. Ko and agree with findings and plan as documented in the note. Any exceptions or clarifications are listed here: None Documented By: Mohsen Garsia seen this AM doing poorly but just put on bipap, this afternoon doing better again - was on bipap for a while now off vitlas noted nad breathing unlabored but poor air entry severe acute on chronic mixed respiratory failure - apepars to require bipap to help mitigate decompensation - but frequently refuses. reiterated the need. dtr expressed better undesrtanding of this than he did. continue current care otherwise Continued [facility] stay due to: abnormal vital signs Discharge planning: half-way facility Resident Tracking Resident Involvement: Resident Care Provided Care Provided: Adult Hospital Medicine
[2018-02-22] MEDS: SENNA 8.6 MG TAB PO SCH (20:02)
[2018-02-22] MEDS: ATORVASTATIN 20 MG TAB PO SCH (20:03)
[2018-02-22] MEDS ORDERED: NURSING VERBAL MED ORDER ONE (21:15)
[2018-02-22] MEDS ORDERED: BENZONATATE 100MG CAP PO PRN (21:30)
[2018-02-23] VITALS (7 sets, daily range): BP systolic 114–146; BP diastolic 72–98; PULSE 72–108; TEMP 36.6–37; O2SAT 93–97
[2018-02-23] MEDS: LEVALBUTEROL 1.25MG/0.5ML NEB INH SCH ×4 (03:24→15:35)
[2018-02-23] MEDS: IPRATROPIUM BROMIDE NEB SOLN 0.02% 2.5 ML VIAL INH SCH ×4 (03:24→15:35)
[2018-02-23] MEDS: NITROGLYCERIN 2% OINTMENT 30GM TUBE EXT SCH ×2 (04:15→09:19)
[2018-02-23 05:45] LABS: HEMATOCRIT 35.2 % (42-52); HEMOGLOBIN 11.5 g/dL (14.0-18.0); MEAN CELL VOLUME 88.7 fL (80-100); MEAN CORPUSCULAR HGB CONC 32.7 g/dl (32-36); MEAN PLATELET VOLUME 9.9 fL (7.4-10.4); PLATELET COUNT 143 K/uL (130-400); RED CELL DISTRIBUTION WIDTH CV 15.1 % (11.5-14.5); RED CELL DISTRIBUTION WIDTH SD 49.2 fL (36.4-46.3); WHITE BLOOD COUNT 14.91 K/uL (4.8-10.8)
[2018-02-23 05:52] LABS: INR 2.6 (0.9-1.1)
[2018-02-23] MEDS: LEVOTHYROXINE 125 MCG TAB PO SCH (06:15)
[2018-02-23] MEDS: METOCLOPRAMIDE HCL 10 MG TAB PO SCH ×2 (06:15→11:48)
[2018-02-23 06:16] LABS: CALCIUM 8.3 mg/dl (8.5-10.1); CREATININE 1.04 mg/dl (0.60-1.40); POTASSIUM 3.8 mmol/L (3.5-5.1)
[2018-02-23] MEDS: BUDESONIDE/FORMOTEROL FUMARATE 160/4.5 60 PUFFS/INHALER INH SCH (08:24)
[2018-02-23] MEDS: FUROSEMIDE 20 MG TAB PO SCH (08:25)
[2018-02-23] MEDS: FINASTERIDE 5 MG TAB PO SCH (08:25)
[2018-02-23] MEDS: ASPIRIN 81 MG ECTAB PO SCH (08:25)
[2018-02-23] MEDS: MAGNESIUM OXIDE 400 MG TAB PO SCH (08:25)
[2018-02-23] MEDS: GUAIFENESIN 600 MG TABCR PO SCH (08:26)
[2018-02-23] MEDS: MULTIVITAMIN TAB PO SCH (08:26)
[2018-02-23] MEDS: DOCUSATE SODIUM 100 MG CAP PO SCH (08:26)
[2018-02-23] MEDS: METOPROLOL TARTRATE 25 MG TAB PO SCH (08:26)
[2018-02-23] MEDS: POLYETHYLENE (MIRALAX) 17 GM PACK PO SCH (08:27)
[2018-02-23] MEDS: INSULIN ASPART 100 UNITS/ML 3 ML PEN SC SCH ×2 (08:34→11:52)
[2018-02-23] MEDS: INSULIN GLARGINE SOLOSTAR 100 UNITS/ML 3 ML PEN SC SCH (08:35)
[2018-02-23] MEDS ORDERED: [UNRECOGNIZED DRUG - OTHER] EXT (11:29)
[2018-02-23] MEDS ORDERED: ATRINS INH (13:36)
[2018-02-23] MEDS ORDERED: BENZ100C7 PO (13:36)
[2018-02-23] MEDS ORDERED: PRD20 PO (13:36)
[2018-02-23] MEDS ORDERED: XPNINS1255 INH (13:36)
--- NOTE | 2018-02-23 14:17 | Pharmacy Progress Note ---
Glycemic: Assessment & Plan Date of Service February 23, 2018. Assessment & Plan The patient is currently receiving 101 units of insulin per day. BSGs ranging 72 - 224 mg/dl over the past 24hrs. Given elevated afternoon and evening BSG checks yesterday, carb ratio was slightly tightened. No changes to basal insulin at this time. Patient continues on prednisone 60mg QD. * Basal insulin: Lantus scale (30 or 40 units) every morning based on BSG * Correctional Insulin: Novolog Correction per scale @ 0730 Goal Range: Low 120 mg/dL - High 160 mg/dL Correction Factor: 15 mg/dL/unit * Prandial insulin: Per carb ratio of 1 unit per 3 grams CHO consumed * Correctional Insulin: Novolog Correction per scale @ 1100,1645,2100 Goal Range: Low 120 mg/dL - High 160 mg/dL Correction Factor: 15 mg/dL/unit * Prandial insulin: Per carb ratio of 1 unit per 1.5 grams CHO consumed Pharmacy will continue to monitor patient daily and write orders per [facility] inpatient glycemic control protocol. Thanks. * Please note that the plan above was derived based on current level of insulin resistance and hospital stress. These recommendations are appropriate for inpatient admission only. Plan of care upon discharge will need to be reassessed to avoid potential outpatient hypo/hyperglycemia.
== END 2018-02-23 15:57 | DRG 280 ==
LOC: EDBD 21:27 → C.EDB 21:28 → C.MSICU 23:15 → ENRESERV 23:27 → C.2E 02-12 17:01
PROVIDERS: ADMIT Hospitalist; ATTEND Family Medicine
DX: I21.4 Non-ST elevation (NSTEMI) myocardial infarction (principal); I50.30 Unspecified diastolic (congestive) heart failure; J69.0 Pneumonitis due to inhalation of food and vomit; N17.9 Acute kidney failure, unspecified; J44.1 Chronic obstructive pulmonary disease with (acute) exacerbation; J96.21 Acute and chronic respiratory failure with hypoxia; I11.0 Hypertensive heart disease with heart failure; J61 Pneumoconiosis due to asbestos and other mineral fibers; J84.10 Pulmonary fibrosis, unspecified; Z85.828 Personal history of other malignant neoplasm of skin; Z87.891 Personal history of nicotine dependence; I48.91 Unspecified atrial fibrillation; E78.5 Hyperlipidemia, unspecified; N40.1 Benign prostatic hyperplasia with lower urinary tract symptoms; E03.9 Hypothyroidism, unspecified; K21.9 Gastro-esophageal reflux disease without esophagitis; Z99.81 Dependence on supplemental oxygen; Z79.01 Long term (current) use of anticoagulants; I27.20 Pulmonary hypertension, unspecified

== ENCOUNTER → 2018-03-01 | Outpatient (CLI) | payer MEDICARE ==
[~2018-03-01] MED LIST changes: +ASPI-320 PO; +ATRINS INH; +BENEFIBER PO; +BENZ100C7 PO; -CIPR-255 PO; +GFNSR600 PO; -HUMALOG INJ; +INSU100I SQ; +IPRASOL4 INH; +LSX20 PO; +MRLP17 PO; +MULT-506 PO; -OMEG10007 PO; -OXYC-57 PO; +PRD20 PO; +SPIR25TA PO; +TERA5CAP PO; -VNTHFA/IN INH; -WHEATAB2 PO; +XPNINS1255 INH; +[UNRECOGNIZED DRUG - OTHER] EXT
[2018-03-01 09:09] LABS: INR 3.2 (0.9-1.1)
== END ==
LOC: C.LABCC 08:37
PROVIDERS: ATTEND Internal Medicine
DX: I48.91 Unspecified atrial fibrillation (principal)

== ENCOUNTER → 2018-03-03 | Outpatient (CLI) | payer MEDICARE ==
[2018-03-03 08:42] LABS: EOS % 0.8 %; EOS ABS # 0.09 K/uL (0-0.5); HEMATOCRIT 35.4 % (42-52); HEMOGLOBIN 11.3 g/dL (14.0-18.0); IG# 0.05 K/uL (0.00-0.02); LYMPH % 25.1 %; LYMPH ABS # 2.68 K/uL (1.2-3.4); MEAN CELL VOLUME 89.6 fL (80-100); MEAN CORPUSCULAR HEMOGLOBIN 28.6 pg (25-34); MEAN CORPUSCULAR HGB CONC 31.9 g/dl (32-36); MONO % 3.7 %; NEUT % 69.9 %; NEUT ABS # 7.46 K/uL (1.4-6.5); PLATELET COUNT 132 K/uL (130-400); RED CELL DISTRIBUTION WIDTH CV 15.2 % (11.5-14.5); RED CELL DISTRIBUTION WIDTH SD 49.8 fL (36.4-46.3); WHITE BLOOD COUNT 10.68 K/uL (4.8-10.8)
[2018-03-03 09:02] LABS: BLOOD UREA NITROGEN 27 mg/dl (7-18); CALCIUM 8.8 mg/dl (8.5-10.1); CARBON DIOXIDE 35 mmol/L (21-32); CREATININE 1.07 mg/dl (0.60-1.40); GLUCOSE 166 mg/dl (70-99); POTASSIUM 4.3 mmol/L (3.5-5.1); SODIUM 139 mmol/L (136-145)
== END ==
LOC: C.LABCC 08:14
PROVIDERS: ATTEND Internal Medicine
DX: J44.9 Chronic obstructive pulmonary disease, unspecified (principal)

== ENCOUNTER → 2018-03-09 | Outpatient (CLI) | payer MEDICARE ==
[2018-03-09 09:09] LABS: INR 1.7 (0.9-1.1)
== END ==
LOC: C.LABCC 08:29
PROVIDERS: ATTEND Internal Medicine
DX: I48.91 Unspecified atrial fibrillation (principal)

== ENCOUNTER → 2018-03-15 | Outpatient (CLI) | payer MEDICARE ==
[2018-03-15 08:45] LABS: INR 3.9 (0.9-1.1)
== END ==
LOC: C.LABCC 08:02
PROVIDERS: ATTEND Internal Medicine
DX: I48.91 Unspecified atrial fibrillation (principal)

== ENCOUNTER → 2018-05-11 | Outpatient (CLI) | payer MEDICARE ==
[~2018-05-11] MED LIST changes: -BENZ100C7 PO; +FURO-85 PO; -GFNSR600 PO; +IPRA-64 INH; -IPRASOL4 INH; -LSX20 PO; -MRLP17 PO; -PRD20 PO
== END | disposition home or self-care (01) ==
LOC: C.LABSPEC 07:50
PROVIDERS: ATTEND Internal Medicine
DX: I48.91 Unspecified atrial fibrillation (principal); Z79.01 Long term (current) use of anticoagulants

== ENCOUNTER → 2018-05-18 | Outpatient (CLI) | payer MEDICARE ==
[~2018-05-18] MED LIST changes: +ACET-1311 PO; +BI-PAP; +CALMOSEPTINE OINT TOP; +FIBER CHOICE PO; +MIRA100T PO; +OXYM0.0525 NAE; +SALI0.6515 NAE; +TRMCR130WC TOP; +WARF4TAB8 PO
[2018-05-18 09:00] LABS: INR 2.9 (0.9-1.1)
== END | disposition home or self-care (01) ==
LOC: C.LABSPEC 08:36
PROVIDERS: ATTEND Internal Medicine
DX: I48.91 Unspecified atrial fibrillation (principal)

== ENCOUNTER → 2018-05-20 | Outpatient (CLI) | payer MEDICARE ==
[2018-05-20 09:49] LABS: INR 2.4 (0.9-1.1)
== END | disposition home or self-care (01) ==
LOC: C.LABSPEC 08:28
PROVIDERS: ATTEND Internal Medicine
DX: Z51.81 Encounter for therapeutic drug level monitoring (principal); Z79.01 Long term (current) use of anticoagulants

== ENCOUNTER → 2018-05-25 | Outpatient (CLI) | payer MEDICARE ==
[2018-05-25 10:04] LABS: BLOOD UREA NITROGEN 25 mg/dl (7-18); CALCIUM 9.1 mg/dl (8.5-10.1); CARBON DIOXIDE 29 mmol/L (21-32); GLUCOSE 220 mg/dl (70-99); POTASSIUM 3.8 mmol/L (3.5-5.1); SODIUM 138 mmol/L (136-145)
== END | disposition home or self-care (01) ==
LOC: C.LABSPEC 09:00
PROVIDERS: ATTEND Internal Medicine
DX: I50.9 Heart failure, unspecified (principal)

== ENCOUNTER 2018-05-27 19:49 | Emergency (ER) | payer MEDICARE ==
[~2018-05-27] VITALS: Ht 177.8 cm; Wt 113.2 kg
[~2018-05-27 19:49] MED LIST changes: -ACET-1311 PO; -ATOR-24 PO; -BI-PAP; -CALMOSEPTINE OINT TOP; -FIBER CHOICE PO; -FINA5TAB PO; -FURO-85 PO; -METO1TAB55 PO; -MIRA100T PO; -OXYM0.0525 NAE; -SALI0.6515 NAE; -SENN-61 PO; -TRMCR130WC TOP; -WARF4TAB8 PO
[2018-05-27 19:55] VITALS: TEMP 36.8; Ht 177.8 cm; Wt 113.2 kg
--- NOTE | 2018-05-27 20:36 | EMERGENCY ROOM VISIT NOTE ---
History First contact with patient: 20:00 Chief Complaint: ABNORMAL DIAGNOSTIC TESTING Stated Complaint: ABNORMAL CXR, ENLARGED HEART History of Present Illness The patient is a 88 year old male who presents to the Emergency Room with complaints of abnormality on his chest x-ray. He has a significant history of COPD and pulmonary disease as well as CHF. He has had some increasing shortness of breath over the last couple nights. He does wear CPAP. Around 4: 00 morning had some nausea no vomiting. He feels fine at present. he is wearing his baseline 4 L nasal cannula. he has chronic shortness of breath but feels is no different. No chest pain, no fever. he has had a nonproductive cough. No looks of any pain or swelling. No fall. No nausea vomiting diarrhea. He has been eating and drinking okay. No headache neck pain or stiffness no weight gain. Nothing seems to make his symptoms better or worse. Source of History: patient, transfer records, family Review of Systems As above. All other systems reviewed were negative unless otherwise stated in history. At least 10 were reviewed Past Medical/Surgical History Medical Problems: (1) CHF (congestive heart failure) (2) COPD (chronic obstructive pulmonary disease) (3) Cor pulmonale (4) Palliative care encounter (5) Pulmonary fibrosis (6) Skin cancer Old medical records were reviewed. Nurse's notes were reviewed and I agree with. Family History Cancer Diabetes mellitus FH: heart disease Hypertension Social History Smoking Status: Never Smoker Drug Use: none Marital Status: Housing Status: lives alone Occupation Status: retired Current/Historical Medications Scheduled Aspirin (Aspirin EC Low Dose), 81 MG PO QAM Atorvastatin (Lipitor), 40 MG PO HS Budesonide/Formoterol Fumarate (Symbicort 160/4.5 Inhaler), 2 PUFFS INH BID Docusate Sodium (Colace), 100 MG PO DAILY Finasteride (Proscar), 5 MG PO DAILY Furosemide (Lasix), 20 MG PO DAILY Insulin Glargine (Lantus), 42 UNITS SC BID Ipratropium-Albuterol (Duoneb), 3 ML INH QID Levothyroxine Sodium (Synthroid), 125 MCG PO DAILY Magnesium Oxide (Mag-Ox), 400 MG PO BID Metoclopramide Hcl (Reglan), 10 MG PO AC Metoprolol Tartrate (Lopressor) (Lopressor), 25 MG PO BID Mirabegron (Myrbetriq Er), 25 MG PO DAILY Multivitamin (Multivitamin), 1 TAB PO DAILY Oxymetazoline Hcl (Nasal Decongestant [place]), 2 SPRAYS TONY PRN Saline (Saline Mist), 1 SPRAY TONY BID Senna (Senokot), 8.6 MG PO HS Spironolactone (Aldactone), 25 MG PO BID Terazosin (Hytrin), 5 MG PO HS Triamcinolone Acet (Aristocort 0.1%), 1 APPLN TOP PRN Warfarin Sod (Jantoven), 4 MG PO DAILY [Bi-Pap], 4 LITER NA HS [Calmoseptine Oint], 1 APPLN TOP BID [Fiber Choice], 1.5 MG PO DAILY Scheduled PRN Acetaminophen (Tylenol), 650 MG PO Q6 PRN for Pain or Fever Physical Exam Vital Signs Date Time Temp Pulse Resp B/P (MAP) Pulse Ox O2 Delivery O2 Flow Rate FiO2 05/28/18 00:13 83 18 140/85 98 Room Air 05/27/18 23:58 80 20 151/71 100 Nasal Cannula 4.0 05/27/18 23:08 77 20 127/76 97 Nasal Cannula 4.0 05/27/18 22:07 78 18 143/65 Nasal Cannula 4.0 05/27/18 20:56 80 05/27/18 19:55 36.8 86 24 121/67 93 Nasal Cannula 4.0 Physical Exam General: Well developed well nourished chronically ill-appearing older male who is wearing baseline oxygen nasal cannula and appears in in no acute distress, breathing comfortably on room air. Normal speech HEENT: Normal cephalic atraumatic. Pupils are equal round and reactive to light. Extraocular movements are intact. Oropharynx is pink with moist mucous membranes. No swelling of the mouth lips or tongue. Neck: Supple with a midline trachea. No meningeal signs or stiffness, no JVD or bruits. No Stridor. Chest: He has fine crackles in the bases auscultation bilaterally likely consistent with his pulmonary fibrosis. No wheezes or rhonchi. No increased work of breathing. Heart: Regular rate and rhythm without murmurs or gallops. Abdomen: Soft nontender, nondistended without rebound guarding or rigidity. Extremities: No cyanosis clubbing or edema. No calf tenderness or assymetry Spine/Back. Non tender to palpation. No CVA tenderness Skin: Good turgor without rashes. Neurologic exam: Cranial nerves two through 12 are intact. Motor and sensation are intact and symmetrical throughout. Medical Decision & Procedures Laboratory Results 05/27/18 21:20 Red Blood Count 3.46, Mean Corpuscular Volume 93.9, Mean Corpuscular Hemoglobin 29.5, Mean Corpuscular Hemoglobin Concent 31.4, Mean Platelet Volume 10.3, Neutrophils (%) (Auto) 45.8, Lymphocytes (%) (Auto) 41.5, Monocytes (%) (Auto) 8.7, Eosinophils (%) (Auto) 2.9, Basophils (%) (Auto) 0.6, Neutrophils # (Auto) 4.01, Lymphocytes # (Auto) 3.62, Monocytes # (Auto) 0.76, Eosinophils # (Auto) 0.25, Basophils # (Auto) 0.05 05/27/18 21:20 Test 05/27/18 21:20 05/27/18 21:32 05/27/18 21:33 White Blood Count 8.73 K/uL (4.8-10.8) Red Blood Count 3.46 M/uL (4.7-6.1) Hemoglobin 10.2 g/dL (14.0-18.0) Hematocrit 32.5 % (42-52) Mean Corpuscular Volume 93.9 fL (80-100) Mean Corpuscular Hemoglobin 29.5 pg (25-34) Mean Corpuscular Hemoglobin Concent 31.4 g/dl (32-36) Platelet Count 202 K/uL (130-400) Mean Platelet Volume 10.3 fL (7.4-10.4) Neutrophils (%) (Auto) 45.8 % Lymphocytes (%) (Auto) 41.5 % Monocytes (%) (Auto) 8.7 % Eosinophils (%) (Auto) 2.9 % Basophils (%) (Auto) 0.6 % Neutrophils # (Auto) 4.01 K/uL (1.4-6.5) Lymphocytes # (Auto) 3.62 K/uL (1.2-3.4) Monocytes # (Auto) 0.76 K/uL (0.11-0.59) Eosinophils # (Auto) 0.25 K/uL (0-0.5) Basophils # (Auto) 0.05 K/uL (0-0.2) RDW Standard Deviation 53.8 fL (36.4-46.3) RDW Coefficient of Variation 15.6 % (11.5-14.5) Immature Granulocyte % (Auto) 0.5 % Immature Granulocyte # (Auto) 0.04 K/uL (0.00-0.02) Prothrombin Time 19.7 SECONDS (9.0-12.0) Prothromb Time International Ratio 1.9 (0.9-1.1) Activated Partial Thromboplast Time 31.0 SECONDS (21.0-31.0) Partial Thromboplastin Ratio 1.2 Anion Gap 5.0 mmol/L (3-11) Est Creatinine Clear Calc Drug Dose 51.6 ml/min Estimated GFR () 58.5 Estimated GFR (Non- 50.5 BUN/Creatinine Ratio 19.8 (10-20) Calcium Level 8.9 mg/dl (8.5-10.1) Total Bilirubin 0.2 mg/dl (0.2-1) Direct Bilirubin < 0.1 mg/dl (0-0.2) Aspartate Amino Transf (AST/SGOT) 23 U/L (15-37) Alanine Aminotransferase (ALT/SGPT) 22 U/L (12-78) Alkaline Phosphatase 48 U/L (45-117) Total Protein 7.1 gm/dl (6.4-8.2) Albumin 3.2 gm/dl (3.4-5.0) Lipase 37 U/L (73-393) Bedside Lactic Acid Venous 1.13 mmol/L (0.90-1.70) Bedside Troponin I < 0.030 ng/ml (0-0.045) Medications Administered Medications (Trade) Dose Ordered Sig/Yoli Route Start Time Stop Time Status Last Admin Dose Admin Furosemide (Lasix Inj) 40 mg NOW STAT IV 05/27/18 22:48 05/27/18 22:49 DC 05/27/18 23:10 40 MG ECG Per My Interpretation Indication: SOB/dyspnea Rate (beats per minute): 70 Rhythm: normal sinus Findings: PAC, RBBB Change: no significant change Change: No acute ischemic changes. No significant change compared to the most recent EKG on 04-29-2018 Medical Decision Differential diagnosis includes: CHF, COPD, pneumonia, sepsis, cardiac disease, electrolyte or metabolic abnormalities This patient is an 88-year-old white male who comes in as described above. He appears to be at his normal baseline wearing his oxygen nasal cannula at present. I have reviewed his records. IV access established blood cultures was obtained. EKG and chest x-ray were obtained here as well as multiple blood testing. He was reassessed frequently. I discussed his care with his family was also at the bedside. EKG does not show any acute ischemic changes chest x- ray shows cardiomegaly with potentially some CHF versus chronic changes. He has no acute electrolyte or metabolic abnormality. He has nothing to suggest infection, namely he has no fever, white count, focal infiltrate, elevation of lactic acid. He says he is at his normal baseline. I do think there may be a fluid overload aspect. I compared his chest x-ray today compared to baseline and I think a lot of this is actually chronic. He does probably have some chronic CHF as well as chronic pulmonary disease. He was given Lasix 40 mEq IV here. He has no significant electrolyte or metabolic abnormalities. I talked the patient at length he says he feels fine and is at his normal baseline and strongly desires to [facility] family agrees with I think this is reasonable with close follow-up. He was diuresing. I encouraged him to return if he has recurrence of symptoms, shortness of breath, any new problems or concerns he was happy the plan and discharged home Medication Reconcilliation Current Medication List: was personally reviewed by me Impression Primary Impression: Shortness of breath Additional Impression: CHF (congestive heart failure) Departure Information Referrals Diana Ayala [facility] (PCP) Patient Instructions My [facility] Problem Qualifiers
[2018-05-27] MEDS ORDERED: FURO-85 PO (20:59)
--- NOTE | 2018-05-27 21:13 | DIAGNOSTIC IMAGING REPORT ---
CHEST ONE VIEW PORTABLE CLINICAL HISTORY: CHEST PAIN dyspnea COMPARISON STUDY: 04/29/2018 FINDINGS: Moderate cardiomegaly. Components of congestive heart failure present. Pulmonary vasculature is prominent. IMPRESSION: Congestive heart failure The above report was generated using voice recognition software. It may contain grammatical, syntax or spelling errors. Electronically signed by: Gregory Serrano M.D. 05/27/2018 9:12 PM Dictated Date/Time: 05/27/2018 9:12 PM
[2018-05-27 21:48] LABS: BASO % 0.6 %; BASO ABS # 0.05 K/uL (0-0.2); EOS % 2.9 %; EOS ABS # 0.25 K/uL (0-0.5); HEMATOCRIT 32.5 % (42-52); HEMOGLOBIN 10.2 g/dL (14.0-18.0); IG# 0.04 K/uL (0.00-0.02); LYMPH % 41.5 %; LYMPH ABS # 3.62 K/uL (1.2-3.4); MEAN CELL VOLUME 93.9 fL (80-100); MEAN CORPUSCULAR HEMOGLOBIN 29.5 pg (25-34); MEAN CORPUSCULAR HGB CONC 31.4 g/dl (32-36); MEAN PLATELET VOLUME 10.3 fL (7.4-10.4); MONO % 8.7 %; MONO ABS # 0.76 K/uL (0.11-0.59); NEUT % 45.8 %; NEUT ABS # 4.01 K/uL (1.4-6.5); PLATELET COUNT 202 K/uL (130-400); RED CELL DISTRIBUTION WIDTH CV 15.6 % (11.5-14.5); RED CELL DISTRIBUTION WIDTH SD 53.8 fL (36.4-46.3); WHITE BLOOD COUNT 8.73 K/uL (4.8-10.8)
[2018-05-27 21:57] LABS: INR 1.9 (0.9-1.1)
[2018-05-27 22:09] LABS: ALBUMIN 3.2 gm/dl (3.4-5.0); ALKALINE PHOSPHATASE 48 U/L (45-117); ALT/SGPT 22 U/L (12-78); AST/SGOT 23 U/L (15-37); BLOOD UREA NITROGEN 25 mg/dl (7-18); CALCIUM 8.9 mg/dl (8.5-10.1); CARBON DIOXIDE 32 mmol/L (21-32); CREATININE 1.27 mg/dl (0.60-1.40); GLUCOSE 161 mg/dl (70-99); LIPASE 37 U/L (73-393); POTASSIUM 4.2 mmol/L (3.5-5.1); SODIUM 138 mmol/L (136-145); TOTAL PROTEIN 7.1 gm/dl (6.4-8.2)
[2018-05-27] MEDS ORDERED: FUROSEMIDE 40 MG/4 ML VIAL IV STA (22:48)
[2018-05-27] MEDS ORDERED: CALMOSEPTINE OINT TOP (22:59)
[2018-05-27] MEDS ORDERED: FIBER CHOICE PO (22:59)
[2018-05-27] MEDS ORDERED: SALI0.6515 NAE (22:59)
[2018-05-27] MEDS ORDERED: BI-PAP (22:59)
[2018-05-27] MEDS ORDERED: MIRA100T PO (22:59)
[2018-05-27] MEDS ORDERED: ACET-1311 PO (22:59)
[2018-05-27] MEDS ORDERED: OXYM0.0525 NAE (22:59)
[2018-05-27] MEDS ORDERED: TRMCR130WC TOP (22:59)
[2018-05-27] MEDS ORDERED: WARF4TAB8 PO (22:59)
[2018-05-27] MEDS ORDERED: FINA5TAB PO (23:17)
[2018-05-27] MEDS ORDERED: ATOR-24 PO (23:19)
[2018-05-27] MEDS ORDERED: METO1TAB55 PO (23:22)
[2018-05-27] MEDS ORDERED: SENN-61 PO (23:26)
[2018-05-28 00:13] VITALS: BP 140/85; PULSE 83; O2SAT 98
== END 2018-05-28 00:30 | disposition home or self-care (01) ==
LOC: C.EDB 19:51 → C.EDC 05-28 00:30
DX: I50.9 Heart failure, unspecified (principal); J44.9 Chronic obstructive pulmonary disease, unspecified; Z85.828 Personal history of other malignant neoplasm of skin; Z99.81 Dependence on supplemental oxygen; Z80.9 Family history of malignant neoplasm, unspecified; Z83.3 Family history of diabetes mellitus; Z82.49 Family history of ischemic heart disease and other diseases of the circulatory system; Z79.82 Long term (current) use of aspirin; Z79.899 Other long term (current) drug therapy; Z79.4 Long term (current) use of insulin

== ENCOUNTER → 2018-06-08 | Outpatient (CLI) | payer MEDICARE ==
[~2018-06-08] MED LIST changes: +ACET-1311 PO; +ATOR-24 PO; -ATRINS INH; -BENEFIBER PO; +BI-PAP; +CALMOSEPTINE OINT TOP; +FIBER CHOICE PO; +FINA5TAB PO; +FURO-85 PO; -INSU100I SQ; +METO1TAB55 PO; +MIRA100T PO; -OXGN; +OXYM0.0525 NAE; +SALI0.6515 NAE; +SENN-61 PO; +TRMCR130WC TOP; +WARF4TAB8 PO; -WARF5TAB7 PO; -XPNINS1255 INH; -[UNRECOGNIZED DRUG - OTHER] EXT
[2018-06-08 08:47] LABS: INR 1.7 (0.9-1.1)
== END | disposition home or self-care (01) ==
LOC: C.LABSPEC 08:01
PROVIDERS: ATTEND Internal Medicine
DX: I48.91 Unspecified atrial fibrillation (principal)

== ENCOUNTER → 2018-06-09 | Outpatient (CLI) | payer MEDICARE ==
[~2018-06-09] MED LIST changes: +ACET-1693 PO; +ASPI81TA28 PO; +ATV5 PO; +CALMOSEPTINE TOP; +DXY100 PO; +INSU100I SC; +INUL1CHW2 PO; +LEVO125T5 PO; +METO-157 PO; +MULT-411 PO; +NTRGSL/4 UT; +PRED20TA PO; +RXNS10 PO; +TRIA0.5C4 TOP; +WARF1TAB6 PO; +WARF6TAB5 PO
[2018-06-09 20:20] LABS: INR 1.7 (0.9-1.1)
== END | disposition home or self-care (01) ==
LOC: C.LAB 09:00
PROVIDERS: ATTEND Internal Medicine
DX: I48.91 Unspecified atrial fibrillation (principal)

== ENCOUNTER → 2018-06-13 | Outpatient (CLI) | payer MEDICARE ==
[2018-06-13 10:12] LABS: INR 1.6 (0.9-1.1)
== END | disposition home or self-care (01) ==
LOC: C.LABSPEC 09:51
PROVIDERS: ATTEND Internal Medicine
DX: I48.91 Unspecified atrial fibrillation (principal)

== ENCOUNTER → 2018-06-15 | Outpatient (CLI) | payer MEDICARE ==
[2018-06-15 08:31] LABS: BLOOD UREA NITROGEN 28 mg/dl (7-18); CALCIUM 8.8 mg/dl (8.5-10.1); CARBON DIOXIDE 30 mmol/L (21-32); CREATININE 1.29 mg/dl (0.60-1.40); GLUCOSE 172 mg/dl (70-99); SODIUM 138 mmol/L (136-145)
[2018-06-15 08:37] LABS: INR 1.7 (0.9-1.1)
== END | disposition home or self-care (01) ==
LOC: C.LABSPEC 08:01
PROVIDERS: ATTEND Internal Medicine
DX: I48.91 Unspecified atrial fibrillation (principal); Z79.01 Long term (current) use of anticoagulants